=== PATIENT | male | born 1960 | race Two or more races ===

== ENCOUNTER 2020-11-14 09:01 | Day surgery (SDC) | payer MEDICARE, MEDICAID, SELFPAY ==
[2020-11-06 10:09] VITALS: BMI 16.7
--- NOTE | 2020-11-13 09:26 | HO.ANESPROP2 ---
HPI - Anesthesia Eval Consult details Narrative: 60yo M for Colonoscopy PMFSH Past Medical History Medical History Anemia Anxiety Depression GERD (gastroesophageal reflux disease) Hiatal hernia History of dysphagia History of heroin abuse Hx of gastritis Smoker Family History Family History Father No problems noted. Mother CVD (cardiovascular disease) Myocardial infarction Family/Other FH: mental illness Surgical History Surgical History History of esophagogastroduodenoscopy (EGD) History of prostate surgery Hx of colonoscopy Social History Social History Smoking Status: Current every day smoker Packs Per Day: 0.5 Cigarettes Per Day: 10.0 Years Smoked: 30 Smoked in Last 30 Days: Yes Use of substances other than those prescribed or required for medical reasons: Unknown Substance Use Type Other:: HX Heroin Abuse- on Suboxone Advance Directives: No Advance Directives Information Provided: No Advance Directives on File: No Meds Allergies Allergy/AdvReac Type Severity Reaction Status Date / Time No Known Allergies Allergy Verified 11/06/20 10:03 [No Known Allergies*] Home Medications Medication Instructions Recorded Confirmed Type buprenorphine-naloxone [Suboxone] 1 film BUCCAL DAILY 11/06/20 11/14/20 History isoniazid 300 mg PO DAILY 11/06/20 11/06/20 History multivitamin 1 tab PO DAILY 11/06/20 11/06/20 History omeprazole 20 mg PO DAILY 11/06/20 11/06/20 History quetiapine [Seroquel] 100 mg PO BEDTIME 11/06/20 11/06/20 History Exam Exam Date and Time: November 13, 2020 0926 Height,Weight and Vital Signs: Height 5 ft 9 in Weight 51.4 kg Assessment and Plan Assessment Anesthesia Assessment: Chart Reviewed
--- NOTE | 2020-11-14 09:15 | MHC.SHP ---
Pre-Procedural Eval Section B Chief Complaint: TA'S OF THE COLON Relevant Social History: Tobacco Use Present Medications: see Short Stay Collaborative assessment Medical History: Significant History (Anemia Anxiety Depression GERD (gastroesophageal reflux disease) Hiatal hernia History of dysphagia History of heroin abuse Hx of gastritis Smoker) History of Previous Operations: Relevant previous surgery/procedure and date(s) (prostate surgery) Allergies: Allergies Allergy/AdvReac Type Severity Reaction Status Date / Time No Known Allergies Allergy Verified 11/06/20 10:03 [No Known Allergies*] Review of Systems Sugical H&P ROS: Negative: Constitution, Cardiovascular, Respiratory, Neurological, Psychiatric, Hem-Onc, Allergic/Immunologic, Gastrointestinal, Genitourinary, Musculoskeletal, Integumentary, Endocrine and Eyes/Ears/Nose/Throat Exam Surgical H&P Exam: Normal: HEENT, Normal: Heart, Normal: Lungs, Normal: Extremities, Normal: Abdomen, Normal: Skin and Normal: Neurological Plan Diagnosis/Plan: Unchanged I have reviewed the history and physical and performed a pertinent physical examination on my patient. No changes have occurred unless specified.
[2020-11-14 09:32] VITALS: BP 112/48; PULSE 73; RESP 18; TEMP 36.3; O2SAT 97
--- NOTE | 2020-11-14 09:39 | HO.ANESPROP2 ---
[facility] Past Medical History Medical History Anemia Anxiety Depression GERD (gastroesophageal reflux disease) Hiatal hernia History of dysphagia History of heroin abuse Hx of gastritis Smoker Family History Family History Father No problems noted. Mother CVD (cardiovascular disease) Myocardial infarction Family/Other FH: mental illness Surgical History Surgical History History of esophagogastroduodenoscopy (EGD) History of prostate surgery Hx of colonoscopy Social History Social History Smoking Status: Current every day smoker Packs Per Day: 0.5 Cigarettes Per Day: 10.0 Years Smoked: 30 Smoked in Last 30 Days: Yes Use of substances other than those prescribed or required for medical reasons: Unknown Substance Use Type Other:: HX Heroin Abuse- on Suboxone Advance Directives: No Advance Directives Information Provided: No Advance Directives on File: No Meds Allergies Allergy/AdvReac Type Severity Reaction Status Date / Time No Known Allergies Allergy Verified 11/06/20 10:03 [No Known Allergies*] Home Medications Medication Instructions Recorded Confirmed Type buprenorphine-naloxone [Suboxone] 1 film BUCCAL DAILY 11/06/20 11/06/20 History isoniazid 300 mg PO DAILY 11/06/20 11/06/20 History multivitamin 1 tab PO DAILY 11/06/20 11/06/20 History omeprazole 20 mg PO DAILY 11/06/20 11/06/20 History quetiapine [Seroquel] 100 mg PO BEDTIME 11/06/20 11/06/20 History Exam Exam Date and Time: November 14, 2020 0939 Height,Weight and Vital Signs: Height 5 ft 9 in Weight 51.4 kg Airway Mallampati Class: II TM Dist: >3cm Neck ROM: Full Heart: RRR Lungs: CTA
[2020-11-14] MEDS: Lactated Ringers 1,000 ML 100 ML IVCONT (09:49)
--- NOTE | 2020-11-14 10:03 | P.BOP_ITS ---
Brief Operative Note Date of Service: 11/14/20 Pre-op diagnosis: colon screening Post-op diagnosis: same Procedure: Operative Information Procedure Description: Colonoscopy COLONOSCOPY Instrument: Olympus variable stiffness pediatric scope 190L Colonoscopy Monitoring: Vital signs and clinical assessment, continuous EKG monitoring, Pulse oximetry, Carbon Dioxide monitoring and blood pressure monitoring were done throughout the procedure. Colon withdrawal time was 10 minutes. Procedure: The patient was placed in the left lateral decubitis position and pre-procedure medications were administered. After a digital rectal examination of the ano-rectum, the video colonoscope was inserted into the rectum and advanced through the colon to the cecum/TI. The colonoscope was slowly withdrawn in a retrograde panoramic fashion and the colon mucosa was carefully examined including a retroflexed view of the rectum. Findings and interventions are described below. Procedure Difficulty:easy Findings: Terminal Ileum-normal Cecum:normal Ascending Colon: normal Transverse Colon -normal Descending Colon:normal Sigmoid Colon: normal Rectum: Retroflexion with small internal hemorrhoids, grade I, few hyperplastic appearing polyps, biopsy excised for confirmation ,measured about 6-8 mm Anorectum - normal Colon preparation: [place] Bowel Preparation Scale Right colon; 3 Transverse colon: 3 Left colon; 3 (0 = Unprepared colon segment with mucosa not seen due to solid stool that cannot be cleared. 1 = Portion of mucosa of the colon segment seen, but other areas of the colon segment not well seen due to staining, residual stool and/or opaque liquid. 2 = Minor amount of residual staining, small fragments of stool and/or opaque liquid, but mucosa of colon segment seen well. 3 = Entire mucosa of colon segment seen well with no residual staining, small fragments of stool or opaque liquid) Impression and Post Procedure Diagnosis: polyps internal hemorrhoids Plan: High fiber diet leaflet Avoid straining at stool, epsom salts and sitz bath, anusol supps or cream Repeat Colonoscopy in 5 years if adenomatous polyps, 10 yrs if hyperplastic or earlier if clinically indicated Above findings were reviewed with the patient and relevant handouts were provided if indicated. Surgeon: Kieran Aviles MD Anesthesia: MAC Estimated blood loss (mL): 0 Condition: stable Disposition: PACU
[2020-11-14 10:26] VITALS: BP 85/42; PULSE 74; RESP 16; TEMP 36.3; O2SAT 98
[2020-11-14 10:29] VITALS: BP 95/47; PULSE 74; RESP 12; O2SAT 98
--- NOTE | 2020-11-14 10:38 | HO.POSTANES ---
Post Anesthesia Evaluation Post Anesthesia Evaluation Vital Signs: Vital Signs Temp Pulse Resp BP Pulse Ox 11/14/20 10:29 74 12 95/47 L 98 11/14/20 10:26 97.3 F 74 16 85/42 L 98 11/14/20 09:32 97.3 F 73 18 112/48 L 97 Anesthesia: Monitored Mental Status: Awake Pain Control: Satisfactory Nausea/Vomiting: None Hydration: Adequate Anesthesia-Related Issues: No Anes. Related Issues
[2020-11-14 10:41] VITALS: BP 109/65; PULSE 71; RESP 13; TEMP 36.3; O2SAT 99
--- NOTE | 2020-11-14 11:06 | HO.POSTANES ---
Post Anesthesia Evaluation Post Anesthesia Evaluation Vital Signs: Vital Signs Temp Pulse Resp BP Pulse Ox 11/14/20 10:41 97.3 F 71 13 109/65 99 11/14/20 10:29 74 12 95/47 L 98 11/14/20 10:26 97.3 F 74 16 85/42 L 98 11/14/20 09:32 97.3 F 73 18 112/48 L 97 Anesthesia: Monitored Mental Status: Awake Pain Control: Satisfactory Nausea/Vomiting: None Hydration: Adequate Anesthesia-Related Issues: No Anes. Related Issues
--- NOTE | 2020-11-29 11:15 | W.PM.OPN ---
Operative Note Operative Note Date of Service: 11/29/20 Narrative: Date of Service: 11/14/20 Pre-op diagnosis: colon screening Post-op diagnosis: same Procedure: Operative Information Procedure Description: Colonoscopy COLONOSCOPY Instrument: Olympus variable stiffness pediatric scope 190L Colonoscopy Monitoring: Vital signs and clinical assessment, continuous EKG monitoring, Pulse oximetry, Carbon Dioxide monitoring and blood pressure monitoring were done throughout the procedure. Colon withdrawal time was 10 minutes. Procedure: The patient was placed in the left lateral decubitis position and pre-procedure medications were administered. After a digital rectal examination of the ano-rectum, the video colonoscope was inserted into the rectum and advanced through the colon to the cecum/TI. The colonoscope was slowly withdrawn in a retrograde panoramic fashion and the colon mucosa was carefully examined including a retroflexed view of the rectum. Findings and interventions are described below. Procedure Difficulty:easy Findings: Terminal Ileum-normal Cecum:normal Ascending Colon: normal Transverse Colon -normal Descending Colon:normal Sigmoid Colon: normal Rectum: Retroflexion with small internal hemorrhoids, grade I, few hyperplastic appearing polyps, biopsy excised for confirmation ,measured about 6-8 mm Anorectum - normal Colon preparation: [place] Bowel Preparation Scale Right colon; 3 Transverse colon: 3 Left colon; 3 (0 = Unprepared colon segment with mucosa not seen due to solid stool that cannot be cleared. 1 = Portion of mucosa of the colon segment seen, but other areas of the colon segment not well seen due to staining, residual stool and/or opaque liquid. 2 = Minor amount of residual staining, small fragments of stool and/or opaque liquid, but mucosa of colon segment seen well. 3 = Entire mucosa of colon segment seen well with no residual staining, small fragments of stool or opaque liquid) Impression and Post Procedure Diagnosis: polyps internal hemorrhoids Plan: High fiber diet leaflet Avoid straining at stool, epsom salts and sitz bath, anusol supps or cream Repeat Colonoscopy in 5 years if adenomatous polyps, 10 yrs if hyperplastic or earlier if clinically indicated
== END 2020-11-14 12:10 | disposition home or self-care (01) ==
PROVIDERS: Visit Provider Internal Medicine Gastroenterology
PROC: 0DJD8ZZ Inspection of Lower Intestinal Tract, Via Natural or Artificial Opening Endoscopic (ICD-10-PCS; CPT 45378; principal; 2020-11-14 10:20)
DX: Z12.11 Encounter for screening for malignant neoplasm of colon (principal); Z86.010 Personal history of colon polyps; K62.1 Rectal polyp; K57.30 Diverticulosis of large intestine without perforation or abscess without bleeding; K64.0 First degree hemorrhoids; F32.9 Major depressive disorder, single episode, unspecified; F11.20 Opioid dependence, uncomplicated; F17.210 Nicotine dependence, cigarettes, uncomplicated; Z79.899 Other long term (current) drug therapy
CPT/HCPCS: 45380; 88305

== ENCOUNTER → 2020-11-22 13:03 | Outpatient (BNVA) | payer MEDICARE, MEDICAID, SELFPAY | PROVIDERS: PCP Internal Medicine; Visit Provider Physician Assistant | DX: Z13.89 Encounter for screening for other disorder (principal) | CPT/HCPCS: Q3014 ==

== ENCOUNTER 2021-07-26 07:37 | Outpatient (REF) | payer MEDICARE, MEDICAID, SELFPAY ==
--- NOTE | ~2021-07-26 | XR_ITS ---
EXAMINATION: XR FOOT, LEFT CLINICAL INFORMATION: Pain in left foot COMPARISON: None TECHNIQUE: AP, lateral, and oblique views of the left foot. FINDINGS: Small plantar calcaneal osteophyte. There is enthesopathy of the distal Achilles tendon attachment. No fracture or dislocation. Otherwise normal mineralization and alignment. XR/XR foot LT 2V IMPRESSION: No acute osseous abnormality of the left foot.
[2021-07-26 08:04] LABS: MANUAL DIFF FLAG NO
[2021-07-26 08:06] LABS: Basophils Percent Auto 0.4 % (0-2); Eosinophils Absolute Auto 0.2 X10*3/uL (0.0-0.4); Eosinophils Percent Auto 2.1 % (0-4); Hematocrit 39.5 % (42-52); Hemoglobin 12.3 g/dl (14.0-18.0); Imm Gran Abs Auto 0.04 X10*3/uL (0.00-0.03); Imm Gran Pct Auto 0.4 % (0.0-0.4); Lymphocytes Absolute Auto 2.9 X10*3/uL (1.2-4.9); Lymphocytes Percent Auto 30.2 % (20-40); Mean Corpuscular HGB Conc 31.1 g/dl (31.0-36.0); Mean Corpuscular Hemoglobin 31.5 pg (27.0-33.0); Mean Corpuscular Volume 101.3 fL (80-98); Mean Platelet Volume 9.8 fL (9.4-12.4); Monocytes Absolute Auto 0.7 X10*3/uL (0.1-1.2); Monocytes Percent Auto 7.8 % (2-11); Neutrophils Absolute Auto 5.6 X10*3/uL (2.0-8.3); Neutrophils Percent Auto 59.1 % (45-73); Platelet Count 239 X10*3/uL (160-400); Red Cell Distribution Width 12.5 % (11.0-16.0); White Blood Count 9.5 X10*3/uL (4.8-10.8)
[2021-07-26 08:38] LABS: Alanine Aminotransferase 13 U/L (0-40); Albumin Level 4.3 g/dL (3.5-5.0); Alkaline Phosphatase 64 U/L (39-117); Anion Gap 11 (12-20); Aspartate Amino Transferase 18 U/L (5-37); Bilirubin Total 0.9 mg/dL (0.0-1.0); Blood Urea Nitrogen 17 mg/dL (9-16); Calcium 9.8 mg/dL (8.4-10.2); Carbon Dioxide 29 mmol/L (22-29); Chloride 106 mmol/L (96-108); Cholesterol 193 mg/dL; Estimated Glomerular Filt Rate > 60; Glucose Fasting 116 mg/dL (60-99); HDL Cholesterol 63 mg/dL; LDL Cholesterol Calculated 118 mg/dl; Potassium 4.2 mmol/L (3.3-5.1); Sodium 142 mmol/L (135-145); Total Protein 7.2 g/dL (6.5-8.0); Triglycerides 61 mg/dL
== END 2021-07-26 07:38 | disposition home or self-care (01) ==
LOC: HO.LAB 07:37
PROVIDERS: PCP Internal Medicine; Visit Provider Internal Medicine
DX: M79.672 Pain in left foot (principal); D64.9 Anemia, unspecified; F33.0 Major depressive disorder, recurrent, mild; E78.5 Hyperlipidemia, unspecified
CPT/HCPCS: 36415; 73620; 80053; 80061; 85025

== ENCOUNTER 2022-04-19 10:04 | Emergency (ER) | payer MEDICARE, MEDICAID, SELFPAY ==
--- NOTE | ~2022-04-19 | MR_ITS ---
EXAMINATION: MR LUMBAR SPINE WITHOUT AND WITH CONTRAST CLINICAL INFORMATION: Pain. Lower leg pain and weakness. History of IVDA. COMPARISON: None TECHNIQUE: MRI of the lumbar spine was obtained using routine sequences with and without contrast. Intravenous contrast: Gadavist 5.5 mL. FINDINGS: VERTEBRAL BODIES AND PARASPINAL STRUCTURES: 5 lumbar type vertebral bodies are identified vertebral body height and alignment are normal in appearance. No suspicious marrow abnormalities are identified. No abnormal vertebral body enhancement or enhancement of the intervertebral discs is visualized. No abnormal enhancement is associated with the lumbar facet joints. CONUS MEDULLARIS AND CAUDA EQUINA: Normal, terminating at the level of T12. SPINAL LEVELS: T12-L1: Normal. Normal intervertebral disc. No central or foraminal stenoses. L1-L2: Normal L2-L3: Normal L3-L4: Minimal posterior broad-based disc bulge. No associated nerve root impingement or significant central or foraminal stenoses. Normal intervertebral disc height. Mild bilateral ligamentum flavum hypertrophy. L4-L5: Mild posterior broad-based disc bulge minimally effacing the ventral thecal sac CSF space and minimally abutting the traversing left and right L5 nerve roots. No significant foraminal stenoses. Mild bilateral ligamentum flavum hypertrophy. L5-S1: Minimal posterior broad-based disc bulge without associated nerve root impingement. No foraminal or central stenoses. No abnormal enhancement of the lumbar spine is visualized. MR/MR lumbar spine wo/w con IMPRESSION: *Mild multilevel chronic spondylosis of lumbar spine. At L4-L5, a mild posterior broad-based disc bulge minimally abuts the traversing left and right L5 nerve roots; elsewhere within the lumbar spine, no direct nerve root impingement or significant central or foraminal stenoses are noted. *No evidence of discitis-osteomyelitis.
[2022-04-19 10:10] VITALS: BP 110/90; BP 159/75; PULSE 80; PULSE 82; RESP 18; TEMP 36.8; O2SAT 95; O2SAT 96; BMI 21.2
[2022-04-19] MEDS: 0.9 % Sodium Chloride 1,000 ML 999 ML IV (10:26)
[2022-04-19 10:31] LABS: Basophils Percent Auto 0.3 % (0-2); Eosinophils Percent Auto 0.1 % (0-4); Hematocrit 37.2 % (42.0-52.0); Hemoglobin 11.7 g/dl (14.0-18.0); Imm Gran Abs Auto 0.05 X10*3/uL (0.00-0.03); Imm Gran Pct Auto 0.4 % (0.0-0.4); Lymphocytes Percent Auto 17.2 % (20-40); MANUAL DIFF FLAG NO; Mean Corpuscular HGB Conc 31.5 g/dl (31.0-36.0); Mean Corpuscular Hemoglobin 31.1 pg (27.0-33.0); Mean Corpuscular Volume 98.9 fL (80.0-98.0); Mean Platelet Volume 9.4 fL (9.4-12.4); Monocytes Absolute Auto 0.6 X10*3/uL (0.1-1.2); Monocytes Percent Auto 5.3 % (2-11); Neutrophils Absolute Auto 8.9 x10*3/uL (2.0-8.3); Neutrophils Percent Auto 76.7 % (45-73); Platelet Count 254 X10*3/uL (160-400); Red Blood Count 3.76 X10*6/uL (4.60-5.80); Red Cell Distribution Width 12.3 % (11.0-16.0); White Blood Count 11.6 X10*3/uL (4.8-10.8)
[2022-04-19 10:54] LABS: Ethanol < 10 mg/dL
[2022-04-19 11:01] LABS: Alanine Aminotransferase 28 U/L (0-40); Albumin Level 4.1 g/dL (3.5-5.0); Alkaline Phosphatase 89 U/L (39-117); Anion Gap 15 (12-20); Aspartate Amino Transferase 26 U/L (5-37); Bilirubin Total 0.6 mg/dL (0.0-1.0); Blood Urea Nitrogen 17 mg/dL (9-16); Calcium 9.4 mg/dL (8.4-10.2); Carbon Dioxide 26 mmol/L (22-29); Chloride 105 mmol/L (96-108); Creatinine Clr Calc Pharmacy 70.5; Estimated Glomerular Filt Rate > 60; Glucose Random 163 mg/dL (60-115); Lipase 5 U/L (8-78); Potassium 4.1 mmol/L (3.3-5.1); Sodium 142 mmol/L (135-145); Total Protein 7.1 g/dL (6.5-8.0)
--- NOTE | 2022-04-19 11:25 | ED_ITS ---
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 Patient does also report that he has been dizzy and felt like he cannot support himself on his legs. Related Data Home Medications Medication Instructions Recorded Confirmed methadone 10 mg/5 mL oral solution 39 mg PO DAILY ml 01/15/22 01/15/22 quetiapine 25 mg tablet 25 mg PO BEDTIME 04/19/22 04/19/22 Allergies Allergy/AdvReac Type Severity Reaction Status Date / Time No Known Allergies Allergy Verified 01/15/22 14:17 [No Known Allergies*] Review of Systems Review of Systems Pertinent positives and negatives as stated HPI 10 point review systems is otherwise negative. PMFSH Past Medical History Source: nursing notes reviewed Medical History Anemia Anxiety Depression Depression GERD (gastroesophageal reflux disease) Hemorrhoids Hiatal hernia History of dysphagia History of heroin abuse Hx of gastritis Left foot pain Mild recurrent major depression Physical exam Smoker Surgical History History of esophagogastroduodenoscopy (EGD) History of prostate surgery Hx of colonoscopy Family History Family History Father No problems noted. Mother CVD (cardiovascular disease) Myocardial infarction Family/Other FH: mental illness Other Substance use disorder Social History Social History Household Members Other:: lives with sister Housing: House Alcohol intake: former Patient Tobacco Use Status: Current everyday Tobacco user Cigarette Packs Per Day: 0.5 Cigarettes Per Day: 10.0 Years Smoked: 30 Smoked in Last 30 Days: Yes e-Cigarette/Vaping Use: Never Used Second Hand Smoke Exposure: No Use of substances other than those prescribed or required for medical reasons: No Advance Directives: No Advance Directives Information Provided: Yes service: No Current occupational status: disabled Physical Exam ED Vital Signs: Vital Signs - 24 hr 04/19/22 10:10 04/19/22 11:45 Temperature 98.2 F Pulse Rate 82 78 Respiratory Rate 18 18 Blood Pressure 159/75 H 124/49 L Pulse Oximetry 96 99 BMI result Body Mass Index 21.2 VITAL SIGNS: Reviewed. GENERAL: Well developed, well nourished, in moderate distress. HEAD: Normocephalic/atraumatic EYES: PERRLA, EOMI EARS: Ext canals without abnormality, TMs non-bulging and non-erythematous NOSE: Nares patent bilateral OROPHARYNX: no oral lesions noted, posterior pharynx clear LUNGS: Normal breath sounds. No adventitious sounds or accessory muscle use. SpO2<96> CARDIOVASCULAR: Regular rate and rhythm without noted murmurs, no JVD or lower extremity edema. ABDOMEN: Soft, epigastric without rebound non-distended with bowel sounds, no peritonitis MUSCULOSKELETAL: No tenderness, deformities, or effusions noted on gross inspection. EXTREMITIES: No cyanosis, clubbing or edema. SKIN: Inspection of the skin reveals no rashes NEUROLOGIC: Alert and oriented x 4. Strength and sensation to light touch were grossly intact x 4, otherwise nonfocal Course Course Course Narrative: 62-year-old male with history and clinical presentation suggestive of possible withdraw from heroin versus gastritis/pancreatitis. Review of all investigations in the contacts of patient history concerning for the possibility of spinal abscess or diskitis given his history of IVDA. However, MRI of spine is negative for evidence of this. Patient is otherwise hemodynamically stable for discharge to home as he has been able to tolerate oral intake without difficulty and on ambulation trial is otherwise steady. There is no evidence of electrolyte abnormality. MDM - Abdominal Pain Lab Data Result diagrams: 04/19/22 10:25 04/19/22 10:25 Labs: Lab Results 04/19/22 04/19/22 04/19/22 Range/Units 10:25 10:25 10:25 WBC 11.6 H (4.8-10.8) X10*3/uL RBC 3.76 L (4.60-5.80) X10*6/uL Hgb 11.7 L (14.0-18.0) g/dl Hct 37.2 L (42.0-52.0) % MCV 98.9 H (80.0-98.0) fL MCH 31.1 (27.0-33.0) pg MCHC 31.5 (31.0-36.0) g/dl RDW 12.3 (11.0-16.0) % Plt Count 254 (160-400) X10*3/uL MPV 9.4 (9.4-12.4) fL Immature Gran % (Auto) 0.4 (0.0-0.4) % Neut % (Auto) 76.7 H (45-73) % Lymph % (Auto) 17.2 L (20-40) % [place] % (Auto) 5.3 (2-11) % Eos % (Auto) 0.1 (0-4) % Baso % (Auto) 0.3 (0-2) % Lymph # (Auto) 2.0 (1.2-4.9) X10*3/uL [place] # (Auto) 0.6 (0.1-1.2) X10*3/uL Eos # (Auto) 0.0 (0.0-0.4) X10*3/uL Baso # (Auto) 0.0 (0.0-0.2) X10*3/uL Abs Immat Gran (auto) 0.05 H (0.00-0.03) X10*3/uL Absolute Neuts (auto) 8.9 H (2.0-8.3) x10*3/uL Absolute Nucleated RBC 0.000 (0.0-0.012) X10*3/uL Nucleated RBC % (auto) 0.0 (0.0-0.2) /100WBC ESR (0-15) MM/HR Sodium 142 (135-145) mmol/L Potassium 4.1 (3.3-5.1) mmol/L Chloride 105 (96-108) mmol/L Carbon Dioxide 26 (22-29) mmol/L Anion Gap 15 (12-20) BUN 17 H (9-16) mg/dL Creatinine 0.89 (0.5-1.4) mg/dL Estim Creat Clear Calc 70.5 Estimated GFR > 60 Random Glucose 163 H (60-115) mg/dL Calcium 9.4 (8.4-10.2) mg/dL Total Bilirubin 0.6 (0.0-1.0) mg/dL AST 26 D (5-37) U/L ALT 28 (0-40) U/L Alkaline Phosphatase 89 D (39-117) U/L C-Reactive Protein 1.19 H (< or = 0.50) mg/dL Total Protein 7.1 (6.5-8.0) g/dL Albumin 4.1 (3.5-5.0) g/dL Lipase 5 L (8-78) U/L Urine Opiates Screen (Not Detect) Urine Fentanyl Screen (Not Detect) Ur Barbiturates Screen (Not Detect) Ur Phencyclidine Scrn (Not Detect) Ur Amphetamines Screen (Not Detect) U Benzodiazepines Scrn (Not Detect) Urine Cocaine Screen (Not Detect) U Marijuana (THC) Screen (Not Detect) Ethyl Alcohol < 10 mg/dL COVID-19 ([facility]) (Negative) COVID-19 Clin Com 04/19/22 04/19/22 04/19/22 Range/Units 10:25 13:32 13:33 WBC (4.8-10.8) X10*3/uL RBC (4.60-5.80) X10*6/uL Hgb (14.0-18.0) g/dl Hct (42.0-52.0) % MCV (80.0-98.0) fL MCH (27.0-33.0) pg MCHC (31.0-36.0) g/dl RDW (11.0-16.0) % Plt Count (160-400) X10*3/uL MPV (9.4-12.4) fL Immature Gran % (Auto) (0.0-0.4) % Neut % (Auto) (45-73) % Lymph % (Auto) (20-40) % Good[place] % (Auto) (2-11) % Eos % (Auto) (0-4) % Baso % (Auto) (0-2) % Lymph # (Auto) (1.2-4.9) X10*3/uL [place] # (Auto) (0.1-1.2) X10*3/uL Eos # (Auto) (0.0-0.4) X10*3/uL Baso # (Auto) (0.0-0.2) X10*3/uL Abs Immat Gran (auto) (0.00-0.03) X10*3/uL Absolute Neuts (auto) (2.0-8.3) x10*3/uL Absolute Nucleated RBC (0.0-0.012) X10*3/uL Nucleated RBC % (auto) (0.0-0.2) /100WBC ESR 44 H (0-15) MM/HR Sodium (135-145) mmol/L Potassium (3.3-5.1) mmol/L Chloride (96-108) mmol/L Carbon Dioxide (22-29) mmol/L Anion Gap (12-20) BUN (9-16) mg/dL Creatinine (0.5-1.4) mg/dL Estim Creat Clear Calc Estimated GFR Random Glucose (60-115) mg/dL Calcium (8.4-10.2) mg/dL Total Bilirubin (0.0-1.0) mg/dL AST (5-37) U/L ALT (0-40) U/L Alkaline Phosphatase (39-117) U/L C-Reactive Protein (< or = 0.50) mg/dL Total Protein (6.5-8.0) g/dL Albumin (3.5-5.0) g/dL Lipase (8-78) U/L Urine Opiates Screen POSITIVE H (Not Detect) Urine Fentanyl Screen POSITIVE H (Not Detect) Ur Barbiturates Screen Not Detected (Not Detect) Ur Phencyclidine Scrn Not Detected (Not Detect) Ur Amphetamines Screen Not Detected (Not Detect) U Benzodiazepines Scrn Not Detected (Not Detect) Urine Cocaine Screen Not Detected (Not Detect) U Marijuana (THC) Screen Not Detected (Not Detect) Ethyl Alcohol mg/dL COVID-19 ([facility]) Negative (Negative) COVID-19 Clin Com See Note Discharge Plan Discharge Clinical Impression: Musculoskeletal leg pain, Intravenous drug user Patient Disposition: Home, Self-Care Instructions: Polysubstance Abuse (ED), Musculoskeletal Pain (ED) Additional Instructions: 1. Reanudar todos los medicamentos caseros seg?n lo prescrito. 2. No hay evidencia de gwen?n absceso saucdea o infecci?n que explique mejor melany s?ntomas actuales. 3. Seguimiento con busby proveedor de atenci?n primaria. Regrese a la zhane de emergencias si los s?ntomas empeoran. Prescriptions: No Action quetiapine 25 mg tablet 25 mg PO BEDTIME 0RF methadone 10 mg/5 mL solution 39 mg PO DAILY 0RF Referrals: Emmanuel Sandra MD [Primary Care Provider] - Print Language: English
[2022-04-19] MEDS: ondansetron HCL 4 MG/2 ML VIAL IVPUSH (11:43)
[2022-04-19 11:45] VITALS: BP 124/49; PULSE 78; RESP 18; O2SAT 99
[2022-04-19 13:56] LABS: C Reactive Protein 1.19 mg/dL (< or = 0.50)
[2022-04-19 13:56] LABS: COVID-19 Test Negative (Negative); IDNOW Serial# 08D9AD1C
[2022-04-19 14:02] LABS: Amphetamine Screen Urine Not Detected (Not Detect); Barbiturates, Urine Not Detected (Not Detect); Benzodiazepines Screen Urine Not Detected (Not Detect); Cannabinoid Screen Urine Not Detected (Not Detect); Cocaine Screen Urine Not Detected (Not Detect); Fentanyl, urine POSITIVE (Not Detect); Opiate Screen Urine POSITIVE (Not Detect); Phencyclidine Screen Urine Not Detected (Not Detect)
[2022-04-19 14:15] LABS: Erythrocyte Sedimentation Rate 44 MM/HR (0-15)
--- NOTE | 2022-04-19 16:15 | PC.NURSE ---
pt a&ox3, requesting methadone, MRI paperwork completed w pt via product control and logistics analyst. pt to MRI.
--- NOTE | 2022-04-19 19:13 | PC.NURSE ---
Called patient's nephew ([phone]) to get patient. No response, left a voicemail.
== END 2022-04-19 19:57 | disposition home or self-care (01) ==
PROVIDERS: Emergency Provider Student in an Organized Health Care Education/Training Program; PCP Student in an Organized Health Care Education/Training Program
DX: R10.9 Unspecified abdominal pain (principal); F11.10 Opioid abuse, uncomplicated; M79.605 Pain in left leg; M79.604 Pain in right leg; M54.50 Low back pain, unspecified; R11.2 Nausea with vomiting, unspecified; F17.210 Nicotine dependence, cigarettes, uncomplicated; Z20.822 Contact with and (suspected) exposure to COVID-19; Z79.899 Other long term (current) drug therapy; Z71.6 Tobacco abuse counseling
CPT/HCPCS: 36415; 72158; 80053; 80307; 82077; 83690; 85025; 85652; 86140; 87635; 96374; 96375; 99284; A9585; J2405

== ENCOUNTER → 2022-06-12 14:33 | Outpatient (BNVA) | payer MEDICARE, MEDICAID, SELFPAY | PROVIDERS: PCP Internal Medicine; Visit Provider Surgery Vascular Surgery | DX: I73.9 Peripheral vascular disease, unspecified (principal) | CPT/HCPCS: 99212 ==

== ENCOUNTER 2022-07-02 13:36 | Outpatient (REF) | payer MEDICARE, MEDICAID, SELFPAY ==
--- NOTE | ~2022-07-02 | US_ITS ---
EXAMINATION: ANKLE-BRACHIAL INDICES SINGLE LEVEL PULSE VOLUME RECORDING ARTERIAL DUPLEX BILATERAL LEGS CLINICAL INFORMATION: Peripheral vascular disease COMPARISON: None TECHNIQUE: Ankle-brachial indices and PVR at the ankle were obtained. Duplex Doppler of the bilateral lower extremity arterial systems was performed. FINDINGS: RIGHT: Ankle-brachial index: 0.41 PVR: Abnormal Common femoral: PSV 55 cm/s. Monophasic waveform. Deep femoral: PSV 74 cm/s. Triphasic waveform. Proximal superficial femoral: PSV 106 cm/s. Monophasic waveform. Mid superficial femoral: PSV 60 cm/s. Monophasic waveform. Distal superficial femoral: PSV 55 cm/s. Monophasic waveform. Popliteal: PSV 48 cm/s. Monophasic waveform. Posterior tibial: PSV 35 cm/s. Monophasic waveform. LEFT: Ankle-brachial index: 0.50 PVR: Abnormal Common femoral: PSV 62 cm/s. Monophasic waveform. Deep femoral: PSV 57 cm/s. Triphasic waveform. Proximal superficial femoral: PSV 64 cm/s. Monophasic waveform. Mid superficial femoral: PSV 70 cm/s. Monophasic waveform. Distal superficial femoral: PSV 49 cm/s. Monophasic waveform. Popliteal: PSV 34 cm/s. Monophasic waveform. Posterior tibial: PSV 27 cm/s. Monophasic waveform. US/US CRISTIAN complete IMPRESSION: Right lower extremity: CRISTIAN consistent with severe peripheral vascular disease. Monophasic common femoral artery suggestive of upstream disease. Left lower extremity: CRISTIAN consistent with moderate peripheral vascular disease. Monophasic common femoral artery suggestive of upstream disease.
--- NOTE | ~2022-07-02 | US_ITS ---
EXAMINATION: ANKLE-BRACHIAL INDICES SINGLE LEVEL PULSE VOLUME RECORDING ARTERIAL DUPLEX BILATERAL LEGS CLINICAL INFORMATION: Peripheral vascular disease COMPARISON: None TECHNIQUE: Ankle-brachial indices and PVR at the ankle were obtained. Duplex Doppler of the bilateral lower extremity arterial systems was performed. FINDINGS: RIGHT: Ankle-brachial index: 0.41 PVR: Abnormal Common femoral: PSV 55 cm/s. Monophasic waveform. Deep femoral: PSV 74 cm/s. Triphasic waveform. Proximal superficial femoral: PSV 106 cm/s. Monophasic waveform. Mid superficial femoral: PSV 60 cm/s. Monophasic waveform. Distal superficial femoral: PSV 55 cm/s. Monophasic waveform. Popliteal: PSV 48 cm/s. Monophasic waveform. Posterior tibial: PSV 35 cm/s. Monophasic waveform. LEFT: Ankle-brachial index: 0.50 PVR: Abnormal Common femoral: PSV 62 cm/s. Monophasic waveform. Deep femoral: PSV 57 cm/s. Triphasic waveform. Proximal superficial femoral: PSV 64 cm/s. Monophasic waveform. Mid superficial femoral: PSV 70 cm/s. Monophasic waveform. Distal superficial femoral: PSV 49 cm/s. Monophasic waveform. Popliteal: PSV 34 cm/s. Monophasic waveform. Posterior tibial: PSV 27 cm/s. Monophasic waveform. US/US arterial duplex LE BI IMPRESSION: Right lower extremity: CRISTIAN consistent with severe peripheral vascular disease. Monophasic common femoral artery suggestive of upstream disease. Left lower extremity: CRISTIAN consistent with moderate peripheral vascular disease. Monophasic common femoral artery suggestive of upstream disease.
== END 2022-07-02 13:37 | disposition home or self-care (01) ==
LOC: HO.US 13:36
PROVIDERS: Visit Provider Internal Medicine
DX: I73.9 Peripheral vascular disease, unspecified (principal)
CPT/HCPCS: 93923; 93925

== ENCOUNTER → 2022-07-17 13:54 | Outpatient (BNVA) | payer OTHER, SELFPAY | PROVIDERS: PCP Internal Medicine; Visit Provider Surgery Vascular Surgery | DX: I73.9 Peripheral vascular disease, unspecified (principal); F17.210 Nicotine dependence, cigarettes, uncomplicated | CPT/HCPCS: 99212 ==

== ENCOUNTER 2022-07-30 07:12 | Day surgery (SDC) | payer OTHER, SELFPAY ==
[2022-07-30] VITALS (8 sets, daily range): BP systolic 105–130; BP diastolic 53–64; PULSE 62–71; RESP 16–18; TEMP 36.9; O2SAT 97–100; BMI 19.3
[2022-07-30 08:15] LABS: MANUAL DIFF FLAG NO
[2022-07-30 08:20] LABS: Basophils Absolute Auto 0.1 X10*3/uL (0.0-0.2); Basophils Percent Auto 0.8 % (0-2); Eosinophils Absolute Auto 0.2 X10*3/uL (0.0-0.4); Hematocrit 38.3 % (42.0-52.0); Hemoglobin 12.2 g/dl (14.0-18.0); Imm Gran Abs Auto 0.03 X10*3/uL (0.00-0.03); Imm Gran Pct Auto 0.3 % (0.0-0.4); Lymphocytes Absolute Auto 3.5 X10*3/uL (1.2-4.9); Lymphocytes Percent Auto 35.6 % (20-40); Mean Corpuscular HGB Conc 31.9 g/dl (31.0-36.0); Mean Corpuscular Hemoglobin 31.4 pg (27.0-33.0); Mean Corpuscular Volume 98.5 fL (80.0-98.0); Mean Platelet Volume 9.4 fL (9.4-12.4); Monocytes Absolute Auto 0.7 X10*3/uL (0.1-1.2); Monocytes Percent Auto 7.5 % (2-11); Neutrophils Absolute Auto 5.3 x10*3/uL (2.0-8.3); Neutrophils Percent Auto 53.8 % (45-73); Platelet Count 284 X10*3/uL (160-400); Red Blood Count 3.89 X10*6/uL (4.60-5.80); Red Cell Distribution Width 12.4 % (11.0-16.0); White Blood Count 9.9 X10*3/uL (4.8-10.8)
[2022-07-30 08:32] LABS: Anion Gap 14 (12-20); Blood Urea Nitrogen 19 mg/dL (9-16); Calcium 9.3 mg/dL (8.4-10.2); Carbon Dioxide 28 mmol/L (22-29); Chloride 105 mmol/L (96-108); Creatinine Clr Calc Pharmacy 53.3; Estimated Glomerular Filt Rate > 60; Glucose Random 98 mg/dL (60-115); Potassium 4.5 mmol/L (3.3-5.1); Sodium 142 mmol/L (135-145)
--- NOTE | 2022-07-30 11:52 | P.OP_ITS ---
Operative Note Operative Note Date of Service: 07/30/22 Narrative: Angiogram report from [facility] Preoperative diagnosis: Atherosclerosis of bilateral lower extremity with activity limiting claudication Postoperative diagnosis: Same Procedure: 1. Ultrasound-guided right common femoral access 2. Aortogram non selective Surgeon:Delio Law M.D., FACS, RPVI [place]:None Anesthesia: Local with moderate conscious sedation. Total intraservice moderate sedation time was 21 minutes. I monitored the patient's level of consciousness and physiologic status continuously throughout the procedure. Specimens:none Drains:none Estimated blood loss: Less than 10 ml Implant: None Indications: 62-year-old gentleman with severe activity limiting claudication left more so than right now presents for endovascular intervention The patient has signed the informed consent after reviewing risks, complications, benefits, and alternatives previously discussed with the patient. The patient was given the opportunity to ask any additional questions or voice any concerns. All questions were answered to the patient's satisfaction. Procedure in detail: Patient was brought to the angiography suite prior to which a time-out was called for patient identification and site verification. Bilateral groins were prepped and draped in the standard surgical fashion. Under ultrasound guidance right common femoral was punctured with micro puncture needle and wire. Subsequently a precision 4 Mosotho sheath was then placed. Aortogram was then undertaken. We were unable to advance catheter wire or sheath further. We undertook multiple orthogonal views. Procedure was terminated. Interpretation of films: 1. Ultrasound demonstrates appropriate femoral puncture. Image of which was saved. 2. Aortogram demonstrates appropriate caliber aorta. 3. Iliac images demonstrate right side diseased common iliac and external iliac reconstitutes at the common femoral there was the origin of the SFA and profundus. Left side total occlusion Conclusion: 1. Diagnostic angiogram only. Patient will require most likely and aortobifemoral bypass. 2. Anticoagulation status: No change This note is constructed using voice recognition software. While every effort has been made to ensure accuracy, quill cleaning machine operator errors may have been included. Thank you for allowing me to participate in the care of your patient. Yours sincerely, Delio Law MD, FACS, R.P.V.I.
== END 2022-07-30 15:55 | disposition home or self-care (01) ==
PROVIDERS: PCP Internal Medicine; Visit Provider Surgery Vascular Surgery
DX: I70.213 Atherosclerosis of native arteries of extremities with intermittent claudication, bilateral legs (principal); M79.672 Pain in left foot; D64.9 Anemia, unspecified; F33.0 Major depressive disorder, recurrent, mild; F41.1 Generalized anxiety disorder; F11.10 Opioid abuse, uncomplicated; F17.210 Nicotine dependence, cigarettes, uncomplicated
CPT/HCPCS: 36246; 36415; 75630; 76937; 80048; 85025; 99152; C1887; J2250; J3010; Q9967

== ENCOUNTER 2022-08-04 13:16 | Outpatient (REF) | payer OTHER, SELFPAY ==
--- NOTE | ~2022-08-04 | CT_ITS ---
EXAMINATION: CT ANGIOGRAM ABDOMEN AND PELVIS WITH RUN-OFF CLINICAL INFORMATION: Peripheral arterial disease. COMPARISON: Ultrasound from 07/02/2022 TECHNIQUE: Multiple axial images were obtained through the abdomen, pelvis, and lower extremities following the administration of 100 mL of Omnipaque 350 intravenous contrast. Sagittal, coronal, and MIP oblique sagittal reformatted images were obtained on the CT workstation, uploaded to PACS, and reviewed. Images were evaluated on independent dedicated 3-D workstation and 3-D images were reconstructed with concurrent radiologist supervision and subsequently interpreted. This CT examination was performed using dose optimization techniques as appropriate, variously including the following: *Automated exposure control *Adjustment of mA and/or kV according to patient size (this includes techniques or standardized protocols for targeted exams where dose is matched to indication/reason for exam; i.e. extremities or head) *Use of iterative reconstruction technique DLP: 649 mGy-cm FINDINGS: VASCULATURE: Aorta: Normal in caliber. Scattered calcified and noncalcified plaque without significant stenosis. Celiac axis, superior mesenteric artery, inferior mesenteric artery and bilateral renal arteries are patent without significant stenosis. Right iliac arteries: Common iliac artery demonstrates eccentric calcified plaque with mild stenosis. The internal iliac artery is patent. There is chronic appearing occlusion of the right external iliac artery. Left iliac arteries: There is occlusion of the entire left common iliac and external iliac artery. Reconstituted flow is seen in the internal iliac artery Right lower extremity: Reconstituted flow is seen in the common femoral artery from collateral vessels. Calcified plaque is seen with mild stenosis. Profunda femoral artery is patent. Superficial femoral artery is patent without significant stenosis. Popliteal artery demonstrates mild scattered calcified plaque without significant stenosis. Below knee runoff demonstrates patent flow in the anterior tibial artery, posterior tibial artery and peroneal artery without significant stenosis. Left lower extremity: Reconstituted flow is seen in the common femoral artery from collateral vessels. Noncalcified and calcified plaque is seen with mild stenosis. Profunda femoral artery is patent. Superficial femoral artery is patent without significant stenosis. Popliteal artery demonstrates mild scattered calcified plaque without significant stenosis. Below knee runoff demonstrates patent flow in the anterior tibial artery, posterior tibial artery and peroneal artery without significant stenosis. NONVASCULAR: Lung bases are clear. Solid abdominal organs are unremarkable. Bowel loops are unremarkable. No free fluid seen in the abdomen and pelvis. Urinary bladder is unremarkable. No pathologic lymphadenopathy or mass lesion seen in the abdomen and pelvis. Osseous structures are intact. CT/CT angio abd aorta runoff IMPRESSION: 1. Chronic-appearing total occlusion of the right external iliac artery. Calcified plaque and mild stenosis seen in the common iliac artery with patent flow into the internal iliac artery. Reconstituted flow seen in the right common femoral artery. No significant stenosis or occlusion in the right femoral, popliteal and below-knee runoff 2. Chronic-appearing total occlusion of the left common iliac and external iliac artery. Reconstituted flow seen in the left common femoral artery. No significant stenosis or occlusion in the left femoral, popliteal and below-knee runoff
[2022-08-04] MEDS: iohexoL 350 MG/ML 100 ML INFUS..BTL IV (14:10)
== END 2022-08-04 13:17 | disposition home or self-care (01) ==
LOC: HO.CT 13:16
PROVIDERS: PCP Internal Medicine; Visit Provider Surgery Vascular Surgery
DX: I74.09 Other arterial embolism and thrombosis of abdominal aorta (principal); I73.9 Peripheral vascular disease, unspecified
CPT/HCPCS: 75635; Q9967

== ENCOUNTER → 2022-08-07 14:25 | Outpatient (BNVA) | payer OTHER, SELFPAY | PROVIDERS: PCP Internal Medicine; Visit Provider Surgery Vascular Surgery | DX: I74.09 Other arterial embolism and thrombosis of abdominal aorta (principal) | CPT/HCPCS: 99212 ==

== ENCOUNTER → 2022-08-27 11:31 | Outpatient (BNVA) | payer OTHER, SELFPAY | PROVIDERS: PCP Internal Medicine; Referring Provider Internal Medicine; Visit Provider Internal Medicine Cardiovascular Disease | DX: Z01.810 Encounter for preprocedural cardiovascular examination (principal); I74.09 Other arterial embolism and thrombosis of abdominal aorta | CPT/HCPCS: 93005; 99202 ==

== ENCOUNTER → 2022-08-28 15:00 | Outpatient (BNVA) | payer OTHER, SELFPAY | PROVIDERS: PCP Internal Medicine; Visit Provider Internal Medicine Pulmonary Disease | DX: R91.8 Other nonspecific abnormal finding of lung field (principal); J44.9 Chronic obstructive pulmonary disease, unspecified | CPT/HCPCS: 99202 ==

== ENCOUNTER → 2022-09-03 10:05 | Outpatient (REF) | payer OTHER, SELFPAY ==
--- NOTE | ~2022-09-03 | NM_ITS ---
Lexiscan Myocardial perfusion study Indication: Preoperative cardiovascular evaluation Technique: The patient was brought in for a Lexiscan perfusion study on 09/03/2022 and was injected 0.4 mg of Lexiscan intravenously. Within a minute of this injection 25 mCi of sestamibi was given intravenously. Images were obtained using the SPECT gamma camera interlaced with the gating device. Images were obtained in supine position. Resting perfusion study was performed on 09/04/2022. Patient was administered 25 mCi of sestamibi intravenously at rest. Images were then obtained in supine position. Images were processed with the software and compared side to side in short axis, horizontal long axis and vertical long axis views. Total DLP 70mGy-cm. Findings: Raw acquisition reviewed. The stress perfusion study showed markedly reduced tracer uptake across most of the myocardium. Most likely all technical. Could be related to some diaphragmatic uptake. The gated study shows low normal LV systolic function with calculated LVEF of 53%. LV cavity is normal in size. The gated study shows normal wall thickening and contraction of segments. Resting study shows diminished tracer uptake along the inferior wall. There is some improvement with CT attenuation correction and could be related to diaphragmatic attenuation artifact. Gating at rest reveals normal wall motion with ejection fraction at 59%. Study is markedly suboptimal due to poor stress image quality. Hence cannot assess for any reversible or fixed defects. NM/NM adelso perf SPECT rest & str Impression: 1. Myocardial perfusion imaging study not interpretable. Consider alternate modalities as clinically indicated. 2. Gated LVEF is 53% during stress and 59% during rest. 3. Transient ischemic dilatation not present. EKG component of the test reported separately.
== END ==
LOC: HO.CARD 10:05
PROVIDERS: PCP Internal Medicine; Visit Provider Internal Medicine Cardiovascular Disease
DX: Z01.818 Encounter for other preprocedural examination (principal)
CPT/HCPCS: 78452; A9500; J0280; J2785

== ENCOUNTER → 2022-09-04 14:33 | Outpatient (REF) | payer OTHER, SELFPAY ==
--- NOTE | 2022-09-03 10:09 | CA_ITS ---
Acquisition Time: 2022-09-03 10:51:22 Total Exercise Time: 00:02:00 Test Indications: Pre-Op Evaluation PVD Medications: METHADONE Protocol: LEXISCAN Max HR: 122 BPM 77% of Pred: 158 BPM Max BP: 112/068 mmHG Max Work Load: 1.0 METS Pharmacological stress test with Lexiscan injection, while sitting and kicking his legs, with severe abdominal discomfort ( cramping), without anginal symptoms, without arrythmia, with normotensive response to injection, with nondiagnostic EKG for ischemia. In recovery he was treated with Aminophylline 75mg IVP to reverse Lexiscan with resolution of abdominal discomfort. Nuclear images pending. Test reviewed with Dr Perez. Referred By: Wolf Perez Overread By: PAULINA NAVARRO
--- NOTE | 2022-09-04 14:37 | CA_ITS ---
Transthoracic Echocardiogram Patient (Last, First, Middle): Babatunde Guajardo, Gender: Male Date of : 1960 Age: 62 Procedure Date: 09/04/2022 Procedure Type: Transthoracic Echocardiogram Location: OP Height: 172.72 cm Weight: 54.43 kg BSA: 1.65 m2 Heart Rate: 75 bpm BP: 118 / 64 mmHg Manager Fund: SB Referring MD: Wolf Perez MD Symptoms: Z01.810 - Encounter for preprocedural cardiovascular examination Study Quality: Adequate ECG Rhythm: Sinus Conclusions: - Normal left ventricular cavity size. There is normal left ventricular wall thickness. The left ventricular systolic function is borderline reduced. The visually estimated ejection fraction is between 45-50%. - E/E prime ratio is between 8 and 15 consistent with indeterminate filling pressures. - Normal right ventricular cavity size and systolic function. Findings Left Ventricle Normal left ventricular cavity size. There is normal left ventricular wall thickness. The left ventricular systolic function is borderline reduced. The visually estimated ejection fraction is between 45-50%. Abnormal diastolic function is noted. Spectral Doppler is indicative of an impaired relaxation filling pattern. E/E prime ratio is between 8 and 15 consistent with indeterminate filling pressures. Right Ventricle Normal right ventricular cavity size and systolic function. Atria The left atrium is normal in size. The right atrium is normal in size. Aortic Valve There is a normal trileaflet aortic valve. There is mild calcification of the aortic valve. There is no aortic valve stenosis. There is no aortic valve regurgitation. Mitral Valve The mitral valve appears normal. There is no mitral valve regurgitation. There is no mitral valve stenosis. Pulmonic Valve Normal pulmonic valve structure and function. There is trace pulmonic valve regurgitation. Tricuspid Valve Normal tricuspid valve structure and function. There is trace tricuspid valve regurgitation. Normal right atrial pressure. There is no evidence of pulmonary hypertension. Great Vessels All visible segments of the aorta are normal in size. The visualized portions of the pulmonary artery and branches are normal. Venous The inferior vena cava is normal in size and collapses greater than 50% with inspiration. Pericardium/Pleural There is no evidence of pericardial effusion. Prior Study Comparison No prior study available for comparison. Measurements 2D Linear Measurements IVSd: 0.76 0.6-0.9/0.6-1.0 cm LVIDd: 5.10 3.9-5.3/4.2-5.9 cm LVIDd Index: 3.09 2.4-3.2/2.2-3.1 cm/m2 LVIDs: 4.20 2.0-3.6 cm LVPWd: 0.64 0.7-1.1 cm LA Diam: 3.30 2.7-3.8/3.0-4.0 cm LAIDs Index: 2.00 1.5-2.3 cm/m2 LV Mass: 147.92 67-162/88-224 g LV Mass Index: 89.65 43-95/49-115 g/m2 LVOT Diam: 2.20 3.0+(-)1.3 cm 2D Systolic Function EF 4C: 45.30 >55% EF 2C: 57.70 >55% EF BiP: 52.40 >55% Mitral Valve MV Pk E: 0.78 MV PK A: 0.66 MV Decel Time: 223.00 E/A: 1.20 E'Lateral: 9.68 E'Medial: 6.74 E/E' Med: 11.50 E/E' Lat: 8.00 PHT: 65.00 MVA PHT: 3.38 Decel Bond: 3.48 Aortic Valve AoV Pk César: 1.04 AoV Pk Grad: 4.00 LVOT LVOT Pk César: 0.81 LVOT Mn César: 0.53 LVOT VTI: 0.15 LVOT Pk Grad: 3.00 LVOT Mn Grad: 1.00 LVOT Diam: 2.20 LVOT Area: 3.80 Diastolic Function MV Pk E: 0.78 MV Pk A: 0.66 E/A: 1.20 E'Medial: 6.74 E/E' Med: 11.50 E' Laterial: 9.68 E/E' Lat: 8.00 Right Ventricle TAPSE (mm): 20.40 TVS' César: 11.10 Tricuspid Valve TR Pk César: 2.40 TR Pk Grad: 23.00 RA Press: 3.00 RVSP: 26.00 Great Vessels Aorta Sinus of Valsalva: 3.50 2.0-3.5 cm Pulmonary Veins Pulm Vein S/D 1.30 Pulmonary Valve PV Pk César: 0.88 Peak PV Grad: 3.00 Updated in Other Vendor System with Status of Final Wolf Perez MD electronically signed on 09/06/2022 7:52:27 PM with status of Final
== END ==
LOC: HO.CARD 14:33
PROVIDERS: PCP Internal Medicine; Visit Provider Internal Medicine Cardiovascular Disease
DX: Z01.810 Encounter for preprocedural cardiovascular examination (principal)
CPT/HCPCS: 93017; 93306

== ENCOUNTER → 2022-09-09 10:44 | Outpatient (REF) | payer OTHER, SELFPAY ==
--- NOTE | 2022-09-09 10:52 | CA_ITS ---
Acquisition Time: 2022-09-09 10:55:26 Total Exercise Time: 00:17:05 Test Indications: PREOP Medications: SEE CHART Protocol: DOBUTAMINE Max HR: 139 BPM 87% of Pred: 158 BPM Max BP: 142/070 mmHG Max Work Load: 1.0 METS Pharmacological stress test with Dobutamine infusion to max of 20mcg/kg/min while kicking his legs achieving 88% MPHR, without anginal symptoms, without arrythmia, with normotensive response to injection, without EKG changes meeting criteria for ischemia. Echo images obtained by tech at rest, at 10mcg/kg/min and again at 20mcg/kg/min. Definity contrast used. Test reviewed with Dr Vaughan Referred By: Thi Mcfadden Overread By: THI MCFADDEN
== END ==
LOC: HO.CARD 10:44
PROVIDERS: PCP Internal Medicine; Visit Provider Nurse Practitioner Family
DX: Z01.818 Encounter for other preprocedural examination (principal); I73.9 Peripheral vascular disease, unspecified
CPT/HCPCS: 93351; J1250; Q9957

== ENCOUNTER 2022-09-17 12:37 | Outpatient (REF) | payer OTHER, SELFPAY ==
--- NOTE | ~2022-09-17 | CT_ITS ---
EXAMINATION: CT CHEST WITHOUT CONTRAST CLINICAL INFORMATION: Abnormal lung findings. COMPARISON: Chest x-ray 11/23/2019 TECHNIQUE: Multidetector volumetric CT imaging of the chest was done. Axial MIP volume rendering provided. Sagittal and coronal reformatted images were obtained. This CT examination was performed using dose optimization techniques as appropriate, variously including the following: *Automated exposure control *Adjustment of mA and/or kV according to patient size (this includes techniques or standardized protocols for targeted exams where dose is matched to indication/reason for exam; i.e. extremities or head) *Use of iterative reconstruction technique DLP: 110 mGy-cm FINDINGS: EDITOR DEPARTMENT: Well-expanded lungs. LUNGS: There is mild centrilobular and paraseptal emphysema without any acute consolidation. There is minimal bilateral apical pleural thickening and parenchymal scarring. No pulmonary nodules, mass or ground-glass density seen. There is no bronchiectasis seen. Mild thickening of right superior major fissure. No interstitial thickening seen. MEDIASTINUM: Thyroid lobes are symmetrical and normal. Central trachea and the bronchi are widely patent. Heart size and the great vessels are normal caliber. No pericardial effusion seen. No abnormal-sized mediastinal or hilar lymph nodes seen. CORONARY ARTERY CALCIFICATION: None visualized on this study. PLEURA: There is no pleural effusion. No pleural mass or thickening. AXILLA: No lymphadenopathy. UPPER ABDOMEN: Visualized liver, spleen, pancreas and bilateral adrenal glands are unremarkable. OSSEOUS STRUCTURES: Unremarkable. CT/CT chest wo IV con IMPRESSION: 1. Mild paraseptal and centrilobular emphysema with bilateral apical pleural thickening and parenchymal scarring. 2. No pulmonary nodule, mass or consolidation seen. 3. No abnormal mediastinal or axillary lymphadenopathy. Mild paraseptal emphysema without any acute consolidation, mass or pulmonary nodules. Fleischner guidelines were followed.
== END 2022-09-17 12:38 | disposition home or self-care (01) ==
LOC: HO.CT 12:37
PROVIDERS: Visit Provider Internal Medicine Pulmonary Disease
DX: R91.8 Other nonspecific abnormal finding of lung field (principal)
CPT/HCPCS: 71250

== ENCOUNTER 2022-09-25 13:26 | Outpatient (REF) | payer OTHER, SELFPAY ==
--- NOTE | 2022-09-25 15:01 | PFT_ITS ---
Forced vital capacity 105%. FEV1 112%. FEV1/FVC ratio 82. [id number] 134% and MVV 87%. Post bronchodilator therapy, there is no significant change. Total lung capacity 94%. Residual volume is 71%. Diffusion capacity 57%, DL/VA 61%. CONCLUSION: There is no evidence of obstructive or restrictive pulmonary disorder. Also, no response to bronchodilator therapy. Slightly decreased diffusion capacity, may be due to pulmonary emphysema or non pulmonary factors. For this, clinical correlation is recommended. MD KEON Slater/MODL / [id number]
== END 2022-09-25 13:27 | disposition home or self-care (01) ==
LOC: HO.RESP 13:26
PROVIDERS: PCP Internal Medicine; Visit Provider Internal Medicine Pulmonary Disease
DX: Z01.811 Encounter for preprocedural respiratory examination (principal)
CPT/HCPCS: 94060; 94727; 94729

== ENCOUNTER 2022-10-13 12:58 | Inpatient (IN) | payer OTHER, SELFPAY ==
[2022-09-01 13:16] VITALS: BMI 20.1
[2022-09-01 13:21] VITALS: BP 126/67; PULSE 97; RESP 20; O2SAT 95
--- NOTE | 2022-09-01 13:28 | P.CONAN_ITS ---
HPI - Anesthesia Eval Consult details Narrative: Rescheduled pending cardiac w/u 62yo M for Bilateral Femoral Femoral open Bypass Graft, Pending cardiac testing, PFT and clearances Hx IVDA Pt reports decrease in appetite - hx of GERD/dysphagia/gastritis. Supplementing with Ensure. No significant weight loss. Instructed to f/u with PCP. [facility] Active Problems Active Problems: All Active Problems (Updated 09/01/22 @ 13:13 by Stacie Ruiz RN) Hyperplastic colon polyp (Acute) Depression (Acute) Decreased appetite (Acute) PAD (peripheral artery disease) (Acute) Aortoiliac occlusive disease (Acute) Preop cardiovascular exam (Acute) COPD (chronic obstructive pulmonary disease) (Acute) Preop pulmonary/respiratory exam (Acute) Pulmonary nodules (Acute) Claudication of both lower extremities (Acute) Physical exam (Acute) History of heroin abuse (Acute) GERD (gastroesophageal reflux disease) (Acute) Left foot pain (Acute) Mild recurrent major depression (Acute) Hemorrhoids (Acute) Past Medical History Medical History Anemia Anxiety Claudication of both lower extremities COPD (chronic obstructive pulmonary disease) GERD (gastroesophageal reflux disease) Hemorrhoids Hiatal hernia History of dysphagia History of heroin abuse Hx of gastritis Left foot pain Mild recurrent major depression Physical exam Smoker Family History Family History Father No problems noted. Mother CVD (cardiovascular disease) Myocardial infarction Family/Other FH: mental illness Other Substance use disorder Family history of problems with anesthesia: No Surgical History Surgical History History of esophagogastroduodenoscopy (EGD) History of prostate surgery Hx of colonoscopy S/P aortogram History of Problems with Anesthesia: No Social History Social History (Updated 08/27/22 @ 11:50 by ANKIT Jefferson) Household Members Other:: sister Housing: House Are you a primary medicare sales executive to a significant other at home: No Do you presently have visiting nurse or other home services: No Alcohol intake: former Patient Tobacco Use Status: Current everyday Tobacco user Tobacco use type: Cigarette Cigarettes Per Day: 5 Years Smoked: 30 +/- e-Cigarette/Vaping Use: Never Used Second Hand Smoke Exposure: No service: No Current occupational status: disabled Cognitive needs: No Hearing needs: No Vision needs: No Meds Allergies Allergy/AdvReac Type Severity Reaction Status Date / Time No Known Allergies Allergy Verified 08/28/22 15:03 [No Known Allergies*] Home Medications Medication Instructions Recorded Confirmed Last Taken Type methadone 10 mg/5 mL oral solution 37 mg PO DAILY 01/15/22 09/01/22 Unknown History quetiapine 25 mg tablet 25 mg PO BEDTIME 04/19/22 09/01/22 Unknown History Exam Exam Date and Time: September 01, 2022 1328 Height,Weight and Vital Signs: Height 5 ft 8 in Weight 60.1 kg Last Vital Signs Pulse 97 09/01/22 13:21 Resp 20 09/01/22 13:21 BP 126/67 09/01/22 13:21 Pulse Ox 95 09/01/22 13:21 O2 Del Method 09/01/22 13:21 Airway Mallampati Class: III TM Dist: >3cm Neck ROM: Full Adult Head Mouth w/Numbe Teeth: 1. loose Loose/Missing/Broken Teeth: Yes (Poor dentition throughout, #10 loose) Heart: RRR Lungs: CTAB Assessment and Plan Assessment Anesthesia Assessment: Anesthesia Plan Discussed (discussed risk re: loose to oth), Smoking Cess. Discussed and PAT Visit Final Anesthetic Review Family History of Problems with Anesthesia: No History of Problems with Anesthesia: No
--- NOTE | 2022-10-03 14:45 | HO.ANESPROP2 ---
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 Cardiac cleared at intermediate Pulmo cleared PMFSH Active Problems Active Problems: All Active Problems (Updated 09/04/22 @ 18:55 by Wolf Perez MD) Pre-operative cardiovascular examination, high risk surgery (Acute) Hyperplastic colon polyp (Acute) Depression (Acute) Decreased appetite (Acute) PAD (peripheral artery disease) (Acute) Aortoiliac occlusive disease (Acute) Preop cardiovascular exam (Acute) COPD (chronic obstructive pulmonary disease) (Acute) Preop pulmonary/respiratory exam (Acute) Pulmonary nodules (Acute) Claudication of both lower extremities (Acute) Physical exam (Acute) History of heroin abuse (Acute) GERD (gastroesophageal reflux disease) (Acute) Left foot pain (Acute) Mild recurrent major depression (Acute) Hemorrhoids (Acute) Past Medical History Medical History Anemia Anxiety Claudication of both lower extremities COPD (chronic obstructive pulmonary disease) GERD (gastroesophageal reflux disease) Hemorrhoids Hiatal hernia History of dysphagia History of heroin abuse Hx of gastritis Left foot pain Mild recurrent major depression Physical exam Smoker Family History Family History Father No problems noted. Mother CVD (cardiovascular disease) Myocardial infarction Family/Other FH: mental illness Other Substance use disorder Family history of problems with anesthesia: No Surgical History Surgical History History of esophagogastroduodenoscopy (EGD) History of prostate surgery Hx of colonoscopy S/P aortogram History of Problems with Anesthesia: No Social History Social History (Updated 08/27/22 @ 11:50 by ANKIT Jefferson) Household Members Other:: sister Housing: House Are you a primary behavioral health care coordinator to a significant other at home: No Do you presently have visiting nurse or other home services: No Alcohol intake: former Patient Tobacco Use Status: Current everyday Tobacco user Tobacco use type: Cigarette Cigarettes Per Day: 3 Years Smoked: 30 +/- Smoked in Last 30 Days: Yes e-Cigarette/Vaping Use: Never Used Second Hand Smoke Exposure: No Use of substances other than those prescribed or required for medical reasons: No Substance Use Type Other:: currently taking methadone for ~ 20 years Have you been hit, kicked, punched, or otherwise hurt by someone within the past year? If so, by whom?: No Are you DNR?: No Advance Directives: No Advance Directives Information Provided: Yes (brochure given) Advance Directives on File: No Recently lost weight without trying: Yes Eating poorly because of decreased appetite: No Nutrition Risks: No Nutritional Risk Poor oral hygiene: Yes (missing teeth-loose tooth left upper-side) service: No Current occupational status: disabled Cognitive needs: No Hearing needs: No Vision needs: No Meds Allergies Allergy/AdvReac Type Severity Reaction Status Date / Time No Known Allergies Allergy Verified 08/28/22 15:03 [No Known Allergies*] Home Medications Medication Instructions Recorded Confirmed Last Taken Type methadone 10 mg/5 mL oral solution 37 mg PO DAILY 01/15/22 09/01/22 10/13/22 History quetiapine 25 mg tablet 25 mg PO BEDTIME 04/19/22 09/01/22 10/13/22 History Exam Exam Date and Time: October 03, 2022 1445 Height,Weight and Vital Signs: Height 5 ft 8 in Weight 60.1 kg Last Vital Signs Pulse 97 09/01/22 13:21 Resp 20 09/01/22 13:21 BP 126/67 09/01/22 13:21 Pulse Ox 95 09/01/22 13:21 O2 Del Method 09/01/22 13:21 Pertinent Lab Results Pertinent Lab Results: Laboratory Tests 07/30/22 07/30/22 08:11 08:11 WBC 9.9 Hgb 12.2 L Hct 38.3 L Plt Count 284 Sodium 142 Potassium 4.5 Chloride 105 Carbon Dioxide 28 BUN 19 H Creatinine 1.17 Narrative Narrative: EKG 08/2022 sinus tachycardia 109 beats per minute, normal axis, nonspecific ST-T changes, QTC 441 milliseconds NM adelso perf SPECT rest & str 08/2022 Impression: ? 1.? Myocardial perfusion imaging study not interpretable. Consider alternate modalities as clinically indicated. 2.? Gated LVEF is 53% during stress and 59% during rest. 3. Transient ischemic dilatation not present. ? EKG component of the test reported separately. ECHO 08/2022 Conclusions: - Normal left ventricular cavity size.? There is normal left ? ? ventricular wall thickness.? The left ventricular systolic ? ? ? function is borderline reduced.? The visually estimated ejection fraction is between 45-50%.? - E/E prime ratio is between 8 and 15 consistent with? indeterminate filling pressures. ? - Normal right ventricular cavity size and systolic function.? ? Stress ECHO 08/2022 Conclusion : ? Dobutamine stress echo is negative for myocardial iscehmia at HR achieved., with basal inferior and inferoseptal WI with? mildly reduced LV systolic function at rest PFT 09/2022 CONCLUSION:? There is no evidence of obstructive or restrictive pulmonary disorder. ? Also, no response to bronchodilator therapy. ? Slightly decreased diffusion capacity, may be due to pulmonary emphysema or non pulmonary factors.? For this, clinical correlation is recommended. 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 case discussed with the surgeon and the patient . This case has already been delayed in the past , at this time benefits outweigh the risks so will proceed . The patient understands the increased risks . [facility] Past Medical History Medical History Anemia Anxiety Claudication of both lower extremities COPD (chronic obstructive pulmonary disease) GERD (gastroesophageal reflux disease) Hemorrhoids Hiatal hernia History of dysphagia History of heroin abuse Hx of gastritis Left foot pain Mild recurrent major depression Physical exam Smoker Family History Family History Father No problems noted. Mother CVD (cardiovascular disease) Myocardial infarction Family/Other FH: mental illness Other Substance use disorder Surgical History Surgical History History of esophagogastroduodenoscopy (EGD) History of prostate surgery Hx of colonoscopy S/P aortogram Social History Social History (Updated 08/27/22 @ 11:50 by ANKIT Jefferson) Household Members Other:: sister Housing: House Are you a primary behavioral health care coordinator to a significant other at home: No Do you presently have visiting nurse or other home services: No Alcohol intake: former Patient Tobacco Use Status: Current everyday Tobacco user Tobacco use type: Cigarette Cigarettes Per Day: 3 Years Smoked: 30 +/- Smoked in Last 30 Days: Yes e-Cigarette/Vaping Use: Never Used Second Hand Smoke Exposure: No Use of substances other than those prescribed or required for medical reasons: No Substance Use Type Other:: currently taking methadone for ~ 20 years Have you been hit, kicked, punched, or otherwise hurt by someone within the past year? If so, by whom?: No Are you DNR?: No Advance Directives: No Advance Directives Information Provided: Yes (brochure given) Advance Directives on File: No Recently lost weight without trying: Yes Eating poorly because of decreased appetite: No Nutrition Risks: No Nutritional Risk Poor oral hygiene: Yes (missing teeth-loose tooth left upper-side) service: No Current occupational status: disabled Cognitive needs: No Hearing needs: No Vision needs: No Meds Allergies Allergy/AdvReac Type Severity Reaction Status Date / Time No Known Allergies Allergy Verified 08/28/22 15:03 [No Known Allergies*] Home Medications Medication Instructions Recorded Confirmed Last Taken Type methadone 10 mg/5 mL oral solution 37 mg PO DAILY 01/15/22 09/01/22 10/13/22 History quetiapine 25 mg tablet 25 mg PO BEDTIME 04/19/22 09/01/22 10/13/22 History Exam Airway Mallampati Class: III TM Dist: >3cm Neck ROM: Full Loose/Missing/Broken Teeth: Yes (Front upper tooth loose , poor dentation globally ) Heart: S1,S2 Lungs: b/l breath sounds Assessment and Plan Assessment Anesthesia Assessment: Anesthesia Plan Discussed Final Anesthetic Review NPO: Yes ASA Class: IV Final Preanesthetic Review: Meds/Allgs Chart Reviewed, Consent Obtained/Reviewed and Anes Risks/Benef Reviewed Patient Risk: High Procedure Risk: High Anesthetic Plan Anesthetic Plan: GA Disposition: Inp. Admit - ICU
[2022-10-13] VITALS (32 sets, daily range): BP systolic 107–147; BP diastolic 53–69; PULSE 80–105; RESP 8–28; TEMP 36.2–37.3; O2SAT 97–100; BMI 19.5
--- NOTE | ~2022-10-13 | CT_ITS ---
EXAMINATION: CT ABDOMEN AND PELVIS WITH CONTRAST CLINICAL INFORMATION: Nausea and vomiting. COMPARISON: 11/27/2008 and 08/04/2022. TECHNIQUE: Multidetector volumetric images were obtained from the superior aspect of the liver through the pubic symphysis following administration 85 mL of Omnipaque 350 intravenous contrast. Sagittal and coronal reformatted images were obtained on the technologist's workstation. Oral contrast: No This CT examination was performed using dose optimization techniques as appropriate, variously including the following: *Automated exposure control *Adjustment of mA and/or kV according to patient size (this includes techniques or standardized protocols for targeted exams where dose is matched to indication/reason for exam; i.e. extremities or head) *Use of iterative reconstruction technique DLP: 279 mGy-cm FINDINGS: Patient is status post recent abdominal and inguinal hernia with skin fredis in place. LUNG BASES: There are small bilateral pleural effusions with dependent atelectasis. There is a density seen about the lateral aspect of the left lower lobe but which was not present on previous study of 09/17/2022 and therefore, is likely related to atelectatic change. There is mild coronary artery calcification present. LIVER, GALLBLADDER, AND BILIARY TREE: The liver is normal in size, shape, and attenuation. No focal hepatic lesion or biliary ductal dilatation is present. The gallbladder is contracted with no evidence of radiopaque gallstones, gallbladder wall thickening, or obvious pericholecystic inflammatory changes. PANCREAS: Unremarkable. SPLEEN: Unremarkable. ADRENAL GLANDS: Unremarkable. KIDNEYS AND URETERS: The kidneys are normal in size, shape, and attenuation. No hydronephrosis, hydroureter, or calculi seen. No perinephric stranding. BLADDER: Unremarkable. GASTROINTESTINAL TRACT: No free air or free fluid is identified. There are numerous loops of gas-distended small bowel present. This involves the jejunum to a larger extent and not the more distal ileum with no definite single point of transition being identified. No bowel wall thickening is seen. The colon is not distended. ABDOMINAL WALL: No significant hernia is appreciated. Skin fredis present. LYMPH NODES: No lymphadenopathy appreciated. VASCULAR: Patient is status post aortobifemoral bypass graft with proximal aspect starting in the infrarenal abdominal aortic region. The celiac artery and superior mesenteric artery are patent. There is calcification at the origin of both renal arteries. There is some fluid seen surrounding the graft. No air bubbles are present within the fluid. There is occlusion of the [place] left common iliac artery and [place] right external iliac artery. Inguinal fluid collections are seen bilaterally, right greater than left likely representing seroma or hematoma with no vascular flow to suggest patent pseudoaneurysms. The right inguinal fluid collection measures approximately 4.3 x 3.4 cm in size. PELVIC VISCERA: Prostatic calcifications present. OSSEOUS STRUCTURES: No suspicious destructive bony lesions identified. There is ankylosis of the sacroiliac joints bilaterally. CT/CT abdomen pelvis w IV con IMPRESSION: Findings consistent with small bowel ileus. Status post recent aortobifemoral bypass graft with some fluid surrounding the graft material throughout its course. The bypass graft is patent. Small bilateral pleural effusions. Fleischner guidelines were followed.
--- NOTE | ~2022-10-13 | XR_ITS ---
EXAMINATION: XR ABDOMEN KUB CLINICAL INDICATION: Ileus. COMPARISON: 10/15/2022 KUB. TECHNIQUE: AP view of the abdomen. FINDINGS: Multiple gas-filled dilated loops small bowel are seen measuring up to 4.6 cm in the midline upper abdomen. Gas and stool are seen within the colon distally to the rectum. The osseous structures are unremarkable. XR/XR abdomen 1V IMPRESSION: Multiple gas-filled loops small bowel appear similar if not mildly increased, most consistent with ileus. Continued short-term radiographic follow-up is recommended as clinically indicated.
--- NOTE | ~2022-10-13 | XR_ITS ---
EXAMINATION: XR ABDOMEN KUB CLINICAL INDICATION: Abdominal distention, constipation. COMPARISON: CT chest noncontrast 09/17/2022, CTA abdomen 08/04/2022. TECHNIQUE: AP x2 views of the abdomen. FINDINGS: There are skin fredis vertically oriented overlying the mid abdomen and bilateral hips. There is gaseous distention large and small bowel of normal caliber. No focal dilated loops of bowel wall thickening and pneumatosis. There is moderate stool in the right colon. No rectal fecal impaction. No bowel displacement. Visualized lung bases are clear. Bony structures are unremarkable. XR/XR KUB IMPRESSION: -Ileus type pattern with gaseous distention large and small bowel of normal caliber. -No focal dilated loops of bowel or pneumatosis or abnormal collections of gas.
--- NOTE | ~2022-10-13 | XR_ITS ---
EXAMINATION: XR CHEST CLINICAL INFORMATION: Central line confirmation. COMPARISON: 11/23/2019 chest radiographs. TECHNIQUE: Frontal view of the chest was obtained. FINDINGS: Support devices: Right sided internal jugular catheter with tip terminating in superior vena cava. No significant abnormality is noted involving the heart, lungs, mediastinum, bony thorax or soft tissues. XR/XR chest 1V IMPRESSION: 1. Right-sided internal jugular catheter appears in good position without abnormality. 2. No acute cardiopulmonary process.
[2022-10-13 06:37] LABS: COVID-19 Test Negative (Negative); IDNOW Serial# BCCEAD1C
[2022-10-13 06:46] LABS: Amphetamine Screen Urine Not Detected (Not Detect); Barbiturates, Urine Not Detected (Not Detect); Benzodiazepines Screen Urine Not Detected (Not Detect); Cannabinoid Screen Urine Not Detected (Not Detect); Cocaine Screen Urine Not Detected (Not Detect); Fentanyl, urine POSITIVE (Not Detect); Opiate Screen Urine Not Detected (Not Detect); Phencyclidine Screen Urine Not Detected (Not Detect)
[2022-10-13] MEDS: Lactated Ringers 1,000 ML 100 ML IVCONT ×2 (07:19→17:10)
[2022-10-13 07:27] LABS: Hematocrit 33.8 % (42.0-52.0); Hemoglobin 10.8 g/dl (14.0-18.0); Mean Corpuscular Volume 97.1 fL (80.0-98.0); Mean Platelet Volume 9.3 fL (9.4-12.4); Platelet Count 231 X10*3/uL (160-400); Red Blood Count 3.48 X10*6/uL (4.60-5.80); Red Cell Distribution Width 12.5 % (11.0-16.0); White Blood Count 8.9 X10*3/uL (4.8-10.8)
[2022-10-13 07:35] LABS: INTERNATIONAL NORM RATIO 1.1 (0.9-1.1); Prothrombin Time 12.6 SEC (10.0-13.1)
[2022-10-13 07:38] LABS: Partial Thromboplastin Time 28.2 SEC (26.0-36.4)
--- NOTE | 2022-10-13 07:40 | PC.NURSE ---
urine + fentanyl, anesthesia & dr. hernández aware. pt consents to procedure. all assessments completed with bolivian interpret as well as consents
[2022-10-13 07:52] LABS: Anion Gap 13 (12-20); Blood Urea Nitrogen 18 mg/dL (9-16); Calcium 9.1 mg/dL (8.4-10.2); Carbon Dioxide 25 mmol/L (22-29); Chloride 104 mmol/L (96-108); Estimated Glomerular Filt Rate > 60; Glucose Fasting 102 mg/dL (60-99); Potassium 3.9 mmol/L (3.3-5.1); Sodium 138 mmol/L (135-145)
--- NOTE | 2022-10-13 13:04 | W.PM.OPN ---
Operative Note Operative Note Date of Service: 10/13/22 Narrative: Operative note by [facility] Preoperative diagnosis: aortoiliac occlusive disease Postoperative diagnosis: same Procedure: aortobifemoral bypass Surgeon:Delio Law M.D. Cable Strander: Dr. Harrington Anesthesia: general Specimens: none Drains: non Estimated blood loss: 350 with 125 given back as Cell Saver Indications: complex 62-year-old gentleman presents for operative intervention for aortoiliac occlusive disease. He has had preoperative cardiac risk stratification. In addition he has a prior drug abuse history with maintenance on methadone. Upon arrival he did test positive for fentanyl. Due to the prolonged nature of the workup and the need for bypass he was agree to move forward. The patient was well aware of the increased risk associated with this. He agreed and consented to move forward. The patient has signed the informed consent after reviewing risks, complications, benefits, and alternatives previously discussed with the patient. The patient was given the opportunity to ask any additional questions or voice any concerns. All questions were answered to the patient's satisfaction. Procedure in detail: Patient was brought to the operating room prior to which a time-out was called for patient identification and site verification. Prior to incision a line and triple-lumen catheter was placed by Anesthesia. He was induced. Abdomen was prepped and draped in standard surgical fashion from nipples to knees. Once this was accomplished we 1st started with bilateral groin cutdowns. We made a longitudinal incision through skin subcu down to the fascia. We were able to enter the femoral sheath and identify the common femoral. This was taken all the way up to the inguinal ligament. Once this was accomplished we then placed silastic loops around med proximal and distal common femoral artery. This was done on the right side and in a similar fashion we made a left common femoral cutdown as well. Once this was all accomplished these wounds were packed and then we made our midline incision all the way down the AA abdomen from the xiphoid to the symphysis pubis. went through skin subcu fascia into the peritoneum. Once we were into the peritoneum a generalized sweep was undertaken of the abdomen and no other pathology was noted. We then placed a Bookwalter retractor and exposed the retroperitoneum. Once this was accomplished we entered the retroperitoneum. this was slow but meticulous dissection as he had multiple collaterals. We were able to get a good proximal and distal length of the aorta. Once exposed we then administered 5000 units of systemic heparin. Once this was done we then clamped the aorta a proximal aortic clamp and then a Satinsky clamp was used to encircle the aorta. Once this was accomplished we used an 11 blade with Pott scissor to make our aortotomy. We then he used a 14 x 7 x 7 Albo graft. we trimmed the proximal graft down to size and made a angled cut. We circumferentially anastomosed this with a 3-0 Prolene suture. Once this was accomplished we established flow through the graft. No significant leaks were noted. We then brought each limb of the graft through a retroperitoneal tunnel down to the common femoral which would been exposed prior to that. We then 1st turned our attention to the right groin we trimmed the graft to appropriate size. We obtained a proximal control of the common femoral artery with a carotid clamp and distal with the profundus clamp. We made our aortotomy and we circumferentially anastomosed the graft with a 5 0 Prolene suture. Prior to closure it was flushed clear and then we reestablished flow in the right limb. Once this was done patient appear to be stable we did a similar anastomosis on the left side as well. We establish flow on the left side as well. We did confirm that this was functioning as we did occlude the graft and each limb and noticed a definite pulse difference in both sides. Once this was all accomplished adequate hemostasis was achieved. We then turned our attention back to the abdomen. Bookwalter retractor was Hipolito position. We then turned our attention to the retroperitoneum and this was closed over with a 2 0 poly Sorb suture in a running fashion. Once this was all accomplished we then examined the abdomen again. Once again no other pathology was noted. We closed the abdomen with a looped PDS in a running fashion proximally and distally. Once this was accomplished we closed the subcu layer with interrupted 3-0 poly Sorb and finally skin with skin clips. Once this was done we turned our attention to the groin incisions. We placed Tisseel sealant. We then closed the deep layer with a 2 0 Polysorb superficial layer with 3-0 poly Sorb and finally skin with skin clips. Sterile dressings were applied at the end the case. At the end of the case sponge needle instrument counts were correct x2. We also noted the patient to be neurologically intact and had palpable DP pulses at the conclusion of the case. Patient was returned to recovery with stable vitals. This note is constructed using voice recognition software. While every effort has been made to ensure accuracy, vehicle maintenance supervisor errors may have been included. Thank you for allowing me to participate in the care of your patient. Yours sincerely, Delio Law MD, FACS, R.P.V.I.
[2022-10-13] MEDS: HYDROmorphone HCl 0.5 MG/0.5 ML SYRINGE 0.25 MG IVPUSH ×4 (13:13→13:58)
--- NOTE | 2022-10-13 13:13 | PHA.MEDREC ---
Pharmacy Consult ? Medication Reconciliation Pharmacy has completed the medication reconciliation. Reviewed med rec done by nursing
[2022-10-13] MEDS: fentaNYL citrate/PF 100 MCG/2 ML VIAL 25 MCG IVPUSH ×3 (14:20→15:09)
[2022-10-13 14:53] LABS: Basophils Percent Auto 0.1 % (0-2); Hematocrit 27.8 % (42.0-52.0); Imm Gran Abs Auto 0.05 X10*3/uL (0.00-0.03); Imm Gran Pct Auto 0.4 % (0.0-0.4); Lymphocytes Absolute Auto 0.8 X10*3/uL (1.2-4.9); Lymphocytes Percent Auto 5.8 % (20-40); MANUAL DIFF FLAG SCAN; Mean Corpuscular HGB Conc 32.4 g/dl (31.0-36.0); Mean Corpuscular Hemoglobin 31.3 pg (27.0-33.0); Mean Corpuscular Volume 96.5 fL (80.0-98.0); Mean Platelet Volume 9.6 fL (9.4-12.4); Monocytes Absolute Auto 0.3 X10*3/uL (0.1-1.2); Monocytes Percent Auto 2.2 % (2-11); Neutrophils Absolute Auto 11.9 x10*3/uL (2.0-8.3); Neutrophils Percent Auto 91.5 % (45-73); Platelet Count 193 X10*3/uL (160-400); Red Blood Count 2.88 X10*6/uL (4.60-5.80); Red Cell Distribution Width 12.5 % (11.0-16.0); SCAN SMEAR FLAG 1
[2022-10-13 15:21] LABS: Anion Gap 11 (12-20); Blood Urea Nitrogen 18 mg/dL (9-16); Carbon Dioxide 24 mmol/L (22-29); Chloride 108 mmol/L (96-108); Creatinine Clr Calc Pharmacy 79.2; Estimated Glomerular Filt Rate > 60; Glucose Random 159 mg/dL (60-115); Potassium 4.1 mmol/L (3.3-5.1); Sodium 139 mmol/L (135-145)
[2022-10-13 15:26] LABS: SLIDE REVIEW VERIFIED
[2022-10-13 15:29] LABS: Calcium 7.9 mg/dL (8.4-10.2)
--- NOTE | 2022-10-13 15:40 | P.HPCC_ITS ---
History of Present Illness Date of Service: 10/13/22 Chief Complaint: status post elective aortobifemoral bypass 62-year-old gentleman with underlying history of mild systolic congestive heart failure with EF of 45-50%, smoker with emphysema, but no fixed COPD, heroin abuse on methadone peripheral vascular disease, now postop day 0 after elective open aortobifemoral bypass being monitored in the intensive care unit. Review of Systems Constitutional: Constitutional: Denies daytime sleepiness, Denies excessive sweating, Denies fatigue, Denies fever(s), Denies lethargy, Denies malaise, Denies night sweats, Denies snoring and Denies weight loss Eyes: Eyes: Denies blurry vision and Denies itchy eyes ENT: Denies nasal congestion, Denies post nasal drip, Denies sinus pain, Denies sinus pressure and Denies other ( Thrush) Cardiovascular: Cardiovascular: Denies chest pain, Denies pedal edema, Denies dyspnea, Denies orthopnea and Denies paroxysmal nocturnal dyspnea Respiratory: Respiratory: Denies cough, Denies hemoptysis, Denies excessive phlegm production, Denies dyspnea, Denies snoring and Denies wheezing Gastrointestinal: Gastrointestinal: Denies abdominal pain and Denies heartburn Musculoskeletal: Musculoskeletal: Denies myalgias, Denies arthralgias and Denies joint swelling Integumentary/Breasts: Skin/Breast: Denies rash Neurologic: Denies memory loss and Denies seizure-like activity Psychiatric: Psychiatric: Denies abnormal sleep pattern, Denies anxiety and Denies memory loss Endocrine: Endocrine: Denies excessive sweating, Denies fatigue and Denies heat intolerance Hematologic/Lymphatic: Hematologic/Lymphatic: Denies easy bruising Allergic/Immunologic: Allergic/Immunologic: Denies itchy eyes, Denies seasonal rhinorrhea and Denies wheezing PMFSH Past Medical History Medical History Anemia Anxiety Claudication of both lower extremities COPD (chronic obstructive pulmonary disease) GERD (gastroesophageal reflux disease) Hemorrhoids Hiatal hernia History of dysphagia History of heroin abuse Hx of gastritis Left foot pain Mild recurrent major depression Physical exam Smoker Family History Family History Father No problems noted. Mother CVD (cardiovascular disease) Myocardial infarction Family/Other FH: mental illness Other Substance use disorder Surgical History Surgical History (Updated 10/13/22 @ 15:54 by Kimo Avina MD) History of esophagogastroduodenoscopy (EGD) History of prostate surgery Hx of colonoscopy S/P aortogram Social History Social History (Updated 08/27/22 @ 11:50 by ANKIT Jefferson) Household Members Other:: sister Housing: House Are you a primary youth career specialist to a significant other at home: No Do you presently have visiting nurse or other home services: No Alcohol intake: former Patient Tobacco Use Status: Current everyday Tobacco user Tobacco use type: Cigarette Cigarettes Per Day: 3 Years Smoked: 30 +/- Smoked in Last 30 Days: Yes e-Cigarette/Vaping Use: Never Used Second Hand Smoke Exposure: No Use of substances other than those prescribed or required for medical reasons: No Substance Use Type Other:: currently taking methadone for ~ 20 years Have you been hit, kicked, punched, or otherwise hurt by someone within the past year? If so, by whom?: No Are you DNR?: No Advance Directives: No Advance Directives Information Provided: Yes (brochure given) Advance Directives on File: No Recently lost weight without trying: Yes Eating poorly because of decreased appetite: No Nutrition Risks: No Nutritional Risk Poor oral hygiene: Yes (missing teeth-loose tooth left upper-side) service: No Current occupational status: disabled Cognitive needs: No Hearing needs: No Vision needs: No Meds Allergies Allergy/AdvReac Type Severity Reaction Status Date / Time No Known Allergies Allergy Verified 08/28/22 15:03 [No Known Allergies*] Active Medications: Current Medications Acetaminophen (Acetaminophen 325 Mg Tablet) 650 mg PO Q6H PRN PRN Reason: Pain, Mild (Pain Scale 1-3) Albuterol Sulfate (Albuterol Sulfate (0.083%) 2.5 Mg/3 Ml Vial.Neb) 2.5 mg INHALE ONCE PRN PRN Reason: Shortness of Breath/Wheezing Atorvastatin Calcium (Atorvastatin Calcium 80 Mg Tablet) 80 mg PO BEDTIME MICHAEL Fentanyl (Fentanyl Citrate/Pf 100 Mcg/2 Ml Vial) 25 mcg IVPUSH Q5M PRN; Protocol PRN Reason: Pain, Moderate (Pain Scale 4-6 Last Admin: 10/13/22 15:09 Dose: 25 mcg Hydromorphone HCl (Hydromorphone Hcl 0.5 Mg/0.5 Ml Syringe) 0.5 mg IVPUSH Q10M PRN; Protocol PRN Reason: Pain, Moderate (Pain Scale 4-6 Lactated Ringer's (Lr) 1,000 mls @ 100 mls/hr IVCONT .Q10H [facility] Last Admin: 10/13/22 07:19 Dose: 100 mls/hr Methadone HCl (Methadone Hcl 20 Mg/2 Ml Oral.Conc) 37 mg PO DAILY [facility] Morphine Sulfate (Morphine Sulfate 2 Mg/Ml Cartridge) 2 mg IVPUSH Q4H PRN; Protocol PRN Reason: Pain, Severe (Pain Scale 7-10) Oxycodone HCl (Oxycodone Hcl Immed Release 5 Mg Tablet) 5 mg PO Q4H PRN PRN Reason: Pain, Moderate (Pain Scale 4-6 Quetiapine Fumarate (Quetiapine Fumarate 25 Mg Tablet) 25 mg PO BEDTIME [facility] Sodium Chloride (0.9 % Sodium Chloride Flush 3 Ml Syringe) 3 ml IVFLUSH QSHIFT [facility] Home Medications Medication Instructions Recorded Confirmed Last Taken Type methadone 10 mg/5 mL oral solution 37 mg PO DAILY 01/15/22 09/01/22 10/13/22 History quetiapine 25 mg tablet 25 mg PO BEDTIME 04/19/22 09/01/22 10/13/22 History Physical Exam Vital Signs: Vital Signs: Last Vital Signs Temp 99.1 F 10/13/22 15:10 Pulse 93 10/13/22 15:10 Resp 16 10/13/22 15:10 BP 147/66 H 10/13/22 15:10 Pulse Ox 100 10/13/22 15:10 O2 Del Method 10/13/22 15:10 O2 Flow Rate 2 10/13/22 15:10 BMI result Body Mass Index 19.5 Const: General: no acute distress and alert Nutritional Appearance: not obese Orientation/consciousness: Other orientation findings ( oriented) HEENT: Head: Yes atraumatic Mouth: no other ( thrush) Throat: No postnasal drainage Eyes: General: appearance normal, both eyes and all related structures Sclerae: sclerae normal EOM: EOMs intact bilaterally Neck: Neck: Yes supple Lymphatic: no lymphadenopathy noted Resp: Effort & Inspection: normal respiratory effort and no use of accessory muscles Auscultation: clear to auscultation bilaterally Cardio: Rate: regular rate Rhythm: regular rhythm Heart sounds: no gallops, no murmurs and no rubs GI: Inspection: Yes other ( Midline surgical site with dressing and no hematoma) Palpation (GI): Soft to palpation and Other GI palpation findings present ( nontender) Skin: General skin exam: other ( warm) Rashes: no rashes Extrem: General: No clubbing, No cyanosis, No edema and Yes other ( bilateral femoral access sites with surgical dressings and no hematoma) Results Labs CBC and Chem 7: 10/13/22 14:40 10/13/22 14:40 Labs: Laboratory Results - last 24 hr 10/13/22 10/13/22 10/13/22 06:35 07:20 07:20 MCV 97.1 MCH 31.0 MCHC 32.0 RDW 12.5 Plt Count 231 MPV 9.3 L Immature Gran % (Auto) Neut % (Auto) Lymph % (Auto) [place] % (Auto) Eos % (Auto) Baso % (Auto) Lymph # (Auto) [place] # (Auto) Eos # (Auto) Baso # (Auto) Abs Immat Gran (auto) Absolute Neuts (auto) Absolute Nucleated RBC 0.000 Nucleated RBC % (auto) 0.0 Smear Tech's Comments PT 12.6 INR 1.1 APTT 28.2 Anion Gap Estim Creat Clear Calc Estimated GFR Random Glucose Fasting Glucose Calcium Urine Opiates Screen Urine Fentanyl Screen Ur Barbiturates Screen Ur Phencyclidine Scrn Ur Amphetamines Screen U Benzodiazepines Scrn Urine Cocaine Screen U Marijuana (THC) Screen COVID-19 (ADRIANE) COVID-19 Clin Com Blood Type A Positive Antibody Screen NEGATIVE 10/13/22 10/13/22 10/13/22 07:20 14:40 14:40 MCV 96.5 MCH 31.3 MCHC 32.4 RDW 12.5 Plt Count 193 MPV 9.6 Immature Gran % (Auto) 0.4 Neut % (Auto) 91.5 H Lymph % (Auto) 5.8 L [place] % (Auto) 2.2 Eos % (Auto) 0.0 Baso % (Auto) 0.1 Lymph # (Auto) 0.8 L [place] # (Auto) 0.3 Eos # (Auto) 0.0 Baso # (Auto) 0.0 Abs Immat Gran (auto) 0.05 H Absolute Neuts (auto) 11.9 H Absolute Nucleated RBC 0.000 Nucleated RBC % (auto) 0.0 Smear Tech's Comments VERIFIED PT INR APTT Anion Gap 13 11 L Estim Creat Clear Calc 72.0 79.2 Estimated GFR > 60 > 60 Random Glucose 159 H D Fasting Glucose 102 H Calcium 9.1 7.9 L D Urine Opiates Screen Urine Fentanyl Screen Ur Barbiturates Screen Ur Phencyclidine Scrn Ur Amphetamines Screen U Benzodiazepines Scrn Urine Cocaine Screen U Marijuana (THC) Screen COVID-19 (ADRIANE) COVID-19 Clin Com Blood Type Antibody Screen 10/13/22 10/13/22 Unknown Unknown MCV MCH MCHC RDW Plt Count MPV Immature Gran % (Auto) Neut % (Auto) Lymph % (Auto) [place] % (Auto) Eos % (Auto) Baso % (Auto) Lymph # (Auto) [place] # (Auto) Eos # (Auto) Baso # (Auto) Abs Immat Gran (auto) Absolute Neuts (auto) Absolute Nucleated RBC Nucleated RBC % (auto) Smear Tech's Comments PT INR APTT Anion Gap Estim Creat Clear Calc Estimated GFR Random Glucose Fasting Glucose Calcium Urine Opiates Screen Not Detected Urine Fentanyl Screen POSITIVE H Ur Barbiturates Screen Not Detected Ur Phencyclidine Scrn Not Detected Ur Amphetamines Screen Not Detected U Benzodiazepines Scrn Not Detected Urine Cocaine Screen Not Detected U Marijuana (THC) Screen Not Detected COVID-19 (ADRIANE) Negative COVID-19 Clin Com See Note Blood Type Antibody Screen Imaging Radiologist's Impressions: Impressions Chest X-Ray 10/13/22 13:19 IMPRESSION: 1. Right-sided internal jugular catheter appears in good position without abnormality. 2. No acute cardiopulmonary process. Assessment and Plan (1) Status post aortobifemoral bypass surgery: Status: Acute (2) PVD (peripheral vascular disease): Status: Acute (3) History of heroin abuse: Status: Acute Plan Assessment: 62-year-old gentleman with underlying peripheral vascular disease and heroin abuse on methadone now postoperative day 0 after elective aortob ifemoral open bypass being monitored in the intensive care unit Plan: Neuro: No acute issues. Cardiac: postop day 0 after an elective open aortobifemoral bypass. Vascular surgery service care appreciated. Maintain systolic blood pressure under 160. Pulmonary: No acute issues. Renal: No acute issues. Endo: No acute issues. GI: No acute issues. ID: No acute issues Heme/Onc: No acute issues. Psych: No acute issues. Miscellaneous: underlying history of heroin dependence on methadone. Continue home regimen of methadone. Prophylaxis: Per vascular surgeon Diet: per vascular surgery
[2022-10-13] MEDS: HYDROmorphone HCl 0.5 MG/0.5 ML SYRINGE IVPUSH (15:47)
[2022-10-13] MEDS: ondansetron HCL 4 MG/2 ML VIAL IVPUSH (15:47)
[2022-10-13] MEDS: 0.9 % Sodium Chloride Flush 3 ML SYRINGE IVFLUSH (17:11)
[2022-10-13] MEDS: ceFAZolin Sodium/Dextrose,Iso 2 GM/50 ML PIGGYBACK IV (17:26)
[2022-10-13] MEDS: Labetalol HCL 100 MG/20 ML VIAL 20 MG IVPUSH (17:31)
[2022-10-13] MEDS: QUEtiapine Fumarate 25 MG TABLET PO (21:50)
[2022-10-13] MEDS: Atorvastatin Calcium 80 MG TABLET PO (21:50)
--- NOTE | 2022-10-13 22:40 | PC.NURSE ---
patient brought in from [facility]. bedside report given. admission assessment completed with the help of liquor runner. belongings gone over with patient. assessment noted midline incision covered with aquacell dressing dressing cdi, femoral bilateral dressings light spotting on pink foam dressing. patient given prn Dilaudid and zofran at 1547 for 10/10 pain and nausea. patient updated on health status and hospital enviorment, patient helped to reposition q2hr.
[2022-10-14] VITALS (21 sets, daily range): BP systolic 104–140; BP diastolic 48–63; PULSE 76–96; RESP 7–30; TEMP 36.9–37.8; O2SAT 89–100; BMI 21.2
[2022-10-14] MEDS: 0.9 % Sodium Chloride Flush 3 ML SYRINGE IVFLUSH ×4 (00:03→20:22)
[2022-10-14] MEDS: Lactated Ringers 1,000 ML 100 ML IVCONT (00:04)
--- NOTE | 2022-10-14 03:13 | PC.NURSE ---
CARE ASSUMED 23:15..ALERT..ORIENTED X3..VSS..DENIES PAIN..ABDOMINAL DRESSING INTACT..BILATERAL FEMORAL DRESSINGS WITH SCANT OLD DRAINAGE..BOTH FEET WARM TO TOUCH AND (+) DORSALIS/POSTERIOR AUDIBLE BILATERALLY..LEFT RADIAL ARTERIAL LINE PRESENT..GOOD CMS TO LEFT HAND..IV FLUIDS 100 CC/HR..PETERSON YELLOW URINE..NSR..NO ECTOPY
[2022-10-14 05:02] LABS: VBG Base Excess 10.7 mmol/L; VBG HCO3 36 mmol/L (22-26); VBG pCO2 52 mmHg; VBG pH 7.44 (7.32-7.43); VBG pO2 52 mmHg
[2022-10-14 05:32] LABS: MANUAL DIFF FLAG NO
[2022-10-14 05:35] LABS: Basophils Percent Auto 0.1 % (0-2); Hematocrit 25.2 % (42.0-52.0); Hemoglobin 8.1 g/dl (14.0-18.0); Imm Gran Abs Auto 0.02 X10*3/uL (0.00-0.03); Imm Gran Pct Auto 0.2 % (0.0-0.4); Lymphocytes Absolute Auto 1.7 X10*3/uL (1.2-4.9); Lymphocytes Percent Auto 17.7 % (20-40); Mean Corpuscular HGB Conc 32.1 g/dl (31.0-36.0); Mean Corpuscular Hemoglobin 31.4 pg (27.0-33.0); Mean Corpuscular Volume 97.7 fL (80.0-98.0); Monocytes Absolute Auto 1.1 X10*3/uL (0.1-1.2); Neutrophils Absolute Auto 6.5 x10*3/uL (2.0-8.3); Platelet Count 179 X10*3/uL (160-400); Red Blood Count 2.58 X10*6/uL (4.60-5.80); Red Cell Distribution Width 12.6 % (11.0-16.0); White Blood Count 9.3 X10*3/uL (4.8-10.8)
[2022-10-14 05:55] LABS: Albumin Level 3.1 g/dL (3.5-5.0); Anion Gap 11 (12-20); Blood Urea Nitrogen 13 mg/dL (9-16); Calcium 8.3 mg/dL (8.4-10.2); Carbon Dioxide 28 mmol/L (22-29); Chloride 104 mmol/L (96-108); Creatinine Clr Calc Pharmacy 89.3; Estimated Glomerular Filt Rate > 60; Glucose Random 108 mg/dL (60-115); Phosphorus 3.7 mg/dL (2.7-4.5); Potassium 4.3 mmol/L (3.3-5.1); Sodium 139 mmol/L (135-145)
[2022-10-14] MEDS: HYDROmorphone HCl 0.5 MG/0.5 ML SYRINGE IVPUSH ×2 (06:09→08:30)
[2022-10-14 06:43] LABS: Venous Blood Gas Refer to POC result
[2022-10-14] MEDS: methADONE HCl 20 MG/2 ML ORAL.CONC 37 MG PO (08:25)
--- NOTE | 2022-10-14 09:09 | HO.VASCPN ---
Subjective Subjective Date of Service: 10/14/22 Patient reports: still having pain Interval history: Patient seen and examined. Postop day 1 status post aortobifem bypass. Overall doing relatively well. He does have pain control issues. He is receiving his methadone as well. He is now for routine postop follow-up. Physical Exam Vital Signs: Vital Signs: Last Vital Signs Temp 98.6 F 10/14/22 08:00 Pulse 86 10/14/22 09:00 Resp 18 10/14/22 09:00 BP 132/53 L 10/14/22 09:00 Pulse Ox 98 10/14/22 09:00 O2 Del Method 10/14/22 09:00 O2 Flow Rate 1 10/14/22 06:00 Oxygen Flow Rate 2 10/13/22 14:53 BMI result Body Mass Index 21.2 Const: General: cooperative, healthy appearing and no acute distress Orientation/consciousness: oriented to person, oriented to place and oriented to time HEENT: Head: Yes normal to inspection Neck: Carotids: no bruits Chest: Chest palpation & inspection: normal inspection of the chest Resp: Effort & Inspection: normal respiratory effort and able to speak in complete sentences Auscultation: clear to auscultation bilaterally Cardio: Rate: regular rate Heart sounds: S1 normal heart sound present and S2 normal heart sound present GI: Other: Abdomen mildly distended appropriately diffusely tender no rebound or guarding. All incision lines are clean dry intact Inspection: Yes normal to inspection Skin: General skin exam: no rashes or lesions noted Wounds: no wounds Neuro: General: oriented to person, oriented to place, oriented to time and CN's II-XI intact bilaterally Extrem: General: Yes normal to inspection, Yes full ROM and Yes no clubbing, cyanosis or edema Psych: Appearance: grossly normal and well kempt Speech and movement: Normal speech and movement present Affect: normal affect Progress Note: A&P Assessment and plan (1) Aortoiliac occlusive disease: Status: Acute Assessment and Plan: Patient is stable status post aortobifem bypass. Feet are well perfused. Pain control continues to be an issue for him. We will remove A-line and keep the Graff as the patient is not able to be mobile at all and in a fair amount of pain. We will continue to monitor his H&H. Thank you to the stapling machine operator for their assistance in his care. Time Spent With Patient Time: Total time spent is greater than 50% in coordination of care (as documented) at patient's floor/unit and/or counseling patient: Procedures Date of Service Date of Service: 10/14/22 Quality Stroke Does the patient have a stroke diagnosis?: No VTE Prior VTE?: No VTE Risk Level:: Surgical - high VTE Device Contraindication: N/A - Device Ordered VTE Drug Contraindication: N/A - Med Ordered
--- NOTE | 2022-10-14 10:03 | PM.CCPN ---
Subjective Subjective Date of Service: 10/14/22 Interval History: 62-year-old gentleman with underlying history of mild systolic congestive heart failure with EF of 45-50%, smoker with emphysema, but no fixed COPD, heroin abuse on methadone peripheral vascular disease, now postop day 1 after elective open aortobifemoral bypass being monitored in the intensive care unit. Restarted on his home methadone dose No events overnight. Critical Care Time (minutes): 0 Physical Exam Vital Signs: Vital Signs: Last Vital Signs Temp 98.6 F 10/14/22 08:00 Pulse 86 10/14/22 09:00 Resp 18 10/14/22 09:00 BP 132/53 L 10/14/22 09:00 Pulse Ox 98 10/14/22 09:00 O2 Del Method 10/14/22 09:00 O2 Flow Rate 1 10/14/22 06:00 Oxygen Flow Rate 2 10/13/22 14:53 BMI result Body Mass Index 21.2 Const: General: no acute distress, alert and awake Eyes: Sclerae: sclerae normal EOM: EOMs intact bilaterally Neck: Neck: Yes no lymphadenopathy, Yes trachea midline and Yes supple Resp: Effort & Inspection: normal respiratory effort and no respiratory distress Auscultation: clear to auscultation bilaterally Cardio: Rate: regular rate Rhythm: regular rhythm Heart sounds: no gallops, no murmurs and no rubs GI: Inspection: Yes other (Midline incision with surgical dressing and no hematoma) Palpation (GI): Soft to palpation, Tenderness to palpation present (GI) (Mild, at the incision site) and Other GI palpation findings present Auscultation: normal bowel sounds Extrem: General: Yes no pedal edema, No clubbing, No cyanosis and Yes other (Bilateral femoral incision sites with surgical dressings and no hematoma) Objective Data Labs CBC & Chem 7: 10/14/22 04:55 10/14/22 04:55 Labs: Laboratory Results - last 24 hr 10/13/22 10/13/22 10/14/22 14:40 14:40 04:55 WBC 13.0 H 9.3 RBC 2.88 L 2.58 L Hgb 9.0 L 8.1 L Hct 27.8 L 25.2 L MCV 96.5 97.7 MCH 31.3 31.4 MCHC 32.4 32.1 RDW 12.5 12.6 Plt Count 193 179 MPV 9.6 10.0 Immature Gran % (Auto) 0.4 0.2 Neut % (Auto) 91.5 H 70.0 Lymph % (Auto) 5.8 L 17.7 L Cochran % (Auto) 2.2 12.0 H Eos % (Auto) 0.0 0.0 Baso % (Auto) 0.1 0.1 Lymph # (Auto) 0.8 L 1.7 [place]chran # (Auto) 0.3 1.1 Eos # (Auto) 0.0 0.0 Baso # (Auto) 0.0 0.0 Abs Immat Gran (auto) 0.05 H 0.02 Absolute Neuts (auto) 11.9 H 6.5 Absolute Nucleated RBC 0.000 0.000 Nucleated RBC % (auto) 0.0 0.0 Smear Tech's Comments VERIFIED VBG pH VBG pCO2 VBG pO2 VBG HCO3 VBG O2 Saturation VBG Base Excess Sodium 139 Potassium 4.1 Chloride 108 Carbon Dioxide 24 Anion Gap 11 L BUN 18 H Creatinine 0.80 Estim Creat Clear Calc 79.2 Estimated GFR > 60 Random Glucose 159 H D Calcium 7.9 L D Phosphorus Magnesium Albumin 10/14/22 10/14/22 04:55 04:56 WBC RBC Hgb Hct MCV MCH MCHC RDW Plt Count MPV Immature Gran % (Auto) Neut % (Auto) Lymph % (Auto) Cochran % (Auto) Eos % (Auto) Baso % (Auto) Lymph # (Auto) [place] # (Auto) Eos # (Auto) Baso # (Auto) Abs Immat Gran (auto) Absolute Neuts (auto) Absolute Nucleated RBC Nucleated RBC % (auto) Smear Tech's Comments VBG pH 7.44 H VBG pCO2 52 VBG pO2 52 VBG HCO3 36 H VBG O2 Saturation 84.0 VBG Base Excess 10.7 Sodium 139 Potassium 4.3 Chloride 104 Carbon Dioxide 28 Anion Gap 11 L BUN 13 Creatinine 0.77 Estim Creat Clear Calc 89.3 Estimated GFR > 60 Random Glucose 108 Calcium 8.3 L Phosphorus 3.7 Magnesium 2.0 Albumin 3.1 L Progress Note: A&P Assessment and plan (1) Status post aortobifemoral bypass surgery: Status: Acute (2) PVD (peripheral vascular disease): Status: Acute (3) History of heroin abuse: Status: Acute Plan Assessment: 62-year-old gentleman with underlying peripheral vascular disease and heroin abuse on methadone now postoperative day 1 after elective aortobifemoral open bypass being monitored in the intensive care unit Plan: Neuro: No acute issues. Cardiac: postop day 1 after an elective open aortobifemoral bypass. Vascular surgery service care appreciated. Maintain systolic blood pressure under 160. Recovering well. Pulmonary: No acute issues. Renal: No acute issues. Endo: No acute issues. GI: No acute issues. ID: No acute issues Heme/Onc: No acute issues. Psych: No acute issues. Miscellaneous: underlying history of heroin dependence on methadone. Continue home regimen of methadone. Prophylaxis: Per vascular surgeon Diet: per vascular surgery Quality Stroke Does the patient have a stroke diagnosis?: No VTE Prior VTE?: No VTE Risk Level:: Surgical - high VTE Device Contraindication: N/A - Device Ordered VTE Drug Contraindication: N/A - Med Ordered
--- NOTE | 2022-10-14 10:09 | MHC.CM.PN ---
Met with pt and his sister, Hayley to review d/c planning needs: pt lives above [place] in a duplex: independent w/care needs, drives self to appointments and Methadone clinic - no equipment used. Vax x2 no booster. Pt denies having post op care needs at home - Hayley to transport. No additional CM needs anticipated. Assisted w/HCP completion
[2022-10-14] MEDS: Heparin Sodium,Porcine 5,000 UNIT/ML VIAL 5000 UNIT SUBCUT ×2 (10:22→15:37)
[2022-10-14] MEDS: Dextrose 5 % and Lactated Ring 1,000 ML 50 ML IVCONT (10:27)
[2022-10-14] MEDS: fentaNYL citrate/PF 100 MCG/2 ML VIAL 50 MCG IVPUSH ×6 (10:31→22:27)
--- NOTE | 2022-10-14 11:34 | HO.POSTANES ---
Post Anesthesia Evaluation Post Anesthesia Evaluation Vital Signs: Vital Signs Temp Pulse Resp BP Pulse Ox O2 Del Method O2 Flow Rate 10/14/22 11:00 89 27 H 133/54 L 98 Room Air 10/14/22 10:00 90 24 H 135/56 L 97 Room Air 10/14/22 09:00 86 18 132/53 L 98 Room Air 10/14/22 08:00 98.6 F 88 30 H 128/53 L 99 Room Air 10/14/22 07:00 83 24 H 117/51 L 99 Room Air 10/14/22 06:00 90 22 H 124/54 L 98 Nasal Cannula 1 10/14/22 05:00 78 18 125/52 L 100 Nasal Cannula 1 10/14/22 04:00 76 18 115/50 L 100 Nasal Cannula 1 10/14/22 02:58 98.5 F 82 20 116/50 L 99 Nasal Cannula 1 10/14/22 02:00 81 7 L 108/49 L 99 Room Air 10/14/22 01:00 80 8 L 104/48 L 99 Room Air 10/14/22 00:00 98.4 F 83 25 H 120/51 L 100 Room Air Anesthesia: General Endotracheal-GETA and General Mental Status: Awake Pain Control: Satisfactory (Unabe to control pain) Nausea/Vomiting: Mild Hydration: Adequate Anesthesia-Related Issues: No Anes. Related Issues Comments: central line
[2022-10-14] MEDS: ondansetron HCL 4 MG/2 ML VIAL IVPUSH (11:35)
--- NOTE | 2022-10-14 15:53 | PM.EVENT ---
Event Note Date of Service: 10/14/22 Event Note: Pt seen and examined with hospitalist consult placed . Transferred to [facility] just now from ICU following 2 nights monitoring in ICU s/p open aortobifemoral bypass, now POD1, with underlying PVD and heroin abuse on methadone. Complaining of epigastric burning pain with reflux and nausea. He has not eaten since thursday. Diet recommendations per vascular surgery. Continue ondansetron as ordered and famotidine and carafate added (discussed with vascular surgery). Continue methodone for opiate dependence. Continue seroquel for mood disorder. Continue statin for HLD. Continue fentanyl as ordered for pain management. Per ICU- keep SBP <160. Labetolol prn as ordered. Heparin for DVT prophylaxis per vascular surgery. Thank you for this consult. Will continue following.
[2022-10-14] MEDS: Sucralfate 1 GM TABLET PO ×2 (16:45→20:22)
[2022-10-14] MEDS: Famotidine 20 MG TABLET PO (16:45)
[2022-10-14] MEDS: QUEtiapine Fumarate 25 MG TABLET PO (20:22)
[2022-10-15] VITALS (8 sets, daily range): BP systolic 130–147; BP diastolic 64–86; PULSE 76–90; RESP 12–19; TEMP 36.9–37.6; O2SAT 96–98
[2022-10-15] MEDS: Heparin Sodium,Porcine 5,000 UNIT/ML VIAL 5000 UNIT SUBCUT ×2 (00:29→08:58)
[2022-10-15] MEDS: fentaNYL citrate/PF 100 MCG/2 ML VIAL 50 MCG IVPUSH ×7 (00:29→20:26)
[2022-10-15 06:22] LABS: MANUAL DIFF FLAG NO
[2022-10-15 06:27] LABS: Basophils Percent Auto 0.1 % (0-2); Hematocrit 27.7 % (42.0-52.0); Imm Gran Abs Auto 0.07 X10*3/uL (0.00-0.03); Imm Gran Pct Auto 0.5 % (0.0-0.4); Lymphocytes Absolute Auto 1.4 X10*3/uL (1.2-4.9); Lymphocytes Percent Auto 9.9 % (20-40); Mean Corpuscular HGB Conc 32.5 g/dl (31.0-36.0); Mean Corpuscular Hemoglobin 31.8 pg (27.0-33.0); Mean Corpuscular Volume 97.9 fL (80.0-98.0); Mean Platelet Volume 10.2 fL (9.4-12.4); Monocytes Absolute Auto 1.5 X10*3/uL (0.1-1.2); Monocytes Percent Auto 10.2 % (2-11); Neutrophils Absolute Auto 11.4 x10*3/uL (2.0-8.3); Neutrophils Percent Auto 79.3 % (45-73); Platelet Count 187 X10*3/uL (160-400); Red Blood Count 2.83 X10*6/uL (4.60-5.80); Red Cell Distribution Width 12.3 % (11.0-16.0); White Blood Count 14.4 X10*3/uL (4.8-10.8)
[2022-10-15] MEDS: Dextrose 5 % and Lactated Ring 1,000 ML 50 ML IVCONT (06:29)
[2022-10-15] MEDS: 0.9 % Sodium Chloride Flush 3 ML SYRINGE IVFLUSH ×2 (07:55→15:09)
[2022-10-15] MEDS: ondansetron HCL 4 MG/2 ML VIAL IVPUSH ×2 (07:55→16:25)
[2022-10-15 08:05] LABS: Albumin Level 3.4 g/dL (3.5-5.0); Anion Gap 12 (12-20); Blood Urea Nitrogen 14 mg/dL (9-16); Calcium 8.5 mg/dL (8.4-10.2); Carbon Dioxide 31 mmol/L (22-29); Chloride 100 mmol/L (96-108); Creatinine Clr Calc Pharmacy 101.1; Estimated Glomerular Filt Rate > 60; Glucose Random 129 mg/dL (60-115); Phosphorus 2.1 mg/dL (2.7-4.5); Potassium 3.8 mmol/L (3.3-5.1); Sodium 139 mmol/L (135-145)
[2022-10-15] MEDS: Sucralfate 1 GM TABLET PO ×3 (08:58→20:26)
[2022-10-15] MEDS: methADONE HCl 20 MG/2 ML ORAL.CONC 37 MG PO (08:58)
--- NOTE | 2022-10-15 09:49 | HO.VASCPN ---
Subjective Subjective Date of Service: 10/15/22 Patient reports: still having pain Interval history: 62-year-old gentleman postop day 2 status post open aortobifem. Appears to be doing relatively the same. Pain control seems to be an issue for him. He did have a small bout of emesis this morning which appear to be more coffee-ground in nature. In general from a bypass standpoint appears to be doing relatively well. He has not had any flatus or bowel movement as of yet. Physical Exam Vital Signs: Vital Signs: Last Vital Signs Temp 98.5 F 10/15/22 08:00 Pulse 85 10/15/22 08:00 Resp 12 10/15/22 08:00 BP 137/65 10/15/22 08:00 Pulse Ox 97 10/15/22 08:00 O2 Del Method 10/15/22 08:00 O2 Flow Rate 1 10/14/22 06:00 Oxygen Flow Rate 4 10/14/22 12:57 BMI result Body Mass Index 21.2 Const: General: cooperative, healthy appearing and no acute distress Orientation/consciousness: oriented to person, oriented to place and oriented to time HEENT: Head: Yes normal to inspection Neck: Carotids: no bruits Chest: Chest palpation & inspection: normal inspection of the chest Resp: Effort & Inspection: normal respiratory effort and able to speak in complete sentences Auscultation: clear to auscultation bilaterally Cardio: Rate: regular rate Heart sounds: S1 normal heart sound present and S2 normal heart sound present GI: Other: Abdomen is distended diffusely tender diminished bowel sounds Inspection: Yes normal to inspection Skin: Other: Incisions are clean dry intact General skin exam: no rashes or lesions noted Wounds: no wounds Neuro: General: oriented to person, oriented to place, oriented to time and CN's II-XI intact bilaterally Extrem: General: Yes normal to inspection, Yes full ROM and Yes no clubbing, cyanosis or edema Psych: Appearance: grossly normal and well kempt Speech and movement: Normal speech and movement present Affect: normal affect Progress Note: A&P Assessment and plan (1) Status post aortobifemoral bypass surgery: Status: Acute Assessment and Plan: In short patient is stable postop day 2. Hemoglobin has stabilized at 9. Bowel function is slow to return. Will add stool softeners to the regimen. Would like to minimize pain meds as much as possible as this is contributing to his constipation. Will get patient out of bed to chair today. Will need incentive spirometer as well. This was encouraged. Hospitalists input appreciated. Will obtain GI input as well. Overall situation discussed with patient and sister at bedside. Time Spent With Patient Time: Total time spent is greater than 50% in coordination of care (as documented) at patient's floor/unit and/or counseling patient: Procedures Date of Service Date of Service: 10/15/22 Quality Stroke Does the patient have a stroke diagnosis?: No VTE Prior VTE?: No VTE Risk Level:: Surgical - high VTE Device Contraindication: N/A - Device Ordered VTE Drug Contraindication: N/A - Med Ordered
--- NOTE | 2022-10-15 10:04 | HO.PM.IMPN ---
Subjective Subjective Date of Service: 10/15/22 Interval History: Seen in follow up for aortobifemoral bypass admitted to vascular surgery with consult placed for medical comanagement Interval history: POD2, reports 9/10 abdominal pain. Continues with epigastric burning with associated with nausea and heartburn ongoing since last night with some improvement following simethicone and famotidine administration as well as nausea. This morning has multiple episodes small amounts coffee ground emesis with some dry heaves. Also reporting constipation. H/H stable. He has been NPO since thursday Review of Systems General: No fevers, malaise, unintentional weight loss Cardiovascular: No chest pain, palpitations, or leg edema Respiratory: No shortness of breath, wheezing, cough GI: +abdominal pain, +nausea, vomiting, +coffe ground emesis, constipation. No diarrhea, melena, hematochezia Neuro: No headaches, weakness, paresthesias Skin: No rashes or lesions Physical Exam Vital Signs: Vital Signs: Last Vital Signs Temp 98.5 F 10/15/22 08:00 Pulse 85 10/15/22 08:00 Resp 12 10/15/22 08:00 BP 137/65 10/15/22 08:00 Pulse Ox 97 10/15/22 08:00 O2 Del Method 10/15/22 08:00 O2 Flow Rate 1 10/14/22 06:00 Oxygen Flow Rate 4 10/14/22 12:57 BMI result Body Mass Index 21.2 Constitutional - Awake and Alert, Uncomfortable appearing with pallor, vomiting small amounts of black/coffee ground emesis Eyes - PERRLA, EOMI Cardiovascular - S1S2, RRR, No edema Respiratory - Normal lung expansion, Normal respiratory effort, No respiratory distress, CTA bilaterally Gastrointestinal - Moderately distended abdomen with tenderness to light palpation. In tact surgical incision without dehiscence from epigastric region to bilateral groin covered with clean bandage without purulent drainage and minimal bleeding. +BS Extremities - no calf tenderness bilaterally, no swelling Skin - Warm/Dry Neurological - Alert & oriented x3 Psychological - Appropriate affect Objective Data Active Medications Acetaminophen (Acetaminophen 325 Mg Tablet) 650 mg PO Q6H PRN PRN Reason: Pain, Mild (Pain Scale 1-3) Albuterol Sulfate (Albuterol Sulfate (0.083%) 2.5 Mg/3 Ml Vial.Neb) 2.5 mg INHALE ONCE PRN PRN Reason: Shortness of Breath/Wheezing Atorvastatin Calcium (Atorvastatin Calcium 80 Mg Tablet) 80 mg PO BEDTIME [facility] Last Admin: 10/14/22 20:31 Dose: Not Given Documented By: CHIOMA Non-Admin Reason: Patient Refused Docusate Sodium (Docusate Sodium 100 Mg Capsule) 100 mg PO BID [facility] Fentanyl (Fentanyl Citrate/Pf 100 Mcg/2 Ml Vial) 50 mcg IVPUSH Q2H PRN; Protocol PRN Reason: Pain, Severe (Pain Scale 7-10) Last Admin: 10/15/22 04:10 Dose: 50 mcg Documented By: CHIOMA Heparin Sodium (Porcine) (Heparin Sodium,Porcine 5,000 Unit/Ml Vial) 5,000 unit SUBCUT Q8H [facility] Last Admin: 10/15/22 00:29 Dose: 5,000 unit Documented By: CHIOMA Dextrose/Lactated Ringer's (D5lr) 1,000 mls @ 50 mls/hr IVCONT .Q20H [facility] Last Admin: 10/15/22 06:29 Dose: 50 mls/hr Documented By: CHIOMA Labetalol HCl (Labetalol Hcl 100 Mg/20 Ml Vial) 20 mg IVPUSH Q10M PRN PRN Reason: SBP > 160 Last Admin: 10/13/22 17:31 Dose: 20 mg Documented By: LIZ Methadone HCl (Methadone Hcl 20 Mg/2 Ml Oral.Conc) 37 mg PO DAILY [facility] Last Admin: 10/15/22 08:58 Dose: 37 mg Documented By: OMID Ondansetron HCl (Ondansetron Hcl 4 Mg/2 Ml Vial) 4 mg IVPUSH Q6H PRN PRN Reason: Nausea Last Admin: 10/15/22 07:55 Dose: 4 mg Documented By: OMID Oxycodone HCl (Oxycodone Hcl Immed Release 5 Mg Tablet) 5 mg PO Q4H PRN PRN Reason: Pain, Moderate (Pain Scale 4-6 Pantoprazole Sodium (Pantoprazole Sodium 40 Mg/10 Ml Vial) 40 mg IVPUSH BID@0630,1630 [facility] Quetiapine Fumarate (Quetiapine Fumarate 25 Mg Tablet) 25 mg PO BEDTIME [facility] Last Admin: 10/14/22 20:22 Dose: 25 mg Documented By: CHIOMA Senna (Sennosides 8.6 Mg Tablet) 8.6 mg PO BEDTIME [facility] Sodium Chloride (0.9 % Sodium Chloride Flush 3 Ml Syringe) 3 ml IVFLUSH QSHIFT [facility] Last Admin: 10/15/22 07:55 Dose: 3 ml Documented By: OMID Sucralfate (Sucralfate 1 Gm Tablet) 1 gm PO QIDACHS [facility] Last Admin: 10/15/22 08:58 Dose: 1 gm Documented By: OMID Labs CBC & Chem 7: 10/15/22 11:57 10/15/22 06:04 Labs: Laboratory Results - last 24 hr 10/15/22 10/15/22 06:04 06:04 MCV 97.9 MCH 31.8 MCHC 32.5 RDW 12.3 Plt Count 187 MPV 10.2 Immature Gran % (Auto) 0.5 H Neut % (Auto) 79.3 H Lymph % (Auto) 9.[address] [place] % (Auto) 10.2 Eos % (Auto) 0.0 Baso % (Auto) 0.1 Lymph # (Auto) 1.4 [place] # (Auto) 1.5 H Eos # (Auto) 0.0 Baso # (Auto) 0.0 Abs Immat Gran (auto) 0.07 H Absolute Neuts (auto) 11.4 H Absolute Nucleated RBC 0.000 Nucleated RBC % (auto) 0.0 Anion Gap 12 Estim Creat Clear Calc 101.1 Estimated GFR > 60 Random Glucose 129 H Calcium 8.5 Phosphorus 2.1 L Magnesium 2.0 Albumin 3.4 L Assessment and Plan (1) Status post aortobifemoral bypass surgery: Status: Acute Plan 62 year old male with 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 #Epigastric burning/nausea/vomiting/reflex/coffeeground emesis- Discussed with Dr. Dobbins -Possibly related to gastritis with ?bleeding ulcer -Hemodynamically stable -IV PPI -Continue NPO -Continue simethicone -Continue ondansetron and add reglan to better control n/v to prevent wound dehiscence. If need consider lorazepam -H/H stable at 9.0/27.7% this am. Repeat H/H @noon and follow -Hold heparin for now -Appreciate GI input #Aortobifemoral bypass- POD2 with baseline PVD/PAD -Plan and pain management per vascular surgery #Depression -Continue home meds -Opioid dependence -Continue methadone Will continue following Quality Stroke Does the patient have a stroke diagnosis?: No VTE Prior VTE?: No VTE Risk Level:: Surgical - high VTE Device Contraindication: N/A - Device Ordered VTE Drug Contraindication: N/A - Med Ordered
[2022-10-15] MEDS: Pantoprazole Sodium 40 MG/10 ML VIAL IVPUSH ×2 (10:08→15:08)
[2022-10-15] MEDS: Metoclopramide HCl 10 MG/2 ML VIAL IVPUSH (10:28)
[2022-10-15] MEDS: Docusate Sodium 100 MG CAPSULE PO ×2 (10:33→20:26)
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
[2022-10-15 12:12] LABS: Hematocrit 24.5 % (42.0-52.0)
--- NOTE | 2022-10-15 15:27 | ECG_ITS ---
Test Reason : qtc check Blood Pressure : / mmHG Vent. Rate : 079 BPM Atrial Rate : 079 BPM P-R Int : 110 ms QRS Dur : 086 ms QT Int : 374 ms P-R-T Axes : 022 047 049 degrees QTc Int : 428 ms Sinus rhythm with short ME Otherwise normal ECG No previous ECGs available Referred By: Jaelyn Hooker Electronically Signed By:LAURA BURGESS MD
[2022-10-15] MEDS: Metoclopramide HCl 10 MG/2 ML VIAL 5 MG IVPUSH ×2 (16:25→20:25)
--- NOTE | 2022-10-15 16:45 | MHC.CM.PN ---
No discharge today per MD rounds. DP home no services . Patients sister will provide transportation home.
[2022-10-15] MEDS: Sodium,Potassium Phosphates POWD.PACK 1 PACKET PO ×2 (18:00→20:25)
[2022-10-15] MEDS: QUEtiapine Fumarate 25 MG TABLET PO (20:25)
[2022-10-15] MEDS: Sennosides 8.6 MG TABLET PO (20:26)
[2022-10-15] MEDS: Atorvastatin Calcium 80 MG TABLET PO (20:26)
[2022-10-16] VITALS (7 sets, daily range): BP systolic 124–148; BP diastolic 58–66; PULSE 75–89; RESP 17–20; TEMP 36.7–37.4; O2SAT 95–98; BMI 21.5
[2022-10-16] MEDS: 0.9 % Sodium Chloride Flush 3 ML SYRINGE IVFLUSH ×2 (01:56→09:15)
[2022-10-16] MEDS: fentaNYL citrate/PF 100 MCG/2 ML VIAL 50 MCG IVPUSH (04:54)
[2022-10-16] MEDS: Metoclopramide HCl 10 MG/2 ML VIAL 5 MG IVPUSH ×5 (04:55→21:07)
[2022-10-16] MEDS: Dextrose 5 % and Lactated Ring 1,000 ML 50 ML IVCONT (04:55)
[2022-10-16] MEDS: ondansetron HCL 4 MG/2 ML VIAL IVPUSH ×2 (04:55→09:14)
[2022-10-16] MEDS: Pantoprazole Sodium 40 MG/10 ML VIAL IVPUSH ×2 (04:55→18:04)
[2022-10-16 06:40] LABS: Anion Gap 12 (12-20); Blood Urea Nitrogen 15 mg/dL (9-16); Calcium 8.4 mg/dL (8.4-10.2); Carbon Dioxide 28 mmol/L (22-29); Chloride 103 mmol/L (96-108); Creatinine Clr Calc Pharmacy 100.7; Estimated Glomerular Filt Rate > 60; Glucose Random 127 mg/dL (60-115); Phosphorus 2.2 mg/dL (2.7-4.5); Potassium 3.6 mmol/L (3.3-5.1); Sodium 139 mmol/L (135-145)
[2022-10-16 09:13] LABS: MANUAL DIFF FLAG NO
[2022-10-16] MEDS: Sodium,Potassium Phosphates POWD.PACK 1 PACKET PO ×2 (09:14→12:35)
[2022-10-16] MEDS: methADONE HCl 20 MG/2 ML ORAL.CONC 37 MG PO (09:15)
[2022-10-16] MEDS: Sucralfate 1 GM TABLET PO (09:15)
[2022-10-16] MEDS: Docusate Sodium 100 MG CAPSULE PO (09:15)
[2022-10-16 09:26] LABS: Basophils Percent Auto 0.1 % (0-2); Hematocrit 23.8 % (42.0-52.0); Hemoglobin 7.8 g/dl (14.0-18.0); Imm Gran Abs Auto 0.07 X10*3/uL (0.00-0.03); Imm Gran Pct Auto 0.5 % (0.0-0.4); Lymphocytes Absolute Auto 1.7 X10*3/uL (1.2-4.9); Mean Corpuscular HGB Conc 32.8 g/dl (31.0-36.0); Mean Corpuscular Hemoglobin 31.6 pg (27.0-33.0); Mean Corpuscular Volume 96.4 fL (80.0-98.0); Mean Platelet Volume 9.9 fL (9.4-12.4); Monocytes Absolute Auto 1.2 X10*3/uL (0.1-1.2); Monocytes Percent Auto 9.2 % (2-11); NRBC Pct Auto 0.2 /100WBC (0.0-0.2); Neutrophils Absolute Auto 10.3 x10*3/uL (2.0-8.3); Neutrophils Percent Auto 77.2 % (45-73); Platelet Count 187 X10*3/uL (160-400); Red Blood Count 2.47 X10*6/uL (4.60-5.80); Red Cell Distribution Width 12.2 % (11.0-16.0); White Blood Count 13.3 X10*3/uL (4.8-10.8)
--- NOTE | 2022-10-16 10:07 | P.PNVS_ITS ---
Subjective Subjective Date of Service: 10/16/22 Patient reports: no new complaints and pain is less Interval history: Patient is postop day 3 status post aortobifem. He appears to be doing somewhat better since yesterday. Pain appears to be better controlled. In addition he reports he is passing flatus today. He has had no other issues overnight. Now for vascular follow-up. Physical Exam Vital Signs: Vital Signs: Last Vital Signs Temp 98.1 F 10/16/22 07:52 Pulse 81 10/16/22 07:52 Resp 18 10/16/22 07:52 BP 124/66 10/16/22 07:52 Pulse Ox 96 10/16/22 07:52 O2 Del Method 10/16/22 07:52 O2 Flow Rate 1 10/14/22 06:00 Oxygen Flow Rate 4 10/14/22 12:57 BMI result Body Mass Index 21.5 Const: General: cooperative, healthy appearing and no acute distress Orientation/consciousness: oriented to person, oriented to place and oriented to time HEENT: Head: Yes normal to inspection Neck: Carotids: no bruits Chest: Chest palpation & inspection: normal inspection of the chest Resp: Effort & Inspection: normal respiratory effort and able to speak in complete sentences Auscultation: clear to auscultation bilaterally Cardio: Rate: regular rate Heart sounds: S1 normal heart sound present and S2 normal heart sound present GI: Other: Abdomen slightly distended appropriately tender, no rebound no guarding Inspection: Yes normal to inspection Skin: Other: Dressing clean dry intact General skin exam: no rashes or lesions noted Wo unds: no wounds Neuro: General: oriented to person, oriented to place, oriented to time and CN's II-XI intact bilaterally Extrem: General: Yes normal to inspection, Yes full ROM and Yes no clubbing, cyanosis or edema Psych: Appearance: grossly normal and well kempt Speech and movement: Normal speech and movement present Affect: normal affect Progress Note: A&P Assessment and plan (1) Status post aortobifemoral bypass surgery: Status: Acute Assessment and Plan: In short patient is doing much better status post aortobifem bypass. He is passing flatus today. I will discontinue the Graff and start him on a clear li quid diet. In addition we will start with ambulation today. Physical therapy ordered. Will continue to monitor H&H hesitate slowly drifting down. Currently hemodynamically stable. Should it continue to fall may require transfusion. Appreciate GI and Medicine team input. I do anticipate at least 3-4 more days of hospital stay. Time Spent With Patient Time: Total time spent is greater than 50% in coordination of care (as documented) at patient's floor/unit and/or counseling patient: Procedures Date of Service Date of Service: 10/16/22 Quality Stroke Does the patient have a stroke diagnosis?: No VTE Prior VTE?: No VTE Risk Level:: Surgical - high VTE Device Contraindication: N/A - Device Ordered VTE Drug Contraindication: N/A - Med Ordered
[2022-10-16] MEDS: polyethylene glycoL 3350 17 GM POWD.PACK PO (12:35)
--- NOTE | 2022-10-16 12:37 | HO.PM.IMPN ---
Subjective Subjective Date of Service: 10/16/22 Interval History: Seen in follow up for aortobifemoral bypass admitted to vascular surgery with consult placed for medical comanagement Patient feeling better this morning good pain control no recurrent episode of coffee-ground emesis, spit out small amount of bilious fluid , for patient seen by vascular surgeries placed on clear liquid diet. Patient ambulated in the hallway without difficulty. Review of Systems General no headache no dizziness no fever chills. CVS no chest pain, no palpitation. Respiratory no cough, no sob Graff catheter with dark urine Physical Exam Vital Signs: Vital Signs: Last Vital Signs Temp 98.6 F 10/16/22 11:01 Pulse 81 10/16/22 11:01 Resp 18 10/16/22 11:01 BP 148/58 H 10/16/22 11:01 Pulse Ox 98 10/16/22 11:01 O2 Del Method 10/16/22 11:01 O2 Flow Rate 1 10/14/22 06:00 Oxygen Flow Rate 4 10/14/22 12:57 BMI result Body Mass Index 21.5 Const: Other: Constitutional - Awake and Alert, resting comfortably in no distress Cardiovascular - S1S2, RRR, No edema Respiratory - Normal lung expansion, Normal respiratory effort, No respiratory distress, CTA bilaterally Gastrointestinal - abdomen soft,mild tenderness, bowel sounds audible, dressing in place no drainage noted, bilateral groin covered with clean bandage without purulent drainage and minimal bleeding. , Extremities - no calf tenderness bilaterally, no swelling Skin - Warm/Dry Neurological - Alert & oriented x3 Psychological - Appropriate affect Objective Data Active Medications Acetaminophen (Acetaminophen 325 Mg Tablet) 650 mg PO Q6H PRN PRN Reason: Pain, Mild (Pain Scale 1-3) Albuterol Sulfate (Albuterol Sulfate (0.083%) 2.5 Mg/3 Ml Vial.Neb) 2.5 mg INHALE ONCE PRN PRN Reason: Shortness of Breath/Wheezing Atorvastatin Calcium (Atorvastatin Calcium 80 Mg Tablet) 80 mg PO BEDTIME [facility] Last Admin: 10/15/22 20:26 Dose: 80 mg Documented By: ANTOIC Docusate Sodium (Docusate Sodium 100 Mg Capsule) 100 mg PO BID [facility] Last Admin: 10/16/22 09:15 Dose: 100 mg Documented By: PHANLYM Fentanyl (Fentanyl Citrate/Pf 100 Mcg/2 Ml Vial) 50 mcg IVPUSH Q2H PRN; Protocol PRN Reason: Pain, Severe (Pain Scale 7-10) Last Admin: 10/16/22 04:54 Dose: 50 mcg Documented By: YESI Heparin Sodium (Porcine) (Heparin Sodium,Porcine 5,000 Unit/Ml Vial) 5,000 unit SUBCUT Q8H [facility] Last Admin: 10/15/22 08:58 Dose: 5,000 unit Documented By: CTORRZ Labetalol HCl (Labetalol Hcl 100 Mg/20 Ml Vial) 20 mg IVPUSH Q10M PRN PRN Reason: SBP > 160 Last Admin: 10/13/22 17:31 Dose: 20 mg Documented By: TETREAM Methadone HCl (Methadone Hcl 20 Mg/2 Ml Oral.Conc) 37 mg PO DAILY [facility] Last Admin: 10/16/22 09:15 Dose: 37 mg Documented By: EDITH Metoclopramide HCl (Metoclopramide Hcl 10 Mg/2 Ml Vial) 5 mg IVPUSH Q6H [facility] Last Admin: 10/16/22 09:14 Dose: 5 mg Documented By: EDITH Metoclopramide HCl (Metoclopramide Hcl 10 Mg/2 Ml Vial) 5 mg IVPUSH Q6H [facility] Last Admin: 10/16/22 12:36 Dose: 5 mg Documented By: EDITH Ondansetron HCl (Ondansetron Hcl 4 Mg/2 Ml Vial) 4 mg IVPUSH Q6H [facility] Last Admin: 10/16/22 09:14 Dose: 4 mg Documented By: EDITH Oxycodone HCl (Oxycodone Hcl Immed Release 5 Mg Tablet) 5 mg PO Q4H PRN PRN Reason: Pain, Moderate (Pain Scale 4-6 Pantoprazole Sodium (Pantoprazole Sodium 40 Mg/10 Ml Vial) 40 mg IVPUSH BID@0630,1630 [facility] Last Admin: 10/16/22 04:55 Dose: 40 mg Documented By: YESI Polyethylene Glycol (Polyethylene Glycol 3350 17 Gm Powd.Pack) 17 gm PO DAILY [facility] Last Admin: 10/16/22 12:35 Dose: 17 gm Documented By: EDITH Potassium Phos/Sodium Phos (Sodium,Potassium Phosphates Powd.Pack) 1 packet PO QID [facility] Last Admin: 10/16/22 12:35 Dose: 1 packet Documented By: EDITH Quetiapine Fumarate (Quetiapine Fumarate 25 Mg Tablet) 25 mg PO BEDTIME [facility] Last Admin: 10/15/22 20:25 Dose: 25 mg Documented By: ANTBELL Senna (Sennosides 8.6 Mg Tablet) 8.6 mg PO BEDTIME [facility] Last Admin: 10/15/22 20:26 Dose: 8.6 mg Documented By: YESI Sodium Chloride (0.9 % Sodium Chloride Flush 3 Ml Syringe) 3 ml IVFLUSH QSHIFT [facility] Last Admin: 10/16/22 09:15 Dose: 3 ml Documented By: EDITH Sucralfate (Sucralfate 1 Gm Tablet) 1 gm PO QIDACHS [facility] Last Admin: 10/16/22 12:35 Dose: 1 gm Documented By: EDITH Labs CBC & Chem 7: 10/16/22 08:56 10/16/22 05:56 Labs: Laboratory Results - last 24 hr 10/16/22 10/16/22 05:56 08:56 MCV 96.4 MCH 31.6 MCHC 32.8 RDW 12.2 Plt Count 187 MPV 9.9 Immature Gran % (Auto) 0.5 H Neut % (Auto) 77.2 H Lymph % (Auto) 13.0 L [place] % (Auto) 9.2 Eos % (Auto) 0.0 Baso % (Auto) 0.1 Lymph # (Auto) 1.7 [place] # (Auto) 1.2 Eos # (Auto) 0.0 Baso # (Auto) 0.0 Abs Immat Gran (auto) 0.07 H Absolute Neuts (auto) 10.3 H Absolute Nucleated RBC 0.020 H Nucleated RBC % (auto) 0.2 Anion Gap 12 Estim Creat Clear Calc 100.7 Estimated GFR > 60 Random Glucose 127 H Calcium 8.4 Phosphorus 2.2 L Magnesium 2.0 Assessment and Plan (1) Status post aortobifemoral bypass surgery: Status: Acute Plan 62 year old male with 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 #Epigastric burning/nausea/vomiting/reflex/coffeeground emesis No recurrent symptoms , follow KUB -Possibly related to gastritis /Jen-Murdock tear/constipation -Hemodynamically stable -continue IV PPI, simethicone,and antiemetics is scheduled for next 24 hours, DC IV Zofran since on IV Reglan Continue Colace and MiraLax -on clear liquid diet Continue NPO -H&H gradually trending down will hold blood transfusion today since patient asymptomatic follow CBC Encourage out of bed to chair and ambulation Case discussed with and GI and vascular surgery #Aortobifemoral bypass- POD3 with baseline PVD/PAD -Plan and pain management per vascular surgery #Depression -Continue home meds -Opioid dependence -Continue methadone DVT prophylaxis with compression boots heparin on hold Will continue following Quality Stroke Does the patient have a stroke diagnosis?: No VTE Prior VTE?: No VTE Risk Level:: Surgical - high VTE Device Contraindication: N/A - Device Ordered VTE Drug Contraindication: N/A - Med Ordered
[2022-10-16] MEDS: Morphine Sulfate 4 MG/ML CARTRIDGE 3 MG IVPUSH (18:04)
--- NOTE | 2022-10-16 19:45 | PC.NURSE ---
LATE ENTRY sampson was removed at 1800. pt due to void at [id number].
--- NOTE | 2022-10-16 19:46 | PC.NURSE ---
pt had multiple nausea and vomiting episodes but small amt, could not tolerate PO med, notified
[2022-10-17] VITALS (11 sets, daily range): BP systolic 136–169; BP diastolic 65–75; PULSE 72–88; RESP 16–19; TEMP 36–37.7; O2SAT 94–98; BMI 21.7
[2022-10-17] MEDS: Morphine Sulfate 4 MG/ML CARTRIDGE 3 MG IVPUSH ×3 (00:28→23:29)
[2022-10-17] MEDS: 0.9 % Sodium Chloride Flush 3 ML SYRINGE IVFLUSH ×3 (00:31→19:45)
[2022-10-17] MEDS: Metoclopramide HCl 10 MG/2 ML VIAL 5 MG IVPUSH ×4 (03:38→19:45)
[2022-10-17] MEDS: oxyCODONE HCl Immed Release 5 MG TABLET PO ×2 (03:38→06:26)
[2022-10-17 06:05] LABS: MANUAL DIFF FLAG NO
[2022-10-17 06:09] LABS: Basophils Percent Auto 0.2 % (0-2); Eosinophils Absolute Auto 0.1 X10*3/uL (0.0-0.4); Eosinophils Percent Auto 0.8 % (0-4); Hematocrit 24.2 % (42.0-52.0); Hemoglobin 7.7 g/dl (14.0-18.0); Imm Gran Abs Auto 0.04 X10*3/uL (0.00-0.03); Imm Gran Pct Auto 0.4 % (0.0-0.4); Lymphocytes Absolute Auto 1.8 X10*3/uL (1.2-4.9); Lymphocytes Percent Auto 16.7 % (20-40); Mean Corpuscular HGB Conc 31.8 g/dl (31.0-36.0); Mean Corpuscular Hemoglobin 30.7 pg (27.0-33.0); Mean Corpuscular Volume 96.4 fL (80.0-98.0); Mean Platelet Volume 9.7 fL (9.4-12.4); Monocytes Absolute Auto 1.1 X10*3/uL (0.1-1.2); Monocytes Percent Auto 10.2 % (2-11); NRBC Pct Auto 0.4 /100WBC (0.0-0.2); Neutrophils Absolute Auto 7.7 x10*3/uL (2.0-8.3); Neutrophils Percent Auto 71.7 % (45-73); Platelet Count 208 X10*3/uL (160-400); Red Blood Count 2.51 X10*6/uL (4.60-5.80); Red Cell Distribution Width 12.3 % (11.0-16.0); White Blood Count 10.7 X10*3/uL (4.8-10.8)
[2022-10-17] MEDS: Pantoprazole Sodium 40 MG/10 ML VIAL IVPUSH ×2 (06:27→16:57)
[2022-10-17 06:29] LABS: Anion Gap 9 (12-20); Blood Urea Nitrogen 15 mg/dL (9-16); Calcium 8.3 mg/dL (8.4-10.2); Carbon Dioxide 32 mmol/L (22-29); Chloride 103 mmol/L (96-108); Creatinine Clr Calc Pharmacy 104.7; Estimated Glomerular Filt Rate > 60; Glucose Random 114 mg/dL (60-115); Magnesium 1.9 mg/dL (1.6-2.6); Phosphorus 2.4 mg/dL (2.7-4.5); Potassium 3.5 mmol/L (3.3-5.1); Sodium 140 mmol/L (135-145)
--- NOTE | 2022-10-17 08:34 | HO.VASCPN ---
Subjective Subjective Date of Service: 10/17/22 Patient reports: no new complaints, flatus and no bowel movement Interval history: 62-year-old gentleman postop day 4 status post aortobifem bypass. Reports no events overnight. Appears to be doing somewhat better. Pain is better controlled. He is comfortable in bed. He does report some nausea. He has not had any emesis. In addition he reports that he is passing flatus but has not had a bowel movement as of yet. He has been ambulatory and voiding freely. Physical Exam Vital Signs: Vital Signs: Last Vital Signs Temp 97.8 F 10/17/22 07:47 Pulse 72 10/17/22 07:47 Resp 16 10/17/22 07:47 BP 164/72 H 10/17/22 07:47 Pulse Ox 96 10/17/22 07:47 O2 Del Method 10/17/22 07:47 O2 Flow Rate 1 10/14/22 06:00 Oxygen Flow Rate 4 10/14/22 12:57 BMI result Body Mass Index 21.7 Const: General: cooperative, healthy appearing and no acute distress Orientation/consciousness: oriented to person, oriented to place and oriented to time HEENT: Head: Yes normal to inspection Neck: Carotids: no bruits Chest: Chest palpation & inspection: normal inspection of the chest Resp: Effort & Inspection: normal respiratory effort and able to speak in complete sentences Auscultation: clear to auscultation bilaterally Cardio: Rate: regular rate Heart sounds: S1 normal heart sound present and S2 normal heart sound present GI: Other: abdomen is softer with mild distension. No rebound or guarding Inspection: Yes normal to inspection Skin: Other: Incision lines healing well General skin exam: no rashes or lesions noted Wounds: no wounds Neuro: General: oriented to person, oriented to place, oriented to time and CN's II-XI intact bilaterally Extrem: General: Yes normal to inspection, Yes full ROM and Yes no clubbing, cyanosis or edema Psych: Appearance: grossly normal and well kempt Speech and movement: Normal speech and movement present Affect: normal affect Progress Note: A&P Assessment and plan (1) Aortoiliac occlusive disease: Status: Acute Assessment and Plan: in short patient is doing relatively well status post aortobifem bypass. He is progressing slowly. Awaiting return of bowel function. He has been placed on stool softeners of Colace Senokot and is being given MiraLax as well. His white count is back to normal limits. Hemoglobin is at 7.7. will transfuse 1 unit for anemia postop secondary to blood loss. Will required continued hospital care until bowel function returns. Thank you to the hospitalist team for their assistance in his care. Time Spent With Patient Time: Total time spent is greater than 50% in coordination of care (as documented) at patient's floor/unit and/or counseling patient: Procedures Date of Service Date of Service: 10/17/22 Quality Stroke Does the patient have a stroke diagnosis?: No VTE Prior VTE?: No VTE Risk Level:: Surgical - high VTE Device Contraindication: N/A - Device Ordered VTE Drug Contraindication: N/A - Med Ordered
[2022-10-17] MEDS: methADONE HCl 20 MG/2 ML ORAL.CONC 37 MG PO (08:40)
[2022-10-17] MEDS: Sucralfate 1 GM TABLET PO ×3 (08:41→16:57)
[2022-10-17] MEDS: Sodium,Potassium Phosphates POWD.PACK 1 PACKET PO (08:41)
[2022-10-17] MEDS: Potassium Phosphate/NS 15 MMOL/250 ML PLAST..BAG 62.5 MMOL IV (09:01)
[2022-10-17] MEDS: Lactulose 20 GM/30 ML SOLUTION PO (10:54)
--- NOTE | 2022-10-17 13:07 | P.PNIM_ITS ---
Subjective Subjective Date of Service: 10/17/22 Interval History: patient continued to be nauseous unable to take by mouth meds, abdominal pain is controlled on current pain medications including methadone, as needed oxycodone and iv morphine as needed,no bowel movement. Review of Systems General no headache, no dizziness, no fever chills. CVS no chest pain, no palpitation. Respiratory no cough, no sob no urgency, no frequency Review of Systems: Yes all other systems are reviewed and are negative Physical Exam Vital Signs: Vital Signs: Last Vital Signs Temp 96.8 F 10/17/22 11:34 Pulse 87 10/17/22 11:34 Resp 18 10/17/22 11:34 BP 158/71 H 10/17/22 11:34 Pulse Ox 95 10/17/22 12:00 O2 Del Method 10/17/22 12:00 O2 Flow Rate 1 10/14/22 06:00 Oxygen Flow Rate 4 10/14/22 12:57 BMI result Body Mass Index 21.7 Const: Other: Constitutional - Awake and Alert, resting comfortably in no distress Cardiovascular - S1S2, RRR, No edema Respiratory - lungs clear to auscultation bilaterally no use of accessory muscles Gastrointestinal - abdomen soft,mild tenderness epigastric area, bowel sounds audible, dressing in place no drainage noted, bilateral groin covered with clean bandage without purulent drainage and minimal bleeding. , Extremities - no swelling Skin - Warm/Dry Neurological - Alert & oriented x3 Psychological - Appropriate affect Objective Data Active Medications Acetaminophen (Acetaminophen 325 Mg Tablet) 650 mg PO Q6H PRN PRN Reason: Pain, Mild (Pain Scale 1-3) Albuterol Sulfate (Albuterol Sulfate (0.083%) 2.5 Mg/3 Ml Vial.Neb) 2.5 mg INHALE ONCE PRN PRN Reason: Shortness of Breath/Wheezing Atorvastatin Calcium (Atorvastatin Calcium 80 Mg Tablet) 80 mg PO BEDTIME [facility] Last Admin: 10/16/22 21:02 Dose: Not Given Documented By: YUNG Non-Admin Reason: Nausea Docusate Sodium (Docusate Sodium 100 Mg Capsule) 100 mg PO BID [facility] Last Admin: 10/17/22 08:41 Dose: Not Given Documented By: PHANLYM Non-Admin Reason: Patient Refused Heparin Sodium (Porcine) (Heparin Sodium,Porcine 5,000 Unit/Ml Vial) 5,000 unit SUBCUT Q8H [facility] Last Admin: 10/15/22 08:58 Dose: 5,000 unit Documented By: CTORRZ Labetalol HCl (Labetalol Hcl 100 Mg/20 Ml Vial) 20 mg IVPUSH Q10M PRN PRN Reason: SBP > 160 Last Admin: 10/13/22 17:31 Dose: 20 mg Documented By: TETREAM Methadone HCl (Methadone Hcl 20 Mg/2 Ml Oral.Conc) 37 mg PO DAILY [facility] Last Admin: 10/17/22 08:40 Dose: 37 mg Documented By: EDITH Metoclopramide HCl (Metoclopramide Hcl 10 Mg/2 Ml Vial) 5 mg IVPUSH Q6H [facility] Last Admin: 10/17/22 11:00 Dose: 5 mg Documented By: EDITH Morphine Sulfate (Morphine Sulfate 4 Mg/Ml Cartridge) 3 mg IVPUSH Q4H PRN; Protocol PRN Reason: Pain, Moderate (Pain Scale 4-6 Last Admin: 10/17/22 00:28 Dose: 3 mg Documented By: YUNG Oxycodone HCl (Oxycodone Hcl Immed Release 5 Mg Tablet) 5 mg PO Q4H PRN PRN Reason: Pain, Moderate (Pain Scale 4-6 Last Admin: 10/17/22 06:26 Dose: 5 mg Documented By: ROSA Pantoprazole Sodium (Pantoprazole Sodium 40 Mg/10 Ml Vial) 40 mg IVPUSH BID@0630,1630 [facility] Last Admin: 10/17/22 06:27 Dose: 40 mg Documented By: ROSA Polyethylene Glycol (Polyethylene Glycol 3350 17 Gm Powd.Pack) 17 gm PO DAILY [facility] Last Admin: 10/17/22 08:41 Dose: Not Given Documented By: EDITH Non-Admin Reason: Patient Refused Potassium Phos/Sodium Phos (Sodium,Potassium Phosphates Powd.Pack) 1 packet PO QID [facility] Last Admin: 10/17/22 08:41 Dose: 1 packet Documented By: EDITH Quetiapine Fumarate (Quetiapine Fumarate 25 Mg Tablet) 25 mg PO BEDTIME [facility] Last Admin: 10/16/22 21:03 Dose: Not Given Documented By: YUNG Non-Admin Reason: Nausea Senna (Sennosides 8.6 Mg Tablet) 8.6 mg PO BEDTIME [facility] Last Admin: 10/16/22 21:03 Dose: Not Given Documented By: YUNG Non-Admin Reason: Nausea Sodium Chloride (0.9 % Sodium Chloride Flush 3 Ml Syringe) 3 ml IVFLUSH QSHIFT [facility] Last Admin: 10/17/22 08:41 Dose: 3 ml Documented By: EDITH Sucralfate (Sucralfate 1 Gm Tablet) 1 gm PO QIDACHS [facility] Last Admin: 10/17/22 10:54 Dose: 1 gm Documented By: EDITH Labs CBC & Chem 7: 10/17/22 05:53 10/17/22 05:53 Labs: Laboratory Results - last 24 hr 10/17/22 10/17/22 10/17/22 05:53 05:53 10:45 MCV 96.4 MCH 30.7 MCHC 31.8 RDW 12.3 Plt Count 208 MPV 9.7 Immature Gran % (Auto) 0.4 Neut % (Auto) 71.7 Lymph % (Auto) 16.7 L [place] % (Auto) 10.2 Eos % (Auto) 0.8 Baso % (Auto) 0.2 Lymph # (Auto) 1.8 [place] # (Auto) 1.1 Eos # (Auto) 0.1 Baso # (Auto) 0.0 Abs Immat Gran (auto) 0.04 H Absolute Neuts (auto) 7.7 Absolute Nucleated RBC 0.040 H Nucleated RBC % (auto) 0.4 H Anion Gap 9 L Estim Creat Clear Calc 104.7 Estimated GFR > 60 Random Glucose 114 Calcium 8.3 L Phosphorus 2.4 L Magnesium 1.9 Blood Type A Positive Antibody Screen NEGATIVE Crossmatch See Detail Assessment and Plan (1) Status post aortobifemoral bypass surgery: Status: Acute Plan 62 year old male with 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 #Epigastric burning/nausea/vomiting/reflex/coffeeground emesis No recurrent symptoms of coffee-ground emesis ,Possibly related to gastritis /Jen-Murdock tear/constipation -Hemodynamically stable -KUB showed ileus type pattern with gaseous distension large and small bowel of normal caliber -continue IV PPI, sucrafate,and antiemetics scheduled for next 24 hours Continue Colace and MiraLax for constipation -continue clear liquid diet as tolerated -H&H gradually trending down will transfuse 1 unit of packed RBC Encourage out of bed to chair and ambulation will minimize narcotics/ add incentive spirometry/ivf if persistent nausea and decreased by mouth intake # postop ileus likely due to narcotics lack of mobility follow lytes #Aortobifemoral bypass- POD3 with baseline PVD/PAD -Plan and pain management per vascular surgery #Depression -Continue home meds -Opioid dependence -Continue methadone DVT prophylaxis with compression boots heparin on hold Will continue following, case discussed with vascular surgery. Quality Stroke Does the patient have a stroke diagnosis?: No VTE Prior VTE?: No VTE Risk Level:: Surgical - high VTE Device Contraindication: N/A - Device Ordered VTE Drug Contraindication: N/A - Med Ordered
--- NOTE | 2022-10-17 15:26 | MHC.CM.PN ---
Met with patient and family for discharge planning. The original DP was home self care, sister will transport. PT rec STR. Preferences obtained and referrals sent. Patient will transport via BLS. He is not ready today per MD rounds.
[2022-10-18] VITALS (8 sets, daily range): BP systolic 127–160; BP diastolic 59–79; PULSE 68–88; RESP 18–20; TEMP 36.5–37.1; O2SAT 95–98; BMI 21.2
[2022-10-18] MEDS: Metoclopramide HCl 10 MG/2 ML VIAL 5 MG IVPUSH ×4 (03:14→21:56)
[2022-10-18] MEDS: Morphine Sulfate 4 MG/ML CARTRIDGE 3 MG IVPUSH (03:14)
[2022-10-18] MEDS: Pantoprazole Sodium 40 MG/10 ML VIAL IVPUSH ×2 (05:38→15:59)
[2022-10-18 07:01] LABS: Hemoglobin 9.5 g/dl (14.0-18.0); Mean Corpuscular HGB Conc 32.8 g/dl (31.0-36.0); Mean Corpuscular Hemoglobin 31.1 pg (27.0-33.0); Mean Corpuscular Volume 95.1 fL (80.0-98.0); Mean Platelet Volume 9.8 fL (9.4-12.4); Platelet Count 207 X10*3/uL (160-400); Red Blood Count 3.05 X10*6/uL (4.60-5.80); Red Cell Distribution Width 12.8 % (11.0-16.0)
[2022-10-18 07:16] LABS: NRBC Pct Auto 1.3 /100WBC (0.0-0.2)
[2022-10-18 07:52] LABS: Anion Gap 11 (12-20); Blood Urea Nitrogen 19 mg/dL (9-16); Calcium 8.2 mg/dL (8.4-10.2); Carbon Dioxide 30 mmol/L (22-29); Chloride 101 mmol/L (96-108); Creatinine Clr Calc Pharmacy 100.6; Estimated Glomerular Filt Rate > 60; Glucose Random 107 mg/dL (60-115); Phosphorus 3.3 mg/dL (2.7-4.5); Potassium 3.4 mmol/L (3.3-5.1); Sodium 139 mmol/L (135-145)
[2022-10-18] MEDS: 0.9 % Sodium Chloride Flush 3 ML SYRINGE IVFLUSH ×2 (09:55→15:59)
[2022-10-18] MEDS: Sodium,Potassium Phosphates POWD.PACK 1 PACKET PO (09:57)
[2022-10-18] MEDS: methADONE HCl 20 MG/2 ML ORAL.CONC 37 MG PO (09:58)
[2022-10-18] MEDS: Docusate Sodium 100 MG CAPSULE PO (09:58)
[2022-10-18] MEDS: Sucralfate 1 GM TABLET PO (09:58)
[2022-10-18] MEDS: polyethylene glycoL 3350 17 GM POWD.PACK PO (10:08)
--- NOTE | 2022-10-18 12:12 | P.PNIM_ITS ---
Subjective Subjective Date of Service: 10/18/22 Interval History: complaining of mid abdominal pain at site of surgical scar, unable to keep food and pills down, has been mostly in bed, asking for pain medication requiring IV morphine and as needed oxycodone for pain control, no bowel movement, no fevers no chills, no other acute issues overnight, family at bedside wants to know why he can not eat. Review of Systems [employer] no headache no dizziness CVS no chest pain no palpitation respiratory no cough, no shortness of breath Review of Systems: Yes all other systems are reviewed and are negative Physical Exam Vital Signs: Vital Signs: Last Vital Signs Temp 97.9 F 10/18/22 11:10 Pulse 75 10/18/22 11:10 Resp 20 10/18/22 11:10 BP 145/65 H 10/18/22 11:10 Pulse Ox 95 10/18/22 11:10 O2 Del Method 10/18/22 11:10 O2 Flow Rate 1 10/14/22 06:00 Oxygen Flow Rate 4 10/14/22 12:57 BMI result Body Mass Index 21.2 Const: Other: Constitutional - Awake and Alert, resting comfortably in no distress Cardiovascular - S1S2, RRR, No edema Respiratory -? lungs clear to auscultation bilaterally no use of accessory muscles Gastrointestinal - abdomen soft,mild tenderness mid abdomen ,, bowel sounds audible, dressing in place no drainage noted, bilateral groin covered with clean bandage , Extremities - no? swelling Skin - Warm/Dry Neurological - Alert & oriented x3 Psychological - Appropriate affect Objective Data Active Medications Acetaminophen (Acetaminophen 325 Mg Tablet) 650 mg PO Q6H PRN PRN Reason: Pain, Mild (Pain Scale 1-3) Albuterol Sulfate (Albuterol Sulfate (0.083%) 2.5 Mg/3 Ml Vial.Neb) 2.5 mg INHALE ONCE PRN PRN Reason: Shortness of Breath/Wheezing Atorvastatin Calcium (Atorvastatin Calcium 80 Mg Tablet) 80 mg PO BEDTIME [facility] Last Admin: 10/17/22 19:46 Dose: Not Given Documented By: AZAEL Non-Admin Reason: Patient Condition Contraindication Docusate Sodium (Docusate Sodium 100 Mg Capsule) 100 mg PO BID [facility] Last Admin: 10/18/22 09:58 Dose: 100 mg Documented By: OMID Heparin Sodium (Porcine) (Heparin Sodium,Porcine 5,000 Unit/Ml Vial) 5,000 unit SUBCUT Q8H [facility] Last Admin: 10/15/22 08:58 Dose: 5,000 unit Documented By: OMID Potassium Cl/Dextrose/Lact Ringer's (Kcl 20 Meq In 5 % Dex/Lact Rin) 20 meq in 1,000 mls @ 80 mls/hr IVCONT .[id number] [facility] Labetalol HCl (Labetalol Hcl 100 Mg/20 Ml Vial) 20 mg IVPUSH Q10M PRN PRN Reason: SBP > 160 Last Admin: 10/13/22 17:31 Dose: 20 mg Documented By: TETREAKemar Methadone HCl (Methadone Hcl 20 Mg/2 Ml Oral.Conc) 37 mg PO DAILY [facility] Last Admin: 10/18/22 09:58 Dose: 37 mg Documented By: OMID Metoclopramide HCl (Metoclopramide Hcl 10 Mg/2 Ml Vial) 5 mg IVPUSH Q6H [facility] Last Admin: 10/18/22 09:57 Dose: 5 mg Documented By: OMID Morphine Sulfate (Morphine Sulfate 4 Mg/Ml Cartridge) 3 mg IVPUSH Q4H PRN; Protocol PRN Reason: Pain, Moderate (Pain Scale 4-6 Last Admin: 10/18/22 03:14 Dose: 3 mg Documented By: AZAEL Oxycodone HCl (Oxycodone Hcl Immed Release 5 Mg Tablet) 5 mg PO Q6H PRN PRN Reason: Pain, Moderate (Pain Scale 4-6 Pantoprazole Sodium (Pantoprazole Sodium 40 Mg/10 Ml Vial) 40 mg IVPUSH BID@0630,1630 [facility] Last Admin: 10/18/22 05:38 Dose: 40 mg Documented By: AZAEL Polyethylene Glycol (Polyethylene Glycol 3350 17 Gm Powd.Pack) 17 gm PO DAILY [facility] Last Admin: 10/18/22 10:08 Dose: 17 gm Documented By: OMID Potassium Phos/Sodium Phos (Sodium,Potassium Phosphates Powd.Pack) 1 packet PO BID [facility] Last Admin: 10/18/22 09:57 Dose: 1 packet Documented By: OMID Quetiapine Fumarate (Quetiapine Fumarate 25 Mg Tablet) 25 mg PO BEDTIME [facility] Last Admin: 10/17/22 19:46 Dose: Not Given Documented By: AZAEL Non-Admin Reason: Patient Condition Contraindication Senna (Sennosides 8.6 Mg Tablet) 8.6 mg PO BEDTIME [facility] Last Admin: 10/17/22 19:46 Dose: Not Given Documented By: AZAEL Non-Admin Reason: Patient Condition Contraindication Sodium Chloride (0.9 % Sodium Chloride Flush 3 Ml Syringe) 3 ml IVFLUSH QSHIFT [facility] Last Admin: 10/18/22 09:55 Dose: 3 ml Documented By: OMID Sucralfate (Sucralfate 1 Gm Tablet) 1 gm PO BIDAC [facility] Last Admin: 10/18/22 09:58 Dose: 1 gm Documented By: OMID Labs CBC & Chem 7: 10/18/22 06:34 10/18/22 06:34 Labs: Laboratory Results - last 24 hr 10/17/22 10/18/22 10/18/22 10:45 06:34 06:34 MCV 95.1 MCH 31.1 MCHC 32.8 RDW 12.8 Plt Count 207 MPV 9.8 Absolute Nucleated RBC 0.090 H Nucleated RBC % (auto) 1.3 H Anion Gap 11 L Estim Creat Clear Calc 100.6 Estimated GFR > 60 Random Glucose 107 Calcium 8.2 L Phosphorus 3.3 Magnesium 2.0 Blood Type A Positive Antibody Screen NEGATIVE Crossmatch See Detail Assessment and Plan (1) Status post aortobifemoral bypass surgery: Status: Acute Plan 62 year old male with 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 #Epigastric burning/nausea/vomiting/coffeeground emesis No recurrent symptoms of coffee-ground emesis ,Possibly related to gastritis /Jen-Murdock tear/constipation persistent nausea, minimal spitting and vomitus -Hemodynamically stable -KUB showed ileus type pattern with gaseous distension large and small bowel of normal caliber -continue IV PPI, sucrafate,and antiemetics scheduled Continue Colace and MiraLax for constipation -continue clear liquid diet as tolerated -received 1 unit of packed RBC hematocrit improved Encourage out of bed to chair and ambulation will minimize narcotics/ encourage incentive spirometry/ added IV fluids with K # postop ileus likely due to narcotics lack of mobility strongly recommend out of bed to chair and ambulation follow lytes #Aortobifemoral bypass- POD3 with baseline PVD/PAD -Plan and pain management per vascular surgery #Depression -Continue home meds -Opioid dependence -Continue methadone DVT prophylaxis with compression boots heparin on hold Will continue following, case discussed with vascular surgery. Quality Stroke Does the patient have a stroke diagnosis?: No VTE Prior VTE?: No VTE Risk Level:: Surgical - high VTE Device Contraindication: N/A - Device Ordered VTE Drug Contraindication: N/A - Med Ordered
[2022-10-18] MEDS: KCl 20 mEq in 5 % Dex/Lact Rin 20 MEQ/1,000 ML IV.SOLN 80 MEQ IVCONT (13:02)
[2022-10-18] MEDS: QUEtiapine Fumarate 25 MG TABLET PO (21:56)
[2022-10-19] VITALS (8 sets, daily range): BP systolic 119–151; BP diastolic 56–67; PULSE 64–78; RESP 14–18; TEMP 36.6–37.2; O2SAT 96–98; BMI 21.7
[2022-10-19] MEDS: KCl 20 mEq in 5 % Dex/Lact Rin 20 MEQ/1,000 ML IV.SOLN 80 MEQ IVCONT ×3 (04:11→22:53)
[2022-10-19] MEDS: Metoclopramide HCl 10 MG/2 ML VIAL 5 MG IVPUSH ×4 (04:11→22:43)
[2022-10-19] MEDS: Pantoprazole Sodium 40 MG/10 ML VIAL IVPUSH ×2 (06:34→15:27)
[2022-10-19] MEDS: methADONE HCl 20 MG/2 ML ORAL.CONC 37 MG PO (09:14)
[2022-10-19] MEDS: 0.9 % Sodium Chloride Flush 3 ML SYRINGE IVFLUSH ×3 (09:14→22:56)
--- NOTE | 2022-10-19 12:26 | HO.PM.IMPN ---
Subjective Subjective Date of Service: 10/19/22 Interval History: awake alert, complaining of less abdominal pain this morning no further nausea, no vomiting took 25% of meal, passing flatus no bowel movement, has been out of bed to chair, sister at bedside. Review of Systems [employer] no headache no dizziness CVS no chest pain, no palpitation respiratory no cough, no shortness of breath Review of Systems: Yes all other systems are reviewed and are negative Physical Exam Vital Signs: Vital Signs: Last Vital Signs Temp 98.6 F 10/19/22 11:51 Pulse 69 10/19/22 11:51 Resp 14 10/19/22 11:51 BP 137/64 10/19/22 11:51 Pulse Ox 97 10/19/22 11:51 O2 Del Method 10/19/22 11:51 O2 Flow Rate 1 10/14/22 06:00 Oxygen Flow Rate 4 10/14/22 12:57 BMI result Body Mass Index 21.7 Const: Other: General awake alert x3 in no acute distress.? Neck no JVD. CVS? regular rate rhythm, Respiratory lungs clear to auscultation, no respiratory distress, no wheeze, no rhonchi. Gastrointestinal abdomen soft, tenderness at site of mid incision, no guarding, no rigidity no rebound, normal bowel sounds Extremities no? edema. Neuro nonfocal Skin no rash Psych appropriate affect Objective Data Active Medications Acetaminophen (Acetaminophen 325 Mg Tablet) 650 mg PO Q6H PRN PRN Reason: Pain, Mild (Pain Scale 1-3) Albuterol Sulfate (Albuterol Sulfate (0.083%) 2.5 Mg/3 Ml Vial.Neb) 2.5 mg INHALE ONCE PRN PRN Reason: Shortness of Breath/Wheezing Atorvastatin Calcium (Atorvastatin Calcium 80 Mg Tablet) 80 mg PO BEDTIME [facility] Last Admin: 10/18/22 22:04 Dose: Not Given Documented By: MALIK Non-Admin Reason: pt vomiting, refused Bisacodyl (Bisacodyl 10 Mg Supp.Rect) 10 mg OK ONCE ONE Stop: 10/19/22 12:26 Docusate Sodium (Docusate Sodium 100 Mg Capsule) 100 mg PO BID [facility] Last Admin: 10/19/22 09:12 Dose: Not Given Documented By: OMID Non-Admin Reason: Patient Refused Heparin Sodium (Porcine) (Heparin Sodium,Porcine 5,000 Unit/Ml Vial) 5,000 unit SUBCUT Q8H [facility] Last Admin: 10/15/22 08:58 Dose: 5,000 unit Documented By: OMID Potassium Cl/Dextrose/Lact Ringer's (Kcl 20 Meq In 5 % Dex/Lact Rin) 20 meq in 1,000 mls @ 80 mls/hr IVCONT .[id number] [facility] Last Admin: 10/19/22 04:11 Dose: 80 mls/hr Documented By: MALIK Labetalol HCl (Labetalol Hcl 100 Mg/20 Ml Vial) 20 mg IVPUSH Q10M PRN PRN Reason: SBP > 160 Last Admin: 10/13/22 17:31 Dose: 20 mg Documented By: TETREAKemar Methadone HCl (Methadone Hcl 20 Mg/2 Ml Oral.Conc) 37 mg PO DAILY [facility] Last Admin: 10/19/22 09:14 Dose: 37 mg Documented By: OMID Metoclopramide HCl (Metoclopramide Hcl 10 Mg/2 Ml Vial) 5 mg IVPUSH Q6H [facility] Last Admin: 10/19/22 09:14 Dose: 5 mg Documented By: OMID Morphine Sulfate (Morphine Sulfate 2 Mg/Ml Cartridge) 2 mg IVPUSH Q4H PRN; Protocol PRN Reason: Pain, Moderate (Pain Scale 4-6 Oxycodone HCl (Oxycodone Hcl Immed Release 5 Mg Tablet) 5 mg PO Q6H PRN PRN Reason: Pain, Moderate (Pain Scale 4-6 Pantoprazole Sodium (Pantoprazole Sodium 40 Mg/10 Ml Vial) 40 mg IVPUSH BID@0630,1630 [facility] Last Admin: 10/19/22 06:34 Dose: 40 mg Documented By: MALIK Polyethylene Glycol (Polyethylene Glycol 3350 17 Gm Powd.Pack) 17 gm PO DAILY [facility] Last Admin: 10/19/22 09:12 Dose: Not Given Documented By: OMID Non-Admin Reason: Patient Refused Potassium Phos/Sodium Phos (Sodium,Potassium Phosphates Powd.Pack) 1 packet PO BID [facility] Last Admin: 10/19/22 09:12 Dose: Not Given Documented By: OMID Non-Admin Reason: Patient Refused Quetiapine Fumarate (Quetiapine Fumarate 25 Mg Tablet) 25 mg PO BEDTIME [facility] Last Admin: 10/18/22 21:56 Dose: 25 mg Documented By: MALIK Senna (Sennosides 8.6 Mg Tablet) 8.6 mg PO BEDTIME [facility] Last Admin: 10/18/22 22:05 Dose: Not Given Documented By: MALIK Non-Admin Reason: vomiting, refused po Sodium Chloride (0.9 % Sodium Chloride Flush 3 Ml Syringe) 3 ml IVFLUSH QSHIFT [facility] Last Admin: 10/19/22 09:14 Dose: 3 ml Documented By: OMID Sucralfate (Sucralfate 1 Gm Tablet) 1 gm PO BIDAC [facility] Last Admin: 10/19/22 09:12 Dose: Not Given Documented By: OMID Non-Admin Reason: Patient Refused Labs CBC & Chem 7: 10/18/22 06:34 10/18/22 06:34 Assessment and Plan (1) Status post aortobifemoral bypass surgery: Status: Acute Plan 62 year old male with 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 #Epigastric burning/nausea/vomiting/coffee ground emesis No recurrent symptoms of coffee-ground emesis , was likely related to gastritis /Jen-Murdock tear/constipation less nausea, no vomiting -KUB showed ileus type pattern with gaseous distension large and small bowel of normal caliber -on IV PPI, sucrafate,and antiemetics scheduled , will DC IV PPI meds switch to by mouth PPI from tomorrow Continue Colace and MiraLax for constipation, will give Dulcolax suppository x1 -continue clear liquid diet as tolerated -received 1 unit of packed RBC hematocrit improved out of bed to chair and ambulation continue IV fluids with K # postop ileus likely due to narcotics lack of mobility strongly recommend out of bed to chair and ambulation follow lytes #Aortobifemoral bypass- POD 6 with baseline PVD/PAD -Plan and pain management per vascular surgery #Depression -Continue home meds -Opioid dependence -Continue methadone DVT prophylaxis with compression boots Will continue following, dispo plan as per vascular surgery Quality Stroke Does the patient have a stroke diagnosis?: No VTE Prior VTE?: No VTE Risk Level:: Surgical - high VTE Device Contraindication: N/A - Device Ordered VTE Drug Contraindication: N/A - Med Ordered
[2022-10-19] MEDS: bisacodyL 10 MG SUPP.RECT PR (15:27)
[2022-10-19] MEDS: QUEtiapine Fumarate 25 MG TABLET PO (22:48)
[2022-10-20 06:00] VITALS: BMI 21.7
[2022-10-20] MEDS: Pantoprazole Sodium 40 MG/10 ML VIAL IVPUSH (06:29)
[2022-10-20 07:36] VITALS: BP 138/66; PULSE 72; RESP 20; TEMP 38; O2SAT 96
--- NOTE | 2022-10-20 07:43 | HO.VASCPN ---
Subjective Subjective Date of Service: 10/20/22 Patient reports: no new complaints, feels better, flatus and no bowel movement Interval history: 62-year-old gentleman status post aortobifem bypass who is postop day 7. Doing relatively well. Passing flatus but no bowel movement as of yet. He has been tolerating clears with no difficulty. Nausea and vomiting appear to have resolved. He is relatively comfortable in bed. Pain is well controlled. Events over the weekend noted. Physical Exam Vital Signs: Vital Signs: Last Vital Signs Temp 100.4 F 10/20/22 07:36 Pulse 72 10/20/22 07:36 Resp 20 10/20/22 07:36 BP 138/66 10/20/22 07:36 Pulse Ox 96 10/20/22 07:36 O2 Del Method 10/20/22 07:36 O2 Flow Rate 1 10/14/22 06:00 Oxygen Flow Rate 4 10/14/22 12:57 BMI result Body Mass Index 21.7 Const: General: cooperative, healthy appearing and comfortable Orientation/consciousness: oriented to person, oriented to place and oriented to time HEENT: Head: Yes normal to inspection Neck: Neck: Yes normal visual inspection Carotids: no bruits Chest: Chest palpation & inspection: normal inspection of the chest Resp: Effort & Inspection: normal respiratory effort and able to speak in complete sentences Auscultation: clear to auscultation bilaterally, no crackles, no rales, no rhonchi and no wheezes Cardio: Rate: regular rate Rhythm: regular rhythm Heart sounds: S1 normal heart sound present and S2 normal heart sound present Bruits: no carotid bruits Peripheral pulses: Peripheral pulses 2+ throughout GI: Inspection: Yes normal to inspection Skin: Wounds: no wounds Hair: normal Neuro: General: oriented to person, oriented to place and oriented to time Cranial nerves: Yes CN's II-XII intact bilaterally and Yes Normal hearing present Cognition (Neuro): normal cognition Motor exam (neuro): 5/5 motor strength present throughout Extrem: Other: venous exam: No significant superficial varicosities or spider telangiectasias, minimal edema General: No clubbing, No cyanosis and No edema Psych: Appearance: grossly normal Mental Status: mental status grossly normal Speech and movement: Normal speech and movement present Progress Note: A&P Assessment and plan (1) Aortoiliac occlusive disease: Status: Acute Assessment and Plan: In short patient is doing well status post aortobifem bypass. He has not had a bowel movement. He is tolerating clears. His abdomen is relatively soft. I am starting him on a regular diet. Did encourage ambulation. Once he has a bowel movement he would be stable for discharge. Will check repeat CBC which is still pending. Time Spent With Patient Time: Total time spent is greater than 50% in coordination of care (as documented) at patient's floor/unit and/or counseling patient: Procedures Date of Service Date of Service: 10/20/22 Quality Stroke Does the patient have a stroke diagnosis?: No VTE Prior VTE?: No VTE Risk Level:: Surgical - high VTE Device Contraindication: N/A - Device Ordered VTE Drug Contraindication: N/A - Med Ordered
[2022-10-20 07:56] LABS: Hematocrit 26.2 % (42.0-52.0); Hemoglobin 8.8 g/dl (14.0-18.0); Mean Corpuscular HGB Conc 33.6 g/dl (31.0-36.0); Mean Corpuscular Hemoglobin 31.7 pg (27.0-33.0); Mean Corpuscular Volume 94.2 fL (80.0-98.0); Mean Platelet Volume 9.8 fL (9.4-12.4); Platelet Count 228 X10*3/uL (160-400); Red Blood Count 2.78 X10*6/uL (4.60-5.80); Red Cell Distribution Width 12.3 % (11.0-16.0); White Blood Count 6.9 X10*3/uL (4.8-10.8)
[2022-10-20 08:05] LABS: Anion Gap 10 (12-20); Blood Urea Nitrogen 6 mg/dL (9-16); Calcium 7.6 mg/dL (8.4-10.2); Carbon Dioxide 30 mmol/L (22-29); Chloride 105 mmol/L (96-108); Creatinine Clr Calc Pharmacy 89.1; Estimated Glomerular Filt Rate > 60; Glucose Random 106 mg/dL (60-115); Potassium 3.5 mmol/L (3.3-5.1); Sodium 141 mmol/L (135-145)
[2022-10-20] MEDS: methADONE HCl 20 MG/2 ML ORAL.CONC 37 MG PO (09:01)
[2022-10-20] MEDS: Metoclopramide HCl 10 MG/2 ML VIAL 5 MG IVPUSH (09:22)
[2022-10-20] MEDS: Sodium,Potassium Phosphates POWD.PACK 1 PACKET PO ×2 (09:23→19:47)
[2022-10-20] MEDS: Acetaminophen 325 MG TABLET 650 MG PO (09:24)
[2022-10-20] MEDS: Docusate Sodium 100 MG CAPSULE PO ×2 (09:24→19:47)
[2022-10-20] MEDS: 0.9 % Sodium Chloride Flush 3 ML SYRINGE IVFLUSH (09:25)
[2022-10-20 12:00] VITALS: BP 140/72; PULSE 68; RESP 20; TEMP 36.5; O2SAT 98
[2022-10-20 12:14] VITALS: TEMP 37
--- NOTE | 2022-10-20 12:44 | P.PNIM_ITS ---
Subjective Subjective Date of Service: 10/20/22 Interval History: complaining of less abdominal pain, tolerating clear liquid diet with no recurrent nausea or vomiting passing flatus no bowel movement, had low-grade temp of 100.4 degrees this morning improved with Tylenol if no recurrence since has been out of bed to chair and ambulating. Review of Systems General no headache, no dizziness, no fever chills. CVS no chest pain, no palpitation. Respiratory no cough, no sob. Gastrointestinal no nausea, no vomiting, mid abdominal pain at incision site Review of Systems: Yes all other systems are reviewed and are negative Physical Exam Vital Signs: Vital Signs: Last Vital Signs Temp 98.6 F 10/20/22 12:14 Pulse 68 10/20/22 12:00 Resp 20 10/20/22 12:00 BP 140/72 H 10/20/22 12:00 Pulse Ox 98 10/20/22 12:00 O2 Del Method 10/20/22 12:00 O2 Flow Rate 1 10/14/22 06:00 Oxygen Flow Rate 4 10/14/22 12:57 BMI result Body Mass Index 21.7 Const: Other: General awake alert x3 in no acute distress.? Neck no JVD. CVS? regular rate rhythm, Respiratory lungs clear to auscultation, no respiratory distress, no wheeze, no rhonchi. Gastrointestinal abdomen soft, tenderness? at site of mid incision, no guarding, no rigidity no rebound, normal bowel sounds Extremities no? edema. Neuro nonfocal Skin no rash Psych appropriate affect Objective Data Active Medications Acetaminophen (Acetaminophen 325 Mg Tablet) 650 mg PO Q6H PRN PRN Reason: Pain, Mild (Pain Scale 1-3) Last Admin: 10/20/22 09:24 Dose: 650 mg Documented By: FERCHO Atorvastatin Calcium (Atorvastatin Calcium 80 Mg Tablet) 80 mg PO BEDTIME [facility] Last Admin: 10/19/22 20:36 Dose: Not Given Documented By: JULIA Non-Admin Reason: Patient Refused Bisacodyl (Bisacodyl 10 Mg Supp.Rect) 10 mg ND ONCE ONE Stop: 10/20/22 12:43 Docusate Sodium (Docusate Sodium 100 Mg Capsule) 100 mg PO BID [facility] Last Admin: 10/20/22 09:24 Dose: 100 mg Documented By: FERCHO Heparin Sodium (Porcine) (Heparin Sodium,Porcine 5,000 Unit/Ml Vial) 5,000 unit SUBCUT Q8H [facility] Last Admin: 10/15/22 08:58 Dose: 5,000 unit Documented By: ABDULLAHIORRCaty Labetalol HCl (Labetalol Hcl 100 Mg/20 Ml Vial) 20 mg IVPUSH Q10M PRN PRN Reason: SBP > 160 Last Admin: 10/13/22 17:31 Dose: 20 mg Documented By: TETREAM Methadone HCl (Methadone Hcl 20 Mg/2 Ml Oral.Conc) 37 mg PO DAILY [facility] Last Admin: 10/20/22 09:01 Dose: 37 mg Documented By: FERCHO Metoclopramide HCl (Metoclopramide Hcl 10 Mg/2 Ml Vial) 5 mg IVPUSH Q6H [facility] Last Admin: 10/20/22 09:22 Dose: 5 mg Documented By: FERCHO Morphine Sulfate (Morphine Sulfate 2 Mg/Ml Cartridge) 2 mg IVPUSH Q4H PRN; Protocol PRN Reason: Pain, Moderate (Pain Scale 4-6 Oxycodone HCl (Oxycodone Hcl Immed Release 5 Mg Tablet) 5 mg PO Q6H PRN PRN Reason: Pain, Moderate (Pain Scale 4-6 Pantoprazole Sodium (Pantoprazole Sodium 40 Mg/10 Ml Vial) 40 mg IVPUSH BID@0630,1630 [facility] Last Admin: 10/20/22 06:29 Dose: 40 mg Documented By: JULIA Polyethylene Glycol (Polyethylene Glycol 3350 17 Gm Powd.Pack) 17 gm PO DAILY [facility] Last Admin: 10/20/22 09:26 Dose: Not Given Documented By: FERCHO Non-Admin Reason: Patient Refused Potassium Phos/Sodium Phos (Sodium,Potassium Phosphates Powd.Pack) 1 packet PO BID [facility] Last Admin: 10/20/22 09:23 Dose: 1 packet Documented By: FERCHO Quetiapine Fumarate (Quetiapine Fumarate 25 Mg Tablet) 25 mg PO BEDTIME [facility] Last Admin: 10/19/22 22:48 Dose: 25 mg Documented By: JULIA Senna (Sennosides 8.6 Mg Tablet) 8.6 mg PO BEDTIME [facility] Last Admin: 10/19/22 20:38 Dose: Not Given Documented By: JULIA Non-Admin Reason: Patient Refused Sodium Chloride (0.9 % Sodium Chloride Flush 3 Ml Syringe) 3 ml IVFLUSH QSHIFT [facility] Last Admin: 10/20/22 09:25 Dose: 3 ml Documented By: FERCHO Sucralfate (Sucralfate 1 Gm Tablet) 1 gm PO BIDAC [facility] Last Admin: 10/20/22 09:25 Dose: Not Given Documented By: FERCHO Non-Admin Reason: Patient Refused Labs CBC & Chem 7: 10/20/22 07:26 10/20/22 07:26 Labs: Laboratory Results - last 24 hr 10/20/22 10/20/22 07:26 07:26 MCV 94.2 MCH 31.7 MCHC 33.6 RDW 12.3 Plt Count 228 MPV 9.8 Absolute Nucleated RBC 0.000 Nucleated RBC % (auto) 0.0 Anion Gap 10 L Estim Creat Clear Calc 89.1 Estimated GFR > 60 Random Glucose 106 Calcium 7.6 L D Assessment and Plan (1) Status post aortobifemoral bypass surgery: Status: Acute Plan 62 year old male with 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 #Epigastric burning/nausea/vomiting/coffee ground emesis No recurrent symptoms of coffee-ground emesis , was likely related to gastritis /Jen-Murdock tear/constipation, KUB showed mild ileus today feeling better tolerating clear liquid diet less abdominal pain and nausea on IV PPI, sucrafate,and antiemetics scheduled , will DC IV PPI meds switch to by mouth PPI and change anti emetics to as needed Continue Colace and MiraLax for constipation, will repeat Dulcolax suppository diet advanced to regular -received 1 unit of packed RBC hematocrit improved out of bed to chair and ambulation, DC IV fluids # postop ileus likely due to narcotics lack of mobility strongly recommend out of bed to chair and ambulation #Aortobifemoral bypass- POD 7 with baseline PVD/PAD -Plan and pain management per vascular surgery #Depression -Continue home meds -Opioid dependence -Continue methadone DVT prophylaxis with compression boots Will continue following, dispo plan as per vascular surgery Quality Stroke Does the patient have a stroke diagnosis?: No VTE Prior VTE?: No VTE Risk Level:: Surgical - high VTE Device Contraindication: N/A - Device Ordered VTE Drug Contraindication: N/A - Med Ordered
[2022-10-20 15:36] VITALS: BP 140/65; PULSE 71; RESP 18; TEMP 36.3; O2SAT 98
[2022-10-20] MEDS: Sucralfate 1 GM TABLET PO (17:41)
[2022-10-20] MEDS: Omeprazole 20 MG CAPSULE.DR PO (17:41)
[2022-10-20] MEDS: Atorvastatin Calcium 80 MG TABLET PO (19:47)
[2022-10-20] MEDS: QUEtiapine Fumarate 25 MG TABLET PO (19:47)
[2022-10-20] MEDS: Sennosides 8.6 MG TABLET PO (19:47)
[2022-10-20 22:58] VITALS: BP 134/65; PULSE 78; RESP 18; TEMP 36.4; O2SAT 95
[2022-10-21] MEDS: 0.9 % Sodium Chloride Flush 3 ML SYRINGE IVFLUSH ×4 (00:33→21:59)
[2022-10-21 03:25] VITALS: BP 121/60; PULSE 81; RESP 18; TEMP 36.4; O2SAT 95
[2022-10-21] MEDS: Omeprazole 20 MG CAPSULE.DR PO ×2 (05:40→16:17)
[2022-10-21 07:03] VITALS: BP 112/62; PULSE 75; RESP 17; TEMP 37.1; O2SAT 95
[2022-10-21] MEDS: Sodium,Potassium Phosphates POWD.PACK 1 PACKET PO ×2 (09:37→21:59)
[2022-10-21] MEDS: Sucralfate 1 GM TABLET PO ×2 (09:38→16:17)
[2022-10-21] MEDS: methADONE HCl 20 MG/2 ML ORAL.CONC 37 MG PO (09:38)
[2022-10-21] MEDS: polyethylene glycoL 3350 17 GM POWD.PACK PO (09:38)
[2022-10-21] MEDS: Docusate Sodium 100 MG CAPSULE PO ×2 (09:38→21:59)
--- NOTE | 2022-10-21 10:00 | HO.VASCPN ---
Subjective Subjective Date of Service: 10/21/22 Patient reports: no new complaints, flatus and no bowel movement Interval history: Pleasant 62-year-old gentleman status post aortobifem. He reports that he has been passing flatus not had a bowel movement as of yet. He has been advanced to a regular diet and he has tolerated a little bit of that. Upon discussion with him due to the methadone he usually has a bowel movement every 2-3 days. He has been on Colace Senokot along with MiraLax. He was given a suppository yesterday per Physical Exam Vital Signs: Vital Signs: Last Vital Signs Temp 98.7 F 10/21/22 07:03 Pulse 75 10/21/22 07:03 Resp 17 10/21/22 07:03 BP 112/62 10/21/22 07:03 Pulse Ox 95 10/21/22 07:03 O2 Del Method 10/21/22 07:03 O2 Flow Rate 1 10/14/22 06:00 Oxygen Flow Rate 4 10/14/22 12:57 BMI result Body Mass Index 21.7 Const: General: cooperative, healthy appearing and no acute distress Orientation/consciousness: oriented to person, oriented to place and oriented to time HEENT: Head: Yes normal to inspection Neck: Carotids: no bruits Chest: Chest palpation & inspection: normal inspection of the chest Resp: Effort & Inspection: normal respiratory effort and able to speak in complete sentences Auscultation: clear to auscultation bilaterally Cardio: Rate: regular rate Heart sounds: S1 normal heart sound present and S2 normal heart sound present GI: Inspection: Yes normal to inspection Skin: General skin exam: no rashes or lesions noted Wounds: no wounds Neuro: General: oriented to person, oriented to place, oriented to time and CN's II-XI intact bilaterally Extrem: General: Yes normal to inspection, Yes full ROM and Yes no clubbing, cyanosis or edema Psych: Appearance: grossly normal and well kempt Speech and movement: Normal speech and movement present Affect: normal affect Progress Note: A&P Assessment and plan (1) Status post aortobifemoral bypass surgery: Status: Acute Assessment and Plan: Patient doing well status post aortobifem bypass. From a vascular standpoint doing extremely well as he does have palpable pulses. The concern is his lack of bowel movement. I have started him on a regular diet yesterday. In addition I have given an additional of Dulcolax suppository. Hopefully will have a bowel movement within the next day or so, if not we may have to recall GI to assist. Encouraged ambulation. He will require continued inpatient care until he has a bowel movement. Time Spent With Patient Time: Total time spent is greater than 50% in coordination of care (as documented) at patient's floor/unit and/or counseling patient: Procedures Date of Service Date of Service: 10/21/22 Quality Stroke Does the patient have a stroke diagnosis?: No VTE Prior VTE?: No VTE Risk Level:: Surgical - high VTE Device Contraindication: N/A - Device Ordered VTE Drug Contraindication: N/A - Med Ordered
[2022-10-21 11:35] VITALS: BP 125/78; PULSE 85; RESP 17; TEMP 36.7; O2SAT 98
[2022-10-21 12:00] VITALS: O2SAT 98
[2022-10-21 15:19] VITALS: BP 140/66; PULSE 83; RESP 16; TEMP 36.8; O2SAT 95
[2022-10-21] MEDS: Morphine Sulfate 2 MG/ML CARTRIDGE IVPUSH ×2 (16:22→21:59)
[2022-10-21 19:45] VITALS: BP 133/62; PULSE 87; RESP 16; TEMP 36.7; O2SAT 95
[2022-10-21] MEDS: QUEtiapine Fumarate 25 MG TABLET PO (21:59)
[2022-10-21] MEDS: Sennosides 8.6 MG TABLET PO (21:59)
[2022-10-21] MEDS: Atorvastatin Calcium 80 MG TABLET PO (21:59)
[2022-10-22] VITALS (8 sets, daily range): BP systolic 118–134; BP diastolic 60–88; PULSE 70–82; RESP 16–20; TEMP 35.7–37.1; O2SAT 94–98; BMI 20.9
[2022-10-22] MEDS: Omeprazole 20 MG CAPSULE.DR PO ×2 (06:09→16:38)
--- NOTE | 2022-10-22 07:57 | HO.VASCPN ---
Subjective Subjective Date of Service: 10/22/22 Patient reports: flatus, no bowel movement, nausea and vomiting Interval history: Patient seen and examined this morning. He reports continued abdominal discomfort. He feels distension but no significant pain. He has developed some nausea and vomiting this morning. He is now for routine postop follow-up. Physical Exam Vital Signs: Vital Signs: Last Vital Signs Temp 98.3 F 10/22/22 07:01 Pulse 80 10/22/22 07:01 Resp 17 10/22/22 07:01 BP 118/65 10/22/22 07:01 Pulse Ox 94 10/22/22 07:01 O2 Del Method 10/22/22 07:01 O2 Flow Rate 1 10/14/22 06:00 Oxygen Flow Rate 4 10/14/22 12:57 BMI result Body Mass Index 20.9 Const: General: cooperative, healthy appearing and no acute distress Orientation/consciousness: oriented to person, oriented to place and oriented to time HEENT: Head: Yes normal to inspection Neck: Carotids: no bruits Chest: Chest palpation & inspection: normal inspection of the chest Resp: Effort & Inspection: normal respiratory effort and able to speak in complete sentences Auscultation: clear to auscultation bilaterally Cardio: Rate: regular rate Heart sounds: S1 normal heart sound present and S2 normal heart sound present GI: Other: Abdomen distended nontender no rebound no guarding Skin: General skin exam: no rashes or lesions noted Wounds: no wounds Neuro: General: oriented to person, oriented to place, oriented to time and CN's II-XI intact bilaterally Extrem: General: Yes normal to inspection, Yes full ROM and Yes no clubbing, cyanosis or edema Psych: Appearance: grossly normal and well kempt Speech and movement: Normal speech and movement present Affect: normal affect Progress Note: A&P Assessment and plan (1) Aortoiliac occlusive disease: Status: Acute Assessment and Plan: Patient is status post aortobifem. From a vascular standpoint he is doing excellent and has palpable pulses. The concern is his GI status. He has a prolonged postop ileus. He reports flatus but no bowel movement. He was started back up on a regular diet and is not tolerating it. He was made NPO. I have restarted IV fluids. I have ordered a abdominal x-ray and repeat labs. Due to the prolonged ileus he may require TPN. I am concerned about his overall status and failure to progress. He will require continuation of his central line for possible nutritional support. Will discuss with the hospitalist team. Time Spent With Patient Time: Total time spent is greater than 50% in coordination of care (as documented) at patient's floor/unit and/or counseling patient: Procedures Date of Service Date of Service: 10/22/22 Quality Stroke Does the patient have a stroke diagnosis?: No VTE Prior VTE?: No VTE Risk Level:: Surgical - high VTE Device Contraindication: N/A - Device Ordered VTE Drug Contraindication: N/A - Med Ordered
[2022-10-22 09:13] LABS: MANUAL DIFF FLAG NO
[2022-10-22 09:17] LABS: Basophils Absolute Auto 0.1 X10*3/uL (0.0-0.2); Basophils Percent Auto 0.5 % (0-2); Eosinophils Absolute Auto 0.1 X10*3/uL (0.0-0.4); Eosinophils Percent Auto 0.9 % (0-4); Imm Gran Abs Auto 0.08 X10*3/uL (0.00-0.03); Imm Gran Pct Auto 0.6 % (0.0-0.4); Lymphocytes Absolute Auto 2.2 X10*3/uL (1.2-4.9); Lymphocytes Percent Auto 16.4 % (20-40); Mean Corpuscular HGB Conc 32.3 g/dl (31.0-36.0); Mean Corpuscular Hemoglobin 30.4 pg (27.0-33.0); Mean Corpuscular Volume 94.2 fL (80.0-98.0); Mean Platelet Volume 9.6 fL (9.4-12.4); Monocytes Absolute Auto 1.2 X10*3/uL (0.1-1.2); Monocytes Percent Auto 9.4 % (2-11); Neutrophils Absolute Auto 9.5 x10*3/uL (2.0-8.3); Neutrophils Percent Auto 72.2 % (45-73); Platelet Count 370 X10*3/uL (160-400); Red Blood Count 3.29 X10*6/uL (4.60-5.80); Red Cell Distribution Width 12.6 % (11.0-16.0); White Blood Count 13.2 X10*3/uL (4.8-10.8)
[2022-10-22] MEDS: Sucralfate 1 GM TABLET PO ×2 (09:28→16:37)
[2022-10-22] MEDS: Docusate Sodium 100 MG CAPSULE PO ×2 (09:28→20:28)
[2022-10-22] MEDS: methADONE HCl 20 MG/2 ML ORAL.CONC 37 MG PO (09:28)
[2022-10-22] MEDS: polyethylene glycoL 3350 17 GM POWD.PACK PO (09:28)
[2022-10-22] MEDS: Sodium,Potassium Phosphates POWD.PACK 1 PACKET PO ×2 (09:28→20:28)
[2022-10-22] MEDS: Metoclopramide HCl 10 MG/2 ML VIAL 5 MG IVPUSH (09:29)
[2022-10-22] MEDS: Dextrose 5 % and 0.45 % NaCl 1,000 ML 80 ML IVCONT ×2 (09:30→20:29)
--- NOTE | 2022-10-22 10:16 | HO.PM.IMPN ---
Subjective Subjective Date of Service: 10/22/22 Interval History: He is being experiencing nausea and vomitting ans some abdominal discomfort Review of Systems nausea and vomitting and some abdominal discomfort Physical Exam Vital Signs: Vital Signs: Last Vital Signs Temp 98.3 F 10/22/22 07:01 Pulse 80 10/22/22 07:01 Resp 17 10/22/22 07:01 BP 118/65 10/22/22 07:01 Pulse Ox 94 10/22/22 07:01 O2 Del Method 10/22/22 07:01 O2 Flow Rate 1 10/14/22 06:00 Oxygen Flow Rate 4 10/14/22 12:57 BMI result Body Mass Index 20.9 Const: Other: General awake alert x3 in no acute distress.? Neck no JVD. CVS? regular rate rhythm, Respiratory lungs clear to auscultation, no respiratory distress, no wheeze, no rhonchi. Gastrointestinal abdomen soft, tenderness? at site of mid incision, no guarding, no rigidity no rebound, normal bowel sounds Extremities no? edema. Neuro nonfocal Skin no rash Psych appropriate affect Objective Data Active Medications Acetaminophen (Acetaminophen 325 Mg Tablet) 650 mg PO Q6H PRN PRN Reason: Pain, Mild (Pain Scale 1-3) Last Admin: 10/20/22 09:24 Dose: 650 mg Documented By: FERCHO Atorvastatin Calcium (Atorvastatin Calcium 80 Mg Tablet) 80 mg PO BEDTIME [facility] Last Admin: 10/21/22 21:59 Dose: 80 mg Documented By: CHIOMA Docusate Sodium (Docusate Sodium 100 Mg Capsule) 100 mg PO BID [facility] Last Admin: 10/22/22 09:28 Dose: 100 mg Documented By: LIBRA Heparin Sodium (Porcine) (Heparin Sodium,Porcine 5,000 Unit/Ml Vial) 5,000 unit SUBCUT Q8H [facility] Last Admin: 10/15/22 08:58 Dose: 5,000 unit Documented By: OMID Dextrose/Sodium Chloride (D51/2ns) 1,000 mls @ 80 mls/hr IVCONT .[id number] [facility] Last Admin: 10/22/22 09:30 Dose: 80 mls/hr Documented By: LIBRA Labetalol HCl (Labetalol Hcl 100 Mg/20 Ml Vial) 20 mg IVPUSH Q10M PRN PRN Reason: SBP > 160 Last Admin: 10/13/22 17:31 Dose: 20 mg Documented By: TETREAM Methadone HCl (Methadone Hcl 20 Mg/2 Ml Oral.Conc) 37 mg PO DAILY [facility] Last Admin: 10/22/22 09:28 Dose: 37 mg Documented By: KAMI-FREDA Metoclopramide HCl (Metoclopramide Hcl 10 Mg/2 Ml Vial) 5 mg IVPUSH Q6H PRN PRN Reason: Nausea Last Admin: 10/22/22 09:29 Dose: 5 mg Documented By: KAMI-FREDA Morphine Sulfate (Morphine Sulfate 2 Mg/Ml Cartridge) 2 mg IVPUSH Q4H PRN; Protocol PRN Reason: Pain, Moderate (Pain Scale 4-6 Last Admin: 10/21/22 21:59 Dose: 2 mg Documented By: CHIOMA Omeprazole (Omeprazole 20 Mg Capsule.Dr) 20 mg PO BID@0630,1630 [facility] Last Admin: 10/22/22 06:09 Dose: 20 mg Documented By: CHIOMA Oxycodone HCl (Oxycodone Hcl Immed Release 5 Mg Tablet) 5 mg PO Q6H PRN PRN Reason: Pain, Moderate (Pain Scale 4-6 Polyethylene Glycol (Polyethylene Glycol 3350 17 Gm Powd.Pack) 17 gm PO DAILY [facility] Last Admin: 10/22/22 09:28 Dose: 17 gm Documented By: KAMI-FREDA Potassium Phos/Sodium Phos (Sodium,Potassium Phosphates Powd.Pack) 1 packet PO BID [facility] Last Admin: 10/22/22 09:28 Dose: 1 packet Documented By: KAMI-FREDA Quetiapine Fumarate (Quetiapine Fumarate 25 Mg Tablet) 25 mg PO BEDTIME [facility] Last Admin: 10/21/22 21:59 Dose: 25 mg Documented By: CHIOMA Senna (Sennosides 8.6 Mg Tablet) 8.6 mg PO BEDTIME [facility] Last Admin: 10/21/22 21:59 Dose: 8.6 mg Documented By: CHIOMA Sodium Chloride (0.9 % Sodium Chloride Flush 3 Ml Syringe) 3 ml IVFLUSH QSHIFT [facility] Last Admin: 10/22/22 08:17 Dose: Not Given Documented By: LIBRA Non-Admin Reason: See Note Sucralfate (Sucralfate 1 Gm Tablet) 1 gm PO BIDAC MICHAEL Last Admin: 10/22/22 09:28 Dose: 1 gm Documented By: LIBRA Labs CBC & Chem 7: 10/22/22 09:00 12 07:26 Labs: Laboratory Results - last 24 hr 10/22/22 09:00 MCV 94.2 MCH 30.4 MCHC 32.3 RDW 12.6 Plt Count 370 D MPV 9.6 Immature Gran % (Auto) 0.6 H Neut % (Auto) 72.2 Lymph % (Auto) 16.4 L Lassen % (Auto) 9.4 Eos % (Auto) 0.9 Baso % (Auto) 0.5 Lymph # (Auto) 2.2 Lassen # (Auto) 1.2 Eos # (Auto) 0.1 Baso # (Auto) 0.1 Abs Immat Gran (auto) 0.08 H Absolute Neuts (auto) 9.5 H Absolute Nucleated RBC 0.000 Nucleated RBC % (auto) 0.0 Assessment and Plan (1) Status post aortobifemoral bypass surgery: Status: Acute Plan 62 year old male with 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 #Epigastric burning/nausea/vomiting/coffee ground emesis, cause unknown, xray no obstruction, get CT of abdomen and consider GI eval if persists. NPO for now # postop ileus likely due to narcotics lack of mobility strongly recommend out of bed to chair and ambulation #Aortobifemoral bypass- POD 9 with baseline PVD/PAD -Plan and pain management per vascular surgery #Depression -Continue home meds -Opioid dependence -Continue methadone DVT prophylaxis with compression boots Will continue following, dispo plan as per vascular surgery Quality Stroke Does the patient have a stroke diagnosis?: No VTE Prior VTE?: No VTE Risk Level:: Surgical - high VTE Device Contraindication: N/A - Device Ordered VTE Drug Contraindication: N/A - Med Ordered
[2022-10-22] MEDS: iohexoL 350 MG/ML 100 ML INFUS..BTL IV (12:04)
--- NOTE | 2022-10-22 13:39 | MHC.CM.PN ---
per rounds pt is not ready for dc plan remains str
[2022-10-22] MEDS: Morphine Sulfate 2 MG/ML CARTRIDGE IVPUSH (16:36)
[2022-10-22] MEDS: Sennosides 8.6 MG TABLET PO (20:28)
[2022-10-22] MEDS: QUEtiapine Fumarate 25 MG TABLET PO (20:28)
[2022-10-22] MEDS: Atorvastatin Calcium 80 MG TABLET PO (20:28)
[2022-10-22] MEDS: 0.9 % Sodium Chloride Flush 3 ML SYRINGE IVFLUSH (20:32)
[2022-10-23] VITALS (8 sets, daily range): BP systolic 124–138; BP diastolic 59–67; PULSE 72–87; RESP 14–18; TEMP 36.3–37; O2SAT 94–99; BMI 19.8
[2022-10-23] MEDS: Omeprazole 20 MG CAPSULE.DR PO ×2 (06:00→17:10)
[2022-10-23] MEDS: methADONE HCl 20 MG/2 ML ORAL.CONC 37 MG PO (08:41)
[2022-10-23] MEDS: Sucralfate 1 GM TABLET PO ×2 (08:41→17:10)
[2022-10-23] MEDS: Sodium,Potassium Phosphates POWD.PACK 1 PACKET PO ×2 (08:42→20:34)
[2022-10-23] MEDS: polyethylene glycoL 3350 17 GM POWD.PACK PO (08:42)
[2022-10-23] MEDS: Morphine Sulfate 2 MG/ML CARTRIDGE IVPUSH (08:42)
[2022-10-23] MEDS: Docusate Sodium 100 MG CAPSULE PO ×2 (08:42→20:34)
[2022-10-23] MEDS: 0.9 % Sodium Chloride Flush 3 ML SYRINGE IVFLUSH ×2 (08:43→17:10)
[2022-10-23] MEDS: Dextrose 5 % and 0.45 % NaCl 1,000 ML 80 ML IVCONT ×2 (08:48→20:37)
--- NOTE | 2022-10-23 10:10 | HO.PM.IMPN ---
Subjective Subjective Date of Service: 10/23/22 Interval History: No nausea or vomiting today, CT showed ileus, still has abdominal discofort Review of Systems nonausea and vomitting, some abdominal discomfort Physical Exam Vital Signs: Vital Signs: Last Vital Signs Temp 98.6 F 10/23/22 07:56 Pulse 72 10/23/22 07:56 Resp 14 10/23/22 07:56 BP 124/59 L 10/23/22 07:56 Pulse Ox 99 10/23/22 07:56 O2 Del Method 10/23/22 07:56 O2 Flow Rate 1 10/14/22 06:00 Oxygen Flow Rate 4 10/14/22 12:57 BMI result Body Mass Index 19.8 Const: Other: General: AO X 3, no acute distress Resp: CTA bilateral CVS: S1,S2,RRR GI: decrease BS, NT, no distention Skin: No rash Neuro: motor grossly intact Psych: appropriate affect Objective Data Active Medications Acetaminophen (Acetaminophen 325 Mg Tablet) 650 mg PO Q6H PRN PRN Reason: Pain, Mild (Pain Scale 1-3) Last Admin: 10/20/22 09:24 Dose: 650 mg Documented By: FERCHO Atorvastatin Calcium (Atorvastatin Calcium 80 Mg Tablet) 80 mg PO BEDTIME [facility] Last Admin: 10/22/22 20:28 Dose: 80 mg Documented By: CHINA Docusate Sodium (Docusate Sodium 100 Mg Capsule) 100 mg PO BID [facility] Last Admin: 10/23/22 08:42 Dose: 100 mg Documented By: VILLA Heparin Sodium (Porcine) (Heparin Sodium,Porcine 5,000 Unit/Ml Vial) 5,000 unit SUBCUT Q8H [facility] Last Admin: 10/15/22 08:58 Dose: 5,000 unit Documented By: OMID Dextrose/Sodium Chloride (D51/2ns) 1,000 mls @ 80 mls/hr IVCONT .[id number] [facility] Last Admin: 10/23/22 08:48 Dose: 80 mls/hr Documented By: VILLA Labetalol HCl (Labetalol Hcl 100 Mg/20 Ml Vial) 20 mg IVPUSH Q10M PRN PRN Reason: SBP > 160 Last Admin: 10/13/22 17:31 Dose: 20 mg Documented By: TETREAM Methadone HCl (Methadone Hcl 20 Mg/2 Ml Oral.Conc) 37 mg PO DAILY [facility] Last Admin: 10/23/22 08:41 Dose: 37 mg Documented By: VILLA Metoclopramide HCl (Metoclopramide Hcl 10 Mg/2 Ml Vial) 5 mg IVPUSH Q6H PRN PRN Reason: Nausea Last Admin: 10/22/22 09:29 Dose: 5 mg Documented By: KAMI-SOFFA Morphine Sulfate (Morphine Sulfate 2 Mg/Ml Cartridge) 2 mg IVPUSH Q4H PRN; Protocol PRN Reason: Pain, Moderate (Pain Scale 4-6 Last Admin: 10/23/22 08:42 Dose: 2 mg Documented By: VILLA Omeprazole (Omeprazole 20 Mg Capsule.Dr) 20 mg PO BID@0630,1630 [facility] Last Admin: 10/23/22 06:00 Dose: 20 mg Documented By: CHINA Polyethylene Glycol (Polyethylene Glycol 3350 17 Gm Powd.Pack) 17 gm PO DAILY [facility] Last Admin: 10/23/22 08:42 Dose: 17 gm Documented By: VILLA Potassium Phos/Sodium Phos (Sodium,Potassium Phosphates Powd.Pack) 1 packet PO BID [facility] Last Admin: 10/23/22 08:42 Dose: 1 packet Documented By: VILLA Quetiapine Fumarate (Quetiapine Fumarate 25 Mg Tablet) 25 mg PO BEDTIME [facility] Last Admin: 10/22/22 20:28 Dose: 25 mg Documented By: CHINA Senna (Sennosides 8.6 Mg Tablet) 8.6 mg PO BEDTIME [facility] Last Admin: 10/22/22 20:28 Dose: 8.6 mg Documented By: CHINA Sodium Chloride (0.9 % Sodium Chloride Flush 3 Ml Syringe) 3 ml IVFLUSH QSHIFT [facility] Last Admin: 10/23/22 08:43 Dose: 3 ml Documented By: VILLA Sucralfate (Sucralfate 1 Gm Tablet) 1 gm PO BIDAC [facility] Last Admin: 10/23/22 08:41 Dose: 1 gm Documented By: VILLA Labs CBC & Chem 7: 10/22/22 09:00 12 07:26 Assessment and Plan (1) Status post aortobifemoral bypass surgery: Status: Acute Plan 62 year old male with 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 #Epigastric burning/nausea/vomiting/coffee ground emesis, cause unknown, xray no obstruction, CT suggest ileus, bowel resti, ambulation # postop ileus likely due to narcotics lack of mobility strongly recommend out of bed to chair and ambulation #Aortobifemoral bypass- POD 9 with baseline PVD/PAD -Plan and pain management per vascular surgery #Depression -Continue home meds -Opioid dependence -Continue methadone DVT prophylaxis with compression boots Will continue following, dispo plan as per vascular surgery Quality Stroke Does the patient have a stroke diagnosis?: No VTE Prior VTE?: No VTE Risk Level:: Surgical - high VTE Device Contraindication: N/A - Device Ordered VTE Drug Contraindication: N/A - Med Ordered
--- NOTE | 2022-10-23 10:25 | HO.VASCPN ---
Subjective Subjective Date of Service: 10/23/22 Patient reports: no new complaints, flatus and no bowel movement Interval history: 62-year-old gentleman status post aortobifem. Seems to be doing well from a vascular standpoint ambulating with no difficulty. Of concern is his lack of bowel movement. He has been chronically constipated. He he reports flatus but has not had bowel movement since the operation. Now for routine follow-up. Physical Exam Vital Signs: Vital Signs: Last Vital Signs Temp 98.6 F 10/23/22 07:56 Pulse 72 10/23/22 07:56 Resp 14 10/23/22 07:56 BP 124/59 L 10/23/22 07:56 Pulse Ox 99 10/23/22 07:56 O2 Del Method 10/23/22 07:56 O2 Flow Rate 1 10/14/22 06:00 Oxygen Flow Rate 4 10/14/22 12:57 BMI result Body Mass Index 19.8 Const: General: cooperative, healthy appearing and no acute distress Orientation/consciousness: oriented to person, oriented to place and oriented to time HEENT: Head: Yes normal to inspection Neck: Carotids: no bruits Chest: Chest palpation & inspection: normal inspection of the chest Resp: Effort & Inspection: normal respiratory effort and able to speak in complete sentences Auscultation: clear to auscultation bilaterally Cardio: Rate: regular rate Heart sounds: S1 normal heart sound present and S2 normal heart sound present GI: Other: Abdomen soft no rebound no guarding mildly distended Inspection: Yes normal to inspection Skin: Other: Incision lines well-healed General skin exam: no rashes or lesions noted Wounds: no wounds Neuro: General: oriented to person, oriented to place, oriented to time and CN's II-XI intact bilaterally Extrem: General: Yes normal to inspection, Yes full ROM and Yes no clubbing, cyanosis or edema Psych: Appearance: grossly normal and well kempt Speech and movement: Normal speech and movement present Affect: normal affect Progress Note: A&P Assessment and plan (1) Status post aortobifemoral bypass surgery: Status: Acute Assessment and Plan: In short patient is doing well status post aortobifem bypass. The concern is his lack of resolution of his postop ileus. I did discuss the case with GI and prescribed methylnaltrexone and GoLYTELY. He has been on Colace Senokot and MiraLax. Hopefully this will stimulate his bowel function. If no resolution may need TPN for nutrition support. Once patient has bowel movement would anticipate discharge. Time Spent With Patient Time: Total time spent is greater than 50% in coordination of care (as documented) at patient's floor/unit and/or counseling patient: Procedures Date of Service Date of Service: 10/23/22 Quality Stroke Does the patient have a stroke diagnosis?: No VTE Prior VTE?: No VTE Risk Level:: Surgical - high VTE Device Contraindication: N/A - Device Ordered VTE Drug Contraindication: N/A - Med Ordered
[2022-10-23] MEDS: PEG 3350/Na Sulf,Bicarb,Cl/KCL 4,000 ML SOLN.RECON 4000 ML PO (10:50)
[2022-10-23] MEDS: Acetaminophen 325 MG TABLET 650 MG PO ×2 (13:20→20:33)
[2022-10-23] MEDS: Sennosides 8.6 MG TABLET PO (20:34)
[2022-10-23] MEDS: Atorvastatin Calcium 80 MG TABLET PO (20:34)
[2022-10-23] MEDS: QUEtiapine Fumarate 25 MG TABLET PO (20:34)
[2022-10-24] MEDS: 0.9 % Sodium Chloride Flush 3 ML SYRINGE IVFLUSH ×3 (00:17→15:31)
[2022-10-24 04:00] VITALS: BP 128/62; PULSE 80; RESP 18; TEMP 37.2; O2SAT 96
[2022-10-24] MEDS: Omeprazole 20 MG CAPSULE.DR PO ×2 (05:03→15:30)
[2022-10-24 07:48] VITALS: BP 131/66; PULSE 83; RESP 12; TEMP 36.9; O2SAT 95
[2022-10-24] MEDS: Sucralfate 1 GM TABLET PO ×2 (08:31→15:30)
[2022-10-24] MEDS: Docusate Sodium 100 MG CAPSULE PO (08:31)
[2022-10-24] MEDS: methADONE HCl 20 MG/2 ML ORAL.CONC 37 MG PO (08:32)
[2022-10-24] MEDS: Sodium,Potassium Phosphates POWD.PACK 1 PACKET PO (08:32)
--- NOTE | 2022-10-24 08:59 | W.MHC.F2F ---
Service Date Service Date: 10/24/22 Encounter Date of encounter: 10/24/22 Reasons for Services Signs and symptoms assessed: Postop from aortobifemoral bypass. Please assess incision and vitals. Reason for residential: postoperative assessment and/or care MD Overseeing Care: Delio Law Homebound: Leaving the home is medically contraindicated at this time without the asist of a device and/or another person due th the listed conditions above and below. Reason homebound: unsteady gait / fall risk Homebound supporting statement: Patient is status post aortobifemoral bypass. Continued unsteady gait and fall risk. Certification: Based on the above findings, I certify that this patient is confined to the home and needs intermittent residential care, physical therapy and/or speech therapy, or continues to need occupational therapy. The patient is under my care, and I have initiated the establishment of the plan of care. The patient will be followed by a physician who will periodically review the plan of care.
--- NOTE | 2022-10-24 09:52 | PM.DS ---
DS: Providers Provider Date of Service: 10/24/22 Date of admission: 10/13/22 12:58 Primary care physician: Sarahy Chapa MD Consults: 10/14/22 15:23 Consult to Hospitalist Routine Consulting Provider: Hospitalist Reason For Exam: medical co-management with vascular surgery 10/15/22 09:54 Consult to Gastroenterology Routine Consulting Provider: Celio Meehan Reason for consultation: coffee ground emesis, vomiting s/p open aortofem bypass DS: Diagnosis Discharge Diagnosis (1) Status post aortobifemoral bypass surgery: Status: Acute DS: Summary Hospital Course Hospital Course: Patient underwent elective aortobifem bypass on 11/12/2022. Postoperatively he was observed in the ICU. He did fairly well postoperatively from a peripheral vascular standpoint. His bowel function was very slow to recover. He was initially started slowly on some stool softeners including choly cysts and a cot and MiraLax. Had difficulty. There was concern approximately 1 week after the operation that he may be obstructing. He had serial x-rays in addition to a CT scan which was more definitively and ileus. Was subsequently seen by GI and a: Regimen it including GoLYTELY was ordered. He subsequently had a bowel movement. We he was then discharged. Condition upon discharge was stable. He had palpable DP pulses bilaterally on discharge. Time Spent with Patient Time attestation: Total time spent providing and/or coordinating discharge services: Discharge coordination time: Greater than 30 minutes Quality: Safe Use of Opioids Does Pt have an Active Cancer Diagnosis on the Problem List?: No Quality: Stroke Does the patient have a stroke diagnosis?: No Physical Exam Vital Signs: Vital Signs: Last Vital Signs Temp 98.4 F 10/24/22 07:48 Pulse 83 10/24/22 07:48 Resp 12 10/24/22 07:48 BP 131/66 10/24/22 07:48 Pulse Ox 95 10/24/22 07:48 O2 Del Method 10/24/22 07:48 O2 Flow Rate 1 10/14/22 06:00 Oxygen Flow Rate 4 10/14/22 12:57 BMI result Body Mass Index 19.8 Const: General: cooperative, healthy appearing and no acute distress Orientation/consciousness: oriented to person, oriented to place and oriented to time HEENT: Head: Yes normal to inspection Neck: Carotids: no bruits Chest: Chest palpation & inspection: normal inspection of the chest Resp: Effort & Inspection: normal respiratory effort and able to speak in complete sentences Auscultation: clear to auscultation bilaterally Cardio: Rate: regular rate Heart sounds: S1 normal heart sound present and S2 normal heart sound present GI: Inspection: Yes normal to inspection Skin: Other: Abdominal and bilateral groin incisions well healed General skin exam: no rashes or lesions noted Wounds: no wounds Neuro: General: oriented to person, oriented to place, oriented to time and CN's II-XI intact bilaterally Extrem: General: Yes normal to inspection, Yes full ROM and Yes no clubbing, cyanosis or edema Psych: Appearance: grossly normal and well kempt Speech and movement: Normal speech and movement present Affect: normal affect Discharge Plan Discharge Anticipated Discharge Date/Time: 10/24/22 08:54 Patient Disposition: Home Health Service Discharge Diagnosis: Aortoiliac occlusive disease Referrals: Sarahy Branham MD [Primary Care Provider] - 1 Week Discharge Medications: Continued quetiapine 25 mg tablet 25 mg PO BEDTIME methadone 10 mg/5 mL solution 37 mg PO DAILY pentoxifylline 400 mg tablet extended release 400 mg PO TID 30 Days Qty: 90 0RF Rx Instructions: must administer with a meal/food aspirin [Adult Aspirin Regimen] 81 mg tablet,delayed release (DR/EC) 81 mg PO DAILY Qty: 60 3RF atorvastatin 80 mg tablet 80 mg PO BEDTIME Qty: 90 3RF Discharge Orders: Discharge Order (Routine); Ordered 10/24/22 Ordered By: Delio Law Diet: Advance to usual diet Activity on Discharge: As tolerated Stand Alone Forms: Patient Portal Discharge page Activity Restrictions/Additional Instructions: Once home you may remove dressings. You can shower. Starlight can remain 0 exposed to air and does not require covering Take it easy today and you may ambulate around the house. You may climb stairs Do not lift anything heavier than a gallon of milk See Dr. Law in follow-up in approximately 2 weeks time for staple removal. You should already have an appointment if not please call my office at [phone] Please take Tylenol for pain. Please begin daily stool softeners If you notice excessive bleeding from the incision sites please immediately call my office or return to the emergency room. Care Plan Goals: Ambulate better Health Concerns: Peripheral vascular disease Plan of Treatment: Postop surveillance follow-up with ultrasound Assessment: Status post aortobifemoral bypass
--- NOTE | 2022-10-24 09:57 | MHC.CM.PN ---
pt to be transporeted home after 4:00 today by sister referral to to [facility] for incision check
[2022-10-24 11:27] VITALS: BP 118/61; PULSE 77; RESP 14; TEMP 36.8; O2SAT 97
[2022-10-24] MEDS: polyethylene glycoL 3350 17 GM POWD.PACK PO (11:35)
--- NOTE | 2022-10-24 11:43 | P.PNIM_ITS ---
Subjective Subjective Date of Service: 10/24/22 Interval History: Finally had BM yesterday and tolerating diet Review of Systems no fver or chhils, no abd pain, no n/v Physical Exam Vital Signs: Vital Signs: Last Vital Signs Temp 98.2 F 10/24/22 11:27 Pulse 77 10/24/22 11:27 Resp 14 10/24/22 11:27 BP 118/61 10/24/22 11:27 Pulse Ox 97 10/24/22 11:27 O2 Del Method 10/24/22 11:27 O2 Flow Rate 1 10/14/22 06:00 Oxygen Flow Rate 4 10/14/22 12:57 BMI result Body Mass Index 19.8 Const: Other: General: AO X 3, no acute distress Resp: CTA bilateral CVS: S1,S2,RRR GI: decrease BS, NT, no distention Skin: No rash Neuro: motor grossly intact Psych: appropriate affect Objective Data Active Medications Acetaminophen (Acetaminophen 325 Mg Tablet) 650 mg PO Q6H PRN PRN Reason: Pain, Mild (Pain Scale 1-3) Last Admin: 10/23/22 20:33 Dose: 650 mg Documented By: OZ Atorvastatin Calcium (Atorvastatin Calcium 80 Mg Tablet) 80 mg PO BEDTIME [facility] Last Admin: 10/23/22 20:34 Dose: 80 mg Documented By: OZ Docusate Sodium (Docusate Sodium 100 Mg Capsule) 100 mg PO BID [facility] Last Admin: 10/24/22 08:31 Dose: 100 mg Documented By: IVAN Heparin Sodium (Porcine) (Heparin Sodium,Porcine 5,000 Unit/Ml Vial) 5,000 unit SUBCUT Q8H [facility] Last Admin: 10/15/22 08:58 Dose: 5,000 unit Documented By: CTORRCaty Labetalol HCl (Labetalol Hcl 100 Mg/20 Ml Vial) 20 mg IVPUSH Q10M PRN PRN Reason: SBP > 160 Last Admin: 10/13/22 17:31 Dose: 20 mg Documented By: TETREAKemar Methadone HCl (Methadone Hcl 20 Mg/2 Ml Oral.Conc) 37 mg PO DAILY [facility] Last Admin: 10/24/22 08:32 Dose: 37 mg Documented By: IVAN Metoclopramide HCl (Metoclopramide Hcl 10 Mg/2 Ml Vial) 5 mg IVPUSH Q6H PRN PRN Reason: Nausea Last Admin: 10/22/22 09:29 Dose: 5 mg Documented By: LIBRA Omeprazole (Omeprazole 20 Mg Capsule.) 20 mg PO BID@0630,1630 [facility] Last Admin: 10/24/22 05:03 Dose: 20 mg Documented By: OZ Polyethylene Glycol (Polyethylene Glycol 3350 17 Gm Powd.Pack) 17 gm PO DAILY [facility] Last Admin: 10/24/22 11:35 Dose: 17 gm Documented By: LIBRA Potassium Phos/Sodium Phos (Sodium,Potassium Phosphates Powd.Pack) 1 packet PO BID [facility] Last Admin: 10/24/22 08:32 Dose: 1 packet Documented By: IVAN Quetiapine Fumarate (Quetiapine Fumarate 25 Mg Tablet) 25 mg PO BEDTIME [facility] Last Admin: 10/23/22 20:34 Dose: 25 mg Documented By: OZ Senna (Sennosides 8.6 Mg Tablet) 8.6 mg PO BEDTIME [facility] Last Admin: 10/23/22 20:34 Dose: 8.6 mg Documented By: OZ Sodium Chloride (0.9 % Sodium Chloride Flush 3 Ml Syringe) 3 ml IVFLUSH QSHIFT [facility] Last Admin: 10/24/22 09:03 Dose: 3 ml Documented By: IVAN Sucralfate (Sucralfate 1 Gm Tablet) 1 gm PO BIDAC [facility] Last Admin: 10/24/22 08:31 Dose: 1 gm Documented By: IVAN Labs CBC & Chem 7: 10/22/22 09:00 10/20/22 07:26 Assessment and Plan (1) Status post aortobifemoral bypass surgery: Status: Acute Plan 62 year old male with 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 #Epigastric burning/nausea/vomiting/coffee ground emesis, cause unknown, xray no obstruction, CT suggest ileus, bowel resti, ambulation # postop ileus . resolved and diet advanced #Aortobifemoral bypass- management per surgery -Plan and pain management per vascular surgery #Depression -Continue home meds -Opioid dependence -Continue methadone DVT prophylaxis with compression boots Dispo per surgery Quality Stroke Does the patient have a stroke diagnosis?: No VTE Prior VTE?: No VTE Risk Level:: Surgical - high VTE Device Contraindication: N/A - Device Ordered VTE Drug Contraindication: N/A - Med Ordered
[2022-10-24 12:00] VITALS: O2SAT 95
[2022-10-24 14:00] VITALS: O2SAT 98
[2022-10-24 14:54] VITALS: BP 128/61; PULSE 75; RESP 18; TEMP 37.2; O2SAT 96
== END 2022-10-24 16:00 | disposition home health service (06) | DRG 270 ==
LOC: HO.SSSA 13:09 → HO.ICU 14:19 → HO.IMC 10-14 13:09
PROVIDERS: Anesthesiology; Hospitalist; Internal Medicine Pulmonary Disease; Nurse Practitioner; Physician Assistant; Admitting Provider Surgery Vascular Surgery; PCP Internal Medicine; Visit Provider Surgery Vascular Surgery
DX: I74.09 Other arterial embolism and thrombosis of abdominal aorta (principal); K22.6 Gastro-esophageal laceration-hemorrhage syndrome; F11.20 Opioid dependence, uncomplicated; I50.22 Chronic systolic (congestive) heart failure; K56.7 Ileus, unspecified; J43.9 Emphysema, unspecified; F32.A Depression, unspecified; K21.9 Gastro-esophageal reflux disease without esophagitis; F17.210 Nicotine dependence, cigarettes, uncomplicated; Z71.6 Tobacco abuse counseling; Z20.822 Contact with and (suspected) exposure to COVID-19; Z79.82 Long term (current) use of aspirin; Z79.899 Other long term (current) drug therapy
CPT/HCPCS: 36415; 71045; 74018; 74177; 80048; 80307; 82040; 82803; 83735; 84100; 85014; 85018; 85025; 85027; 85610; 85730; 86850; 86900; 86901; 86923; 87635; 93005; 97116; 97162; 97530; C1751; C1758; C1768; J0131; J0690; J1100; J1170; J2212; J2250; J2270; J2370; J2405; J2550; J2765; J2795; J3010; P9016; Q9967

== ENCOUNTER → 2022-10-28 13:56 | Outpatient (BNVA) | payer OTHER, SELFPAY | PROVIDERS: PCP Internal Medicine; Visit Provider Surgery Vascular Surgery | DX: I74.09 Other arterial embolism and thrombosis of abdominal aorta (principal); Z98.890 Other specified postprocedural states | CPT/HCPCS: 99212 ==

== ENCOUNTER → 2022-11-13 11:50 | Outpatient (BNVA) | payer OTHER, SELFPAY | PROVIDERS: PCP Internal Medicine; Visit Provider Surgery Vascular Surgery | DX: Z48.812 Encounter for surgical aftercare following surgery on the circulatory system (principal); I74.09 Other arterial embolism and thrombosis of abdominal aorta | CPT/HCPCS: 99212 ==

== ENCOUNTER 2022-11-22 10:25 | Emergency (ER) | payer OTHER, SELFPAY ==
--- NOTE | ~2022-11-22 | CT_ITS ---
EXAMINATION: CT ABDOMEN AND PELVIS WITH CONTRAST CLINICAL INFORMATION: Periumbilical pain COMPARISON: CT abdomen pelvis October 22, 2022 TECHNIQUE: Multidetector volumetric images were obtained from the superior aspect of the liver through the pubic symphysis following administration 85 mL of Omnipaque 350 intravenous contrast. Sagittal and coronal reformatted images were obtained on the technologist's workstation. This CT examination was performed using dose optimization techniques as appropriate, variously including the following: *Automated exposure control *Adjustment of mA and/or kV according to patient size (this includes techniques or standardized protocols for targeted exams where dose is matched to indication/reason for exam; i.e. extremities or head) *Use of iterative reconstruction technique DLP: 394 mGy-cm FINDINGS: Visualized lung bases demonstrate mild dependent atelectasis. The liver demonstrates normal size, contour and attenuation. Mild intrahepatic biliary ductal dilatation is noted with prominence of the common bile duct which measures up to 1 cm, nonspecific. The gallbladder is normal in appearance. The pancreas, spleen and adrenal glands are unremarkable. Symmetrically enhancing kidneys. There is mild right-sided hydronephrosis secondary to a 2 mm calculus within the right ureterovesical junction. No other definitive renal calculi are noted within either kidney. There is no hydronephrosis of the left kidney. Tiny hiatal hernia. Normal caliber loops of small and large bowel. There is a moderate stool burden throughout the majority the colon. Normal appendix. Stable postsurgical changes consistent with aortobifemoral graft. Appears grossly unremarkable. The bladder is normal in appearance. Coarse calcifications are noted within a normal-sized prostate gland. There is no gross free pelvic fluid. No inguinal lymphadenopathy. Mild diffuse degenerative changes of the spine. CT/CT abdomen pelvis w IV con IMPRESSION: Mild right-sided hydronephrosis secondary to a 2 mm calculus within the right ureterovesical junction. Fleischner guidelines were followed.
[2022-11-22 10:26] VITALS: BP 104/56; PULSE 76; RESP 18; TEMP 36.2; O2SAT 98; BMI 18.4
[2022-11-22 10:55] LABS: MANUAL DIFF FLAG NO
[2022-11-22 10:57] LABS: Basophils Absolute Auto 0.1 X10*3/uL (0.0-0.2); Basophils Percent Auto 0.5 % (0-2); Eosinophils Absolute Auto 0.1 X10*3/uL (0.0-0.4); Eosinophils Percent Auto 1.2 % (0-4); Hematocrit 36.4 % (42.0-52.0); Hemoglobin 11.3 g/dl (14.0-18.0); Imm Gran Abs Auto 0.04 X10*3/uL (0.00-0.03); Imm Gran Pct Auto 0.4 % (0.0-0.4); Lymphocytes Absolute Auto 3.3 X10*3/uL (1.2-4.9); Lymphocytes Percent Auto 29.8 % (20-40); Mean Corpuscular Hemoglobin 29.7 pg (27.0-33.0); Mean Corpuscular Volume 95.5 fL (80.0-98.0); Mean Platelet Volume 9.1 fL (9.4-12.4); Monocytes Absolute Auto 0.6 X10*3/uL (0.1-1.2); Monocytes Percent Auto 5.3 % (2-11); Neutrophils Percent Auto 62.8 % (45-73); Platelet Count 263 X10*3/uL (160-400); Red Blood Count 3.81 X10*6/uL (4.60-5.80); Red Cell Distribution Width 13.3 % (11.0-16.0); White Blood Count 11.2 X10*3/uL (4.8-10.8)
[2022-11-22 11:15] LABS: Alanine Aminotransferase 18 U/L (0-40); Albumin Level 4.1 g/dL (3.5-5.0); Alkaline Phosphatase 108 U/L (39-117); Anion Gap 14 (12-20); Aspartate Amino Transferase 23 U/L (5-37); Bilirubin Direct 0.3 mg/dL (0.0-0.5); Bilirubin Total 0.7 mg/dL (0.0-1.0); Blood Urea Nitrogen 12 mg/dL (9-16); Calcium 9.2 mg/dL (8.4-10.2); Carbon Dioxide 25 mmol/L (22-29); Chloride 108 mmol/L (96-108); Creatinine Clr Calc Pharmacy 61.9; Estimated Glomerular Filt Rate > 60; Glucose Random 157 mg/dL (60-115); Lipase 13 U/L (8-78); Potassium 3.8 mmol/L (3.3-5.1); Sodium 143 mmol/L (135-145); Total Protein 6.8 g/dL (6.5-8.0)
--- NOTE | 2022-11-22 11:38 | ED.ABDPAIN ---
HPI - Abdominal Pain General Chief Complaint: Abdominal Pain Stated Complaint: abd pain Time Seen by Provider: 11/22/22 11:02 Source: patient and family ( Patient's sister who was also are cigarette making machine operator) Mode of arrival: EMS Limitations: language barrier ( patient speaks some [place] Verdean, Kinyarwanda is 1st language, cigarette making machine operator used) History of Present Illness HPI narrative: 62-year-old male who presents emergency department for evaluation of abdominal pain. The patient had aorto-bifemoral bypass on 10/14/2022 here at this facility. the patient states that he had a gradual onset of a stabbing pain in his right lower abdomen which began at 03:00 hours on morning arrival. Patient points to his right lower quadrant and to the right lower margin of his abdominal incision just be knee the umbilical area. He states the pain is a constant, stabbing pain which is 9/10. He had associated nausea with small amount of vomiting. He states that he has had dysuria and urinary frequency. Related Data Home Medications Medication Instructions Recorded Confirmed methadone 10 mg/5 mL oral solution 37 mg PO DAILY 01/15/22 10/30/22 quetiapine 25 mg tablet 25 mg PO BEDTIME 04/19/22 10/30/22 Previous Rx's Medication Instructions Recorded pentoxifylline 400 mg 400 mg PO TID 30 days #90 tabs 04/28/22 tablet,extended release aspirin 81 mg tablet,delayed 81 mg PO DAILY #60 tabs 08/27/22 release (Adult Aspirin Regimen) atorvastatin 80 mg tablet 80 mg PO BEDTIME #90 tabs 08/27/22 ferrous sulfate 325 mg (65 mg 325 mg PO DAILY 90 days #90 tabs 10/30/22 iron) tablet,delayed release food supplemt, lactose-reduced 1 ea PO BID 30 days #3,792 mL 10/30/22 (Ensure oral liquid) polyethylene glycol 3350 17 17 g PO DAILY PRN constipation 30 10/30/22 gram/dose oral powder (Miralax) days #238 grams prednisone 20 mg tablet 60 mg PO DAILY 5 days #15 tabs 11/22/22 tamsulosin 0.4 mg capsule (Flomax) 0.4 mg PO DAILY #30 caps 11/22/22 Allergies Allergy/AdvReac Type Severity Reaction Status Date / Time No Known Allergies Allergy Verified 11/13/22 11:53 [No Known Allergies*] Review of Systems Review of Systems Yes all other systems are reviewed and are negative [facility] Past Medical History [facility] Narrative: social history: He has been smoking cigarettes for over 40 years, he states that he has recently cut down to 3 cigarettes per day. He denies alcohol use. He states that he does use heroin intranasally but has not used in several months. He is in a methadone program but he did not take his methadone today. Medical History Anemia Anxiety Claudication of both lower extremities COPD (chronic obstructive pulmonary disease) GERD (gastroesophageal reflux disease) Hemorrhoids Hiatal hernia History of dysphagia History of heroin abuse Hx of gastritis Left foot pain Mild recurrent major depression Physical exam Smoker Surgical History History of aorto-femoral bypass History of esophagogastroduodenoscopy (EGD) History of prostate surgery Hx of colonoscopy S/P aortogram Family History Family History Father No problems noted. Mother CVD (cardiovascular disease) Myocardial infarction Family/Other FH: mental illness Other Substance use disorder Social History Social History Household Members: Family Household Members Other:: sister Housing: House Are you a primary healthcare administrative assistant to a significant other at home: No Do you presently have visiting nurse or other home services: No Alcohol intake: former Patient Tobacco Use Status: Current everyday Tobacco user Tobacco use type: Cigarette Cigarettes Per Day: 3 Years Smoked: 30 +/- e-Cigarette/Vaping Use: Never Used Second Hand Smoke Exposure: No Advance Directives: Yes Advance Directives on File: Yes Advance Directives Date on File: 10/27/22 service: No Current occupational status: disabled Cognitive needs: No Hearing needs: No Vision needs: No Physical Exam ED Vital Signs: Vital Signs - 24 hr 11/22/22 10:26 Temperature 97.2 F Pulse Rate 76 Respiratory Rate 18 Blood Pressure 104/56 L Pulse Oximetry 98 Oxygen Delivery Method Room Air BMI result Body Mass Index 18.4 Medical Decision Making Medical Decision Making MDM Narrative: 62-year-old male who presents emergency department for evaluation of right sided abdominal pain which started suddenly at 03:00 hours, the pain came on gradually and has been constant, 07/26. patient's physical exam did reveal right lower quadrant and right side abdominal pain along his surgical scar. the patient had an recent aorto bi femoral bypass in September of 2022. I ordered a CBC, CMP, lactic acid, lipase, COVID-19, influenza and RSV test. CT scan of the abdomen pelvis with IV contrast was also obtained to evaluate his vascular structures as Structures. Patient was ordered to get morphine 4 mg IV, Zofran 4 mg IV and Toradol 15 mg IV. 1534 my interpretation of laboratory evaluation as follows, mild anemia with an H&H of 10 and 34.5, elevated glucose 157. COVID-19, RSV and influenza were negative. I did review the radiology CT scan reading. I also looked at the CT scan and agree that the patient has a 2 mm ureteral stone at the UVJ. I did discuss this with the patient and the patient's sister. Patient is feeling better after the above Medications. The patient is on methadone but did not take his methadone the dose today therefore I will not started on narcotics but I did prescribed prednisone 60 mg once a day for 5 days as anti-inflammatory treatment. He is advised take Tylenol. Also started on Flomax 0.4 mg daily to help him pass the kidney stone. Differential Diagnosis The differential includes was not limited to appendicitis, renal colic, ureteral stone, vascular injury with hemorrhage, abdominal pain of unclear etiology Lab Data MDM Lab Attestation statement: I reviewed the patient's lab results. please see Medical decision making section for my discussion of the laboratory data 11/22/22 10:49 11/22/22 10:49 Labs: Lab Results 11/22/22 11/22/22 11/22/22 Range/Units 10:49 10:49 11:43 WBC 11.2 H (4.8-10.8) X10*3/uL RBC 3.81 L (4.60-5.80) X10*6/uL Hgb 11.3 L (14.0-18.0) g/dl Hct 36.4 L (42.0-52.0) % MCV 95.5 (80.0-98.0) fL MCH 29.7 (27.0-33.0) pg MCHC 31.0 (31.0-36.0) g/dl RDW 13.3 (11.0-16.0) % Plt Count 263 D (160-400) X10*3/uL MPV 9.1 L (9.4-12.4) fL Immature Gran % (Auto) 0.4 (0.0-0.4) % Neut % (Auto) 62.8 (45-73) % Lymph % (Auto) 29.8 (20-40) % Dillon % (Auto) 5.3 (2-11) % Eos % (Auto) 1.2 (0-4) % Baso % (Auto) 0.5 (0-2) % Lymph # (Auto) 3.3 (1.2-4.9) X10*3/uL Dillon # (Auto) 0.6 (0.1-1.2) X10*3/uL Eos # (Auto) 0.1 (0.0-0.4) X10*3/uL Baso # (Auto) 0.1 (0.0-0.2) X10*3/uL Abs Immat Gran (auto) 0.04 H (0.00-0.03) X10*3/uL Absolute Neuts (auto) 7.0 (2.0-8.3) x10*3/uL Absolute Nucleated RBC 0.000 (0.0-0.012) X10*3/uL Nucleated RBC % (auto) 0.0 (0.0-0.2) /100WBC PT 13.2 H (10.0-13.1) SEC INR 1.1 (0.9-1.1) APTT 25.4 L (26.0-36.4) SEC Sodium 143 (135-145) mmol/L Potassium 3.8 (3.3-5.1) mmol/L Chloride 108 (96-108) mmol/L Carbon Dioxide 25 (22-29) mmol/L Anion Gap 14 (12-20) BUN 12 D (9-16) mg/dL Creatinine 0.99 (0.5-1.4) mg/dL Estim Creat Clear Calc 61.9 Estimated GFR > 60 Random Glucose 157 H D (60-115) mg/dL Lactic Acid (0.5-2.0) mmol/L Calcium 9.2 D (8.4-10.2) mg/dL Total Bilirubin 0.7 (0.0-1.0) mg/dL Direct Bilirubin 0.3 (0.0-0.5) mg/dL AST 23 (5-37) U/L ALT 18 (0-40) U/L Alkaline Phosphatase 108 D (39-117) U/L Total Protein 6.8 (6.5-8.0) g/dL Albumin 4.1 (3.5-5.0) g/dL Lipase 13 (8-78) U/L Urine Color Urine Appearance Urine pH (5.0-9.0) Ur Specific [place] (1.005-1.025) Urine Protein (Neg-Trace) mg/dL Urine Glucose (UA) (Negative) mg/dL Urine Ketones (Negative) mg/dL Urine Blood (Negative) Urine Nitrite (Negative) Ur Leukocyte Esterase (Negative) Influenza Type A (PCR) (Negative) Influenza Type B (PCR) (Negative) RSV RNA Qual (PCR) (Negative) SARS-CoV-2 RNA (RT-PCR) (Negative) 11/22/22 11/22/22 11/22/22 Range/Units 11:43 11:43 12:01 WBC 10.5 (4.8-10.8) X10*3/uL RBC 3.59 L (4.60-5.80) X10*6/uL Hgb 10.8 L (14.0-18.0) g/dl Hct 34.5 L (42.0-52.0) % MCV 96.1 (80.0-98.0) fL MCH 30.1 (27.0-33.0) pg MCHC 31.3 (31.0-36.0) g/dl RDW 13.2 (11.0-16.0) % Plt Count 233 (160-400) X10*3/uL MPV 9.8 (9.4-12.4) fL Immature Gran % (Auto) 0.3 (0.0-0.4) % Neut % (Auto) 82.5 H (45-73) % Lymph % (Auto) 10.9 L (20-40) % Dillon % (Auto) 5.2 (2-11) % Eos % (Auto) 0.5 (0-4) % Baso % (Auto) 0.6 (0-2) % Lymph # (Auto) 1.1 L (1.2-4.9) X10*3/uL Dillon # (Auto) 0.6 (0.1-1.2) X10*3/uL Eos # (Auto) 0.1 (0.0-0.4) X10*3/uL Baso # (Auto) 0.1 (0.0-0.2) X10*3/uL Abs Immat Gran (auto) 0.03 (0.00-0.03) X10*3/uL Absolute Neuts (auto) 8.7 H (2.0-8.3) x10*3/uL Absolute Nucleated RBC 0.000 (0.0-0.012) X10*3/uL Nucleated RBC % (auto) 0.0 (0.0-0.2) /100WBC PT (10.0-13.1) SEC INR (0.9-1.1) APTT (26.0-36.4) SEC Sodium (135-145) mmol/L Potassium (3.3-5.1) mmol/L Chloride (96-108) mmol/L Carbon Dioxide (22-29) mmol/L Anion Gap (12-20) BUN (9-16) mg/dL Creatinine (0.5-1.4) mg/dL Estim Creat Clear Calc Estimated GFR Random Glucose (60-115) mg/dL Lactic Acid 1.4 (0.5-2.0) mmol/L Calcium (8.4-10.2) mg/dL Total Bilirubin (0.0-1.0) mg/dL Direct Bilirubin (0.0-0.5) mg/dL AST (5-37) U/L ALT (0-40) U/L Alkaline Phosphatase (39-117) U/L Total Protein (6.5-8.0) g/dL Albumin (3.5-5.0) g/dL Lipase (8-78) U/L Urine Color Urine Appearance Urine pH (5.0-9.0) Ur Specific [place] (1.005-1.025) Urine Protein (Neg-Trace) mg/dL Urine Glucose (UA) (Negative) mg/dL Urine Ketones (Negative) mg/dL Urine Blood (Negative) Urine Nitrite (Negative) Ur Leukocyte Esterase (Negative) Influenza Type A (PCR) NEGATIVE (Negative) Influenza Type B (PCR) NEGATIVE (Negative) RSV RNA Qual (PCR) NEGATIVE (Negative) SARS-CoV-2 RNA (RT-PCR) NEGATIVE (Negative) 11/22/22 Range/Units 15:13 WBC (4.8-10.8) X10*3/uL RBC (4.60-5.80) X10*6/uL Hgb (14.0-18.0) g/dl Hct (42.0-52.0) % MCV (80.0-98.0) fL MCH (27.0-33.0) pg MCHC (31.0-36.0) g/dl RDW (11.0-16.0) % Plt Count (160-400) X10*3/uL MPV (9.4-12.4) fL Immature Gran % (Auto) (0.0-0.4) % Neut % (Auto) (45-73) % Lymph % (Auto) (20-40) % Dillon % (Auto) (2-11) % Eos % (Auto) (0-4) % Baso % (Auto) (0-2) % Lymph # (Auto) (1.2-4.9) X10*3/uL Dillon # (Auto) (0.1-1.2) X10*3/uL Eos # (Auto) (0.0-0.4) X10*3/uL Baso # (Auto) (0.0-0.2) X10*3/uL Abs Immat Gran (auto) (0.00-0.03) X10*3/uL Absolute Neuts (auto) (2.0-8.3) x10*3/uL Absolute Nucleated RBC (0.0-0.012) X10*3/uL Nucleated RBC % (auto) (0.0-0.2) /100WBC PT (10.0-13.1) SEC INR (0.9-1.1) APTT (26.0-36.4) SEC Sodium (135-145) mmol/L Potassium (3.3-5.1) mmol/L Chloride (96-108) mmol/L Carbon Dioxide (22-29) mmol/L Anion Gap (12-20) BUN (9-16) mg/dL Creatinine (0.5-1.4) mg/dL Estim Creat Clear Calc Estimated GFR Random Glucose (60-115) mg/dL Lactic Acid (0.5-2.0) mmol/L Calcium (8.4-10.2) mg/dL Total Bilirubin (0.0-1.0) mg/dL Direct Bilirubin (0.0-0.5) mg/dL AST (5-37) U/L ALT (0-40) U/L Alkaline Phosphatase (39-117) U/L Total Protein (6.5-8.0) g/dL Albumin (3.5-5.0) g/dL Lipase (8-78) U/L Urine Color Yellow Urine Appearance Clear Urine pH 5.5 (5.0-9.0) Ur Specific [place] >= 1.030 H (1.005-1.025) Urine Protein Negative (Neg-Trace) mg/dL Urine Glucose (UA) Negative (Negative) mg/dL Urine Ketones Negative (Negative) mg/dL Urine Blood Moderate (2+) H (Negative) Urine Nitrite Negative (Negative) Ur Leukocyte Esterase Negative (Negative) Influenza Type A (PCR) (Negative) Influenza Type B (PCR) (Negative) RSV RNA Qual (PCR) (Negative) SARS-CoV-2 RNA (RT-PCR) (Negative) Independent Interpretation I performed an independent interpretation of an: CT Scan ( CT scan abdomen pelvis with IV contrast) Interpretation: my independent interpretation of the patient's CT scan is as follows: Right 2 mm ureteral stone at the UVJ. Radiology Impression Discussion of test interpretation with radiology: I have reviewed the radiologist's reading. Radiologist Impression: CT scan abdomen pelvis with IV contrast IMPRESSION: Mild right-sided hydronephrosis secondary to a 2 mm calculus within the right ureterovesical junction. Fleischner guidelines were followed. Dictated By:Ramses Turpin MDSigned By:<Electronically signed by Ramses Turpin MD in OV>11/22/22 1301 Independent Historian Clinical information obtained from an independent historian. History obtained from or confirmed by: Other ( patient's sister) External Record Review External record reviewed: Office record ( vascular surgery 11/13/2022 office note) Medications Administered Discontinued Medications Generic Name Dose Route Start Last Admin Trade Name Freq PRN Reason Stop Dose Admin Sodium Chloride 1,000 mls @ 999 mls/hr 11/22/22 11:28 11/22/22 15:11 Ns IV 11/22/22 12:28 Infused .Q1H1M STA Infusion Iohexol 100 ml 11/22/22 12:33 11/22/22 12:33 Iohexol 350 Mg/Ml 100 Ml Infus..Btl IV 11/22/22 12:34 85 ml ONCE ONE Administration Ketorolac Tromethamine 15 mg 11/22/22 11:28 11/22/22 11:49 Ketorolac Tromethamine 15 Mg/Ml Vial IVPUSH 11/22/22 11:29 15 mg ONCE STA Administration Morphine Sulfate 4 mg 11/22/22 11:28 11/22/22 11:49 Morphine Sulfate 4 Mg/Ml Cartridge IVPUSH 11/22/22 11:29 4 mg ONCE STA Administration Protocol Ondansetron HCl 4 mg 11/22/22 11:28 11/22/22 11:49 Ondansetron Hcl 4 Mg/2 Ml Vial IVPUSH 11/22/22 11:29 4 mg ONCE ONE Administration Discharge Plan Discharge Clinical Impression: Renal colic on right side, Calculus of distal right ureter Patient Disposition: Home, Self-Care Instructions: How to Strain Your Urine (ED), Ureteral Stones (ED) Additional Instructions: The CT scan of your abdomen pelvis with IV contrast revealed a 2 mm stone in the tube that connects your kidney to the bladder (ureter). The the stone is at the connection between the ureter and the bladder so you almost passed the stone. It sometimes takes up to 2 weeks to pass a kidney stone. Strain your urine. I am starting you on prednisone 60 mg once a day for 5 days this is a strong anti-inflammatory medication and should your pain. Take Tylenol (acetaminophen) 500 mg pills, 2 pills every 4 to 6 hours as needed for pain. Take Flomax (tamsulosin) 0.4 mg once a day for the next 2 weeks or until you pass the stone. This medication helps relax the ureter and may help you pass the stone sooner. Follow-up with our on-call urologist in 7-10 days. Please return to the emergency department if your symptoms get worse or if you develop any symptoms that are concerning to you. Prescriptions: New prednisone 20 mg tablet 60 mg PO DAILY 5 Days Qty: 15 0RF tamsulosin [Flomax] 0.4 mg capsule 0.4 mg PO DAILY Qty: 30 0RF No Action quetiapine 25 mg tablet 25 mg PO BEDTIME methadone 10 mg/5 mL solution 37 mg PO DAILY pentoxifylline 400 mg tablet extended release 400 mg PO TID 30 Days Qty: 90 0RF Rx Instructions: must administer with a meal/food polyethylene glycol 3350 [Miralax] 17 gram/dose powder 17 g PO DAILY PRN (Reason: constipation) 30 Days Qty: 238 1RF ferrous sulfate 325 mg (65 mg iron) tablet,delayed release (DR/EC) 325 mg PO DAILY 90 Days Qty: 90 1RF Ensure Liquid 1 ea PO BID 30 Days Qty: 3792 3RF Rx Instructions: BMI 19.3 aspirin [Adult Aspirin Regimen] 81 mg tablet,delayed release (DR/EC) 81 mg PO DAILY Qty: 60 3RF atorvastatin 80 mg tablet 80 mg PO BEDTIME Qty: 90 3RF Referrals: Monalisa Bello MD [Physician] - 2 weeks ( 2 mm right ureteral stone at the UVJ)
[2022-11-22] MEDS: Ketorolac Tromethamine 15 MG/ML VIAL IVPUSH (11:49)
[2022-11-22] MEDS: Morphine Sulfate 4 MG/ML CARTRIDGE IVPUSH (11:49)
[2022-11-22] MEDS: ondansetron HCL 4 MG/2 ML VIAL IVPUSH (11:49)
[2022-11-22] MEDS: 0.9 % Sodium Chloride 1,000 ML 999 ML IV (11:49)
[2022-11-22 11:56] LABS: INTERNATIONAL NORM RATIO 1.1 (0.9-1.1); Prothrombin Time 13.2 SEC (10.0-13.1)
[2022-11-22 11:59] LABS: Partial Thromboplastin Time 25.4 SEC (26.0-36.4)
[2022-11-22 12:05] LABS: MANUAL DIFF FLAG NO
[2022-11-22 12:08] LABS: Basophils Absolute Auto 0.1 X10*3/uL (0.0-0.2); Basophils Percent Auto 0.6 % (0-2); Eosinophils Absolute Auto 0.1 X10*3/uL (0.0-0.4); Eosinophils Percent Auto 0.5 % (0-4); Hematocrit 34.5 % (42.0-52.0); Hemoglobin 10.8 g/dl (14.0-18.0); Imm Gran Abs Auto 0.03 X10*3/uL (0.00-0.03); Imm Gran Pct Auto 0.3 % (0.0-0.4); Lymphocytes Absolute Auto 1.1 X10*3/uL (1.2-4.9); Lymphocytes Percent Auto 10.9 % (20-40); Mean Corpuscular HGB Conc 31.3 g/dl (31.0-36.0); Mean Corpuscular Hemoglobin 30.1 pg (27.0-33.0); Mean Corpuscular Volume 96.1 fL (80.0-98.0); Mean Platelet Volume 9.8 fL (9.4-12.4); Monocytes Absolute Auto 0.6 X10*3/uL (0.1-1.2); Monocytes Percent Auto 5.2 % (2-11); Neutrophils Absolute Auto 8.7 x10*3/uL (2.0-8.3); Neutrophils Percent Auto 82.5 % (45-73); Platelet Count 233 X10*3/uL (160-400); Red Blood Count 3.59 X10*6/uL (4.60-5.80); Red Cell Distribution Width 13.2 % (11.0-16.0); White Blood Count 10.5 X10*3/uL (4.8-10.8)
[2022-11-22 12:09] LABS: Lactic Acid 1.4 mmol/L (0.5-2.0)
[2022-11-22 12:28] LABS: Influenza A PCR NEGATIVE (Negative); Influenza B PCR NEGATIVE (Negative); Resp Syncy Virus RNA Qual PCR NEGATIVE (Negative); SARS COV2 PCR INHOUSE NEGATIVE (Negative)
[2022-11-22] MEDS: iohexoL 350 MG/ML 100 ML INFUS..BTL IV (12:33)
--- NOTE | 2022-11-22 12:45 | PC.NURSE ---
IV established, labs drawn and sent. Pt awaiting CT scan
[2022-11-22 15:22] LABS: Appearance Urine Clear; Color Urine Yellow; Glucose Urine UA Negative (Negative); Leukocyte Esterase Urine Negative (Negative); Nitrite Urine Negative (Negative); PH 5.5 (5.0-9.0); Specific Gravity - Urine >= 1.030 (1.005-1.025); UMIC TRIGGER UACC YES; Urine Blood Moderate (2+) (Negative); Urine Ketones Negative (Negative); Urine Protein Negative (Neg-Trace)
[2022-11-22 15:34] LABS: Bacteria Urine None Seen (None Seen); Hyaline Casts Urine 0-2 /LPF (0-2); Squamous Epithelial Cell Urine 0-2 /HPF (0-2); WBC Urine 0-5 /HPF (0-5)
[2022-11-22] MEDS: predniSONE 20 MG TABLET 40 MG PO (16:02)
[2022-11-22] MEDS: Tamsulosin HCL 0.4 MG CAPSULE PO (16:02)
== END 2022-11-22 16:05 | disposition home or self-care (01) ==
PROVIDERS: Emergency Provider Emergency Medicine Emergency Medical Services; PCP Internal Medicine
DX: N13.2 Hydronephrosis with renal and ureteral calculous obstruction (principal); F11.20 Opioid dependence, uncomplicated; F17.210 Nicotine dependence, cigarettes, uncomplicated; Z79.82 Long term (current) use of aspirin; Z79.02 Long term (current) use of antithrombotics/antiplatelets; Z20.822 Contact with and (suspected) exposure to COVID-19; Z20.828 Contact with and (suspected) exposure to other viral communicable diseases
CPT/HCPCS: 0241U; 36415; 51798; 74177; 80053; 81001; 82248; 83605; 83690; 85025; 85610; 85730; 87040; 96361; 96374; 96375; 99284; 99285; J1885; J2270; J2405; Q9967

== ENCOUNTER → 2022-11-27 10:04 | Outpatient (BNVA) | payer OTHER, SELFPAY | PROVIDERS: PCP Internal Medicine; Visit Provider Nurse Practitioner Family | DX: N13.2 Hydronephrosis with renal and ureteral calculous obstruction (principal) | CPT/HCPCS: 99202 ==

== ENCOUNTER → 2022-12-03 14:12 | Outpatient (BNVA) | payer OTHER, SELFPAY | PROVIDERS: PCP Internal Medicine; Referring Provider Internal Medicine; Visit Provider Internal Medicine Cardiovascular Disease | DX: I73.9 Peripheral vascular disease, unspecified (principal); F17.210 Nicotine dependence, cigarettes, uncomplicated; Z79.82 Long term (current) use of aspirin; Z79.899 Other long term (current) drug therapy | CPT/HCPCS: 99212 ==

== ENCOUNTER → 2022-12-11 14:59 | Outpatient (BNVA) | payer OTHER, SELFPAY | PROVIDERS: PCP Internal Medicine; Visit Provider Nurse Practitioner Family | DX: Z13.89 Encounter for screening for other disorder (principal) ==

== ENCOUNTER → 2023-01-01 14:37 | Outpatient (BNVA) | payer OTHER, SELFPAY | PROVIDERS: PCP Internal Medicine; Visit Provider Internal Medicine Pulmonary Disease | DX: J44.9 Chronic obstructive pulmonary disease, unspecified (principal); R91.8 Other nonspecific abnormal finding of lung field | CPT/HCPCS: 99212 ==

== ENCOUNTER 2023-01-09 13:38 | Outpatient (REF) | payer OTHER, SELFPAY ==
--- NOTE | ~2023-01-09 | US_ITS ---
EXAMINATION: US RETROPERITONEAL LIMITED (RENAL ONLY) CLINICAL INFORMATION: Hydronephrosis with renal and ureteral calculous obstruction. COMPARISON: CT abdomen and pelvis 11/22/2022. X-ray abdomen KUB 10/22/2022 and 10/15/2022. TECHNIQUE: Real-time imaging of the kidneys. FINDINGS: RIGHT KIDNEY: 10.1 x 4.8 x 4.7 cm (SAG x AP x TRV). The kidney is normal in size, contour, and echogenicity. Renal cortical thickness is normal. No calculi or focal parenchymal lesions. No hydronephrosis. The previously seen right-sided hydronephrosis caused by an obstructing distal right ureteral calculus has resolved. LEFT KIDNEY: 11.8 x 5.2 x 4.2 cm (SAG x AP x TRV). The kidney is normal in size, contour, and echogenicity. Renal cortical thickness is normal. No calculi or focal parenchymal lesions. No hydronephrosis. US/US renal BI IMPRESSION: Normal-appearing kidneys. Resolved right-sided hydronephrosis.
== END 2023-01-09 13:39 | disposition home or self-care (01) ==
LOC: HO.US 13:38
PROVIDERS: Visit Provider Nurse Practitioner Family
DX: N13.2 Hydronephrosis with renal and ureteral calculous obstruction (principal)
CPT/HCPCS: 76775

== ENCOUNTER 2023-03-03 13:37 | Outpatient (REF) | payer OTHER, SELFPAY ==
--- NOTE | ~2023-03-03 | US_ITS ---
EXAMINATION: US RETROPERITONEAL LIMITED (AORTA) CLINICAL INFORMATION: Post aortobifemoral bypass. COMPARISON: Previous CT of the abdomen and pelvis most recent November 2022 TECHNIQUE: Rivera-scale, color Doppler and spectral Doppler evaluation of the abdominal aorta. FINDINGS: There is a patent aortobifemoral bypass. The measurements of the aorta in maximum AP and transverse dimensions respectively are as follows: Proximal: 2.7 x 2.5 cm. Mid: 1.9 x 2.4 cm. Distal: 1.5 x 2.1 cm. PSV: 32 cm/s. Peak systolic velocity in the aortobifemoral bypass measures 100 cm/s. The measurements of the common iliac arteries in maximum AP and TRV dimensions are as follows: Right Common Iliac Artery: 0.8 cm. Left Common Iliac Artery: 0.9 cm. US/US aorta IMPRESSION: Pain aortobifemoral bypass. No aneurysm.
== END 2023-03-03 13:38 | disposition home or self-care (01) ==
LOC: HO.US 13:37
PROVIDERS: PCP Internal Medicine; Visit Provider Surgery Vascular Surgery
DX: I74.09 Other arterial embolism and thrombosis of abdominal aorta (principal)
CPT/HCPCS: 76775

== ENCOUNTER → 2023-04-14 14:04 | Outpatient (BNVA) | payer OTHER, SELFPAY | PROVIDERS: PCP Internal Medicine; Visit Provider Surgery Vascular Surgery | DX: Z48.812 Encounter for surgical aftercare following surgery on the circulatory system (principal); F17.210 Nicotine dependence, cigarettes, uncomplicated; Z79.82 Long term (current) use of aspirin; Z79.899 Other long term (current) drug therapy | CPT/HCPCS: 99212 ==

== ENCOUNTER 2023-05-14 15:16 | Emergency (ER) | payer OTHER, SELFPAY ==
[2023-05-14 15:20] VITALS: BP 121/66; BP 96/69; PULSE 80; PULSE 98; RESP 19; TEMP 36.6; O2SAT 98; O2SAT 99; BMI 27.5
--- NOTE | 2023-05-14 16:08 | ED_ITS ---
HPI - Overdose General Chief Complaint: Overdose Stated Complaint: heroine od, per ems Time Seen by Provider: 05/14/23 16:04 Source: patient Mode of arrival: EMS Limitations: no limitations History of Present Illness HPI Narrative: Patient on methadone uses heroin off and on today he used 4-6 packs prior to arrival was unresponsive EMS gave him 8 mg of nasal Narcan feeling okay now does not want to go to detox feels his mistake and feels safe at home saturating 99% at room Related Data Home Medications Medication Instructions Recorded Confirmed methadone 10 mg/5 mL oral solution 37 mg PO DAILY 01/15/22 12/03/22 quetiapine 25 mg tablet 25 mg PO BEDTIME 04/19/22 12/03/22 Previous Rx's Medication Instructions Recorded atorvastatin 80 mg tablet 80 mg PO BEDTIME #90 tabs 08/27/22 ferrous sulfate 325 mg (65 mg 325 mg PO DAILY 90 days #90 tabs 10/30/22 iron) tablet,delayed release food supplemt, lactose-reduced 1 ea PO BID 30 days #3,792 mL 10/30/22 (Ensure oral liquid) polyethylene glycol 3350 17 17 g PO DAILY PRN constipation 30 10/30/22 gram/dose oral powder (Miralax) days #238 grams aspirin 81 mg tablet,delayed 81 mg PO DAILY #60 tabs 12/16/22 release (Adult Aspirin Regimen) Incruse Ellipta 62.5 mcg/actuation 1 inh inhalation DAILY 30 days #1 01/01/23 powder for inhalation ea (umeclidinium) pentoxifylline 400 mg 400 mg PO TID 30 days #90 tabs 04/28/23 tablet,extended release Allergies Allergy/AdvReac Type Severity Reaction Status Date / Time No Known Allergies Allergy Verified 04/14/23 14:09 [No Known Allergies*] Review of Systems Review of Systems: Yes all other systems are reviewed and are negative PMFSH Past Medical History Medical History Anemia Anxiety Claudication of both lower extremities COPD (chronic obstructive pulmonary disease) GERD (gastroesophageal reflux disease) Hemorrhoids Hiatal hernia History of dysphagia History of heroin abuse Hx of gastritis Left foot pain Mild recurrent major depression Physical exam Smoker Surgical History History of aorto-femoral bypass History of esophagogastroduodenoscopy (EGD) History of prostate surgery Hx of colonoscopy S/P aortogram Family History Family History Father No problems noted. Mother CVD (cardiovascular disease) Myocardial infarction Family/Other FH: mental illness Other Substance use disorder Social History Social History Household Members: Family Household Members Other:: sister Housing: House Are you a primary home health care provider to a significant other at home: No Do you presently have visiting nurse or other home services: No Alcohol intake: former Patient Tobacco Use Status: Current everyday Tobacco user Tobacco use type: Cigarette Cigarettes Per Day: 3 Years Smoked: 30 +/- e-Cigarette/Vaping Use: Never Used Second Hand Smoke Exposure: No Advance Directives: Yes Advance Directives on File: Yes Advance Directives Date on File: 10/27/22 service: No Current occupational status: disabled Cognitive needs: No Hearing needs: No Vision needs: No Physical Exam Vital Signs: Vital Signs: Last Vital Signs Temp 97.9 F 05/14/23 15:20 Pulse 98 05/14/23 15:20 Resp 19 05/14/23 15:20 BP 96/69 05/14/23 15:20 Pulse Ox 99 05/14/23 15:20 O2 Del Method Room Air 05/14/23 15:20 BMI result Body Mass Index 27.5 Appearance: Alert. Oriented X3. No acute distress. Eyes: PERRLA, No Nystagmus ENT: Pharynx normal. Oral Mucosa moist Neck: Normal inspection. Neck supple. CVS: Normal heart rate and rhythm. Pulses normal. Respiratory: No respiratory distress. Equal air entry bilateral, no wheezing/rales/rhonchi Abdomen: Soft and nontender. Bowel sounds are present, no mass palpable, no CVA tenderness Skin: Skin warm and dry. Normal skin color. Normal skin turgor. Extremities: No lower extremity edema. No calf tenderness Neuro: Oriented X 3. No motor deficit. No sensory deficit.No cerebellar signs , cranial nerves II-XII intact Medical Decision Making Medical Decision Making MDM Narrative: Patient with opiate overdose back to baseline vital stable saturating 99% at room air ambulatory in the ER feels safe to go home does not want any detox will discharge him Discharge Plan Discharge Clinical Impression: Heroin overdose Patient Disposition: Home, Self-Care Instructions: Narcotic Use Disorder (ED) Additional Instructions: Stop using heroin Follow up with detox Prescriptions: No Action aspirin [Adult Aspirin Regimen] 81 mg tablet,delayed release (DR/EC) 81 mg PO DAILY Qty: 60 3RF pentoxifylline 400 mg tablet extended release 400 mg PO TID 30 Days Qty: 90 0RF Rx Instructions: must administer with a meal/food quetiapine 25 mg tablet 25 mg PO BEDTIME methadone 10 mg/5 mL solution 37 mg PO DAILY polyethylene glycol 3350 [Miralax] 17 gram/dose powder 17 g PO DAILY PRN (Reason: constipation) 30 Days Qty: 238 1RF ferrous sulfate 325 mg (65 mg iron) tablet,delayed release (DR/EC) 325 mg PO DAILY 90 Days Qty: 90 1RF Ensure Liquid 1 ea PO BID 30 Days Qty: 3792 3RF Rx Instructions: BMI 19.3 atorvastatin 80 mg tablet 80 mg PO BEDTIME Qty: 90 3RF Incruse Ellipta 62.5 mcg/actuation blister with device 1 inh inhalation DAILY 30 Days Qty: 1 6RF
== END 2023-05-14 17:28 | disposition home or self-care (01) ==
PROVIDERS: Emergency Provider Internal Medicine; PCP Internal Medicine
DX: T40.1X1A Poisoning by heroin, accidental (unintentional), initial encounter (principal); Y92.9 Unspecified place or not applicable; Z79.899 Other long term (current) drug therapy; F17.210 Nicotine dependence, cigarettes, uncomplicated; Z71.6 Tobacco abuse counseling; Z71.51 Drug abuse counseling and surveillance of drug abuser
CPT/HCPCS: 99284; 99285

== ENCOUNTER 2023-06-10 14:23 | Outpatient (AMB) | payer OTHER, SELFPAY ==
[2023-06-10 14:27] VITALS: BP 126/70; PULSE 79; O2SAT 98
--- NOTE | 2023-06-10 14:27 | MHC.OFFVIS ---
Intake Vital Signs 06/10/23 14:27 Height 5 ft 7 in Weight 127 lb 13.89 oz BMI 20.0 BP 126/70 Blood Pressure Location Lt brachial Position Sitting Pulse 79 Pulse Source Pulse Oximeter Pulse Oximetry (%) 98 Oxygen Delivery Method Room Air Intake Visit Reasons: COPD Allergies No Known Allergies [No Known Allergies*] Allergy (Verified 06/10/23 14:31) HPI COPD HPI Details 63-year-old gentleman, active 40 pack-year smoker now followed for emphysema without fixed obstruction and pulmonary nodules.? He has been using Incruse and albuterol MDI with excellent control of his symptoms. He denies any recent exacerbations. PFSH Medical History Anemia Anxiety Claudication of both lower extremities COPD (chronic obstructive pulmonary disease) GERD (gastroesophageal reflux disease) Hemorrhoids Hiatal hernia History of dysphagia History of heroin abuse Hx of gastritis Left foot pain Mild recurrent major depression Physical exam Smoker Surgical History History of aorto-femoral bypass History of esophagogastroduodenoscopy (EGD) History of prostate surgery Hx of colonoscopy S/P aortogram Family History Father No problems noted. Mother CVD (cardiovascular disease) Myocardial infarction Family/Other FH: mental illness Other Substance use disorder Social History Household Members: Family Household Members Other:: sister Housing: House Are you a primary ambulatory care coordinator to a significant other at home: No Do you presently have visiting nurse or other home services: No Alcohol intake: former Patient Tobacco Use Status: Current everyday Tobacco user Tobacco use type: Cigarette Cigarettes Per Day: 3 Years Smoked: 30 +/- e-Cigarette/Vaping Use: Never Used Second Hand Smoke Exposure: No Substance Use Type: Heroin Advance Directives Date on File: 10/27/22 service: No Current occupational status: disabled Cognitive needs: No Hearing needs: No Vision needs: No Review of Systems Const Denies daytime sleepiness, Denies excessive sweating, Denies fatigue, Denies fever(s), Denies lethargy, Denies malaise, Denies night sweats, Denies snoring and Denies weight loss Eyes Denies blurry vision and Denies itchy eyes ENT Denies nasal congestion, Denies post nasal drip, Denies sinus pain, Denies sinus pressure and Denies other ( Thrush) Card Denies chest pain, Denies pedal edema, Denies dyspnea, Denies orthopnea and Denies paroxysmal nocturnal dyspnea Resp Denies cough, Denies hemoptysis, Denies excessive phlegm production, Denies dyspnea, Denies snoring and Denies wheezing GI Denies abdominal pain and Denies heartburn Musc Denies myalgias, Denies arthralgias and Denies joint swelling Skin/Breast Denies rash Neuro Denies memory loss and Denies seizure-like activity Psych Denies abnormal sleep pattern, Denies anxiety and Denies memory loss Endo Denies excessive sweating, Denies fatigue and Denies heat intolerance Singh/Lymph Denies easy bruising Aller/Immun Denies itchy eyes, Denies seasonal rhinorrhea and Denies wheezing Physical Exam Vital Signs: Last Vital Signs Pulse 79 06/10/23 14:27 BP 126/70 06/10/23 14:27 Pulse Ox 98 06/10/23 14:27 Oxygen Delivery Method Room Air 06/10/23 14:27 BMI result Body Mass Index 20.0 Const General: no acute distress and alert Nutritional Appearance: not obese Orientation/consciousness: Other orientation findings ( oriented) HEENT Head: Yes atraumatic Eyes General: appearance normal, both eyes and all related structures Sclerae: sclerae normal EOM: EOMs intact bilaterally Neck Neck: Yes supple Lymphatic: no lymphadenopathy noted Resp Effort & Inspection: normal respiratory effort and no use of accessory muscles Auscultation: clear to auscultation bilaterally Cardio Rate: regular rate Rhythm: regular rhythm Heart sounds: no gallops, no murmurs and no rubs Skin General skin exam: other ( warm) Extrem General: No clubbing, No cyanosis and No edema Assessment & Plan Assessment & Plan (1) COPD (chronic obstructive pulmonary disease): Code(s): J44.9 - Chronic obstructive pulmonary disease, unspecified Plan: Well controlled on current regimen of Incruse and albuterol MDI. Continue current regimen. (2) Pulmonary nodules: Code(s): R91.8 - Other nonspecific abnormal finding of lung field Plan: Follow-up CT chest is pending for November 2023. Coding Level of Care Code Est Pt Level 4 (64964) Diagnoses COPD (chronic obstructive pulmonary disease) J44.9 Pulmonary nodules R91.8
== END 2023-06-10 14:42 | disposition home or self-care (01) ==
PROVIDERS: PCP Internal Medicine; Visit Provider Internal Medicine Pulmonary Disease
DX: J44.9 Chronic obstructive pulmonary disease, unspecified (principal); R91.8 Other nonspecific abnormal finding of lung field
CPT/HCPCS: 99214

== ENCOUNTER → 2023-06-10 14:23 | Outpatient (BNVA) | payer OTHER, SELFPAY | PROVIDERS: PCP Internal Medicine; Visit Provider Internal Medicine Pulmonary Disease | DX: J44.9 Chronic obstructive pulmonary disease, unspecified (principal); R91.8 Other nonspecific abnormal finding of lung field | CPT/HCPCS: 99212 ==

== ENCOUNTER 2023-07-06 15:05 | Outpatient (AMB) | payer OTHER, SELFPAY ==
[2023-07-06 15:15] VITALS: BP 118/70; PULSE 88; O2SAT 98
--- NOTE | 2023-07-06 15:15 | MHC.OFFVIS ---
Intake Vital Signs 07/06/23 15:15 Height 5 ft 7 in Weight 127 lb 13.89 oz BMI 20.0 BP 118/70 Blood Pressure Location Lt brachial Position Sitting Pulse 88 Pulse Source Pulse Oximeter Pulse Oximetry (%) 98 Oxygen Delivery Method Room Air Intake Visit Reasons: 6 THU FUP (KM PT R/S BY US 05/28.) Allergies No Known Allergies [No Known Allergies*] Allergy (Verified 07/06/23 15:17) Medication List - Last Reconciled 07/06/23 by Thi Mcfadden NP-C aspirin (Adult Aspirin Regimen) 81 mg PO DAILY atorvastatin 80 mg PO BEDTIME cane As directed ferrous sulfate 325 mg PO DAILY 90 days food supplemt, lactose-reduced (Ensure oral liquid) 1 ea PO BID 30 days Incruse Ellipta 62.5 mcg/actuation (umeclidinium) 1 inh inhalation DAILY 30 days NS methadone 37 mg PO DAILY pentoxifylline ER 400 mg PO TID 30 days polyethylene glycol 3350 (Miralax) 17 grams PO DAILY PRN 30 days quetiapine 25 mg PO BEDTIME HPI 6 THU FUP (KM PT R/S BY 05/28.) HPI Details Babatunde is a 63-year-old male with past medical history of hyperlipidemia peripheral vascular disease status post aorto bifem bypass, CAD, old ND who presents for follow-up. Today he reports he has been doing well since his last visit in November. He denies any cardiac symptoms. No chest discomfort, shortness of breath, palpitations, dizziness, presyncope, syncope, PND, orthopnea or edema. He no longer has claudication. He tells me he is taking his meds as directed. He smokes a cigarette occasionally. 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 Mother CVD (cardiovascular disease) Myocardial infarction Family/Other FH: mental illness Other Substance use disorder Social History Household Members: Family Household Members Other:: sister Housing: House Are you a primary attending ambulatory care to a significant other at home: No Do you presently have visiting nurse or other home services: No Alcohol intake: former Patient Tobacco Use Status: Current everyday Tobacco user Tobacco use type: Cigarette Cigarettes Per Day: 3 Years Smoked: 30 +/- e-Cigarette/Vaping Use: Never Used Second Hand Smoke Exposure: No Substance Use Type: Heroin Advance Directives Date on File: 10/27/22 service: No Current occupational status: disabled Cognitive needs: No Hearing needs: No Vision needs: No Review of Systems Const All systems reviewed & are unremarkable except as noted in HPI and below Physical Exam Vital Signs: Last Vital Signs Pulse 88 07/06/23 15:15 BP 118/70 07/06/23 15:15 Pulse Ox 98 07/06/23 15:15 Oxygen Delivery Method Room Air 07/06/23 15:15 BMI result Body Mass Index 20.0 Const Other: Thin, somewhat frail looking General: cooperative, comfortable and no acute distress Orientation/consciousness: patient oriented x3 Neck Neck: Yes normal visual inspection Resp Effort & Inspection: normal respiratory effort Auscultation: clear to auscultation bilaterally, no crackles, no rales, no rhonchi and no wheezes Cardio Jugular venous distension: no JVD Rate: regular rate Rhythm: regular rhythm Heart sounds: S1 normal heart sound present, S2 normal heart sound present, no murmurs and no rubs Neuro General: patient oriented x3 Extrem General: Yes normal to inspection Psych Appearance: grossly normal Mental Status: mental status grossly normal Speech and movement: Normal speech and movement present Assessment & Plan Assessment & Plan (1) Coronary artery disease: Code(s): I25.10 - Atherosclerotic heart disease of [place] coronary artery without angina pectoris Plan: Cardiac risks of hyperlipidemia and peripheral vascular disease. Underwent cardiac evaluation for preop clearance for aortobifem bypass this past year. EKG done 08/27/2022 showed sinus tach with no acute ST or T-wave abnormalities. Pharmacological nuclear stress test done on 09/03/2022 however nuclear imaging was not interpretable. He then underwent a dobutamine stress echo on 09/09/2022 no echo evidence of ischemia with basal inferior and inferior septal ND and mildly reduced LV systolic function at rest. An echocardiogram done 09/04/2022 showed EF 45-50%, abnormal diastolic function. Based on testing he likely has history of prior ND. at this time he has no anginal sounding symptoms. He continues with risk factor modification. Continue aspirin indefinitely. Continue high-dose atorvastatin with ideal LDL goal less than 70. He continues to smoke and occasional cigarettes and has been instructed to stop altogether. He reports good activity tolerance. Signs and symptoms of angina reviewed. Cardiology follow-up in 1 year, sooner if needed (2) Old ND (myocardial infarction): Code(s): I25.2 - Old myocardial infarction Plan: Based on stress echo. (3) PVD (peripheral vascular disease): Code(s): I73.9 - Peripheral vascular disease, unspecified Plan: Follows with Dr. Law. Doing well with no claudication symptoms. (4) Status post aortobifemoral bypass surgery: Code(s): Z95.828 - Presence of other vascular implants and grafts (5) Hyperlipidemia: Code(s): E78.5 - Hyperlipidemia, unspecified Plan: [place] LDL goal less than 70. CMP and lipid profile ordered. Patient states he will obtain tomorrow. Continue high-dose atorvastatin. (6) Smoker: Code(s): F17.200 - Nicotine dependence, unspecified, uncomplicated Plan: As above Orders: Orders Comprehensive [place]. Panel Fast Today I73.9 - Peripheral vascular disease, unspecified Lipid Panel Today I73.9 - Peripheral vascular disease, unspecified Coding Level of Care Code Est Pt Level 3 (40717) Diagnoses Coronary artery disease I25.10 Old ND (myocardial infarction) I25.2 PVD (peripheral vascular disease) I73.9 Status post aortobifemoral bypass surgery Z95.828 Hyperlipidemia E78.5 Smoker F17.200 Time Spent (min) 22 Comment Chart review, documentation, interview, assessment
== END 2023-07-06 15:57 | disposition home or self-care (01) ==
PROVIDERS: PCP Internal Medicine; Referring Provider Internal Medicine; Visit Provider Nurse Practitioner Family
DX: I25.10 Atherosclerotic heart disease of native coronary artery without angina pectoris (principal); I25.2 Old myocardial infarction; I73.9 Peripheral vascular disease, unspecified; Z95.828 Presence of other vascular implants and grafts; E78.5 Hyperlipidemia, unspecified; F17.200 Nicotine dependence, unspecified, uncomplicated
CPT/HCPCS: 99213

== ENCOUNTER → 2023-07-06 15:05 | Outpatient (BNVA) | payer OTHER, SELFPAY | PROVIDERS: PCP Internal Medicine; Referring Provider Internal Medicine; Visit Provider Nurse Practitioner Family | DX: I73.9 Peripheral vascular disease, unspecified (principal); I25.10 Atherosclerotic heart disease of native coronary artery without angina pectoris; I25.2 Old myocardial infarction; F17.210 Nicotine dependence, cigarettes, uncomplicated; Z95.828 Presence of other vascular implants and grafts | CPT/HCPCS: 99212 ==

== ENCOUNTER 2023-09-29 10:57 | Outpatient (REF) | payer OTHER, SELFPAY ==
--- NOTE | ~2023-09-29 | US_ITS ---
EXAMINATION: US RETROPERITONEAL LIMITED (AORTA) CLINICAL INFORMATION: Other arterial embolism and thrombosis of the abdominal aorta. Assess aortobifemoral bypass. COMPARISON: US retroperitoneal limited (aorta) 03/03/2023, CT angiogram of the aorta and runoff 08/04/2022. TECHNIQUE: Rivera-scale, color Doppler and spectral Doppler evaluation of the abdominal aorta. FINDINGS: Atherosclerotic changes are seen in the aorta and [place] iliac vessels. The measurements of the aorta in maximum AP and transverse dimensions respectively are as follows: Proximal: 2.3 x 2.0 cm. Mid: 1.4 x 1.7 cm. Distal: 1.9 x 1.5 cm. PSV: 36.5 cm/s. The measurements of the common iliac arteries in maximum AP and TRV dimensions are as follows: Right Common Iliac Artery: 0.9 x 1.0 cm. Left Common Iliac Artery: 0.8 x 1.0 cm. The patient is status post a distal aorta bilateral femoral bypass graft which is patent with normal velocities and multiphasic flow throughout. There is some mild elevation of velocity at the distal anastomosis on the left at 207 cm/s. US/US abdominal aortic aneurysm IMPRESSION: No evidence of abdominal aortic aneurysm. The patient is status post a distal aorta bilateral femoral bypass graft which is patent with multiphasic flow throughout. There is some elevated velocity seen on the left which might be indicative of some element of stenosis.
== END 2023-09-29 10:58 | disposition home or self-care (01) ==
LOC: HO.US 10:57
PROVIDERS: PCP Internal Medicine; Visit Provider Surgery Vascular Surgery
DX: I74.09 Other arterial embolism and thrombosis of abdominal aorta (principal)
CPT/HCPCS: 76706

== ENCOUNTER 2023-10-13 14:25 | Outpatient (AMB) | payer OTHER, SELFPAY ==
--- NOTE | 2023-10-13 14:28 | MHC.OFFVIS ---
Intake Vital Signs 10/13/23 14:31 Height 5 ft 7 in Weight 132 lb BMI 20.7 Intake Visit Reasons: follow up s/p Abd aorta US 09/29/2023 Intake Note: pt here for FU S/P aorta US on 09/29/23 pt states that he is doing much better he use to get pain while sleeping and walking but he does not anymore. He is now able to walk a mile at a time with no pain Social Services Director Required: Yes Social Services Director Name: raul smith Information Interpreted: non-clinical & clinical Allergies No Known Allergies [No Known Allergies*] Allergy (Verified 10/13/23 14:31) HPI follow up s/p Abd aorta US 09/29/2023 HPI Details Very pleasant 63-year-old gentleman presents for follow-up regarding an aortobifemoral bypass. He reports he is doing extremely well. No difficulty ambulating. He continues to be maintained on aspirin and high-dose statin. He does still continue to smoke 2-3 cigarettes a day. Now for surveillance follow-up. [facility] Medical History COPD (chronic obstructive pulmonary disease) Claudication of both lower extremities Physical exam Left foot pain Mild recurrent major depression Hemorrhoids Smoker History of heroin abuse Anemia Hx of gastritis History of dysphagia Hiatal hernia GERD (gastroesophageal reflux disease) Anxiety Surgical History History of aorto-femoral bypass S/P aortogram History of esophagogastroduodenoscopy (EGD) Hx of colonoscopy History of prostate surgery Family History Father No problems noted. Mother CVD (cardiovascular disease) Myocardial infarction Family/Other FH: mental illness Other Substance use disorder Social History Household Members: Family Household Members Other:: sister Housing: House Are you a primary care navigator to a significant other at home: No Do you presently have visiting nurse or other home services: No Alcohol intake: former Patient Tobacco Use Status: Current everyday Tobacco user Tobacco use type: Cigarette Cigarettes Per Day: 3 Years Smoked: 30 +/- e-Cigarette/Vaping Use: Never Used Second Hand Smoke Exposure: No Substance Use Type: Heroin Advance Directives Date on File: 10/27/22 service: No Current occupational status: disabled Cognitive needs: No Hearing needs: No Vision needs: No Review of Systems Const All systems reviewed & are unremarkable except as noted in HPI and below Reports no additional complaints ENT Reports Normal hearing present Card Denies chest pain, Denies chest pain at rest, Denies chest pain with activity and Denies pedal edema Resp Denies cough GI Denies abdominal pain Musc Denies abnormal gait, Denies muscle cramps and Denies radiating pain into limb Skin/Breast Denies skin ulcer and Denies wounds Neuro Reports Normal hearing present and Denies abnormal gait Psych Reports no additional complaints Physical Exam Vital Signs: BMI result Body Mass Index 20.7 Const General: cooperative, healthy appearing and comfortable Orientation/consciousness: oriented to person, oriented to place and oriented to time HEENT Head: Yes normal to inspection Neck Neck: Yes normal visual inspection Carotids: no bruits Chest Chest palpation & inspection: normal inspection of the chest Resp Effort & Inspection: normal respiratory effort and able to speak in complete sentences Auscultation: clear to auscultation bilaterally, no crackles, no rales, no rhonchi and no wheezes Cardio Rate: regular rate Rhythm: regular rhythm Heart sounds: S1 normal heart sound present and S2 normal heart sound present Bruits: no carotid bruits Peripheral pulses: Peripheral pulses 2+ throughout GI Inspection: Yes normal to inspection Skin Wounds: no wounds Hair: normal Neuro General: oriented to person, oriented to place and oriented to time Cranial nerves: Yes CN's II-XII intact bilaterally and Yes Normal hearing present Cognition (Neuro): normal cognition Motor exam (neuro): 5/5 motor strength present throughout Extrem Other: venous exam: No significant superficial varicosities or spider telangiectasias, minimal edema General: No clubbing, No cyanosis and No edema Psych Appearance: grossly normal Mental Status: mental status grossly normal Speech and movement: Normal speech and movement present Results Reviewed Results Reviewed: Testing from 09/29/2023 was reviewed. No evidence of stenosis in bypass graft. Written report and images were reviewed. Assessment & Plan Assessment & Plan (1) Aortoiliac occlusive disease: Comment: 10/13/2022 - open aortobifemoral bypass. Code(s): I74.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 Plan: In short patient is doing extremely well 1 year out since aortobifemoral bypass. He has no active issues at the current time. We did discuss risks factor modification in particular smoking cessation. The patient will follow up with us in approximately 1 year's time with surveillance follow-up. Thank you for allowing us to assist in his care. Orders: Orders US abdominal aortic aneurysm 364 Days I74.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 Coding Level of Care Code Est Pt Level 4 (05127) Diagnoses Aortoiliac occlusive disease I74.09
[2023-10-13 14:31] VITALS: BMI 20.7
== END 2023-10-13 14:59 | disposition home or self-care (01) ==
PROVIDERS: PCP Internal Medicine; Visit Provider Surgery Vascular Surgery
DX: I74.09 Other arterial embolism and thrombosis of abdominal aorta (principal)
CPT/HCPCS: 99213

== ENCOUNTER → 2023-10-13 14:25 | Outpatient (BNVA) | payer OTHER, SELFPAY | PROVIDERS: PCP Internal Medicine; Visit Provider Surgery Vascular Surgery | DX: I74.09 Other arterial embolism and thrombosis of abdominal aorta (principal) | CPT/HCPCS: 99212 ==

== ENCOUNTER 2023-11-27 14:20 | Outpatient (REF) | payer OTHER, SELFPAY ==
--- NOTE | ~2023-11-27 | CT_ITS ---
EXAMINATION: CT CHEST WITHOUT CONTRAST CLINICAL INFORMATION: History of abnormal lung findings. COMPARISON: Chest CT from 09/17/2022 TECHNIQUE: Multidetector volumetric CT imaging of the chest was done. Axial MIP volume rendering provided. Sagittal and coronal reformatted images were obtained. This CT examination was performed using dose optimization techniques as appropriate, variously including the following: *Automated exposure control *Adjustment of mA and/or kV according to patient size (this includes techniques or standardized protocols for targeted exams where dose is matched to indication/reason for exam; i.e. extremities or head) *Use of iterative reconstruction technique DLP: 110 mGy-cm FINDINGS: LUNGS AND PLEURA: Trachea and central airways are widely patent and normal in caliber. Chronic mild pleural-based scarring at lung apices. Mild centrilobular and paraseptal emphysema. No interval development of any suspicious lung nodule, mass or pleural effusion. No interstitial disease. CARDIOVASCULAR: The heart size is normal. No pericardial effusion. Pulmonary arteries are normal in size. Mild atherosclerosis of the thoracic aorta without aneurysm. CORONARY ARTERY CALCIFICATION: Mild calcification of the left anterior descending coronary artery is present. MEDIASTINUM AND LOWER NECK: No mediastinal mass. The esophagus and thyroid gland are unremarkable. LYMPHATICS: No pathologic sized lymph nodes. UPPER ABDOMEN: Unremarkable. SKELETAL AND CHEST WALL: Unremarkable. CT/CT chest wo IV con IMPRESSION: * No acute pulmonary disease compared to 09/17/2022. * Chronic mild centrilobular and paraseptal emphysema.
== END 2023-11-27 14:21 | disposition home or self-care (01) ==
LOC: HO.CT 14:20
PROVIDERS: PCP Internal Medicine; Visit Provider Internal Medicine Pulmonary Disease
DX: R91.8 Other nonspecific abnormal finding of lung field (principal)
CPT/HCPCS: 71250

== ENCOUNTER 2023-12-17 13:56 | Outpatient (AMB) | payer OTHER, SELFPAY ==
--- NOTE | 2023-12-17 14:05 | A.OFFVIS_ITS ---
Intake Vital Signs 12/17/23 14:07 Height 5 ft 7 in Weight 131 lb 2.801 oz BMI 20.5 BP 122/77 Blood Pressure Location Lt brachial Position Sitting Pulse 74 Pulse Source Doppler Pulse Oximetry (%) 97 Oxygen Delivery Method Room Air Intake Visit Reasons: COPD Senior Mechanical Project Manager Required: Yes Senior Mechanical Project Manager Name: Jeana Km Garza Allergies No Known Allergies [No Known Allergies*] Allergy (Verified 12/17/23 14:10) HPI COPD HPI Details 63-year-old gentleman, active 40 pack-ye ar smoker now followed for emphysema without fixed obstruction and pulmonary nodules.? He has been using Incruse and albuterol MDI with excellent control of his symptoms. He denies any recent exacerbations. His follow-up CT chest showed no worrisome nodules. [facility] Medical History COPD (chronic obstructive pulmonary disease) Claudication of both lower extremities Physical exam Left foot pain Mild recurrent major depression Hemorrhoids Smoker History of heroin abuse Anemia Hx of gastritis History of dysphagia Hiatal hernia GERD (gastroesophageal reflux disease) Anxiety Surgical History History of aorto-femoral bypass S/P aortogram History of esophagogastroduodenoscopy (EGD) Hx of colonoscopy History of prostate surgery Family History Father No problems noted. Mother CVD (cardiovascular disease) Myocardial infarction Family/Other FH: mental illness Other Substance use disorder Social History (Reviewed 12/17/23 @ 14:11 by Jeana Nolen [facility]) Household Members: Family Household Members Other:: sister Housing: House Are you a primary career development coordinator to a significant other at home: No Do you presently have visiting nurse or other home services: No Alcohol intake: former Patient Tobacco Use Status: Current everyday Tobacco user Tobacco use type: Cigarette Cigarettes Per Day: 3 Years Smoked: 30 +/- e-Cigarette/Vaping Use: Never Used Second Hand Smoke Exposure: No Substance Use Type: Heroin Advance Directives Date on File: 10/27/22 service: No Current occupational status: disabled Cognitive needs: No Hearing needs: No Vision needs: No Review of Systems Const Denies daytime sleepiness, Denies excessive sweating, Denies fatigue, Denies fever(s), Denies lethargy, Denies malaise, Denies night sweats, Denies snoring and Denies weight loss Eyes Denies blurry vision and Denies itchy eyes ENT Denies nasal congestion, Denies post nasal drip, Denies sinus pain, Denies sinus pressure and Denies other ( Thrush) Card Denies chest pain, Denies pedal edema, Denies dyspnea, Denies orthopnea and Denies paroxysmal nocturnal dyspnea Resp Denies cough, Denies hemoptysis, Denies excessive phlegm production, Denies dyspnea, Denies snoring and Denies wheezing GI Denies abdominal pain and Denies heartburn Musc Denies myalgias, Denies arthralgias and Denies joint swelling Skin/Breast Denies rash Neuro Denies memory loss and Denies seizure-like activity Psych Denies abnormal sleep pattern, Denies anxiety and Denies memory loss Endo Denies excessive sweating, Denies fatigue and Denies heat intolerance Singh/Lymph Denies easy bruising Aller/Immun Denies itchy eyes, Denies seasonal rhinorrhea and Denies wheezing Physical Exam Vital Signs: Last Vital Signs Pulse 74 12/17/23 14:07 BP 122/77 12/17/23 14:07 Pulse Ox 97 12/17/23 14:07 Oxygen Delivery Method Room Air 12/17/23 14:07 BMI result Body Mass Index 20.5 Const General: no acute distress and alert Nutritional Appearance: not obese Orientation/consciousness: Other orientation findings ( oriented) HEENT Head: Yes atraumatic Eyes General: appearance normal, both eyes and all related structures Sclerae: sclerae normal EOM: EOMs intact bilaterally Neck Neck: Yes supple Lymphatic: no lymphadenopathy noted Resp Effort & Inspection: normal respiratory effort and no use of accessory muscles Auscultation: clear to auscultation bilaterally Cardio Rate: regular rate Rhythm: regular rhythm Heart sounds: no gallops, no murmurs and no rubs Skin General skin exam: other ( warm) Extrem General: No clubbing, No cyanosis and No edema Assessment & Plan Assessment & Plan (1) COPD (chronic obstructive pulmonary disease): Code(s): J44.9 - Chronic obstructive pulmonary disease, unspecified Plan: Well controlled on current regimen of Incruse and albuterol MDI. Continue current regimen. (2) Personal history of nicotine dependence: Code(s): Z87.891 - Personal history of nicotine dependence Plan: Results of follow-up CT chest reviewed, no worrisome nodules at this time. Will continue with yearly screening. Orders: Orders CT lung screening 11/20/24 Z87.891 - Personal history of nicotine dependence Medications: New albuterol sulfate 90 mcg/actuation 2 puffs inhalation 6XD PRN 1 ea 6RF shortness of breath or wheezing 30 days Refilled Incruse Ellipta 62.5 mcg/actuation (umeclidinium) 1 inh inhalation DAILY 1 ea 6RF 30 days NS R91.8 - Other nonspecific abnormal finding of lung field Coding Level of Care Code Est Pt Level 4 (81988) Diagnoses COPD (chronic obstructive pulmonary disease) J44.9 Personal history of nicotine dependence Z87.891
[2023-12-17 14:07] VITALS: BP 122/77; PULSE 74; O2SAT 97; BMI 20.5
== END 2023-12-17 14:22 | disposition home or self-care (01) ==
PROVIDERS: PCP Internal Medicine; Visit Provider Internal Medicine Pulmonary Disease
DX: J44.9 Chronic obstructive pulmonary disease, unspecified (principal); Z87.891 Personal history of nicotine dependence
CPT/HCPCS: 99214

== ENCOUNTER → 2023-12-17 13:56 | Outpatient (BNVA) | payer OTHER, SELFPAY | PROVIDERS: PCP Internal Medicine; Visit Provider Internal Medicine Pulmonary Disease | DX: J44.9 Chronic obstructive pulmonary disease, unspecified (principal); Z87.891 Personal history of nicotine dependence | CPT/HCPCS: 99212 ==

== ENCOUNTER 2023-12-24 15:57 | Outpatient (AMB) | payer OTHER, SELFPAY ==
[2023-12-24 16:05] VITALS: BP 130/72; BMI 20.2
--- NOTE | 2023-12-24 16:05 | MHC.PC.OV ---
Vital Signs 12/24/23 16:05 Height 5 ft 7 in Weight 129 lb BMI 20.2 BP 130/72 Blood Pressure Location Lt brachial Position Sitting Intake Visit Reasons: High sugar levels Intake Note: Patient here for high sugar levels In Store Banker Required: No Accompanied by: Sister Allergies No Known Allergies [No Known Allergies*] Allergy (Verified 12/24/23 16:26) Medication List - Last Reconciled 12/24/23 by Sarahy Chapa MD albuterol sulfate 90 mcg/actuation 2 puffs inhalation 6XD PRN 30 days aspirin (Adult Aspirin Regimen) 81 mg PO DAILY atorvastatin 80 mg PO BEDTIME cane As directed ferrous sulfate 325 mg PO DAILY 90 days food supplemt, lactose-reduced (Ensure oral liquid) 1 ea PO BID 30 days Incruse Ellipta 62.5 mcg/actuation (umeclidinium) 1 inh inhalation DAILY 30 days NS methadone 35 mg PO DAILY polyethylene glycol 3350 (Miralax) 17 grams PO DAILY PRN 30 days quetiapine 25 mg PO BEDTIME Tobacco use date assessed: 12/24/23 Dental Screening Dental Screen Date: 12/24/23 Did you have a dental visit in the last 12 months?: Yes Did you have a dental problem in the last 6 months where you did not have access to dental care?: No Was dental information given to patient?: Patient has dentist HPI HPI Comments History of Present Illness Details This is a 63-year-old male with COPD, hyperlipidemia, opioid dependence on agonist therapy, mild recurrent major depression and heart failure with reduced ejection fraction that comes accompanied by sister which is the scale mechanic for follow-up on his conditions. COPD is follow by pulmonology and has been stable on long-acting inhaler. On statins for elevated cholesterol. On methadone for opioid dependence. Depression somewhat stable with Seroquel. Last echocardiogram was 2021 showing ejection fraction 45-50% and he denies any shortness of breath or leg swelling. Has malnutrition with a BMI of 20.2 and will benefit from nutritional supplement such as ensure. [facility] Medical History (Updated 12/26/23 @ 10:26 by Sarahy Chapa MD) COPD (chronic obstructive pulmonary disease) Claudication of both lower extremities Physical exam Left foot pain Mild recurrent major depression Hemorrhoids Smoker History of heroin abuse Anemia Hx of gastritis History of dysphagia Hiatal hernia GERD (gastroesophageal reflux disease) Anxiety Surgical History History of aorto-femoral bypass S/P aortogram History of esophagogastroduodenoscopy (EGD) Hx of colonoscopy History of prostate surgery Family History Father No problems noted. Mother CVD (cardiovascular disease) Myocardial infarction Family/Other FH: mental illness Other Substance use disorder Social History Household Members: Family Household Members Other:: sister Housing: House Are you a primary laboratory animal caretaker to a significant other at home: No Do you presently have visiting nurse or other home services: No Alcohol intake: former Patient Tobacco Use Status: Current everyday Tobacco user Tobacco use type: Cigarette Cigarettes Per Day: 2 Years Smoked: 30 +/- e-Cigarette/Vaping Use: Never Used Second Hand Smoke Exposure: No Substance Use Type: Heroin Advance Directives Date on File: 10/27/22 service: No Current occupational status: disabled Cognitive needs: No Hearing needs: No Vision needs: No Questionnaire PHQ-9 Over the last 2 weeks, how often have you been bothered by any of the following problems? 1. Little interest or pleasure in doing things: several days 2. Feeling down, depressed, or hopeless: several days 3. Trouble falling or staying asleep, or sleeping too much: nearly every day 4. Feeling tired or having little energy: more than half the days 5. Poor appetite or overeating: more than half the days 6. Feeling bad about yourself - or that you are a failure or have let yourself or your family down: not at all 7. Trouble concentrating on things, such as reading the newspaper or watching television: several days 8. Moving or speaking so slowly that other people could have noticed. Or the opposite - being so fidgety or restless that you have been moving around a lot more than usual: not at all 9. Thoughts that you would be better off or of hurting yourself in some way: not at all Total score: 10 Depression Screening Interpretation: Positive Depression Screening Follow-up: Existing condition and In treatment Depression Screening Done: Yes 66442 - PHQ-9 Billing: Yes Source: Developed by Drs. Timothy Tinoco, Parminder Richard and colleagues, with an educational jeff from [employer]. Thrive Questionnaire Date Thrive assessed: 12/24/23 I am a: Patient What is your living situation today?: I have a steady place to live Within the past 12 months, did the food you bought not last and you didn't have the money to get more?: Never true Within the past 12 months, did you worry whether your food would run out before you got money to buy more?: Never true Do you have trouble paying for medicines?: No Do you have trouble getting transportation to medical appointments?: No Do you have trouble paying your heating and electricity bill?: No Do you have trouble taking care of your child, family member or friend?: No Do you have trouble with day-to-day activities such as bathing, preparing meals, shopping, managing finances, etc.?: No Are you currently unemployed and looking for a job?: No Are you interested in more education?: No Please select the resources that you would like help with: None Currently or been in a relationship where the following occur: no concerns reported THRIVE Score: 0 AUDIT C Alcohol Use Questionnaire (AUDIT-C) 1. How often do you have a drink containing alcohol?: Never Total Score: 0 SHAQUILLE-7 AMB Questionnaire SHAQUILLE-7 Date SHAQUILLE - 7 assessed: 12/24/23 Feeling nervous, anxious, or on edge: 2 = More than half the days Not being able to stop or control worryin = Not at all Worrying too much about different things: 1 = Several days Trouble relaxin = Not at all Being so restless that it is hard to sit still: 0 = Not at all Becoming easily annoyed or irritable: 0 = Not at all Feeling afraid as if something awful might happen: 0 = Not at all Total SHAQUILLE-7 score (0-4 normal; 5-9 mild; 10-14 moderate; 15-21 severe): 3 Source: Developed by Drs. Timothy Tinoco, Parminder Richard and colleagues, with an educational jeff from [employer]. SHAQUILLE-7 Assessment Billing SHAQUILLE-7 Assessment Tool: SHAQUILLE-7 Assessment 04544 Review of Systems Const All systems reviewed & are unremarkable except as noted in HPI and below Eyes Reports no additional complaints, Denies change in vision and Denies other visual disturbances Card Denies chest pain at rest, Denies chest pain with activity, Denies edema, Denies irregular heart rhythm, Denies claudication, Denies dyspnea, Denies dyspnea on exertion, Denies orthopnea, Denies paroxysmal nocturnal dyspnea and Denies slow heart rate Resp Denies cough, Denies dyspnea and Denies dyspnea on exertion GI Denies abdominal pain, Denies change in bowel habits, Denies excessive flatus, Denies nausea and Denies vomiting Denies urinary hesitancy, Denies urinary incontinence and Denies urinary urgency Musc Denies abnormal gait, Denies atrophy, Denies deformity and Denies limited range of motion Skin/Breast Denies bleeding lesions, Denies changing lesions and Denies rash Neuro Denies abnormal gait, Denies behavioral changes and Denies lack of coordination Psych Denies behavioral changes and Reports depression Physical exam (Primary Care) Vital Signs: Last Vital Signs BP 130/72 12/24/23 16:05 BMI result Body Mass Index 20.2 Tobacco/Smoking Status: Tobacco use Status Tobacco use date assessed 12/24/23 12/24/23 16:17 Patient Tobacco Use Status Current everyday Tobacco 12/24/23 16:05 Tobacco use type Cigarette 12/24/23 16:05 e-Cigarette/Vaping Use Never Used 12/24/23 16:05 PHQ-9: PHQ-9 Score PHQ-9: Total score 10 12/24/23 16:43 Depression Screening Interpretation: Positive Depression Screening Follow-up: Existing condition and In treatment Thrive Assessment: Date of Thrive Assessment Date Thrive assessed 12/24/23 12/24/23 16:17 Currently or been in a relationship where the following occur: no concerns reported Eyes General: appearance normal, both eyes and all related structures Eyelids: Yes eyelids normal Conjunctivae: conjunctivae normal Neck Neck: Yes normal visual inspection and Yes supple Resp Effort & Inspection: normal respiratory effort Auscultation: clear to auscultation bilaterally Cardio Jugular venous distension: no JVD Rate: regular rate Rhythm: regular rhythm Heart sounds: S1 normal heart sound present and S2 normal heart sound present Extrem General: Yes full ROM Assessment and Plan Assessment & Plan (1) Hyperlipidemia: Code(s): E78.5 - Hyperlipidemia, unspecified Plan: Continue statins. Repeat lipid panel. (2) Opioid dependence on agonist therapy: Code(s): F11.20 - Opioid dependence, uncomplicated Plan: Continue methadone. (3) Heart failure with reduced ejection fraction: Code(s): I50.20 - Unspecified systolic (congestive) heart failure Plan: Follow-up with Cardiology. The goal is to not gain 5 lb in a week. (4) Mild recurrent major depression: Code(s): F33.0 - Major depressive disorder, recurrent, mild Plan: Continue Seroquel. (5) COPD (chronic obstructive pulmonary disease): Code(s): J44.9 - Chronic obstructive pulmonary disease, unspecified Plan: Continue Incruse. Follow-up with pulmonology. Orders: Orders Lipid Panel 12/24/23 E78.5 - Hyperlipidemia, unspecified Comprehensive [place]. Panel Fast 12/24/23 R73.02 - Impaired glucose tolerance (oral) Complete Blood Count Auto Diff 12/24/23 D64.9 - Anemia, unspecified IRON PROFILE 12/24/23 D64.9 - Anemia, unspecified Medications: New sennosides (senna) 8.6 mg PO BEDTIME 90 days PRN 90 tabs 1RF constipation Changed From food supplemt, lactose-reduced (Ensure oral liquid) BMI 19.3 vanilla and/or strawberry flavors only please 1 ea PO BID 30 days 3,792 mL 3RF E46 - Unspecified protein-calorie malnutrition, R63.0 - Anorexia To food supplemt, lactose-reduced (Ensure oral liquid) BMI 20 vanilla and/or strawberry flavors only please 1 ea PO BID 30 days 3,792 mL 6RF E46 - Unspecified protein-calorie malnutrition, R63.0 - Anorexia Refilled ferrous sulfate 325 mg PO DAILY 90 days 90 tabs 1RF aspirin (Adult Aspirin Regimen) 81 mg PO DAILY 60 tabs 3RF I74.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 atorvastatin 80 mg PO BEDTIME 90 tabs 3RF 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
== END 2023-12-24 16:40 | disposition home or self-care (01) ==
LOC: HO.HMGH 15:57
PROVIDERS: PCP Internal Medicine; Visit Provider Internal Medicine
DX: I50.20 Unspecified systolic (congestive) heart failure (principal); F11.20 Opioid dependence, uncomplicated; F33.0 Major depressive disorder, recurrent, mild; J44.9 Chronic obstructive pulmonary disease, unspecified; E78.5 Hyperlipidemia, unspecified
CPT/HCPCS: 96127; 99214

== ENCOUNTER 2024-01-21 08:26 | Outpatient (REF) | payer OTHER, SELFPAY ==
[2024-01-21 08:43] LABS: MANUAL DIFF FLAG NO
[2024-01-21 09:40] LABS: Basophils Absolute Auto 0.1 X10*3/uL (0.0-0.2); Basophils Percent Auto 0.8 % (0-2); Eosinophils Absolute Auto 0.3 X10*3/uL (0.0-0.4); Eosinophils Percent Auto 3.5 % (0-4); Hematocrit 39.9 % (42.0-52.0); Hemoglobin 12.6 g/dl (14.0-18.0); Imm Gran Abs Auto 0.01 X10*3/uL (0.00-0.03); Imm Gran Pct Auto 0.1 % (0.0-0.4); Lymphocytes Absolute Auto 3.3 X10*3/uL (1.2-4.9); Mean Corpuscular HGB Conc 31.6 g/dl (31.0-36.0); Mean Corpuscular Volume 98.3 fL (80.0-98.0); Mean Platelet Volume 10.4 fL (9.4-12.4); Monocytes Absolute Auto 0.6 X10*3/uL (0.1-1.2); Monocytes Percent Auto 7.7 % (2-11); Neutrophils Absolute Auto 4.1 x10*3/uL (2.0-8.3); Neutrophils Percent Auto 48.9 % (45-73); Platelet Count 224 X10*3/uL (160-400); Red Blood Count 4.06 X10*6/uL (4.60-5.80); Red Cell Distribution Width 12.4 % (11.0-16.0); White Blood Count 8.3 X10*3/uL (4.8-10.8)
[2024-01-21 10:39] LABS: Alanine Aminotransferase 50 U/L (0-40); Albumin Level 4.2 g/dL (3.5-5.0); Alkaline Phosphatase 101 U/L (39-117); Anion Gap 11 (12-20); Aspartate Amino Transferase 43 U/L (5-37); Bilirubin Total 0.6 mg/dL (0.0-1.0); Blood Urea Nitrogen 22 mg/dL (9-16); Calcium 9.6 mg/dL (8.4-10.2); Carbon Dioxide 30 mmol/L (22-29); Chloride 105 mmol/L (96-108); Cholesterol 148 mg/dL (<200); Estimated Glomerular Filt Rate > 60; Glucose Fasting 105 mg/dL (60-99); HDL Cholesterol 52 mg/dL (>40); Iron 73 mcg/dL (45-160); LDL Cholesterol Calculated 84 mg/dL (<100); Percent Iron Saturation 24 % (15-50); Sodium 142 mmol/L (135-145); Total Iron Binding Capacity 303 mcg/dL (228-428); Total Protein 7.3 g/dL (6.5-8.0); Triglycerides 62 mg/dL (<150); Unsaturated Iron Binding 230 ug/dL
== END 2024-01-21 08:27 | disposition home or self-care (01) ==
LOC: HO.LAB 08:26
PROVIDERS: Absent Provider Internal Medicine; PCP Internal Medicine; Visit Provider Nurse Practitioner Family
DX: Z13.6 Encounter for screening for cardiovascular disorders (principal); I73.9 Peripheral vascular disease, unspecified; D64.9 Anemia, unspecified
CPT/HCPCS: 36415; 80053; 80061; 83540; 85025

== ENCOUNTER 2024-04-27 15:06 | Outpatient (AMB) | payer OTHER, SELFPAY ==
[2024-04-27 15:11] VITALS: BP 120/80; BMI 21.0
--- NOTE | 2024-04-27 15:11 | MHC.PC.OV ---
Vital Signs 04/27/24 15:11 Height 5 ft 7 in Weight 134 lb BMI 21.0 BP 120/80 Blood Pressure Location Lt brachial Position Sitting Intake Visit Reasons: Annual Exam Intake Note: Patient here for physical exam Hose Seamer Required: No Accompanied by: Sister Allergies No Known Allergies [No Known Allergies*] Allergy (Verified 04/27/24 15:35) Medication List - Last Reconciled 04/27/24 by Sarahy Chapa MD albuterol sulfate 90 mcg/actuation 2 puffs inhalation 6XD PRN 30 days aspirin (Adult Aspirin Regimen) 81 mg PO DAILY atorvastatin 80 mg PO BEDTIME cane As directed ferrous sulfate 325 mg PO DAILY 90 days food supplemt, lactose-reduced (Ensure oral liquid) 1 ea PO BID 30 days Incruse Ellipta 62.5 mcg/actuation (umeclidinium) 1 inh inhalation DAILY 30 days NS methadone 35 mg PO DAILY polyethylene glycol 3350 (Miralax) 17 grams PO DAILY PRN 30 days quetiapine 25 mg PO BEDTIME sennosides (senna) 8.6 mg PO BEDTIME PRN 90 days Tobacco use date assessed: 12/24/23 Fall risk assessment: No Falls in past year Last assessed Fall Risk: 04/27/24 Dental Screening Dental Screen Date: 12/24/23 HPI HPI Comments History of Present Illness Details This is a 64-year-old male with COPD, mild recurrent major depression, opioid dependence on agonist therapy and congestive heart failure with reduced ejection fraction that comes today accompanied by sister for his physical exam. COPD is follow by pulmonology and use rescue inhaler 3 times a week. He was advised to quit smoking. Depression has been stable with Seroquel. Does not have a counselor or psychiatrist. On methadone clinic for his opioid dependence and has been clean for awhile now. Last ejection fraction was 2021 showing ejection fraction of 45-50%. He seems euvolemic and follows with cardiology. No chest pain or shortness on breath. Colonoscopy done 2019 showing hyperplastic polyp and next colonoscopy should be in 10 years. Insurance came to visit him and had an occult blood test which was positive. Will be refer again to Gastroenterology. [facility] Medical History (Updated 04/27/24 @ 18:02 by Sarahy Chapa MD) PAD (peripheral artery disease) Aortoiliac occlusive disease COPD (chronic obstructive pulmonary disease) PVD (peripheral vascular disease) Malnutrition COPD (chronic obstructive pulmonary disease) Claudication of both lower extremities Physical exam Left foot pain Mild recurrent major depression Hemorrhoids Smoker History of heroin abuse Anemia Hx of gastritis History of dysphagia Hiatal hernia GERD (gastroesophageal reflux disease) Anxiety Surgical History History of aorto-femoral bypass S/P aortogram History of esophagogastroduodenoscopy (EGD) Hx of colonoscopy History of prostate surgery Family History Father No problems noted. Mother CVD (cardiovascular disease) Myocardial infarction Family/Other FH: mental illness Other Substance use disorder Social History (Updated 04/27/24 @ 15:44 by Sarahy Chapa MD) Household Members: Family Household Members Other:: sister Housing: House Are you a primary associate director career services to a significant other at home: No Do you presently have visiting nurse or other home services: No Alcohol intake: former Patient Tobacco Use Status: Current everyday Tobacco user Tobacco use type: Cigarette Cigarettes Per Day: 4 Years Smoked: 30 +/- e-Cigarette/Vaping Use: Never Used Second Hand Smoke Exposure: No Substance Use Type: Heroin Advance Directives Date on File: 10/27/22 service: No Current occupational status: disabled Cognitive needs: No Hearing needs: No Vision needs: No Questionnaire Thrive Questionnaire Date Thrive assessed: 12/24/23 SHAQUILLE-7 AMB Questionnaire SHAQUILLE-7 Date SHAQUILLE - 7 assessed: 12/24/23 Source: Developed by Drs. Timothy Tinoco, Yady Dolan, Parminder Biswas and colleagues, with an educational jeff from [employer]. Review of Systems Const All systems reviewed & are unremarkable except as noted in HPI and below Card Denies chest pain at rest, Denies chest pain with activity, Denies edema, Denies irregular heart rhythm, Denies claudication, Denies dyspnea, Denies dyspnea on exertion, Denies orthopnea, Denies paroxysmal nocturnal dyspnea and Denies slow heart rate Resp Denies cough, Denies dyspnea and Denies dyspnea on exertion Physical exam (Primary Care) Vital Signs: Last Vital Signs BP 120/80 04/27/24 15:11 BMI result Body Mass Index 21.0 Tobacco/Smoking Status: Tobacco use Status Tobacco use date assessed 12/24/23 04/27/24 15:16 Patient Tobacco Use Status Current everyday Tobacco 04/27/24 15:44 Tobacco use type Cigarette 04/27/24 15:44 e-Cigarette/Vaping Use Never Used 04/27/24 15:44 Thrive Assessment: Date of Thrive Assessment Date Thrive assessed 12/24/23 04/27/24 15:16 HENMT Head: Yes normal to inspection, Yes normocephalic and Yes atraumatic Ears: external ears normal Eyes General: appearance normal, both eyes and all related structures Eyelids: Yes eyelids normal Conjunctivae: conjunctivae normal Neck Neck: Yes normal visual inspection and Yes supple Resp Effort & Inspection: normal respiratory effort Auscultation: clear to auscultation bilaterally Cardio Jugular venous distension: no JVD Rate: regular rate Rhythm: regular rhythm Heart sounds: S1 normal heart sound present and S2 normal heart sound present GI Inspection: Yes normal to inspection Palpation (GI): Soft to palpation and nontender Auscultation: normal bowel sounds Skin General skin exam: no rashes or lesions noted Neuro General: no focal motor deficits Extrem General: Yes full ROM Psych Appearance: grossly normal Assessment and Plan Assessment & Plan (1) Physical exam: Code(s): Z00.00 - Encounter for general adult medical examination without abnormal findings Plan: Repeat in a year. (2) COPD (chronic obstructive pulmonary disease): Comment: likely-saw pulmo 08/28/22 Code(s): J44.9 - Chronic obstructive pulmonary disease, unspecified Qualifiers: COPD type: unspecified COPD Qualified Code(s): J44.9 - Chronic obstructive pulmonary disease, unspecified Plan: Continue Incruse. Follow-up with pulmonology. (3) Heart failure with reduced ejection fraction: Code(s): I50.20 - Unspecified systolic (congestive) heart failure Plan: Patient euvolemic. Follow-up with Cardiology. The goal is to not gain 5 lb in a week. (4) Opioid dependence on agonist therapy: Code(s): F11.20 - Opioid dependence, uncomplicated Plan: Continue methadone clinic. (5) Mild recurrent major depression: Code(s): F33.0 - Major depressive disorder, recurrent, mild Plan: Continue Seroquel. Orders: Orders NT-proBNP Today I50.20 - Unspecified systolic (congestive) heart failure Complete Blood Count Auto Diff Today D64.9 - Anemia, unspecified Vitamin B12 and Folate Today D64.9 - Anemia, unspecified, E53.8 - Deficiency of other specified B group vitamins Vitamin D 25-OH Total Today E55.9 - Vitamin D deficiency, unspecified Comprehensive [place]. Panel Fast Today Z00.00 - Encounter for general adult medical examination without abnormal findings IRON PROFILE Today D64.9 - Anemia, unspecified Lipid Panel Today E78.5 - Hyperlipidemia, unspecified, Z00.00 - Encounter for general adult medical examination without abnormal findings PSA,Total (Free>4and<10) Today Z12.5 - Encounter for screening for malignant neoplasm of prostate Referrals Gastroenterology Referral R19.5 - Other fecal abnormalities Coding Level of Care Code Est Pt Prev Care 40-64y(78832) Diagnoses Physical exam Z00.00 Chronic obstructive pulmonary disease, unspecified COPD type J44.9 COPD type: unspecified COPD Heart failure with reduced ejection fraction I50.20 Opioid dependence on agonist therapy F11.20 Mild recurrent major depression F33.0 Time Spent (min) 31
== END 2024-04-27 15:54 | disposition home or self-care (01) ==
PROVIDERS: PCP Internal Medicine; Visit Provider Internal Medicine
DX: Z00.00 Encounter for general adult medical examination without abnormal findings (principal); J44.9 Chronic obstructive pulmonary disease, unspecified; I50.20 Unspecified systolic (congestive) heart failure; F11.20 Opioid dependence, uncomplicated; F33.0 Major depressive disorder, recurrent, mild
CPT/HCPCS: 99396

== ENCOUNTER 2024-07-20 13:51 | Outpatient (AMB) | payer OTHER, SELFPAY ==
--- NOTE | 2024-07-20 13:57 | MHC.OFFVIS ---
Vital Signs 07/20/24 13:58 Height 5 ft 7 in Weight 134 lb BMI 21.0 BP 102/62 Blood Pressure Location Lt brachial Position Sitting Pulse 84 Pulse Source Doppler Pulse Oximetry (%) 96 Oxygen Delivery Method Room Air Intake Visit Reasons: COPD Mental Health Program Specialist Required: Yes Mental Health Program Specialist Name: Jeana Barbour JohnKemar Allergies No Known Allergies [No Known Allergies*] Allergy (Verified 07/20/24 14:01) HPI HPI COPD: Details: . 64-year-old gentleman, active 40 pack-year smoker now followed for emphysema without fixed obstruction and pulmonary nodules.? He has been using Incruse and albuterol MDI with excellent control of his symptoms. Patient denies recent exacerbations. [facility] Medical History (Updated 07/20/24 @ 14:16 by Kimo Avina MD) PAD (peripheral artery disease) Aortoiliac occlusive disease COPD (chronic obstructive pulmonary disease) PVD (peripheral vascular disease) Malnutrition COPD (chronic obstructive pulmonary disease) Claudication of both lower extremities Physical exam Left foot pain Mild recurrent major depression Hemorrhoids Smoker History of heroin abuse Anemia Hx of gastritis History of dysphagia Hiatal hernia GERD (gastroesophageal reflux disease) Anxiety Surgical History History of aorto-femoral bypass S/P aortogram History of esophagogastroduodenoscopy (EGD) Hx of colonoscopy History of prostate surgery Family History Father No problems noted. Mother CVD (cardiovascular disease) Myocardial infarction Family/Other FH: mental illness Other Substance use disorder Social History (Updated 04/27/24 @ 15:44 by Sarahy Chapa MD) Household Members: Family Household Members Other:: sister Housing: House Are you a primary medicare insurance specialist to a significant other at home: No Do you presently have visiting nurse or other home services: No Alcohol intake: former Patient Tobacco Use Status: Current everyday Tobacco user Tobacco use type: Cigarette Cigarettes Per Day: 4 Years Smoked: 30 +/- e-Cigarette/Vaping Use: Never Used Second Hand Smoke Exposure: No Substance Use Type: Heroin Advance Directives Date on File: 10/27/22 service: No Current occupational status: disabled Cognitive needs: No Hearing needs: No Vision needs: No Review of Systems Const Denies daytime sleepiness, Denies excessive sweating, Denies fatigue, Denies fever(s), Denies lethargy, Denies malaise, Denies night sweats, Denies snoring and Denies weight loss Eyes Denies blurry vision and Denies itchy eyes ENT Denies nasal congestion, Denies post nasal drip, Denies sinus pain, Denies sinus pressure and Denies other ( Thrush) Card Denies chest pain, Denies pedal edema, Denies dyspnea, Denies orthopnea and Denies paroxysmal nocturnal dyspnea Resp Denies cough, Denies hemoptysis, Denies excessive phlegm production, Denies dyspnea, Denies snoring and Denies wheezing GI Denies abdominal pain and Denies heartburn Musc Denies myalgias, Denies arthralgias and Denies joint swelling Skin/Breast Denies rash Neuro Denies memory loss and Denies seizure-like activity Psych Denies abnormal sleep pattern, Denies anxiety and Denies memory loss Endo Denies excessive sweating, Denies fatigue and Denies heat intolerance Singh/Lymph Denies easy bruising Aller/Immun Denies itchy eyes, Denies seasonal rhinorrhea and Denies wheezing Physical Exam Vital Signs: Last Vital Signs Pulse 84 07/20/24 13:58 BP 102/62 07/20/24 13:58 Pulse Ox 96 07/20/24 13:58 Oxygen Delivery Method Room Air 07/20/24 13:58 BMI result Body Mass Index 21.0 Const General: no acute distress and alert Nutritional Appearance: not obese Orientation/consciousness: Other orientation findings ( oriented) HEENT Head: Yes atraumatic Eyes General: appearance normal, both eyes and all related structures Sclerae: sclerae normal EOM: EOMs intact bilaterally Neck Neck: Yes supple Lymphatic: no lymphadenopathy noted Resp Effort & Inspection: normal respiratory effort and no use of accessory muscles Auscultation: clear to auscultation bilaterally Cardio Rate: regular rate Rhythm: regular rhythm Heart sounds: no gallops, no murmurs and no rubs Skin General skin exam: other ( warm) Extrem General: No clubbing, No cyanosis and No edema Assessment & Plan Assessment & Plan (1) COPD (chronic obstructive pulmonary disease): Code(s): J44.9 - Chronic obstructive pulmonary disease, unspecified Category: Medical Qualifiers: COPD type: unspecified COPD Qualified Code(s): J44.9 - Chronic obstructive pulmonary disease, unspecified Plan: Well controlled on current regimen of Incruse and albuterol MDI. Continue current regimen. (2) Personal history of nicotine dependence: Code(s): Z87.891 - Personal history of nicotine dependence Category: Medical Plan: Results of lung cancer screening CT chest reviewed, now worrisome nodules. Continue with yearly screening, next in December of 2024, ordered. Orders: Orders CT lung screening 12/20/24 Z87.891 - Personal history of nicotine dependence Coding Level of Care Code Est Pt Level 4 (57781) Diagnoses Chronic obstructive pulmonary disease, unspecified COPD type J44.9 COPD type: unspecified COPD Personal history of nicotine dependence Z87.891
[2024-07-20 13:58] VITALS: BP 102/62; PULSE 84; O2SAT 96; BMI 21.0
== END 2024-07-20 14:14 | disposition home or self-care (01) ==
PROVIDERS: PCP Internal Medicine; Visit Provider Internal Medicine Pulmonary Disease
DX: J44.9 Chronic obstructive pulmonary disease, unspecified (principal); Z87.891 Personal history of nicotine dependence
CPT/HCPCS: 99214

== ENCOUNTER → 2024-07-20 13:51 | Outpatient (BNVA) | payer OTHER, SELFPAY | PROVIDERS: PCP Internal Medicine; Visit Provider Internal Medicine Pulmonary Disease | DX: J44.9 Chronic obstructive pulmonary disease, unspecified (principal); Z87.891 Personal history of nicotine dependence | CPT/HCPCS: 99212 ==

== ENCOUNTER 2024-10-05 09:10 | Outpatient (REF) | payer OTHER, SELFPAY ==
--- NOTE | ~2024-10-05 | US_ITS ---
EXAMINATION: US RETROPERITONEAL LIMITED (AORTA) CLINICAL INFORMATION: Please evaluate aortobifemoral bypass graft. COMPARISON: CT scan dated November 22, 2022. TECHNIQUE: Rivera-scale, color Doppler and spectral Doppler evaluation of the abdominal aorta. FINDINGS: Examination demonstrates flow within the aortic and right femoral limbs of a previously placed aortobifemoral bypass graft. No significant stenosis is demonstrated in these regions. Flow could not be visualized by the technologist within the distal aspect of the left iliac limb. Suspect occlusion of the left iliac limb. CTA may be of use for further evaluation if clinically indicated. US/US abdominal aortic aneurysm IMPRESSION: Findings as above. Electronically signed by: Ruben Kaba MD 10/05/2024 02:21 PM [facility]
== END 2024-10-05 09:11 | disposition home or self-care (01) ==
LOC: HO.US 09:10
PROVIDERS: PCP Internal Medicine; Visit Provider Surgery Vascular Surgery
DX: I74.09 Other arterial embolism and thrombosis of abdominal aorta (principal)
CPT/HCPCS: 76706

== ENCOUNTER 2024-10-18 13:59 | Outpatient (AMB) | payer OTHER, SELFPAY ==
--- NOTE | 2024-10-18 14:02 | MHC.OFFVIS ---
Vital Signs 10/18/24 14:05 Height 5 ft 7 in Weight 134 lb BMI 21.0 Intake Visit Reasons: 1 yr follow up AAA US 10/05/24 Intake Note: 1 yr follow up AAA U 10/05/24 w/ hx of open aortobifemoral bypass 10/13/2022. Pt states that he has Left LE pain. States is worse when going up the stairs or heavy lifting. States he gets leg cramping in the Left LE. Accompanied by: niece Allergies No Known Allergies [No Known Allergies*] Allergy (Verified 10/18/24 14:12) HPI HPI 1 yr follow up AAA US 10/05/24: Details: Pleasant 64-year-old gentleman presents for follow-up regarding aortobifemoral bypass. He reports he is doing fairly well but most recently reported some pain and discomfort of the left lower extremity. He reports that it has been going on for about a month. Noticed a twinge when going up the stairs. At the current time he is able to walk about 3 blocks without any significant difficulty. He now presents for routine follow-up with noninvasive testing. Of note he is down to smoking 1 cigarette daily. [facility] Medical History (Updated 10/18/24 @ 14:41 by Delio Law MD) Aortoiliac occlusive disease PAD (peripheral artery disease) COPD (chronic obstructive pulmonary disease) PVD (peripheral vascular disease) Malnutrition COPD (chronic obstructive pulmonary disease) Claudication of both lower extremities Physical exam Left foot pain Mild recurrent major depression Hemorrhoids Smoker History of heroin abuse Anemia Hx of gastritis History of dysphagia Hiatal hernia GERD (gastroesophageal reflux disease) Anxiety Surgical History History of aorto-femoral bypass S/P aortogram History of esophagogastroduodenoscopy (EGD) Hx of colonoscopy History of prostate surgery Family History Father No problems noted. Mother CVD (cardiovascular disease) Myocardial infarction Family/Other FH: mental illness Other Substance use disorder Social History (Updated 10/18/24 @ 14:13 by ANKIT Torres) Household Members: Family Household Members Other:: sister Housing: House Are you a primary early breastfeeding care specialist to a significant other at home: No Do you presently have visiting nurse or other home services: No Alcohol intake: former Patient Tobacco Use Status: Current everyday Tobacco user Tobacco use type: Cigarette Cigarettes Per Day: 1 Years Smoked: 30 +/- e-Cigarette/Vaping Use: Never Used Second Hand Smoke Exposure: No Substance Use Type: Heroin Advance Directives Date on File: 10/27/22 service: No Current occupational status: disabled Cognitive needs: No Hearing needs: No Vision needs: No Review of Systems Const All systems reviewed & are unremarkable except as noted in HPI and below Reports no additional complaints ENT Reports Normal hearing present Card Denies chest pain, Denies chest pain at rest, Denies chest pain with activity and Denies pedal edema Resp Denies cough GI Denies abdominal pain Musc Denies abnormal gait, Denies muscle cramps and Denies radiating pain into limb Skin/Breast Denies skin ulcer and Denies wounds Neuro Reports Normal hearing present and Denies abnormal gait Psych Reports no additional complaints Physical Exam Vital Signs: BMI result Body Mass Index 21.0 Const General: cooperative, healthy appearing and comfortable Orientation/consciousness: oriented to person, oriented to place and oriented to time HEENT Head: Yes normal to inspection Neck Neck: Yes normal visual inspection Carotids: no bruits Chest Chest palpation & inspection: normal inspection of the chest Resp Effort & Inspection: normal respiratory effort and able to speak in complete sentences Auscultation: clear to auscultation bilaterally, no crackles, no rales, no rhonchi and no wheezes Cardio Other: Bilateral DP signals Rate: regular rate Rhythm: regular rhythm Heart sounds: S1 normal heart sound present and S2 normal heart sound present Bruits: no carotid bruits GI Inspection: Yes normal to inspection Skin Wounds: no wounds Hair: normal Neuro General: oriented to person, oriented to place and oriented to time Cranial nerves: Yes CN's II-XII intact bilaterally and Yes Normal hearing present Cognition (Neuro): normal cognition Motor exam (neuro): 5/5 motor strength present throughout Extrem Other: venous exam: No significant superficial varicosities or spider telangiectasias, minimal edema General: No clubbing, No cyanosis and No edema Psych Appearance: grossly normal Mental Status: mental status grossly normal Speech and movement: Normal speech and movement present Results Reviewed Results Reviewed: Ultrasound dated 10/05/2024 demonstrates occlusion of left limb of bypass. Written report and images were reviewed. Assessment & Plan Assessment & Plan (1) Aortoiliac occlusive disease: Comment: 10/13/2022 - open aortobifemoral bypass. Code(s): I74.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 Category: Medical Plan: In short patient is 2 years status post aortobifem bypass. The concern here is that the left limb may be occluded. There is no evidence of acute limb ischemia he has good motor and sensation and reports he can walk about 3 blocks. I have taken the liberty of ordering a CTA runoff to better elucidate the current status of his arterial flow. Will follow up with us after testing. Thank you for allowing us to assist in his care Orders: Orders Blood Urea Nitrogen Today I74.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 Creatinine Today I74.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 CT angio abd aorta runoff 1 Week I74.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 Coding Level of Care Code Est Pt Level 4 (82967) Complex EM visit Add On G2211 Diagnoses Aortoiliac occlusive disease I74.09
[2024-10-18 14:05] VITALS: BMI 21.0
== END 2024-10-18 14:41 | disposition home or self-care (01) ==
PROVIDERS: PCP Internal Medicine; Visit Provider Surgery Vascular Surgery
DX: I74.09 Other arterial embolism and thrombosis of abdominal aorta (principal)
CPT/HCPCS: 99214; G2211

== ENCOUNTER → 2024-10-18 13:59 | Outpatient (BNVA) | payer OTHER, SELFPAY | PROVIDERS: PCP Internal Medicine; Visit Provider Surgery Vascular Surgery | DX: I74.09 Other arterial embolism and thrombosis of abdominal aorta (principal); M79.605 Pain in left leg; F17.210 Nicotine dependence, cigarettes, uncomplicated; Z95.828 Presence of other vascular implants and grafts | CPT/HCPCS: 99212 ==

== ENCOUNTER 2024-12-13 14:48 | Outpatient (REF) | payer OTHER, SELFPAY ==
--- NOTE | ~2024-12-13 | CT_ITS ---
CLINICAL HISTORY: I74.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 CT angiography abdomen and pelvis with bilateral lower extremity runoff using IV contrast. 3-D post processing. Comparison: None Findings: Abdominal aorta is nonaneurysmal. The origin of the celiac artery, superior mesenteric artery, and bilateral renal arteries are widely patent with minimal if any atheromatous plaquing. TIERA origin not visualized. There is an aortobifemoral bypass. Of the upper [place] vessels the right common iliac artery remains patent as does the right internal iliac artery. The right external iliac artery appears chronically occluded. The upper [place] left common and external iliac artery are chronically occluded. There is opacification of the left internal iliac artery via collaterals. The bypass is patent on the right. The left bypass limb is occluded to the level of the anastomosis with the common femoral artery where there is opacification via collaterals. The right lower extremity demonstrates no significant luminal narrowing with three-vessel runoff to the toes. There is eccentric calcified plaque along the distal superficial femoral artery and involving the popliteal artery. Once reconstituted via collaterals there is three-vessel runoff to the toes on the left with eccentric plaquing involving the distal superficial femoral artery and popliteal artery. Mild cystic change suggestive of emphysema in the lung bases. The gallbladder and solid organs are within normal limits. No renal stones. No bowel obstruction, pneumoperitoneum, or pneumatosis. Pelvic contents unremarkable. Normal appendix. No masses or fluid collections in the lower extremities. The bones are intact. IMPRESSION: 1. Aortobifemoral bypass. The bypass is occluded on the left from the bifurcation to its anastomosis with the left common femoral artery. There is reconstitution of the left common femoral artery via collaterals with patent three-vessel runoff to the toes. 2. The right-sided bypass is widely patent with patent three-vessel runoff to the toes. 3. Additional findings as above. This document has been electronically signed by: Shefali Lucas MD on 12/14/2024 08:54:35
[2024-12-13] MEDS: iohexoL 350 MG/ML 100 ML INFUS..BTL IV (16:19)
[2024-12-14 10:39] LABS: Creatinine POC 0.6 mg/dL (0.5-1.4); GFR POC > 60
== END 2024-12-13 14:49 | disposition home or self-care (01) ==
LOC: HO.CT 14:48
PROVIDERS: PCP Internal Medicine; Visit Provider Surgery Vascular Surgery
DX: I74.09 Other arterial embolism and thrombosis of abdominal aorta (principal)
CPT/HCPCS: 75635; 82565; Q9967

== ENCOUNTER → 2024-12-13 14:50 | Outpatient (BNV) | payer OTHER, SELFPAY | PROVIDERS: PCP Internal Medicine; Visit Provider Radiology Diagnostic Radiology | DX: I74.09 Other arterial embolism and thrombosis of abdominal aorta (principal) | CPT/HCPCS: 75635 ==

== ENCOUNTER 2024-12-26 15:09 | Outpatient (AMB) | payer OTHER, SELFPAY ==
--- NOTE | 2024-12-26 15:15 | MHC.OFFVIS ---
Vital Signs 12/26/24 15:16 Height 5 ft 7 in Weight 129 lb 3.054 oz BMI 20.2 BP 108/60 Blood Pressure Location Lt brachial Position Sitting Pulse 89 Intake Visit Reasons: 1 yr f/up Banquet Coordinator Required: Yes Banquet Coordinator Services: Banquet Coordinator Offered & Declined Banquet Coordinator Name: sister Accompanied by: Sister Allergies No Known Allergies [No Known Allergies*] Allergy (Verified 10/18/24 14:12) Medication List - Last Reconciled 12/26/24 by Wolf Perez MD albuterol sulfate 90 mcg/actuation 2 puffs inhalation 6XD PRN 30 days aspirin (Adult Aspirin Regimen) 81 mg PO DAILY atorvastatin 80 mg PO BEDTIME cane As directed ferrous sulfate 325 mg PO DAILY 90 days food supplemt, lactose-reduced (Ensure oral liquid) 1 ea PO BID 30 days Incruse Ellipta 62.5 mcg/actuation (umeclidinium) 1 inh inhalation DAILY 30 days NS methadone 35 mg PO DAILY polyethylene glycol 3350 (Miralax) 17 grams PO DAILY PRN 30 days quetiapine 25 mg PO BEDTIME sennosides (senna) 8.6 mg PO BEDTIME PRN 90 days HPI Comments Details: 64-year-old gentleman who was seen by vascular surgery for claudication and imaging has shown total occlusion of right external iliac artery. There is also total occlusion of the left common iliac artery an external iliac artery. He was seen for perioperative cardiovascular risk assessment and underwent dobutamine stress echo and was thought to be intermediate risk for perioperative complications. He underwent aortobifemoral bypass in September. He has recovered well and is doing well at this stage. He has no claudication. Denying any chest discomfort shortness of breath he unfortunately continues to smoke. Blood pressure control is good. 12/26/24: He is here for f/u. He has been getting left leg pain and underwent CT and will be seeing Dr Law. He has not been taking aspirin. Smoking 1 cig per day. [facility] Medical History (Updated 10/18/24 @ 14:41 by Delio Law MD) Aortoiliac occlusive disease PAD (peripheral artery disease) COPD (chronic obstructive pulmonary disease) PVD (peripheral vascular disease) Malnutrition COPD (chronic obstructive pulmonary disease) Claudication of both lower extremities Physical exam Left foot pain Mild recurrent major depression Hemorrhoids Smoker History of heroin abuse Anemia Hx of gastritis History of dysphagia Hiatal hernia GERD (gastroesophageal reflux disease) Anxiety Surgical History History of aorto-femoral bypass S/P aortogram History of esophagogastroduodenoscopy (EGD) Hx of colonoscopy History of prostate surgery Family History Father No problems noted. Mother CVD (cardiovascular disease) Myocardial infarction Family/Other FH: mental illness Other Substance use disorder Social History Household Members: Family Household Members Other:: sister Housing: House Are you a primary care management assistant to a significant other at home: No Do you presently have visiting nurse or other home services: No Alcohol intake: former Patient Tobacco Use Status: Current everyday Tobacco user Tobacco use type: Cigarette Cigarettes Per Day: 1 Years Smoked: 30 +/- e-Cigarette/Vaping Use: Never Used Second Hand Smoke Exposure: No Substance Use Type: Heroin Advance Directives Date on File: 10/27/22 service: No Current occupational status: disabled Cognitive needs: No Hearing needs: No Vision needs: No Review of Systems Const Denies chills, Denies fatigue, Denies fever(s), Denies weight gain and Denies weight loss ENT Denies dizziness Card Reports chest pain, Denies leg edema, Denies lightheadedness, Denies palpitations, Reports dyspnea on exertion, Denies orthopnea and Denies other Resp Denies cough and Reports dyspnea on exertion GI Denies hematochezia and Denies change in stool character Musc Denies abnormal gait, Denies muscle weakness, Denies numbness, Denies radiating pain into limb and Denies tingling Neuro Denies abnormal gait, Denies dizziness, Denies numbness and Denies tingling Endo Denies fatigue and Denies palpitations Physical Exam Vital Signs: Last Vital Signs Pulse 89 12/26/24 15:16 BP 108/60 12/26/24 15:16 BMI result Body Mass Index 20.2 GENERAL APPEARANCE: in no acute distress, pleasant. NECK: no carotid bruit, no jugular venous distention. SKIN: no suspicious lesions, warm and dry. HEART: no murmurs, regular rate and rhythm. LUNGS: clear to auscultation bilaterally. ABDOMEN: soft, nontender. Healed midline laparotomy scar. EXTREMITIES: no edema. PERIPHERAL PULSES: equal. NEUROLOGIC: No gross deficits, AAO X 3 Office Procedures EKG Details: Sinus rhythm 89 beats per minute, QTC 433 milliseconds. [id number], Complete Assessment & Plan Assessment & Plan (1) Aortoiliac occlusive disease: Comment: 10/13/2022 - open aortobifemoral bypass. Code(s): I74.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 Category: Medical (2) Status post aortobifemoral bypass surgery: Code(s): Z95.828 - Presence of other vascular implants and grafts Category: Surgical Plan 64 male with severe PVD s/p aortobifem bypass. He has leg pain left side and has been smoking cigarettes. We discussed about smoking cessation. CT is showing occluded left side. He will f/u with vascular surgery. Adding ASA back and starting him on low dose Xarelto. Adding Omeprazole as he has GI complaints with meds. f/u in few months. Medications: New rivaroxaban (Xarelto) 2.5 mg PO BID 120 tabs 4RF omeprazole Take 30 mins before breakfast 40 mg PO DAILY 90 caps 3RF Refilled aspirin (Adult Aspirin Regimen) 81 mg PO DAILY 120 tabs 4RF I74.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 Coding Level of Care Code Est Pt Level 4 (75766) Diagnoses Aortoiliac occlusive disease I74.09 Status post aortobifemoral bypass surgery Z95.828 CPT Codes EKG - CPT: 61717-Amxyyurxhvrhcawql, Complete ([id number])
[2024-12-26 15:16] VITALS: BP 108/60; PULSE 89; BMI 20.2
== END 2024-12-26 15:35 | disposition home or self-care (01) ==
PROVIDERS: PCP Internal Medicine; Visit Provider Internal Medicine Cardiovascular Disease
DX: I74.09 Other arterial embolism and thrombosis of abdominal aorta (principal); Z95.828 Presence of other vascular implants and grafts
CPT/HCPCS: 93010; 99214

== ENCOUNTER → 2024-12-26 15:09 | Outpatient (BNVA) | payer OTHER, SELFPAY | PROVIDERS: PCP Internal Medicine; Visit Provider Internal Medicine Cardiovascular Disease | DX: I74.09 Other arterial embolism and thrombosis of abdominal aorta (principal); Z95.828 Presence of other vascular implants and grafts | CPT/HCPCS: 93005; 99212 ==

== ENCOUNTER 2025-01-10 12:34 | Outpatient (AMB) | payer OTHER, SELFPAY ==
--- NOTE | 2025-01-10 12:57 | A.OFFVIS_ITS ---
Intake Visit Reasons: follow up s/p Aorta CTA 12/14/24 Intake Note: Patient presents for aorta CTA performed on 12/14/24. States he has left leg pain. Accompanied by: Spouse Allergies No Known Allergies [No Known Allergies*] Allergy (Verified 01/10/25 12:58) HPI HPI follow up s/p Aorta CTA 12/14/24: Details: The patient is a 64-year-old male presenting with recurrent left leg pain following a prior abdominal aortic bifemoral bypass surgery on October 13, 2022. The procedure was initially effective in alleviating symptoms. However, in the past two to three months, the patient began experiencing leg pain, exacerbated by activities such as stair-climbing, due to reocclusion on the left side, as shown by CT imaging. While the right limb remains unaffected, the patient reports a largely sedentary lifestyle accompanied by sustained smoking habits, despite medical advice to increase physical activity and reduce tobacco use. Medication adherence has fluctuated, although a recent regimen including aspirin and Xarelto has been initiated. Now presents for vascular follow-up [facility] Medical History Aortoiliac occlusive disease PAD (peripheral artery disease) COPD (chronic obstructive pulmonary disease) PVD (peripheral vascular disease) Malnutrition COPD (chronic obstructive pulmonary disease) Claudication of both lower extremities Physical exam Left foot pain Mild recurrent major depression Hemorrhoids Smoker History of heroin abuse Anemia Hx of gastritis History of dysphagia Hiatal hernia GERD (gastroesophageal reflux disease) Anxiety Surgical History History of aorto-femoral bypass S/P aortogram History of esophagogastroduodenoscopy (EGD) Hx of colonoscopy History of prostate surgery Family History Father No problems noted. Mother CVD (cardiovascular disease) Myocardial infarction Family/Other FH: mental illness Other Substance use disorder Social History Household Members: Family Household Members Other:: sister Housing: House Are you a primary career technology teacher to a significant other at home: No Do you presently have visiting nurse or other home services: No Alcohol intake: former Patient Tobacco Use Status: Current everyday Tobacco user Tobacco use type: Cigarette Cigarettes Per Day: 1 Years Smoked: 30 +/- e-Cigarette/Vaping Use: Never Used Second Hand Smoke Exposure: No Substance Use Type: Heroin Advance Directives Date on File: 10/27/22 service: No Current occupational status: disabled Cognitive needs: No Hearing needs: No Vision needs: No Review of Systems Const All systems reviewed & are unremarkable except as noted in HPI and below Reports no additional complaints ENT Reports Normal hearing present Card Denies chest pain, Denies chest pain at rest, Denies chest pain with activity and Denies pedal edema Resp Denies cough GI Denies abdominal pain Musc Denies abnormal gait, Denies muscle cramps and Denies radiating pain into limb Skin/Breast Denies skin ulcer and Denies wounds Neuro Reports Normal hearing present and Denies abnormal gait Psych Reports no additional complaints Physical Exam Const General: cooperative, healthy appearing and comfortable Orientation/consciousness: oriented to person, oriented to place and oriented to time HEENT Head: Yes normal to inspection Neck Neck: Yes normal visual inspection Carotids: no bruits Chest Chest palpation & inspection: normal inspection of the chest Resp Effort & Inspection: normal respiratory effort and able to speak in complete sentences Auscultation: clear to auscultation bilaterally, no crackles, no rales, no rhonchi and no wheezes Cardio Other: Bilateral DP signals Rate: regular rate Rhythm: regular rhythm Heart sounds: S1 normal heart sound present and S2 normal heart sound present Bruits: no carotid bruits Peripheral pulses: Peripheral pulses 2+ throughout GI Inspection: Yes normal to inspection Skin Wounds: no wounds Hair: normal Neuro General: oriented to person, oriented to place and oriented to time Cranial nerves: Yes CN's II-XII intact bilaterally and Yes Normal hearing present Cognition (Neuro): normal cognition Motor exam (neuro): 5/5 motor strength present throughout Extrem Other: venous exam: No significant superficial varicosities or spider telangiectasias, minimal edema General: No clubbing, No cyanosis and No edema Psych Appearance: grossly normal Mental Status: mental status grossly normal Speech and movement: Normal speech and movement present Results Reviewed Results Reviewed: CT angiogram dated 12/13/2024 demonstrates aortobifemoral bypass. The bypass is occluded on the left side with common femoral artery. There is reconstitution by collaterals and three-vessel runoff. Written report and images were reviewed. Assessment & Plan Assessment & Plan (1) Aortoiliac occlusive disease: Comment: 10/13/2022 - open aortobifemoral bypass. Code(s): I74.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 Category: Medical Plan: During the visit, I discussed the patient's case extensively, informing them of the blockage identified on the left side and the measures to avoid another surgical intervention. We reviewed the importance of continuous use of aspirin and Xarelto in preventing thrombotic events and maintaining adequate blood flow. I highlighted the benefits of an active lifestyle and the risks of a sedentary one in increasing vascular complications. Smoking cessation was strongly encouraged. The patient understands the necessity of twice-daily walking and the need for consistency in medication intake. We did have an extensive discussion about risk factor modification and compliance. I have taken the liberty of ordering 6 month arterial surveillance follow-up. Should there be any issues happy to see him back sooner. Thank you for allowing us to assist in his care. Patient was informed and verbally consented to the use of an ambient scribe for clinic note documentation during this visit. Plan - Continue taking prescribed aspirin and Xarelto daily - Walk twice daily, once in the morning and once in the evening - Stop smoking completely and avoid exposure to tobacco - Return for follow-up evaluation and ultrasounds in six months - Maintain adherence to prescribed medications without alteration - Report any new or worsening symptoms immediately Orders: Orders US arterial duplex LE BI 6 Months I74.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 US abdominal aortic aneurysm 6 Months I74.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 Coding Level of Care Code Est Pt Level 4 (24137) Complex EM visit Add On G2211 Diagnoses Aortoiliac occlusive disease I74.09
== END 2025-01-10 13:17 | disposition home or self-care (01) ==
PROVIDERS: PCP Internal Medicine; Visit Provider Surgery Vascular Surgery
DX: I74.09 Other arterial embolism and thrombosis of abdominal aorta (principal)
CPT/HCPCS: 99214; G2211

== ENCOUNTER → 2025-01-10 12:34 | Outpatient (BNVA) | payer OTHER, SELFPAY | PROVIDERS: PCP Internal Medicine; Visit Provider Surgery Vascular Surgery | DX: I74.09 Other arterial embolism and thrombosis of abdominal aorta (principal) | CPT/HCPCS: 99212 ==

== ENCOUNTER 2025-01-11 12:31 | Outpatient (REF) | payer OTHER, SELFPAY ==
--- NOTE | ~2025-01-11 | CT_ITS ---
CLINICAL HISTORY: Z87.891 - Personal history of nicotine dependence CT lung cancer screening Technique: Axial CT images of the chest using low-dose technique. Effective radiation dose: DLP 30.0 mGy. Cm, CTDIvol 0.86 mGy Referring provider counseled the patient on shared decision-making for LDCT screening. Additional counseling was provided on smoking cessation. Comparison: CT/LA/SR - CT CHEST WO IV CON - 11/27/23 14:28 EST Findings: Lung nodules RUL: None RML: None RLL: None JENELLE: None Lingula: 6 mm pulmonary nodule axial image 45 LLL: Cluster of micro nodules left lower lobe probable infectious bronchiolitis COPD: No emphysema. Mild centrilobular emphysema. Minimal blebs right upper and right lower lobe. Pleural spaces: Normal. Coronary artery calcifications: Mild. Limited upper abdomen: Unremarkable. Other: None. Impression: LungRADS 3 - Probably benign: Recommend low dose screening Chest CT in 6 months. ##L3# ACR LungRADS Categories Category 1: Normal; continue annual screening Category 2: Benign appearance or behavior, continue annual screening Category 3: Probably benign, [address] recommended Category 4A: Suspicious, [address] recommended; may consider PET/CT Category 4B: Suspicious, Additional diagnostics and/or tissue sampling recommended Category 4X: Suspicious, Additional diagnostics and/or tissue sampling Category 0: Recalls (incomplete screen due to Incomplete coverage, Noise, Respiratory motion, Expiration, Obscured by acute abnormality) This document has been electronically signed by: Tommy Torres MD on 01/12/2025 12:24:45
== END 2025-01-11 12:32 | disposition home or self-care (01) ==
LOC: HO.CT 12:31
PROVIDERS: PCP Internal Medicine; Visit Provider Internal Medicine Pulmonary Disease
DX: Z12.2 Encounter for screening for malignant neoplasm of respiratory organs (principal); Z87.891 Personal history of nicotine dependence
CPT/HCPCS: 71271

== ENCOUNTER → 2025-01-11 12:34 | Outpatient (BNV) | payer OTHER, SELFPAY | PROVIDERS: PCP Internal Medicine; Visit Provider Radiology Diagnostic Radiology | DX: Z87.891 Personal history of nicotine dependence (principal) | CPT/HCPCS: 71271 ==

== ENCOUNTER 2025-04-06 13:37 | Outpatient (AMB) | payer OTHER, SELFPAY ==
[2025-04-06 13:39] VITALS: BP 120/62; PULSE 80; O2SAT 98
--- NOTE | 2025-04-06 13:39 | MHC.OFFVIS ---
Vital Signs 04/06/25 13:39 Height 5 ft 7 in Weight 128 lb BMI 20.0 BP 120/62 Blood Pressure Location Rt brachial Position Sitting Pulse 80 Pulse Source Pulse Oximeter Pulse Oximetry (%) 98 Oxygen Delivery Method Room Air Intake Visit Reasons: COPD Angledozer Operator Required: Yes Angledozer Operator Name: Jeana Barbour Kayla Allergies No Known Allergies [No Known Allergies*] Allergy (Verified 04/06/25 13:44) HPI HPI COPD: Details: 65-year-old gentleman, active 40 pack-year smoker now followed for emphysema without fixed obstruction and pulmonary nodules.? He has been using Incruse and albuterol MDI with excellent control of his symptoms. Patient denies recent exacerbations. He did have follow-up CT chest that showed new 6 mm pulmonary nodule. [facility] Medical History Aortoiliac occlusive disease PAD (peripheral artery disease) COPD (chronic obstructive pulmonary disease) PVD (peripheral vascular disease) Malnutrition COPD (chronic obstructive pulmonary disease) Claudication of both lower extremities Physical exam Left foot pain Mild recurrent major depression Hemorrhoids Smoker History of heroin abuse Anemia Hx of gastritis History of dysphagia Hiatal hernia GERD (gastroesophageal reflux disease) Anxiety Surgical History History of aorto-femoral bypass S/P aortogram History of esophagogastroduodenoscopy (EGD) Hx of colonoscopy History of prostate surgery Family History Father No problems noted. Mother CVD (cardiovascular disease) Myocardial infarction Family/Other FH: mental illness Other Substance use disorder Social History Household Members: Family Household Members Other:: sister Housing: House Are you a primary career development consultant to a significant other at home: No Do you presently have visiting nurse or other home services: No Alcohol intake: former Patient Tobacco Use Status: Current everyday Tobacco user Tobacco use type: Cigarette Cigarettes Per Day: 1 Years Smoked: 30 +/- e-Cigarette/Vaping Use: Never Used Second Hand Smoke Exposure: No Substance Use Type: Heroin Advance Directives Date on File: 10/27/22 service: No Current occupational status: disabled Cognitive needs: No Hearing needs: No Vision needs: No Review of Systems Const Denies daytime sleepiness, Denies excessive sweating, Denies fatigue, Denies fever(s), Denies lethargy, Denies malaise, Denies night sweats, Denies snoring and Denies weight loss Eyes Denies blurry vision and Denies itchy eyes ENT Denies nasal congestion, Denies post nasal drip, Denies sinus pain, Denies sinus pressure and Denies other ( Thrush) Card Denies chest pain, Denies pedal edema, Denies dyspnea, Denies orthopnea and Denies paroxysmal nocturnal dyspnea Resp Denies cough, Denies hemoptysis, Denies excessive phlegm production, Denies dyspnea, Denies snoring and Denies wheezing GI Denies abdominal pain and Denies heartburn Musc Denies myalgias, Denies arthralgias and Denies joint swelling Skin/Breast Denies rash Neuro Denies memory loss and Denies seizure-like activity Psych Denies abnormal sleep pattern, Denies anxiety and Denies memory loss Endo Denies excessive sweating, Denies fatigue and Denies heat intolerance Singh/Lymph Denies easy bruising Aller/Immun Denies itchy eyes, Denies seasonal rhinorrhea and Denies wheezing Physical Exam Vital Signs: Last Vital Signs Pulse 80 04/06/25 13:39 BP 120/62 04/06/25 13:39 Pulse Ox 98 04/06/25 13:39 Oxygen Delivery Method Room Air 04/06/25 13:39 BMI result Body Mass Index 20.0 Const General: no acute distress and alert Nutritional Appearance: not obese Orientation/consciousness: Other orientation findings ( oriented) HEENT Head: Yes atraumatic Eyes General: appearance normal, both eyes and all related structures Sclerae: sclerae normal EOM: EOMs intact bilaterally Neck Neck: Yes supple Lymphatic: no lymphadenopathy noted Resp Effort & Inspection: normal respiratory effort and no use of accessory muscles Auscultation: clear to auscultation bilaterally Cardio Rate: regular rate Rhythm: regular rhythm Heart sounds: no gallops, no murmurs and no rubs Skin General skin exam: other ( warm) Extrem General: No clubbing, No cyanosis and No edema Assessment & Plan Assessment & Plan (1) COPD (chronic obstructive pulmonary disease): Code(s): J44.9 - Chronic obstructive pulmonary disease, unspecified Category: Medical Qualifiers: COPD type: unspecified COPD Qualified Code(s): J44.9 - Chronic obstructive pulmonary disease, unspecified Plan: Well controlled on current regimen of Incruse and albuterol MDI. Continue current regimen. (2) Personal history of nicotine dependence: Code(s): Z87.891 - Personal history of nicotine dependence Category: Medical Plan: Results of lung cancer screening CT chest reviewed, new 6 mm pulmonary nodule, will repeat CT scan in 6 months. Coding Level of Care Code Est Pt Level 4 (80059) Diagnoses Chronic obstructive pulmonary disease, unspecified COPD type J44.9 COPD type: unspecified COPD Personal history of nicotine dependence Z87.891
== END 2025-04-06 14:02 | disposition home or self-care (01) ==
LOC: HO.HPS 13:37
PROVIDERS: PCP Internal Medicine; Visit Provider Internal Medicine Pulmonary Disease
DX: J44.9 Chronic obstructive pulmonary disease, unspecified (principal); Z87.891 Personal history of nicotine dependence
CPT/HCPCS: 99214

== ENCOUNTER → 2025-04-06 13:37 | Outpatient (BNVA) | payer OTHER, SELFPAY | PROVIDERS: PCP Internal Medicine; Visit Provider Internal Medicine Pulmonary Disease | DX: J43.9 Emphysema, unspecified (principal); R91.8 Other nonspecific abnormal finding of lung field; F17.210 Nicotine dependence, cigarettes, uncomplicated | CPT/HCPCS: 99212 ==

== ENCOUNTER 2025-04-18 07:21 | Outpatient (REF) | payer OTHER, SELFPAY ==
[2025-04-18 07:43] LABS: MANUAL DIFF FLAG NO
[2025-04-18 08:26] LABS: Basophils Absolute Auto 0.1 X10*3/uL (0.0-0.2); Eosinophils Absolute Auto 0.2 X10*3/uL (0.0-0.4); Eosinophils Percent Auto 2.8 % (0-4); Hematocrit 40.7 % (42.0-52.0); Hemoglobin 12.8 g/dl (14.0-18.0); Imm Gran Abs Auto 0.03 X10*3/uL (0.00-0.03); Imm Gran Pct Auto 0.4 % (0.0-0.4); Lymphocytes Absolute Auto 3.5 X10*3/uL (1.2-4.9); Lymphocytes Percent Auto 42.4 % (20-40); Mean Corpuscular HGB Conc 31.4 g/dl (31.0-36.0); Mean Corpuscular Hemoglobin 31.4 pg (27.0-33.0); Mean Corpuscular Volume 99.8 fL (80.0-98.0); Mean Platelet Volume 10.4 fL (9.4-12.4); Monocytes Absolute Auto 0.6 X10*3/uL (0.1-1.2); Monocytes Percent Auto 7.4 % (2-11); Neutrophils Absolute Auto 3.8 x10*3/uL (2.0-8.3); Platelet Count 240 X10*3/uL (160-400); Red Blood Count 4.08 X10*6/uL (4.60-5.80); Red Cell Distribution Width 12.3 % (11.0-16.0); White Blood Count 8.2 X10*3/uL (4.8-10.8)
[2025-04-18 09:05] LABS: PSA,Total (Free>4and<10) 2.27 ng/mL (0.00-4.00); Vitamin D 25-OH Total 45.7 ng/mL (>30)
[2025-04-18 09:14] LABS: Albumin Level 4.2 g/dL (3.5-5.0); Alkaline Phosphatase 84 U/L (39-117); Anion Gap 10 (12-20); Aspartate Amino Transferase 40 U/L (5-37); Bilirubin Total 0.5 mg/dL (0.0-1.0); Blood Urea Nitrogen 16 mg/dL (9-16); Calcium 9.5 mg/dL (8.4-10.2); Carbon Dioxide 32 mmol/L (22-29); Chloride 106 mmol/L (96-108); Cholesterol 145 mg/dL (<200); Estimated Glomerular Filt Rate > 60; Glucose Fasting 114 mg/dL (60-99); HDL Cholesterol 52 mg/dL (>40); Iron 64 mcg/dL (45-160); LDL Cholesterol Calculated 84 mg/dL (<100); Percent Iron Saturation 23 % (15-50); Potassium 4.5 mmol/L (3.3-5.1); Sodium 143 mmol/L (135-145); Total Iron Binding Capacity 282 mcg/dL (228-428); Total Protein 6.9 g/dL (6.5-8.0); Triglycerides 48 mg/dL (<150); Unsaturated Iron Binding 218 ug/dL
[2025-04-18 09:20] LABS: Vitamin B12 897 pg/mL (200-900)
[2025-04-18 09:28] LABS: Alanine Aminotransferase 43 U/L (0-40)
[2025-04-19 05:49] LABS: NT-proBNP <36 pg/mL (<125)
== END 2025-04-18 07:22 | disposition home or self-care (01) ==
LOC: HO.LAB 07:21
PROVIDERS: Surgery Vascular Surgery; PCP Internal Medicine; Visit Provider Internal Medicine
DX: Z00.00 Encounter for general adult medical examination without abnormal findings (principal); I50.20 Unspecified systolic (congestive) heart failure; E55.9 Vitamin D deficiency, unspecified; D64.9 Anemia, unspecified; E78.5 Hyperlipidemia, unspecified; Z12.5 Encounter for screening for malignant neoplasm of prostate; E53.8 Deficiency of other specified B group vitamins
CPT/HCPCS: 36415; 80053; 80061; 82306; 82607; 82746; 83540; 83880; 84153; 85025

== ENCOUNTER 2025-06-08 10:37 | Outpatient (AMB) | payer OTHER, SELFPAY ==
--- NOTE | 2025-06-08 10:42 | MHC.PC.OV ---
Vital Signs 06/08/25 10:43 Height 5 ft 7 in Weight 132 lb 8 oz BMI 20.8 BP 110/70 Blood Pressure Location Lt brachial Position Sitting Pulse 68 Pulse Source Pulse Oximeter Temp 97.3 F Temp Source Temporal Artery Scan Pulse Oximetry (%) 98 Oxygen Delivery Method Room Air Intake Visit Reasons: annual exam Weed Sprayer Required: No Accompanied by: Self / Same As Patient Allergies No Known Allergies (No Known Allergies*) Allergy (Verified 06/08/25 11:08) Medication List - Last Reconciled 06/08/25 by HAROON Last albuterol sulfate 90 mcg/actuation 2 puffs inhalation 6XD PRN 30 days aspirin (Adult Aspirin Regimen) 81 mg PO DAILY atorvastatin 80 mg PO BEDTIME cane As directed ferrous sulfate 325 mg PO DAILY 90 days food supplemt, lactose-reduced (Ensure oral liquid) 1 ea PO BID 30 days Incruse Ellipta 62.5 mcg/actuation (umeclidinium) 1 inh inhalation DAILY 30 days NS methadone 35 mg PO DAILY omeprazole 40 mg PO DAILY polyethylene glycol 3350 (Miralax) 17 grams PO DAILY PRN 30 days quetiapine 25 mg PO BEDTIME rivaroxaban (Xarelto) 2.5 mg PO BID sennosides (senna) 8.6 mg PO BEDTIME PRN 90 days Tobacco use date assessed: 06/08/25 Fall risk assessment: No Falls in past year Last assessed Fall Risk: 06/08/25 Dental Screening Dental Screen Date: 06/08/25 Did you have a dental visit in the last 12 months?: No Did you have a dental problem in the last 6 months where you did not have access to dental care?: No Was dental information given to patient?: No HPI annual exam HPI Details Dentist: he has not gone for years, he is afraid to go to the dentist Eye: up to date Snellen: Right: Left: Corrected vision:yes, glasses STI screening:n/a Colonoscopy: 2020-to recheck in 10 years Pap Smer:n/a PHQ-9: Flu:does not usually take this vaccine COVID: Tdap:due will give in office today Diet:regular, feels full early Exercise: Walks twice a week The patient is a 65-year-old male presenting for annual physical. Accompanied by sister He has concerns of anemia and gastrointestinal concerns. Anemia has been a persistent issue for the patient, with no recent review of lab results until this visit. A stool sample previously indicated blood that was done by the patient insurance, leading to a referral to gastroenterology, apparently the patient has not been contacted by GI. The patient reports a history of gastroesophageal reflux disease, with symptoms of heartburn and a strong odor emanating from the stomach. He experiences early satiety and bloating, particularly when consuming meals, which may be related to his gastrointestinal issues. Constipation is a significant problem, occurring frequently and requiring daily use of milk of magnesia, prune juice, and senna. The patient reports bowel movements approximately once a week, with significant bloating and discomfort when constipated. The patient has a history of aortic surgery, which was performed to address circulation issues. He is currently on methadone, which may contribute to his constipation. The patient has elevated liver enzymes, with a slight decrease noted in recent tests. He has a history of alcohol use but reports abstinence currently. The patient has not seen a dentist in years, despite being advised to address a dental infection requiring extraction in the past. He has no s/sx of infection at this time. The patient continues to smoke, consuming approximately two cigarettes per day, even though, his sister confirmed that he has been hiding and smoking more than he is admitting, which may impact his respiratory health. [facility] Medical History Aortoiliac occlusive disease PAD (peripheral artery disease) COPD (chronic obstructive pulmonary disease) PVD (peripheral vascular disease) Malnutrition COPD (chronic obstructive pulmonary disease) Claudication of both lower extremities Physical exam Left foot pain Mild recurrent major depression Hemorrhoids Smoker History of heroin abuse Anemia Hx of gastritis History of dysphagia Hiatal hernia GERD (gastroesophageal reflux disease) Anxiety Surgical History History of aorto-femoral bypass S/P aortogram History of esophagogastroduodenoscopy (EGD) Hx of colonoscopy History of prostate surgery Family History Father No problems noted. Mother CVD (cardiovascular disease) Myocardial infarction Family/Other FH: mental illness Other Substance use disorder Social History Household Members: Family Household Members Other:: sister Housing: House Are you a primary childcare worker to a significant other at home: No Do you presently have visiting nurse or other home services: No Alcohol intake: former Patient Tobacco Use Status: Current everyday Tobacco user Tobacco use type: Cigarette Cigarettes Per Day: 1 Years Smoked: 30 +/- e-Cigarette/Vaping Use: Never Used Second Hand Smoke Exposure: No Substance Use Type: Heroin Advance Directives Date on File: 10/27/22 service: No Current occupational status: disabled Cognitive needs: No Hearing needs: No Vision needs: No Questionnaire PHQ-9 Over the last 2 weeks, how often have you been bothered by any of the following problems? 1. Little interest or pleasure in doing things: several days 2. Feeling down, depressed, or hopeless: several days 3. Trouble falling or staying asleep, or sleeping too much: several days 4. Feeling tired or having little energy: several days 5. Poor appetite or overeating: several days 6. Feeling bad about yourself - or that you are a failure or have let yourself or your family down: not at all 7. Trouble concentrating on things, such as reading the newspaper or watching television: not at all 8. Moving or speaking so slowly that other people could have noticed. Or the opposite - being so fidgety or restless that you have been moving around a lot more than usual: more than half the days 9. Thoughts that you would be better off or of hurting yourself in some way: several days Total score: 8 Depression Screening Interpretation: Positive Depression Screening Done: Yes [id number] - PHQ-9 Billing: Yes Source: Developed by Drs. Timothy Tinoco, Yady Dolan, Parminder Biswas and colleagues, with an educational jeff from [employer]. Thrive Questionnaire Date Thrive assessed: 06/08/25 I am a: Parent/Caregiver What is your living situation today?: I have a steady place to live Within the past 12 months, did the food you bought not last and you didn't have the money to get more?: Often true Within the past 12 months, did you worry whether your food would run out before you got money to buy more?: Often true Do you have trouble paying for medicines?: No Do you have trouble getting transportation to medical appointments?: No Do you have trouble paying your heating and electricity bill?: No Do you have trouble taking care of your child, family member or friend?: No Do you have trouble with day-to-day activities such as bathing, preparing meals, shopping, managing finances, etc.?: No Are you currently unemployed and looking for a job?: No Are you interested in more education?: No Please select the resources that you would like help with: None Currently or been in a relationship where the following occur: I choose not to answer THRIVE Score: 2 AUDIT C Alcohol Use Questionnaire (AUDIT-C) 1. How often do you have a drink containing alcohol?: Never Total Score: 0 SHAQUILLE-7 AMB Questionnaire SHAQUILLE-7 Date SHAQUILLE - 7 assessed: 06/08/25 Feeling nervous, anxious, or on edge: 1 = Several days Not being able to stop or control worryin = More than half the days Worrying too much about different things: 3 = Nearly every day Trouble relaxin = More than half the days Being so restless that it is hard to sit still: 2 = More than half the days Becoming easily annoyed or irritable: 1 = Several days Feeling afraid as if something awful might happen: 0 = Not at all Total SHAQUILLE-7 score (0-4 normal; 5-9 mild; 10-14 moderate; 15-21 severe): 11 Source: Developed by Drs. Timothy Tinoco, Yady Dolan, Parminder Biswas and colleagues, with an educational jeff from [employer]. SHAQUILLE-7 Assessment Billing SHAQUILLE-7 Assessment Tool: SHAQUILLE-7 Assessment 55059 Review of Systems Const Denies headache(s) Eyes Denies loss of vision ENT Denies vertigo, Denies dizziness, Denies headache(s) and Denies sore throat Card Denies chest pain, Denies leg edema and Denies lightheadedness Resp Denies cough, Denies hemoptysis and Denies wheezing GI Denies abdominal pain, Denies melena, Reports bloating, Reports constipation, Reports heartburn, Denies diarrhea, Denies vomiting and Reports other (early satiety) Denies dysuria, Denies urinary frequency and Denies urinary urgency Musc Denies arthralgias, Denies joint swelling, Denies numbness and Denies tingling Neuro Denies Abnormal speech present, Denies behavioral changes, Denies vertigo, Denies dizziness, Denies headache(s), Denies loss of vision, Denies memory loss, Denies numbness and Denies tingling Psych Denies anxiety, Denies behavioral changes, Denies depression, Denies memory loss and Denies panic attacks Singh/Lymph Denies easy bleeding and Denies easy bruising Aller/Immun Denies wheezing Physical exam (Primary Care) Vital Signs: Last Vital Signs Temp 97.3 F 06/08/25 10:43 Pulse 68 06/08/25 10:43 BP 110/70 06/08/25 10:43 Pulse Ox 98 06/08/25 10:43 Oxygen Delivery Method Room Air 06/08/25 10:43 BMI result Body Mass Index 20.8 Tobacco/Smoking Status: Tobacco use Status Tobacco use date assessed 06/08/25 06/08/25 10:51 Patient Tobacco Use Status Current everyday Tobacco 06/08/25 10:51 Tobacco use type Cigarette 06/08/25 10:51 e-Cigarette/Vaping Use Never Used 06/08/25 10:51 PHQ-9: PHQ-9 Score PHQ-9: Total score 8 06/09/25 01:10 Depression Screening Interpretation: Positive Thrive Assessment: Date of Thrive Assessment Date Thrive assessed 06/08/25 06/08/25 10:51 Currently or been in a relationship where the following occur: I choose not to answer Const General: healthy appearing, no acute distress, alert and awake Nutritional Appearance: well nourished Orientation/consciousness: oriented to person, oriented to place and oriented to time HENDC Ears: TM's normal bilaterally General nose exam: Normal nasal mucous membranes and turbinates present Eyes Conjunctivae: conjunctivae normal Sclerae: sclerae normal Pupils: Equal, round and reactive pupils present Neck Neck: Yes no lymphadenopathy and Yes no JVD Thyroid: Thyroid normal Carotids: no bruits Resp Effort & Inspection: normal respiratory effort and not tachypneic Auscultation: no crackles, no rales, no rhonchi and no wheezes Cardio Rate: regular rate Rhythm: regular rhythm Heart sounds: no murmurs and normal S1 and S2 GI Palpation (GI): Soft to palpation, nontender, no hepatomegaly and no splenomegaly Auscultation: normal bowel sounds Skin General skin exam: no rashes or lesions noted and dry skin Neuro General: oriented to person, oriented to place and oriented to time Cranial nerves: Yes Equal, round and reactive pupils present Speech: No Abnormal speech present Gait exam (Neuro): Normal gait present Motor exam (neuro): no tremor noted Extrem Right upper extremity: full ROM Left upper extremity: full ROM Right lower extremity: full ROM; no edema Left lower extremity: full ROM; no edema Psych Mental Status: mental status grossly normal Speech and movement: Normal speech and movement present Affect: normal affect Attitude: cooperative Thought process: Normal thought process present Immunizations Tenivac (PF) 5 Lf unit-2 Lf unit/0.5 mL intramuscular syringe Performing Provider: HAROON Last [facility] [place] [facility] Administered by: Ginger Bedolla CMA on 06/08/25 11:37 Dose Route Admin Location Dispensed Lot Number Expiration Date [facility] Fertilizer Loader 0.5 mL IM Left Tricep 0.5 mL [id number] 03/15/27 09804-304-94 [employer] Total Dispensed Waste 0.5 mL 0 % VIS Given Date VIS Provided VIS Publication Date 06/08/25 Single Vaccine 21 Eligibility Eligibility Date Funding Source Not [place] Eligible 06/08/25 Private Results Reviewed Results Reviewed: Laboratory Tests 04/18/25 07:39 WBC 8.2 RBC 4.08 L Hgb 12.8 L Hct 40.7 L MCV 99.8 H MCH 31.4 MCHC 31.4 RDW 12.3 Plt Count 240 MPV 10.4 Immature Gran % (Auto) 0.4 Neut % (Auto) 46.0 Lymph % (Auto) 42.4 H [place] % (Auto) 7.4 Eos % (Auto) 2.8 Baso % (Auto) 1.0 Lymph # (Auto) 3.5 [place] # (Auto) 0.6 Eos # (Auto) 0.2 Baso # (Auto) 0.1 Abs Immat Gran (auto) 0.03 Absolute Neuts (auto) 3.8 Absolute Nucleated RBC 0.000 Nucleated RBC % (auto) 0.0 Sodium 143 Potassium 4.5 Chloride 106 Carbon Dioxide 32 H Anion Gap 10 L BUN 16 Creatinine 0.99 Estimated GFR > 60 Fasting Glucose 114 H Calcium 9.5 Iron 64 TIBC 282 % Saturation 23 Unsat Iron Binding 218 Total Bilirubin 0.5 AST 40 H ALT 43 H Alkaline Phosphatase 84 NT-Pro-B Natriuret Pep <36 Total Protein 6.9 Albumin 4.2 Triglycerides 48 Cholesterol 145 LDL Cholesterol, Calc 84 HDL Cholesterol 52 Total PSA 2.27 Vitamin B12 897 25-OH Vitamin D Total 45.7 Folate 12.0 Coding Level of Care Code Est Pt Prev Care >65y(44945) Diagnoses Physical exam Z00.00 Smoker F17.200 Poor appetite R63.0 Chronic obstructive pulmonary disease, unspecified COPD type J44.9 COPD type: unspecified COPD Pulmonary nodules R91.8 Occult blood in stools R19.5 Anemia, unspecified type D64.9 Anemia type: unspecified type Drug induced constipation K59.03 Hemorrhoids, unspecified hemorrhoid type K64.9 Hemorrhoid type: unspecified Hyperplastic colonic polyp, unspecified part of colon K63.5 Colon location: unspecified part of colon Gastroesophageal reflux disease, unspecified whether esophagitis present K21.9 Esophagitis presence: esophagitis presence not specified Impaired glucose tolerance R73.02 Hyperlipidemia, unspecified hyperlipidemia type E78.5 Hyperlipidemia type: unspecified Aortoiliac occlusive disease I74.09 Opioid dependence on agonist therapy F11.20 Mild recurrent major depression F33.0 Additional Codes SHAQUILLE-7 Assessment Billing - SHAQUILLE-7 Assessment Tool: SHAQUILLE-7 Assessment 86718 ([id number]) PHQ-9 - 28584 - PHQ-9 Billing: Yes ([id number]) Assessment & Plan Assessment & Plan (1) Physical exam: Code(s): Z00.00 - Encounter for general adult medical examination without abnormal findings Category: Medical Plan: Preventative guidelines and recent labs reviewed with the patient. (2) Smoker: Code(s): F17.200 - Nicotine dependence, unspecified, uncomplicated Category: Social Hx Plan: Encouraged smoking cessation (3) Poor appetite: Code(s): R63.0 - Anorexia Category: Medical Plan: Patient reports early satiety, could related to the patient ongoing constipation. Discussed medication compliance the patient has not been taking his MiraLax. Reports that he has no more Rx was sent to pharmacy. Ensure b.i.d. encouraged. (4) COPD (chronic obstructive pulmonary disease): Code(s): J44.9 - Chronic obstructive pulmonary disease, unspecified Category: Medical Qualifiers: COPD type: unspecified COPD Qualified Code(s): J44.9 - Chronic obstructive pulmonary disease, unspecified Plan: The patient has a 40 pack year. Denies shortness of breath lung sounds are clear and diminished in the bases. Continue Incruse and albuterol MDI (5) Pulmonary nodules: Code(s): R91.8 - Other nonspecific abnormal finding of lung field Category: Medical Plan: 40+ pack year. Results of lung cancer screen shows new 6 mm pulmonary nodule. Plans for repeat imaging, follow up with pulmonology as scheduled (6) Occult blood in stools: Code(s): R19.5 - Other fecal abnormalities Category: Medical Plan: Patient and sister reports that the patient's insurance came to his house and did a stool test and found blood in his stool. This result was reported in a GI referral was placed a year ago but they has not been contacted as yet. We will put in a new referral. (7) Anemia: Code(s): D64.9 - Anemia, unspecified Category: Medical Qualifiers: Anemia type: unspecified type Qualified Code(s): D64.9 - Anemia, unspecified Plan: Patient has a history of anemia that is most likely due to his history of alcoholism. Anemia continues but has been stable. We will continue to monitor CBC. He is on ferrous sulfate 325 mg daily (8) Drug induced constipation: Code(s): K59.03 - Drug induced constipation Category: Medical Plan: Patient reports going once a week. He is on ferrous sulfate 325 mg daily to assist with his anemia. The patient has not been taking his MiraLax in his only taking his senna pills as needed once he is already constipated. Explained to the patient that he needs to increase his fluids intake and take his MiraLax everyday to prevent the constipation (9) Hemorrhoids: Comment: High-fiber diet avoid stress Code(s): K64.9 - Unspecified hemorrhoids Category: Medical Qualifiers: Hemorrhoid type: unspecified Qualified Code(s): K64.9 - Unspecified hemorrhoids Plan: Patient has a history of hemorrhoids. Explained to the patient that this could be a reason why blood was found in his stool on his test last year. Encouraged dietary fiber and fluids (10) Hyperplastic colon polyp: Comment: 60-year-old male follows up after recent colonoscopy with polypectomy, pathology reveals hyperplastic polyp repeat asymptomatic screening colonoscopy 10 years Code(s): K63.5 - Polyp of colon Category: Medical Qualifiers: Colon location: unspecified part of colon Qualified Code(s): K63.5 - Polyp of colon Plan: The patient had a colonoscopy in 2019 that was noted to have hyperplastic colon polyps. Test to be repeated in 10 years so he will be due in 2030. (11) GERD (gastroesophageal reflux disease): Code(s): K21.9 - Gastro-esophageal reflux disease without esophagitis Category: Medical Qualifiers: Esophagitis presence: esophagitis presence not specified Qualified Code(s): K21.9 - Gastro-esophageal reflux disease without esophagitis Plan: Do not eat meals or drink carbonated beverages within 3 hr of bedtime Decrease the amount of fried, fatty, and spicy foods to decrease gastric acid production Raise the head of the bed using 4 to 6-inch blocks, especially if nocturnal symptoms are present Lose weight if indicated; avoid tight-fitting clothing, especially around the waist Avoid foods that relax the Lower esophageal sphincter (chocolate, peppermint, high-fat foods etc.,) Continue omeprazole 40 mg daily (12) Impaired glucose tolerance: Code(s): R73.02 - Impaired glucose tolerance (oral) Category: Medical Plan: Fasting glucose 114. Encouraged low sugar/carbohydrate diet. We will add A1c with his follow up labs. (13) Hyperlipidemia: Code(s): E78.5 - Hyperlipidemia, unspecified Category: Medical Qualifiers: Hyperlipidemia type: unspecified Qualified Code(s): E78.5 - Hyperlipidemia, unspecified Plan: Triglycerides 48, total cholesterol 145, LDL 84, HDL 52 Reinforced low-cholesterol diet and activity as tolerated Continue atorvastatin 80 mg at bedtime (14) Aortoiliac occlusive disease: Comment: 10/13/2022 - open aortobifemoral bypass. Code(s): I74.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 Category: Medical Plan: The patient is status post aorta CTA 12/14/2024. Prior abdominal aortic bifemoral bypass surgery on 10/13/2022. Procedure worked until lately the patient has started complaining of leg pain with activity, like climbing upstairs. CT imaging shows reocclusion of the left side. Again the patient was encouraged to increase activity, prevascular patient should be walk-in twice a day. Continue aspirin 81 mg daily and Xarelto 2.5 mg b.i.d.. Follow up with vascular as scheduled (15) Opioid dependence on agonist therapy: Code(s): F11.20 - Opioid dependence, uncomplicated Category: Medical Plan: Continue methadone 35 mg daily. Follow up with methadone clinic as scheduled (16) Mild recurrent major depression: Code(s): F33.0 - Major depressive disorder, recurrent, mild Category: Medical Plan: Encouraged CBT. Continue quetiapine 25 mg at bedtime Orders: Orders Complete Blood Count Auto Diff 1 Year D64.9 - Anemia, unspecified, E78.5 - Hyperlipidemia, unspecified, F11.20 - Opioid dependence, uncomplicated, F17.200 - Nicotine dependence, unspecified, uncomplicated, F32.9 - Major depressive disorder, single episode, unspecified, F33.0 - Major depressive disorder, recurrent, mild, I25.10 - Atherosclerotic heart disease of [place] coronary artery without angina pectoris, I25.2 - Old myocardial infarction, I50.20 - Unspecified systolic (congestive) heart failure, J44.9 - Chronic obstructive pulmonary disease, unspecified, K21.9 - Gastro-esophageal reflux disease without esophagitis, K59.03 - Drug induced constipation, K63.5 - Polyp of colon, K64.9 - Unspecified hemorrhoids, R73.02 - Impaired glucose tolerance (oral), R91.8 - Other nonspecific abnormal finding of lung field, Z95.828 - Presence of other vascular implants and grafts Comprehensive [place]. Panel Fast 1 Year D64.9 - Anemia, unspecified, E78.5 - Hyperlipidemia, unspecified, F11.20 - Opioid dependence, uncomplicated, F17.200 - Nicotine dependence, unspecified, uncomplicated, F32.9 - Major depressive disorder, single episode, unspecified, F33.0 - Major depressive disorder, recurrent, mild, I25.10 - Atherosclerotic heart disease of [place] coronary artery without angina pectoris, I25.2 - Old myocardial infarction, I50.20 - Unspecified systolic (congestive) heart failure, J44.9 - Chronic obstructive pulmonary disease, unspecified, K21.9 - Gastro-esophageal reflux disease without esophagitis, K59.03 - Drug induced constipation, K63.5 - Polyp of colon, K64.9 - Unspecified hemorrhoids, R73.02 - Impaired glucose tolerance (oral), R91.8 - Other nonspecific abnormal finding of lung field, Z95.828 - Presence of other vascular implants and grafts TSH reflex Free T4 1 Year D64.9 - Anemia, unspecified, E78.5 - Hyperlipidemia, unspecified, F11.20 - Opioid dependence, uncomplicated, F17.200 - Nicotine dependence, unspecified, uncomplicated, F32.9 - Major depressive disorder, single episode, unspecified, F33.0 - Major depressive disorder, recurrent, mild, I25.10 - Atherosclerotic heart disease of [place] coronary artery without angina pectoris, I25.2 - Old myocardial infarction, I50.20 - Unspecified systolic (congestive) heart failure, J44.9 - Chronic obstructive pulmonary disease, unspecified, K21.9 - Gastro-esophageal reflux disease without esophagitis, K59.03 - Drug induced constipation, K63.5 - Polyp of colon, K64.9 - Unspecified hemorrhoids, R73.02 - Impaired glucose tolerance (oral), R91.8 - Other nonspecific abnormal finding of lung field, Z95.828 - Presence of other vascular implants and grafts Hemoglobin A1c 1 Year R73.02 - Impaired glucose tolerance (oral) Td Immunization 06/08/25 Z23 - Encounter for immunization Lipid Panel 1 Year D64.9 - Anemia, unspecified, E78.5 - Hyperlipidemia, unspecified, F11.20 - Opioid dependence, uncomplicated, F17.200 - Nicotine dependence, unspecified, uncomplicated, F32.9 - Major depressive disorder, single episode, unspecified, F33.0 - Major depressive disorder, recurrent, mild, I25.10 - Atherosclerotic heart disease of [place] coronary artery without angina pectoris, I25.2 - Old myocardial infarction, I50.20 - Unspecified systolic (congestive) heart failure, J44.9 - Chronic obstructive pulmonary disease, unspecified, K21.9 - Gastro-esophageal reflux disease without esophagitis, K59.03 - Drug induced constipation, K63.5 - Polyp of colon, K64.9 - Unspecified hemorrhoids, R73.02 - Impaired glucose tolerance (oral), R91.8 - Other nonspecific abnormal finding of lung field, Z95.828 - Presence of other vascular implants and grafts IRON PROFILE 1 Year D64.9 - Anemia, unspecified, E78.5 - Hyperlipidemia, unspecified, F11.20 - Opioid dependence, uncomplicated, F17.200 - Nicotine dependence, unspecified, uncomplicated, F32.9 - Major depressive disorder, single episode, unspecified, F33.0 - Major depressive disorder, recurrent, mild, I25.10 - Atherosclerotic heart disease of [place] coronary artery without angina pectoris, I25.2 - Old myocardial infarction, I50.20 - Unspecified systolic (congestive) heart failure, J44.9 - Chronic obstructive pulmonary disease, unspecified, K21.9 - Gastro-esophageal reflux disease without esophagitis, K59.03 - Drug induced constipation, K63.5 - Polyp of colon, K64.9 - Unspecified hemorrhoids, R73.02 - Impaired glucose tolerance (oral), R91.8 - Other nonspecific abnormal finding of lung field, Z95.828 - Presence of other vascular implants and grafts UA CC w/rflx Micro + Cult 1 Year D64.9 - Anemia, unspecified, E78.5 - Hyperlipidemia, unspecified, F11.20 - Opioid dependence, uncomplicated, F17.200 - Nicotine dependence, unspecified, uncomplicated, F32.9 - Major depressive disorder, single episode, unspecified, F33.0 - Major depressive disorder, recurrent, mild, I25.10 - Atherosclerotic heart disease of [place] coronary artery without angina pectoris, I25.2 - Old myocardial infarction, I50.20 - Unspecified systolic (congestive) heart failure, J44.9 - Chronic obstructive pulmonary disease, unspecified, K21.9 - Gastro-esophageal reflux disease without esophagitis, K59.03 - Drug induced constipation, K63.5 - Polyp of colon, K64.9 - Unspecified hemorrhoids, R73.02 - Impaired glucose tolerance (oral), R91.8 - Other nonspecific abnormal finding of lung field, Z95.828 - Presence of other vascular implants and grafts Vitamin D 25-OH Total 1 Year D64.9 - Anemia, unspecified, E78.5 - Hyperlipidemia, unspecified, F11.20 - Opioid dependence, uncomplicated, F17.200 - Nicotine dependence, unspecified, uncomplicated, F32.9 - Major depressive disorder, single episode, unspecified, F33.0 - Major depressive disorder, recurrent, mild, I25.10 - Atherosclerotic heart disease of [place] coronary artery without angina pectoris, I25.2 - Old myocardial infarction, I50.20 - Unspecified systolic (congestive) heart failure, J44.9 - Chronic obstructive pulmonary disease, unspecified, K21.9 - Gastro-esophageal reflux disease without esophagitis, K59.03 - Drug induced constipation, K63.5 - Polyp of colon, K64.9 - Unspecified hemorrhoids, R73.02 - Impaired glucose tolerance (oral), R91.8 - Other nonspecific abnormal finding of lung field, Z95.828 - Presence of other vascular implants and grafts Vitamin B12 and Folate 1 Year D64.9 - Anemia, unspecified, E78.5 - Hyperlipidemia, unspecified, F11.20 - Opioid dependence, uncomplicated, F17.200 - Nicotine dependence, unspecified, uncomplicated, F32.9 - Major depressive disorder, single episode, unspecified, F33.0 - Major depressive disorder, recurrent, mild, I25.10 - Atherosclerotic heart disease of [place] coronary artery without angina pectoris, I25.2 - Old myocardial infarction, I50.20 - Unspecified systolic (congestive) heart failure, J44.9 - Chronic obstructive pulmonary disease, unspecified, K21.9 - Gastro-esophageal reflux disease without esophagitis, K59.03 - Drug induced constipation, K63.5 - Polyp of colon, K64.9 - Unspecified hemorrhoids, R73.02 - Impaired glucose tolerance (oral), R91.8 - Other nonspecific abnormal finding of lung field, Z95.828 - Presence of other vascular implants and grafts PSA,Total (Free>4and<10) 1 Year D64.9 - Anemia, unspecified, E78.5 - Hyperlipidemia, unspecified, F11.20 - Opioid dependence, uncomplicated, F17.200 - Nicotine dependence, unspecified, uncomplicated, F32.9 - Major depressive disorder, single episode, unspecified, F33.0 - Major depressive disorder, recurrent, mild, I25.10 - Atherosclerotic heart disease of [place] coronary artery without angina pectoris, I25.2 - Old myocardial infarction, I50.20 - Unspecified systolic (congestive) heart failure, J44.9 - Chronic obstructive pulmonary disease, unspecified, K21.9 - Gastro-esophageal reflux disease without esophagitis, K59.03 - Drug induced constipation, K63.5 - Polyp of colon, K64.9 - Unspecified hemorrhoids, R73.02 - Impaired glucose tolerance (oral), R91.8 - Other nonspecific abnormal finding of lung field, Z95.828 - Presence of other vascular implants and grafts B Type Natriuretic Peptide 1 Year D64.9 - Anemia, unspecified, E78.5 - Hyperlipidemia, unspecified, F11.20 - Opioid dependence, uncomplicated, F17.200 - Nicotine dependence, unspecified, uncomplicated, F32.9 - Major depressive disorder, single episode, unspecified, F33.0 - Major depressive disorder, recurrent, mild, I25.10 - Atherosclerotic heart disease of [place] coronary artery without angina pectoris, I25.2 - Old myocardial infarction, I50.20 - Unspecified systolic (congestive) heart failure, J44.9 - Chronic obstructive pulmonary disease, unspecified, K21.9 - Gastro-esophageal reflux disease without esophagitis, K59.03 - Drug induced constipation, K63.5 - Polyp of colon, K64.9 - Unspecified hemorrhoids, R73.02 - Impaired glucose tolerance (oral), R91.8 - Other nonspecific abnormal finding of lung field, Z95.828 - Presence of other vascular implants and grafts Referrals Gastroenterology Referral K21.9 - Gastro-esophageal reflux disease without esophagitis, R19.5 - Other fecal abnormalities, R63.0 - Anorexia Medications: Refilled albuterol sulfate 90 mcg/actuation 2 puffs inhalation 6XD PRN 1 ea 6RF shortness of breath or wheezing 30 days rivaroxaban (Xarelto) 2.5 mg PO BID 120 tabs 4RF polyethylene glycol 3350 (Miralax) 17 grams PO DAILY PRN 238 grams 3RF constipation 30 days
[2025-06-08 10:43] VITALS: BP 110/70; PULSE 68; TEMP 36.3; O2SAT 98; BMI 20.8
== END 2025-06-08 11:50 | disposition home or self-care (01) ==
LOC: HO.HMCH 10:37
PROVIDERS: PCP Internal Medicine
DX: Z23 Encounter for immunization (principal)

== ENCOUNTER → 2025-06-08 10:37 | Outpatient (BNVA) | payer OTHER, SELFPAY | PROVIDERS: PCP Internal Medicine | DX: Z00.00 Encounter for general adult medical examination without abnormal findings (principal); Z23 Encounter for immunization; R63.0 Anorexia; J44.9 Chronic obstructive pulmonary disease, unspecified; R91.8 Other nonspecific abnormal finding of lung field; R19.5 Other fecal abnormalities; D64.9 Anemia, unspecified; K59.03 Drug induced constipation; K64.9 Unspecified hemorrhoids; K63.5 Polyp of colon; K21.9 Gastro-esophageal reflux disease without esophagitis; R73.02 Impaired glucose tolerance (oral); E78.5 Hyperlipidemia, unspecified; I74.09 Other arterial embolism and thrombosis of abdominal aorta; F11.20 Opioid dependence, uncomplicated; F33.0 Major depressive disorder, recurrent, mild; F17.210 Nicotine dependence, cigarettes, uncomplicated; Z13.31 Encounter for screening for depression; Z13.39 Encounter for screening examination for other mental health and behavioral disorders | CPT/HCPCS: 90471; 90714; 96127; 99397 ==

== ENCOUNTER 2025-06-27 13:02 | Outpatient (REF) | payer OTHER, SELFPAY ==
--- NOTE | ~2025-06-27 | CT_ITS ---
EXAMINATION: CT LUNG SCREENING FOLLOW UP WITHOUT IV CONTRAST HISTORY: Z87.891 - Personal history of nicotine dependence TECHNIQUE: Low dose axial images were obtained from the sternal notch to upper abdomen without IV contrast per standard departmental protocol. Sagittal and coronal reformatted images were also obtained and reviewed. One or more of the following techniques was used for dose reduction: Automated exposure control, adjustment of the mA and/or kV according to patient size, use of iterative reconstruction technique. DLP: 77 mGy-cm COMPARISON: Comparison is made with the prior examination dated 01/11/2025. FINDINGS: Lung nodules: There is a punctate nodule at the right lung apex (series 4, image 9). There are 3 mm subpleural nodules in the left lower lobe (series 4, images 23 and 39). No additional pulmonary nodules are identified. Emphysema: mild Coronary Calcification: mild Aortic Arch Calcification: mild Potentially Significant Incidentals : none Additional Chest Findings: There is no pleural or pericardial effusion. No mediastinal or axillary lymphadenopathy is identified. Visualized upper abdomen: The visualized portions of the liver, spleen, and adrenals have an unremarkable unenhanced appearance. CT/CT lung screen follow up IMPRESSION: No suspicious pulmonary nodules are identified. LUNG-RADS ASSESSMENT: Lung-RADS 2: Benign MANAGEMENT: Continue annual screening with LDCT in 12 months Category S: N/A Electronically signed by: Timothy Vasquez MD 06/27/2025 03:56 PM EDT
== END 2025-06-27 13:03 | disposition home or self-care (01) ==
LOC: HO.CT 13:02
PROVIDERS: PCP Student in an Organized Health Care Education/Training Program; Visit Provider Internal Medicine Pulmonary Disease
DX: Z12.2 Encounter for screening for malignant neoplasm of respiratory organs (principal); Z87.891 Personal history of nicotine dependence
CPT/HCPCS: 71250

== ENCOUNTER → 2025-06-27 13:04 | Outpatient (BNV) | payer OTHER, SELFPAY | PROVIDERS: PCP Student in an Organized Health Care Education/Training Program; Visit Provider Radiology Diagnostic Radiology | DX: Z12.2 Encounter for screening for malignant neoplasm of respiratory organs (principal); Z87.891 Personal history of nicotine dependence | CPT/HCPCS: 71250 ==

== ENCOUNTER 2025-06-29 10:28 | Outpatient (REF) | payer OTHER, SELFPAY ==
--- NOTE | ~2025-06-29 | US_ITS ---
EXAMINATION: US RETROPERITONEAL LIMITED (AORTA) CLINICAL INFORMATION: Arterial embolism and thrombosis, abdominal aorta.. COMPARISON: October 05, 2024. Correlated to CT angiogram aorta dated December 13, 2024. TECHNIQUE: Rivera-scale, color Doppler and spectral Doppler evaluation of the abdominal aorta. FINDINGS: Inadequate evaluation of the mid abdominal aorta and the iliac arteries. Abdominal aorta: Proximal: 68 cm/s and 2.9 cm in maximum diameter. Mixed segment is not fully depicted on this examination.. Distal: 77 cm and 1.5 cm in maximum diameter.. There is color flow at the region of the anastomosis of the aortoiliac bypass. There is no color Doppler flow into the left side of the bypass. There is color Doppler flow on the right side. The right iliac artery: Common iliac artery external peak systolic velocity: 159 cm/s. External iliac artery peak systolic velocity: 86 cm/s. Left iliac artery: No color Doppler flow in the common iliac and external peak systolic velocity: 139 cm/s in the external iliac artery. US/US abdominal aortic aneurysm IMPRESSION: Occluded left aorta iliac bypass. Please refer to CT angiogram of abdominal aorta and runoff dated December 13, 2024. No aneurysm in the visualized abdominal aorta. Normal patency of the right iliac artery.. Electronically signed by: Virgilio Ocampo MD 06/29/2025 02:06 PM EDT
--- NOTE | ~2025-06-29 | US_ITS ---
EXAMINATION: Noninvasive assessment of the bilateral lower extremities with ARTERIAL DUPLEX, ANKLE BRACHIAL INDICES (ABIs), and PULSE VOLUME RECORDINGS (PVRs). CLINICAL INFORMATION: Arterial embolism and thrombosis, abdominal aorta. Aortofemoral or bypass with occlusion on the left side. TECHNIQUE: Duplex Doppler techniques with waveform analysis and measurement of velocities in the bilateral common femoral, profunda femoris, superficial femoral, popliteal and tibial arteries were performed. Additionally, ankle pulse volume recordings, ankle pressure measurements and ankle brachial indices were obtained of the lower extremity arterial system bilaterally. The study was performed only at rest. COMPARISON: July 02, 2022. Correlated to CT angiogram aorta and runoff dated December 13, 2024. FINDINGS: DIRECT DUPLEX DOPPLER FINDINGS: RIGHT LEG: Common femoral artery: 264 cm/s, phasicity: Triphasic. Profunda femoris artery: 173 cm/s, phasicity: Triphasic. Superficial femoral artery (proximal): 198 cm/s, phasicity: Triphasic. Superficial femoral artery (mid): 125 cm/s, phasicity: Triphasic. Superficial femoral artery (distal): 110 cm/s, phasicity: Triphasic. Popliteal artery: 87 cm/s, phasicity: Triphasic. Posterior tibial artery: 85 cm/s, phasicity: Triphasic. Peroneal artery: 58 cm/s, phasicity: Triphasic. Anterior tibial artery: 151 cm/s, phasicity: Triphasic. Dorsalis pedis artery: 59 cm/s, phasicity:Monophasic. LEFT LEG: Common femoral artery: 61 cm/s, phasicity: Monophasic. Profunda femoris artery: 55 cm/s, phasicity: Monophasic. Superficial femoral artery (proximal): 71 cm/s, phasicity: Monophasic. Superficial femoral artery (mid): 66 cm/s, phasicity: Monophasic. Superficial femoral artery (distal): 64 cm/s, phasicity: Monophasic. Popliteal artery: 28 cm/s, phasicity: Monophasic. Posterior tibial artery: 40 cm/s, phasicity: Monophasic. Peroneal artery: 21 cm/s, phasicity: Monophasic. Anterior tibial artery: 52 cm/s, phasicity: Monophasic. Dorsalis pedis artery: 24 cm/s, phasicity: Monophasic. BRACHIAL PRESSURES: Right: 130 Left: 118 ANKLE PRESSURES: Right: PT 148, DP 112 Left: PT 78, DP 72 ANKLE-BRACHIAL INDEX: Right: 1.14. Left: 0.60 ANKLE PVR WAVEFORMS: Right: Normal Left: Abnormal US/US arterial duplex LE BI IMPRESSION: Right leg: Severe inflow disease, right dorsalis pedis artery. Left leg: Severe inflow disease throughout the interrogated arteries. CRISTIAN Reference: - >1.4 = calcified vessels - 0.9 - 1.4 = normal - no significant arterial disease - 0.7 - 0.89 = mild peripheral arterial disease - 0.51 - 0.69 = moderate peripheral arterial disease - 0.50 = severe peripheral arterial disease - < .30 = critical arterial disease Electronically signed by: Virgilio Ocampo MD 06/29/2025 01:57 PM EDT
== END 2025-06-29 10:29 | disposition home or self-care (01) ==
LOC: HO.US 10:28
PROVIDERS: PCP Internal Medicine; Visit Provider Surgery Vascular Surgery
DX: I74.09 Other arterial embolism and thrombosis of abdominal aorta (principal)
CPT/HCPCS: 76706; 93925

== ENCOUNTER → 2025-06-29 10:29 | Outpatient (BNV) | payer OTHER, SELFPAY | PROVIDERS: PCP Internal Medicine; Visit Provider Radiology Diagnostic Radiology | DX: I70.293 Other atherosclerosis of native arteries of extremities, bilateral legs (principal); Z13.6 Encounter for screening for cardiovascular disorders | CPT/HCPCS: 76706; 93925 ==

== ENCOUNTER 2025-08-03 14:37 | Outpatient (AMB) | payer OTHER, SELFPAY ==
--- NOTE | 2025-08-03 14:41 | A.OFFVIS_ITS ---
Intake Visit Reasons: 6m follow up Arterial US 06/29/25 Intake Note: Patient presents for 6 month follow up. Patient had arterial done on 06/29/25. He states he has slight pain in his left leg after walking. Accompanied by: Self / Same As Patient Allergies No Known Allergies (No Known Allergies*) Allergy (Verified 08/03/25 14:43) HPI HPI 6m follow up Arterial 06/29/25: Details: Very pleasant 65-year-old gentleman presents for follow-up regarding peripheral vascular disease. He has had a previous aortobifem dating back to September of 2022. The left side has gone on to occlude. At the current time he is able to carry out daily activities. Walks 2 blocks with no difficulty. At the current time he continues to smoke about 2 cigarettes daily. He now presents for routine follow-up. [facility] Medical History Aortoiliac occlusive disease PAD (peripheral artery disease) COPD (chronic obstructive pulmonary disease) PVD (peripheral vascular disease) Malnutrition COPD (chronic obstructive pulmonary disease) Claudication of both lower extremities Physical exam Left foot pain Mild recurrent major depression Hemorrhoids Smoker History of heroin abuse Anemia Hx of gastritis History of dysphagia Hiatal hernia GERD (gastroesophageal reflux disease) Anxiety Surgical History History of aorto-femoral bypass S/P aortogram History of esophagogastroduodenoscopy (EGD) Hx of colonoscopy History of prostate surgery Family History Father No problems noted. Mother CVD (cardiovascular disease) Myocardial infarction Family/Other FH: mental illness Other Substance use disorder Social History Household Members: Family Household Members Other:: sister Housing: House Are you a primary career services director to a significant other at home: No Do you presently have visiting nurse or other home services: No Alcohol intake: former Patient Tobacco Use Status: Current everyday Tobacco user Tobacco use type: Cigarette Cigarettes Per Day: 1 Years Smoked: 30 +/- e-Cigarette/Vaping Use: Never Used Second Hand Smoke Exposure: No Substance Use Type: Heroin Advance Directives Date on File: 10/27/22 service: No Current occupational status: disabled Cognitive needs: No Hearing needs: No Vision needs: No Review of Systems Const All systems reviewed & are unremarkable except as noted in HPI and below Reports no additional complaints ENT Reports Normal hearing present Card Denies chest pain, Denies chest pain at rest, Denies chest pain with activity and Denies pedal edema Resp Denies cough GI Denies abdominal pain Musc Denies abnormal gait, Denies muscle cramps and Denies radiating pain into limb Skin/Breast Denies skin ulcer and Denies wounds Neuro Reports Normal hearing present and Denies abnormal gait Psych Reports no additional complaints Physical Exam Const General: cooperative, healthy appearing and comfortable Orientation/consciousness: oriented to person, oriented to place and oriented to time HEENT Head: Yes normal to inspection Neck Neck: Yes normal visual inspection Carotids: no bruits Chest Chest palpation & inspection: normal inspection of the chest Resp Effort & Inspection: normal respiratory effort and able to speak in complete sentences Auscultation: clear to auscultation bilaterally, no crackles, no rales, no rhonchi and no wheezes Cardio Other: Bilateral DP signals Rate: regular rate Rhythm: regular rhythm Heart sounds: S1 normal heart sound present and S2 normal heart sound present Bruits: no carotid bruits Peripheral pulses: Peripheral pulses 2+ throughout GI Inspection: Yes normal to inspection Skin Wounds: no wounds Hair: normal Neuro General: oriented to person, oriented to place and oriented to time Cranial nerves: Yes CN's II-XII intact bilaterally and Yes Normal hearing present Cognition (Neuro): normal cognition Motor exam (neuro): 5/5 motor strength present throughout Extrem Other: venous exam: No significant superficial varicosities or spider telangiectasias, minimal edema General: No clubbing, No cyanosis and No edema Psych Appearance: grossly normal Mental Status: mental status grossly normal Speech and movement: Normal speech and movement present Results Reviewed Results Reviewed: Noninvasive arterial testing dated 06/29/2025 demonstrates left iliac limb occlusion. CRISTIAN on the right of 1.14 and on the left of 0.6. Written report and images were reviewed. Assessment & Plan Assessment & Plan (1) Aortoiliac occlusive disease: Comment: 10/13/2022 - open aortobifemoral bypass. Code(s): I74.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 Category: Medical Plan: In short patient is doing well with his aortobifem. We do know that the left limb has gone on to occlude but he is stable in terms of his claudication. We did discuss smoking cessation. He will be scheduled for annual surveillance. Thank you for allowing us to assist in his care. If there are any questions or concerns please do not hesitate to contact us Orders: Orders US arterial duplex LE BI 1 Year I74.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 US abdominal aortic aneurysm 1 Year I74.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 Coding Level of Care Code Est Pt Level 4 (57994) Complex EM visit Add On G2211 Diagnoses Aortoiliac occlusive disease I74.09
== END 2025-08-03 14:59 | disposition home or self-care (01) ==
LOC: HO.HVS 14:37
PROVIDERS: PCP Internal Medicine; Visit Provider Surgery Vascular Surgery
DX: I74.09 Other arterial embolism and thrombosis of abdominal aorta (principal)
CPT/HCPCS: 99214; G2211

== ENCOUNTER → 2025-08-03 14:37 | Outpatient (BNVA) | payer OTHER, SELFPAY | PROVIDERS: PCP Internal Medicine; Visit Provider Surgery Vascular Surgery | DX: I74.09 Other arterial embolism and thrombosis of abdominal aorta (principal) | CPT/HCPCS: 99212 ==

== ENCOUNTER 2025-10-02 12:37 | Outpatient (AMB) | payer OTHER, SELFPAY ==
--- NOTE | 2025-10-02 12:49 | A.OFFVIS_ITS ---
Vital Signs 10/02/25 13:03 Height 5 ft 7 in Weight 127 lb BMI 19.9 BP 137/60 Blood Pressure Location Lt brachial Position Sitting Pulse 82 Intake Visit Reasons: gerd, anorexia Intake Note: Patient follow up for GERD and Anorexia. 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: No Accompanied by: Sister Allergies No Known Allergies (No Known Allergies*) Allergy (Verified 10/02/25 12:48) HPI HPI gerd, anorexia: Details: 65 yr old m w/ hx of PVD, s/p aortofemoral bypass 10/13/22 and heroin use who I am seeing for f/u He has been having chronic constipation for long time, comstimes cant go for weeks at a time he will use MOM and can help he has satiety, poor appeitite he has nausea he is on methadone for 2 yrs 30 mg daily [place]/ 11/29/20- internal hemorrhoids and HP polyps EXAM: GENERAL: The patient is thin VITAL SIGNS:see workflow HEENT: Nonicteric sclerae, PERRLA, EOMI. Oropharynx clear. Moist mucous membranes. Conjunctivae appear well perfused. No thyroid mass. CHEST: Chest wall is nontender. HEART: Regular rate and rhythm without murmurs. LUNGS: Clear to auscultation bilaterally. ABDOMEN: Soft, positive bowel sounds, nontender, no organomegaly.no flank tenderness SKIN: No rash, no excessive bruising, petechiae, or purpura. NEUROLOGIC: Cranial nerves II-XII intact without motor/sensory deficit. Psych: normal affect A?P: 1/ suspect opiate related side effects, PLAN 1/ trial of movantik and see if helps [facility] Medical History Aortoiliac occlusive disease PAD (peripheral artery disease) COPD (chronic obstructive pulmonary disease) PVD (peripheral vascular disease) Malnutrition COPD (chronic obstructive pulmonary disease) Claudication of both lower extremities Physical exam Left foot pain Mild recurrent major depression Hemorrhoids Smoker History of heroin abuse Anemia Hx of gastritis History of dysphagia Hiatal hernia GERD (gastroesophageal reflux disease) Anxiety Surgical History History of aorto-femoral bypass S/P aortogram History of esophagogastroduodenoscopy (EGD) Hx of colonoscopy History of prostate surgery Family History Father No problems noted. Mother CVD (cardiovascular disease) Myocardial infarction Family/Other FH: mental illness Other Substance use disorder Social History Household Members: Family Household Members Other:: sister Housing: House Are you a primary pediatric critical care nurse to a significant other at home: No Do you presently have visiting nurse or other home services: No Alcohol intake: former Patient Tobacco Use Status: Current everyday Tobacco user Tobacco use type: Cigarette Cigarettes Per Day: 1 Years Smoked: 30 +/- e-Cigarette/Vaping Use: Never Used Second Hand Smoke Exposure: No Substance Use Type: Heroin Advance Directives Date on File: 10/27/22 service: No Current occupational status: disabled Cognitive needs: No Hearing needs: No Vision needs: No Physical Exam Vital Signs: Last Vital Signs Pulse 82 10/02/25 13:03 BP 137/60 10/02/25 13:03 BMI result Body Mass Index 19.9 Assessment & Plan Assessment & Plan (1) Drug induced constipation: Code(s): K59.03 - Drug induced constipation Category: Medical Plan: as above Medications: New naloxegol (Movantik) must be taken on empty stomach; no food 1 hr after or 2-3 hrs before dose 25 mg PO QAM 30 tabs 2RF Coding Level of Care Code Est Pt Level 3 (82031) Diagnoses Drug induced constipation K59.03
[2025-10-02 13:03] VITALS: BP 137/60; PULSE 82; BMI 19.9
== END 2025-10-02 13:20 | disposition home or self-care (01) ==
LOC: HO.HGI 12:38
PROVIDERS: PCP Internal Medicine; Visit Provider Internal Medicine Gastroenterology
DX: K59.03 Drug induced constipation (principal)
CPT/HCPCS: 99213

== ENCOUNTER → 2025-10-02 12:37 | Outpatient (BNVA) | payer OTHER, SELFPAY | PROVIDERS: PCP Internal Medicine; Visit Provider Internal Medicine Gastroenterology | DX: K21.9 Gastro-esophageal reflux disease without esophagitis (principal); K59.03 Drug induced constipation | CPT/HCPCS: 99212 ==

== ENCOUNTER 2025-10-18 10:27 | Outpatient (AMB) | payer OTHER, SELFPAY ==
[2025-10-18 10:40] VITALS: BP 110/60; PULSE 85; BMI 21.1
--- NOTE | 2025-10-18 10:40 | A.OFFVIS_ITS ---
Vital Signs 10/18/25 10:40 Height 5 ft 7 in Weight 134 lb 7.712 oz BMI 21.1 BP 110/60 Blood Pressure Location Lt brachial Position Sitting Pulse 85 Pulse Source Pulse Oximeter Intake Visit Reasons: 6m follow up Intake Note: 6 mth f/up Laboratory Machinist Required: Yes Laboratory Machinist Language: Nursing Home Aide Services: Laboratory Machinist Offered & Declined Laboratory Machinist Name: sister Accompanied by: Sister Allergies No Known Allergies (No Known Allergies*) Allergy (Verified 10/02/25 12:48) Medication List - Last Reconciled 10/18/25 by Wolf Perez MD albuterol sulfate 90 mcg/actuation 2 puffs inhalation 6XD PRN 30 days aspirin (Adult Aspirin Regimen) 81 mg PO DAILY atorvastatin 80 mg PO BEDTIME cane As directed docusate sodium 100 mg PO DAILY ferrous sulfate 325 mg PO DAILY 90 days food supplemt, lactose-reduced (Ensure oral liquid) 1 ea PO BID 30 days Incruse Ellipta 62.5 mcg/actuation (umeclidinium) 1 inh inhalation DAILY 30 days NS methadone 35 mg PO DAILY naloxegol (Movantik) 25 mg PO QAM omeprazole 40 mg PO DAILY polyethylene glycol 3350 (Miralax) 17 grams PO DAILY PRN 30 days quetiapine 25 mg PO BEDTIME rivaroxaban (Xarelto) 2.5 mg PO BID sennosides (senna) 8.6 mg PO BEDTIME PRN 90 days HPI Comments Details: [age] year gentleman with background history of tobacco abuse and severe inflow disease involving iliac artery is now status post aortobifem bypass in 2021. Recent imaging has shown occluded left limb of the bypass graft with distal reconstitution of common femoral artery by collaterals. He has claudication with activity and can walk up to 2 blocks at this point. Unfortunately he continues to smoke and we had detailed discussion about smoking cessation. He is taking aspirin and Xarelto 2.5 mg. He is supposed to take it twice a day but his sister has noticed that he is taking it once a day and she is trying to implement drug compliance. Blood pressure control is good. His LDL cholesterol is 88 and target should be 55 or below. [facility] Medical History Aortoiliac occlusive disease PAD (peripheral artery disease) COPD (chronic obstructive pulmonary disease) PVD (peripheral vascular disease) Malnutrition COPD (chronic obstructive pulmonary disease) Claudication of both lower extremities Physical exam Left foot pain Mild recurrent major depression Hemorrhoids Smoker History of heroin abuse Anemia Hx of gastritis History of dysphagia Hiatal hernia GERD (gastroesophageal reflux disease) Anxiety Surgical History History of aorto-femoral bypass S/P aortogram History of esophagogastroduodenoscopy (EGD) Hx of colonoscopy History of prostate surgery Family History Father No problems noted. Mother CVD (cardiovascular disease) Myocardial infarction Family/Other FH: mental illness Other Substance use disorder Social History Household Members: Family Household Members Other:: sister Housing: House Are you a primary vp care management to a significant other at home: No Do you presently have visiting nurse or other home services: No Alcohol intake: former Patient Tobacco Use Status: Current everyday Tobacco user Tobacco use type: Cigarette Cigarettes Per Day: 1 Years Smoked: 30 +/- e-Cigarette/Vaping Use: Never Used Second Hand Smoke Exposure: No Substance Use Type: Heroin Advance Directives Date on File: 10/27/22 service: No Current occupational status: disabled Cognitive needs: No Hearing needs: No Vision needs: No Review of Systems Const Denies chills, Denies fatigue, Denies fever(s), Denies frequent falls, Denies weakness, Denies weight gain and Denies weight loss ENT Denies dizziness Card Denies chest pain, Denies leg edema, Denies lightheadedness, Denies palpitations, Denies dyspnea and Denies dyspnea on exertion Resp Denies cough, Denies dyspnea and Denies dyspnea on exertion GI Denies hematochezia Musc Denies abnormal gait, Denies muscle weakness, Denies numbness, Denies radiating pain into limb and Denies tingling Neuro Denies abnormal gait, Denies dizziness, Denies frequent falls, Denies numbness, Denies tingling and Denies weakness Endo Denies fatigue and Denies palpitations Physical Exam Vital Signs: Last Vital Signs Pulse 85 10/18/25 10:40 BP 110/60 10/18/25 10:40 BMI result Body Mass Index 21.1 GENERAL APPEARANCE: in no acute distress, pleasant. NECK: no carotid bruit, no jugular venous distention. SKIN: no suspicious lesions, warm and dry. HEART: no murmurs, regular rate and rhythm. LUNGS: clear to auscultation bilaterally. ABDOMEN: soft, nontender. Healed midline laparotomy scar. EXTREMITIES: no edema. NEUROLOGIC: No gross deficits, AAO X 3 Assessment & Plan Assessment & Plan (1) Aortoiliac occlusive disease: Comment: 10/13/2022 - open aortobifemoral bypass. Code(s): I74.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 Category: Medical (2) Hyperlipidemia: Code(s): E78.5 - Hyperlipidemia, unspecified Category: Medical Qualifiers: Hyperlipidemia type: unspecified Qualified Code(s): E78.5 - Hyperlipidemia, unspecified (3) Coronary artery disease: Code(s): I25.10 - Atherosclerotic heart disease of [place] coronary artery without angina pectoris Category: Medical Plan [age] year gentleman with background history of tobacco abuse, peripheral vascular disease status post aortobifem surgery with occluded left limb of the bypass graft, cardiomyopathy with EF 45-50% been ECHO was performed in 2021 and claudication. Blood pressure control is good. He is denying any chest discomfort shortness of breath. Continue aspirin and Xarelto 2.5 mg twice a day. Adding ezetimibe 10 mg daily in addition to his atorvastatin 80 mg daily. He should have repeat lipid panel in 2 months. We will repeat echocardiography to reassess LV function as it was mildly reduced in 2021 and he has not had any further assessment since then. Thank you for allowing me to participate in the care of your patient. Please feel free to contact me if you have any questions. Orders: Orders CA echo transthorac w con Today I25.10 - Atherosclerotic heart disease of [place] coronary artery without angina pectoris Medications: New ezetimibe 10 mg PO DAILY 60 tabs 3RF I25.10 - Atherosclerotic heart disease of [place] coronary artery without angina pectoris Coding Level of Care Code Est Pt Level 4 (65398) Diagnoses Aortoiliac occlusive disease I74.09 Hyperlipidemia, unspecified hyperlipidemia type E78.5 Hyperlipidemia type: unspecified Coronary artery disease I25.10
== END 2025-10-18 11:03 | disposition home or self-care (01) ==
LOC: HO.HCS 10:28
PROVIDERS: PCP Internal Medicine; Visit Provider Internal Medicine Cardiovascular Disease
DX: I74.09 Other arterial embolism and thrombosis of abdominal aorta (principal); E78.5 Hyperlipidemia, unspecified; I25.10 Atherosclerotic heart disease of native coronary artery without angina pectoris
CPT/HCPCS: 99214

== ENCOUNTER → 2025-10-18 10:27 | Outpatient (BNVA) | payer OTHER, SELFPAY | PROVIDERS: PCP Internal Medicine; Visit Provider Internal Medicine Cardiovascular Disease | DX: I10 Essential (primary) hypertension (principal); I74.09 Other arterial embolism and thrombosis of abdominal aorta; E78.5 Hyperlipidemia, unspecified; Z79.899 Other long term (current) drug therapy; I25.10 Atherosclerotic heart disease of native coronary artery without angina pectoris; F17.210 Nicotine dependence, cigarettes, uncomplicated; Z79.01 Long term (current) use of anticoagulants; Z95.828 Presence of other vascular implants and grafts; Z79.82 Long term (current) use of aspirin | CPT/HCPCS: 99212 ==